=== PATIENT | male | born 1935 | race American Indian/Alaskan Native ===

== ENCOUNTER 2016-03-27 12:08 | Emergency (ER) | payer MEDICARE ==
[2016-03-27 13:50] LABS: Basophils % (Auto) 0.6 % (0.0-1.8); Eosinophils % (Auto) 2.3 % (0.0-4.3); Hematocrit 31.8 % (35.5-45.6); Mean Corpuscular HGB Conc 31 % (32-34); Mean Corpuscular Hemoglobin 28 pg (28-32); Mean Corpuscular Volume 88 fl (84-94); Platelet Count 225 K/mm3 (140-440); Red Cell Distribution Width 18.3 % (13.2-15.2); White Blood Count 5.7 K/mm3 (4.5-11.0)
[2016-03-27 14:01] LABS: INR 1.18 (0.87-1.13)
[2016-03-27 14:02] LABS: Partial Thromboplastin Time 37.7 Sec. (24.2-36.6)
[2016-03-27 14:05] LABS: Albumin 3.3 g/dL (3.9-5); BUN/Creatinine Ratio 3.54; Bilirubin,Total 0.4 mg/dL (0.1-1.2); Calcium 9.3 mg/dL (8.4-10.2); Chloride 94.5 mmol/L (98-107); Potassium 4.2 mmol/L (3.6-5.0); Total Protein 6.7 g/dL (6.3-8.2)
--- NOTE | 2016-03-27 17:07 | Emergency Department Report ---
ED GI Bleed HPI - General Chief complaint: GI Bleed Stated complaint: URINATION PAIN Time Seen by Provider: 03/27/16 16:33 Source: patient Mode of arrival: Ambulatory Limitations: No Limitations - History of Present Illness Initial comments: 80-year-old male the past with history end-stage kidney disease on dialysis, renal ca, CAD, hypertension, history of stomach ulcers status post surgical repair, left nephrectomy, and prostate cancer treated for prostate seeds and radiation presents to the hospital complaining of blood from penis and rectum intermittently for a couple of weeks. Patient has very little residual urine output and will go a day or 2 without urinating. Patient states Monday while in dialysis patient had the urge she urinated only gross blood came out. This has been occurring intermittently times several weeks. Patient also having intermittent bloody stools. He denies pain, nausea, vomiting, lightheadedness, or syncope. Patient is compliant with his Nexium. Patient states he had cystoscopy 2-3 years ago which was "okay". PMD: Peng reception interviewer: Dr. Lynch patient receives dialysis Monday, Monday, and Monday. - Related Data Home Medications Medication Instructions Recorded Confirmed Last Taken glipiZIDE [glipiZIDE XL] 2.5 mg PO DAILY 03/02/15 03/27/16 07/02/15 Ranitidine HCl [Acid Chemical Engineering Teacher] 150 mg PO BID 03/27/16 03/27/16 Unknown Sevelamer Carbonate [Renvela] 800 mg PO TIDWM 03/27/16 03/27/16 Unknown amLODIPine [Norvasc] 10 mg PO QDAY 03/27/16 03/27/16 Unknown Previous Rx's Medication Instructions Recorded Last Taken Type Carvedilol [Coreg] 6.25 mg PO BID #60 tablet 03/05/15 07/02/15 Rx Allergies Allergy/AdvReac Type Severity Reaction Status Date / Time No Known Allergies Allergy Verified 03/19/16 17:05 ED Review of Systems ROS: Stated complaint: URINATION PAIN Other details as noted in HPI Comment: All other systems reviewed and negative Other: Constitutional: No fevers chills Eyes: No eye pain visual changes ENT: No ear pain or throat pain Neck: Denies pain Respiratory: Denies cough wheezing shortness of breath Cardiovascular: Denies chest pain, palpitations, syncope GI: Denies abdominal pain, nausea, vomiting, diarrhea : Denies dysuria Musculoskeletal: Denies back pain Skin: Denies rash, lesions, erythema Neurologic: Denies headache, numbness, weakness Psychiatric: Denies suicidal ideation, hallucinations ED Past Medical Hx - Past Medical History Hx Hypertension: Yes Hx Heart Attack/AMI: No Hx Congestive Heart Failure: No Hx Diabetes: Yes Hx Deep Vein Thrombosis: No Hx Pulmonary Embolism: No Hx Liver Disease: No Hx Renal Disease: Yes Hx of Cancer: Yes (prostate tx with seeds and radiation) Hx Sickle Cell Disease: No Hx Kidney Stones: No Hx Asthma: No Hx COPD: No Hx Tuberculosis: No Hx HIV: No Additional medical history: Stomach Ulcers. HD with vascath right chest,new graph in right arm. Hx of renal carcinoma - Surgical History Hx Coronary Stent: No Hx Open Heart Surgery: No Hx Pacemaker: No Hx Internal Defibrillator: No Hx Cholecystectomy: No Hx Appendectomy: No Hx Breast Surgery: No Additional Surgical History: Left kidney removed. HD graft 04/2015. prostate surgery - Social History Smoking Status: Former Smoker Substance Use Type: None - Medications Home Medications: Home Medications Medication Instructions Recorded Confirmed Last Taken Type glipiZIDE [glipiZIDE XL] 2.5 mg PO DAILY 03/02/15 03/27/16 07/02/15 History Carvedilol [Coreg] 6.25 mg PO BID #60 tablet 03/05/15 03/27/16 07/02/15 Rx Ranitidine HCl [Acid Chemical Engineering Teacher] 150 mg PO BID 03/27/16 03/27/16 Unknown History Sevelamer Carbonate [Renvela] 800 mg PO TIDWM 03/27/16 03/27/16 Unknown History amLODIPine [Norvasc] 10 mg PO QDAY 03/27/16 03/27/16 Unknown History ED Physical Exam - General Limitations: No Limitations - Other Other exam information: General: No limitations, patient is alert in no acute distress Head exam: Atraumatic, normocephalic Eyes exam: Normal appearance, pupils equal reactive to light, extraocular movements intact ENT: Moist mucous membrane, normal oropharynx Neck exam: Normal inspection, full range of motion, no meningismus nontender Respiratory exam: Clear to auscultation bilateral, no wheezes, rales, crackles Cardiovascular: Normal rate and rhythm, normal heart sounds Abdomen: Soft, nondistended, upper abdomen vertical surgical scar left upper quadrant horizontal scar, nontender, with normal bowel sounds, no rebound, or guarding Rectal: No hemorrhoids. Guaiac positive brown bloody stool : Circumcised, no penile lesions, no penile discharge or blood at the meatus. No testicular or epididymal tenderness. No scrotal abnormality Extremity: Full range of motion normal inspection no deformity Back: Normal Inspection, full range of motion, no tenderness Neurologic: Alert, oriented x3, cranial nerves intact, no motor or sensory deficit Psychiatric: normal affect, normal mood Skin: Warm, dry, intact ED Course Vital Signs 03/27/16 13:13 Temperature 98.3 F Pulse Rate 78 Respiratory 18 Rate Blood Pressure 150/77 O2 Sat by Pulse 97 Oximetry - Consultations Consultation #1: 03/27/16 17:[address] william GI regional manager suggest outpatient follow-up and close monitoring of H&H by the dialysis center Consultation #2: 03/27/16 17:51 Case d/w Dr. Lynch who will continue to monitor as an outpatient. Informed Urology and GI f/u info will be provided ED Medical Decision Making - Lab Data Result diagrams: 03/27/16 13:30 03/27/16 13:30 Lab Results 03/27/16 03/27/16 03/27/16 Range/Units 13:30 13:30 13:30 WBC 5.7 (4.5-11.0) K/mm3 RBC 3.60 L (3.65-5.03) M/mm3 Hgb 10.0 L (11.8-15.2) gm/dl Hct 31.8 L (35.5-45.6) % MCV 88 (84-94) fl MCH 28 (28-32) pg MCHC 31 L (32-34) % RDW 18.3 H (13.2-15.2) % Plt Count 225 (140-440) K/mm3 Lymph % (Auto) 13.3 L (13.4-35.0) % [place] % (Auto) 8.8 H (0.0-7.3) % Eos % (Auto) 2.3 (0.0-4.3) % Baso % (Auto) 0.6 (0.0-1.8) % Lymph # 0.8 L (1.2-5.4) K/mm3 [place] # 0.5 (0.0-0.8) K/mm3 Eos # 0.1 (0.0-0.4) K/mm3 Baso # 0.0 (0.0-0.1) K/mm3 Seg Neutrophils % 75.0 H (40.0-70.0) % Seg Neutrophils # 4.3 (1.8-7.7) K/mm3 PT 14.9 (12.2-14.9) Sec. INR 1.18 H (0.87-1.13) APTT 37.7 H (24.2-36.6) Sec. Sodium 140 (137-145) mmol/L Potassium 4.2 (3.6-5.0) mmol/L Chloride 94.5 L (98-107) mmol/L Carbon Dioxide 30 (22-30) mmol/L Anion Gap 20 mmol/L BUN 33 H (9-20) mg/dL Creatinine 9.3 H (0.8-1.5) mg/dL Estimated GFR 7 ml/min BUN/Creatinine Ratio 3.54 % Glucose 133 H (75-100) mg/dL Calcium 9.3 (8.4-10.2) mg/dL Total Bilirubin 0.4 (0.1-1.2) mg/dL AST 13 (5-40) units/L ALT 8 (7-56) units/L Alkaline Phosphatase 41 (35-129) units/L Total Protein 6.7 (6.3-8.2) g/dL Albumin 3.3 L (3.9-5) g/dL Albumin/Globulin Ratio 1.0 % Lipase 107 H (13-60) units/L Blood Type Antibody Screen 03/27/16 Range/Units 13:30 WBC (4.5-11.0) K/mm3 RBC (3.65-5.03) M/mm3 Hgb (11.8-15.2) gm/dl Hct (35.5-45.6) % MCV (84-94) fl MCH (28-32) pg MCHC (32-34) % RDW (13.2-15.2) % Plt Count (140-440) K/mm3 Lymph % (Auto) (13.4-35.0) % [place] % (Auto) (0.0-7.3) % Eos % (Auto) (0.0-4.3) % Baso % (Auto) (0.0-1.8) % Lymph # (1.2-5.4) K/mm3 [place] # (0.0-0.8) K/mm3 Eos # (0.0-0.4) K/mm3 Baso # (0.0-0.1) K/mm3 Seg Neutrophils % (40.0-70.0) % Seg Neutrophils # (1.8-7.7) K/mm3 PT (12.2-14.9) Sec. INR (0.87-1.13) APTT (24.2-36.6) Sec. Sodium (137-145) mmol/L Potassium (3.6-5.0) mmol/L Chloride (98-107) mmol/L Carbon Dioxide (22-30) mmol/L Anion Gap mmol/L BUN (9-20) mg/dL Creatinine (0.8-1.5) mg/dL Estimated GFR ml/min BUN/Creatinine Ratio % Glucose (75-100) mg/dL Calcium (8.4-10.2) mg/dL Total Bilirubin (0.1-1.2) mg/dL AST (5-40) units/L ALT (7-56) units/L Alkaline Phosphatase (35-129) units/L Total Protein (6.3-8.2) g/dL Albumin (3.9-5) g/dL Albumin/Globulin Ratio % Lipase (13-60) units/L Blood Type B POSITIVE Antibody Screen Negative - Medical Decision Making Patient has signs of guaiac positive bloody brown stools in the ED however, stable H&H and relatively asymptomatic. Unable to collect urine given the patient's minimal urine output at this time. I discussed case with GI will agree patient is stable for outpatient follow-up. Dr. Lynch aware to continue to monitor H&H. Patient will need outpatient workup and evaluation given history of prostate cancer in his current symptoms. - Differential Diagnosis cystitis, cancer, AVM, hemorrhoids, diverticulosis Critical Care Time: No Critical care attestation.: If time is entered above; I have spent that time in minutes in the direct care of this critically ill patient, excluding procedure time. ED Disposition Clinical Impression: ESRD (end stage renal disease) on dialysis, Rectal bleeding, Hematuria Disposition: DISCHARGED TO HOME OR SELFCARE Is pt being admited?: No Does the pt Need Aspirin: No Condition: Stable Instructions: Chronic Kidney Disease (ED), Acute Hematuria (ED), Rectal Bleeding (ED) Additional Instructions: Continue to monitor urine output and stools for blood. Return if symptoms worsen. Your reception interviewer Dr. Lynch has been informed again status and will continue to follow your blood count as outpatient. It is important to follow- up with both the GI physician and the urologist for further workup and evaluation of your symptoms. Referrals: your, pmd [Other] - 3-5 Days HATTIE LYNCH MD [Staff Physician] - 3-5 Days (kidney doctor) ZAIRE ARELLANO MD [Staff Physician] - 2-3 Days (Urologist) JUAN RAMON WILLIAM MD [Staff Physician] - 2-3 Days (GI doctor) Forms: Accompanied Note Time of Disposition: 17:55
[2016-03-27 18:28] VITALS: BP 174/82
== END 2016-03-27 18:43 | disposition home or self-care (01) ==
LOC: ED 12:08
DX: I12.0 Hypertensive chronic kidney disease with stage 5 chronic kidney disease or end stage renal disease (principal); N18.6 End stage renal disease; K62.5 Hemorrhage of anus and rectum; R31.9 Hematuria, unspecified; Z99.2 Dependence on renal dialysis; E11.9 Type 2 diabetes mellitus without complications; Z85.46 Personal history of malignant neoplasm of prostate; Z87.891 Personal history of nicotine dependence
CPT/HCPCS: 36415; 80053; 82271; 83690; 85025; 85610; 85730; 86850; 86900; 86901; 99284

== ENCOUNTER 2016-05-03 06:00 | Inpatient (IN) | payer MEDICARE ==
--- NOTE | 2016-05-02 13:40 | Short Stay Summary ---
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 GUTIÉRREZ / CYSTO,BX UNDER ANESTHESIA - History Past Medical History: diabetes, ESRD (PROSTATE CANCER S/P SEEDS ), hypertension - Allergies and Medications Current Medications: Allergies No Known Allergies Allergy (Verified 03/19/16 17:05) Home Medications Medication Instructions Recorded Confirmed Last Taken Type glipiZIDE [glipiZIDE XL] 2.5 mg PO DAILY 03/02/15 04/21/16 07/02/15 History Carvedilol [Coreg] 6.25 mg PO BID #60 tablet 03/05/15 04/21/16 07/02/15 Rx Sevelamer Carbonate [Renvela] 800 mg PO TIDWM 03/27/16 04/21/16 Unknown History amLODIPine [Norvasc] 10 mg PO QDAY 03/27/16 04/21/16 Unknown History Active Medications Cefazolin Sodium (Ancef/Ns 1 Gm/50 Ml) 1 gm in 50 mls @ 100 mls/hr IV PREOP NR PRN Reason: Protocol - Physical exam General appearance: no acute distress, well-nourished Integumentary: no rash, no growths HEENT: Atraumatic, PERRLA, EOMI Lungs: Clear to auscultation, Normal air movement Heart: Regular rate, No murmurs Gastrointestinal: normal Male Genitourinary: normal Rectal Exam: deferred Extremities: no ischemia, No edema Neurological: Normal gait, Normal tone Short Stay Discharge Plan Follow up with: GUS SANCHEZ MD [Primary Care Provider] - 7 Days
[~2016-05-03 06:00] MED LIST: ANCEF/NS 1 GM/50 ML 1 GM/50 ML BAG IV NR
[2016-05-03] MEDS ORDERED: NACL BACTERIOSTATIC INFILTRATI ONE (06:24)
[2016-05-03 06:56] LABS: Hematocrit 37.9 % (35.5-45.6)
[2016-05-03] MEDS ORDERED: NACL 0.9% 1000 ML 1,000 ML IV SCH ×2 (07:00→11:00)
--- NOTE | 2016-05-03 07:02 | Anesthesia Day of Surgery ---
Anesthesia Day of Surgery - Day of Surgery Patient Examined: Yes Patient H&P Reviewed: Yes Patient is NPO: Yes Beta Blockers: Yes Cardiac Clearance: No Pulmonary Clearance: No
--- NOTE | 2016-05-03 07:03 | Anesthesia Consultation ---
Anesthesia Consult and Med Hx Date of service: 05/03/16 - Airway Anesthetic Teeth Evaluation: Good, Caps ROM Head & Neck: Adequate Mental/Hyoid Distance: Adequate Mallampati Class: Class II Intubation Access Assessment: Probably Good - Pulmonary Exam CTA: Yes (blbs clear) - Cardiac Exam Cardiac Exam: RRR - Pre-Operative Health Status ASA Pre-Surgery Classification: ASA4 Proposed Anesthetic Plan: General - Pulmonary Hx Smoking: Yes (STOPPED X 40 YRS- 1 1 1/2PPD X 20 YRS) Hx Asthma: No COPD: No (?) Hx Pneumonia: No Hx Sleep Apnea: No (NELIDA PRE SCREEN HIGH RISK) - Cardiovascular System Hx Hypertension: Yes (X 4 YRS) Hx Coronary Artery Disease: Yes - Central Nervous System Hx Psychiatric Problems: No - Gastrointestinal Hx Ulcer: Yes - Endocrine Hx Renal Disease: Yes (LEFT NEPHRECTOMY DUE TO CA/ESRD on HD MWF) Hx End Stage Renal Disease: Yes Hx Cirrhosis: No Hx Liver Disease: No Hx Insulin Dependent Diabetes: Yes Hx Hypothyroidism: No Hx Hyperthyroidism: No - Hematic Hx Anemia: No Hx Sickle Cell Disease: No - Other Systems Hx Cancer: Yes
[2016-05-03] MEDS ORDERED: DILAUDID ONE (07:04)
[2016-05-03] MEDS ORDERED: DIPRIVAN 10 MG/ML IV ONE (07:04)
[2016-05-03 07:05] LABS: BUN/Creatinine Ratio 4.58; Calcium 9.2 mg/dL (8.4-10.2); Potassium 4.4 mmol/L (3.6-5.0)
[2016-05-03] MEDS ORDERED: XYLOCAINE MPF 2% ONE (07:08)
[2016-05-03] MEDS ORDERED: ZOFRAN ONE (07:57)
[2016-05-03] MEDS ORDERED: WATER FOR IRRIG STERILE IR ONE (08:04)
--- NOTE | 2016-05-03 08:35 | Short Stay Summary ---
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 GUTIÉRREZ / CYSTO,BX UNDER ANESTHESIA - History Past Medical History: diabetes, ESRD (PROSTATE CANCER S/P SEEDS ), hypertension Past Surgical History: Other (prostate seeds) - Allergies and Medications Current Medications: Allergies No Known Allergies Allergy (Verified 03/19/16 17:05) Home Medications Medication Instructions Recorded Confirmed Last Taken Type glipiZIDE [glipiZIDE XL] 2.5 mg PO DAILY 03/02/15 05/03/16 05/02/16 History Carvedilol [Coreg] 6.25 mg PO BID #60 tablet 03/05/15 05/03/16 05/02/16 Rx Sevelamer Carbonate [Renvela] 800 mg PO TIDWM 03/27/16 05/03/16 05/02/16 History amLODIPine [Norvasc] 10 mg PO QDAY 03/27/16 05/03/16 05/02/16 History Active Medications Fentanyl (Sublimaze) 50 mcg IV Q5MIN PRN PRN Reason: Pain , Severe (7-10) Stop: 05/03/16 16:00 Cefazolin Sodium (Ancef/Ns 1 Gm/50 Ml) 1 gm in 50 mls @ 100 mls/hr IV PREOP NR PRN Reason: Protocol Stop: 05/03/16 23:59 Sodium Chloride (Nacl 0.9% 1000 Ml) 1,000 mls @ 100 mls/hr IV DIRECT JENNIFER Stop: 05/03/16 23:59 Last Admin: 05/03/16 06:40 Dose: 100 mls/hr - Physical exam General appearance: no acute distress, well-nourished Integumentary: no rash, no growths HEENT: Atraumatic, PERRLA Lungs: Clear to auscultation, Normal air movement Heart: Regular rate, No murmurs Male Genitourinary: normal Rectal Exam: normal rectal tone Extremities: no ischemia, No edema Neurological: Normal gait - Brief post op/procedure progress note Date of procedure: 05/03/16 Pre-op diagnosis: gross hematuria Post-op diagnosis: same Procedure: cysto, cystogram, bladder bx Anesthesia: GETA Surgeon: ZAIRE ARELLANO Estimated blood loss: minimal Pathology: list (bladder bx) Condition: stable - Hospital course Hospital course: norco & cipro on chart needs CTAP - Disposition Condition at discharge: Stable Disposition: DISCHARGED TO HOME OR SELFCARE Short Stay Discharge Plan Follow up with: GUS SANCHEZ MD [Primary Care Provider] - 7 Days
[2016-05-03] MEDS: SUBLIMAZE IV PRN ×4 (09:07→14:19)
[2016-05-03] MEDS ORDERED: APRESOLINE IV NR (09:25)
--- NOTE | 2016-05-03 09:26 | Post Anesthesia Evaluation ---
- Post Anesthesia Evaluation Patient Participated: Yes Airway Patent: Yes Stable Respiratory Function: Yes Nausea/Vomiting: No Temp > 96.8F: Yes Pain Manageable: Yes Adequeate Hydration: Yes Anesthesia Complications: No Block Receding Appropriately: Not Applicable
--- NOTE | 2016-05-03 09:56 | Fluoroscopy Report ---
CYSTOGRAM STATIC, ONE VIEW History: Hematuria, prostate cancer. Findings: Fluoroscopy was provided by radiology during cystogram by urology. 7 fluoroscopic images were captured. 70 cc of Omnipaque-300 was used. Operative notes mention the bladder was washed for cytology and bladder biopsy of a bladder mass. Please correlate with the procedural report.
--- NOTE | 2016-05-03 10:36 | Cat Scan Report ---
CT OF THE ABDOMEN AND PELVIS WITHOUT CONTRAST HISTORY: Gross hematuria. TECHNIQUE: Helical CT without contrast. Sagittal and coronal reformatted images. FINDINGS: Recent cystogram and bladder biopsy was performed. The bladder is collapsed and confirms a Gunter catheter. There is contrast agent outside of the bladder within the pelvis. A perforated bladder is suspected until proved otherwise. There is also moderate to large ascites throughout the abdomen. There is trace free air under the right hemidiaphragm which is probably related to recent cystogram. Left nephrectomy changes are suspected. There is severe hydronephrosis in the right renal collecting system. The right ureter is dilated down to the right UVJ and presumably occluded by blood or tumor. There is no obvious stone in this area. The liver, biliary system, pancreas, spleen and adrenal glands are unremarkable. The bowel loops are normal caliber and wall thickness given no oral contrast was administered. Normal appendix. Mild sigmoid diverticulosis is noted. No suspicious bony lesion or fracture. Moderate thoracolumbar spondylosis is noted. Heart size is normal. There is a suspicious spiculated mass in the medial right middle lobe measuring 2.4 x 1.6 cm. This is highly suspicious for a metastatic lesion. This lesion is not accessible for CT-guided biopsy due to its location close to the heart. Small bilateral pleural effusions are noted. IMPRESSION: Probable perforated bladder with contrast extravasation. There is also large ascites appears to be new since previous exams. This may represent urine. Severe right hydronephrosis. There is high-grade stenosis or occlusion near the right UVJ which may be secondary to tumor. No obstructing stone is seen. Right middle lobe mass concerning for metastasis. Small bilateral pleural effusions.
[2016-05-03] MEDS ORDERED: D50W (25GM) IV PRN (10:51)
[2016-05-03] MEDS ORDERED: ZOFRAN IV PRN ×2 (10:51)
[2016-05-03] MEDS ORDERED: MILK OF MAGNESIA PO PRN (10:51)
[2016-05-03] MEDS ORDERED: TYLENOL PO PRN (10:51)
[2016-05-03] MEDS ORDERED: NARCAN 0.4 MG/1 ML IV PRN (10:51)
[2016-05-03] MEDS: MORPHINE IV PRN ×2 (11:35→16:58)
[2016-05-03] MEDS ORDERED: DULCOLAX PR PRN (12:00)
--- NOTE | 2016-05-03 12:20 | Event Note ---
Date: 05/03/16 CTAP today bladder perforation, ?small, unable to localize prostate cancer with seeds & EBRT 14 yrs ago---[place] A/P bladder perforation - pt stable at this time NPO keep russo dialysis tomorrow in hospital conservative vs surgical intervention Dr. Syed Quinn
--- NOTE | 2016-05-03 12:44 | Operative Report ---
PREOPERATIVE DIAGNOSIS: Gross hematuria. POSTOPERATIVE DIAGNOSIS: Gross hematuria. SECONDARY DIAGNOSES: Chronic renal failure, on hemodialysis; prostate cancer, status post brachytherapy approximately 14 years ago in [place] and external beam radiation. PROCEDURE: Cystoscopy, cystogram, bladder biopsy. SURGEON: Bhavki Gupta MD ANESTHESIA: General. ESTIMATED BLOOD LOSS: Minimal. FLUIDS: Crystalloid. COMPLICATIONS: No complications. INDICATIONS: This patient is an 80-year-old gentleman, known to my service, was actually referred by Dr. Jamil Khoury last year for evaluation of hematuria. He underwent CT of abdomen and pelvis in June of last year, revealed chronic right hydronephrosis. He has had a left nephrectomy. Cystoscopy June of last year revealed some erythema of the bladder. The patient was due to follow up for reevaluation in 4 months, which he now showed for that appointment. He presents now due to recurrent bleeding. His web portal developer is Dr. Lynch. DESCRIPTION OF PROCEDURE: The patient was taken to the operative suite and placed in a supine position. After adequate general anesthesia, placed in a dorsal lithotomy position, prepped and draped in a sterile fashion. Pancystourethroscopy was performed with a 22-[place] Storz cystoscope. No urethral abnormalities. His prostate was minimally obstructing and had a high riding bladder neck. Bladder, there are a lot of edema, could not initially appear contracted. Cystogram appeared to be a dilated bladder with dilute contrast. Rectal exam was benign and was unsure of what was going on and therefore, a biopsy was taken of the erythematous area at the bladder neck. This area was fulgurated. Urine cytology was sent. Gunter catheter was then placed with the wire. The patient was extubated and taken to recovery room. We will get a CT scan for further evaluation. JOB# [id number] [facility]/STEFANY
[2016-05-03] MEDS: RENVELA PO SCH ×2 (14:04→16:57)
[2016-05-03] MEDS: NORCO 5/325 PO PRN ×2 (14:20→22:00)
--- NOTE | 2016-05-03 17:56 | Admit Criteria Form ---
Admission Criteria Documentation: UROLOGIC DISEASE [facility] Clinical Indications for Admission to Inpatient Care (Place ' X' for any and all applicable criteria): Hospital admission is needed for appropriate care of the patient because of ANY ONE of the following: [ ]I. New-onset Reduced urine output, or hydronephrosis remaining after emergency or observation level care indicated by ANY ONE the following (1)(2) [ ]a) Urine output less than 0.5 mL/kg/hour for 6 hours in adult [ ]b) Anuria (urine output less than 0.1 mL/kg/hour) for 4 hours in any age group [ ]c) Reduced output in child as indicated by ANY ONE of the following (3) [ ]i) Urine output less than 2 mL/kg/hour for 6 hours in younger than 2 [ ]ii) Urine output less than 1 mL/kg/hour for 6 hours in child younger than 12 years [ ]iii) Urine output less than 0.75 mL/kg/hour for 6 hours in adolescent younger than 18 years [ ]II. Acute urinary retention requiring inpatient management as indicated by ANY ONE of the following(1)(13): [ ]a) Hemodynamic instability remaining after emergency or observation level care (as appropriate) [ ]b) Retention cannot be alleviated via emergency or observation level care (eg, urinary catheter placement) [ ]c) Acute neurologic etiology (eg, cauda equina) [ ]d) Dehydration or other complications not manageable with emergency or observation level care [ ]e) Acute kidney injury (that does not qualify as Acute renal failure ) requiring inpatient care indicated by ALL of the following(5)(6)(7)(8) (9): [ ]i) Acute kidney injury indicated by ANY ONE of the following: [ ]1) 2-fold or more rise in serum creatinine from baseline [ ]2) Reduction of more than 50% in estimated glomerular filtration rate from baseline [ ]3) Urine output less than 0.5 mL/kg/hr for 12 hours despite adequate volume status [ ]ii) Worsening clinical status (eg, rising creatinine) despite outpatient and observation care treatment (eg, hydration) [ ]III. Gross hematuria requiring inpatient management as indicated by ANY ONE of the following(1)(2): [ ]a) Evidence of renal obstruction [ ]b) Reduced urine output (eg urine output <0.5mL/kg per hr over 6 hrs) [ ]c) Clot retention after urinary catheterization and irrigation [ ]d) Anemia [ ]e) Systemic cause needing inpatient treatment (eg, Goodpasture syndrome) [ ]IV. Urologic infection requiring inpatient care as indicated by ANY ONE of the following(10)(11)(12): [ ]a) Dehydration that is severe or persistent [ ]b) Hemodynamic instability [ ]c) Failure of, or inability to tolerate, outpatient treatment regimen [ ]d) Increased creatinine without known prior cause [ ]e) Known renal or urologic abnormalities (eg, indwelling catheter , structural abnormalities) [ ]f) Recent urologic manipulation [ ]g) Urinary obstruction [ ]h) Immunocompromised state [ ]V. Renal disease needing inpatient care (eg, nephritis, nephrosis) as indicated by ANY ONE of the following(2)(3)(4): [ ]a) Systemic cause (eg, Goodpasture syndrome) needing inpatient care (5) [ ]b) Rapidly progressive disease needing inpatient care (eg, plasmapheresis, immunosuppression)(6) [ ]c) Hemoptysis [ ]d) Hemolysis or thrombosis [ ]e) Anasarca needing inpatient care [ ]f) Hemolytic uremic syndrome(7)(8) [ ]g) Acute renal failure [ ]h) Significant uremic complications as indicated by ANY ONE of the following(1)(2)(3): [ ]i) Outpatient therapy is ineffective or not feasible for ANY ONE of the following: [ ]1) Severe heart failure [ ]2) Severe hypertension [ ]3) Pleural effusion [ ]4) Pericarditis or pericardial effusion [ ]ii) Cardiac arrhythmias of immediate concern [ ]iii) Recurrent seizures [ ]iv) Bleeding abnormalities (eg, platelet dysfunction) with active (eg, gastrointestinal) bleeding [ ]v) Dialysis indicated before long-term access or ambulatory arrangements can be made [ ]vi) Significant metabolic or electrolyte abnormalities (eg , severe acidosis or hyperkalemia) [ ]vii) Intractable nausea or vomiting [ ]viii) Encephalopathy [ ]. New-onset oliguria, anuria, or hydronephrosis not responsive to emergency and observation care treatment (as appropriate)(1) [ ]VII. Trauma to renal, genital, or urologic system requiring inpatient medical care(14)(15)(16)(17) [ ]VIII.Scrotal, testicular, or epididymal disorder requiring inpatient care indicated by ANY ONE of the following(1)(14)(15)(16): [ ]a) Scrotal edema or infection not manageable with emergency or observation level care [ ]b) Orchitis not manageable with emergency or observation level care [ ]c) Epididymitis not manageable with emergency or observation level of care [ ]d) Other scrotal, testicular, or epididymal disorder (eg, infection, inflammation) not manageable with emergency or observation level care [X ]IX. Urologic Disease and ALL of the following: [X ]a) Symptom or finding for which emergency and observation care have failed or are not considered appropriate (Use General Criteria: Observation Care as appropriate) [X ]b) Presence of ANY ONE of the following: [X ]i) A General Admission Criteria [ ]ii) A Pediatric General Admission Criteria The original [facility] content created by [facility] has been revised. The portions of the content which have been revised are identified through the use of italic text or in bold, and [facility] has neither reviewed nor approved the modified material. All other unmodified content is copyright [facility]. Please see references footnoted in the original [facility] edition 2016 Admission Criteria Met: Yes
--- NOTE | 2016-05-03 21:06 | Consultation ---
History of Present Illness - Reason for Consult Consult date: 05/03/16 end stage renal disease Requesting physician: ZAIRE ARELLANO - History of Present Illness 80-year-old male who is known to me followed by Dr. Lynch with end-stage renal disease on hemodialysis on a Monday, Monday and Monday schedule. Patient had his usual dialysis yesterday for 3-1/2 hours with no complications. Patient also has a history of left nephrectomy and chronic right hydronephrosis. He has a history of prostate cancer status post seed implants 14 years ago. Patient presented on account of gross hematuria and had cystogram and bladder biopsy. CT of the abdomen and pelvis is suggesting possible small perforation given contrast extravasation with large ascites. Patient is been admitted for further management. I'm consulted to assist in providing dialysis and managing his fluid and electrolyte abnormalities. Patient's only complaint is pain in lower abdomen and back and discomfort with the Russo catheter. 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 denies: prescription drug abuse, IV drug use Family history: CAD (brother of heart disease), cancer (mother had breast cancer), other (does not know the cause of of his father. Sister of complications of emphysema) Medications and Allergies Allergies Allergy/AdvReac Type Severity Reaction Status Date / Time No Known Allergies Allergy Verified 03/19/16 17:05 Home Medications Medication Instructions Recorded Confirmed Last Taken Type glipiZIDE [glipiZIDE XL] 2.5 mg PO DAILY 03/02/15 05/03/16 05/02/16 History Carvedilol [Coreg] 6.25 mg PO BID #60 tablet 03/05/15 05/03/16 05/02/16 Rx Sevelamer Carbonate [Renvela] 800 mg PO TIDWM 03/27/16 05/03/16 05/02/16 History amLODIPine [Norvasc] 10 mg PO QDAY 03/27/16 05/03/16 05/02/16 History Active Meds: Active Medications Acetaminophen (Tylenol) 650 mg PO Q4H PRN PRN Reason: Pain MILD(1-3)/Fever >100.5/GAITAN Acetaminophen/Hydrocodone Bitart ([place] 5/325) 2 each PO Q4H PRN PRN Reason: Pain, Moderate (4-6) Last Admin: 05/03/16 14:20 Dose: 2 each Amlodipine Besylate (Norvasc) 10 mg PO QDAY JENNIFER Bisacodyl (Dulcolax) 10 mg IA QDAY PRN PRN Reason: Constipation unrelieved by MOM Carvedilol (Coreg) 6.25 mg PO BID [facility] Dextrose (D50w (25gm)) 50 ml IV PRN PRN PRN Reason: Hypoglycemia Glipizide (Glucotrol Xl) 2.5 mg PO QDDIAB [facility] Cefazolin Sodium (Ancef/Ns 1 Gm/50 Ml) 1 gm in 50 mls @ 100 mls/hr IV PREOP NR PRN Reason: Protocol Stop: 05/03/16 23:59 Cefazolin Sodium (Ancef/Ns 1 Gm/50 Ml) 1 gm in 50 mls @ 100 mls/hr IV QDAY JENNIFER PRN Reason: Protocol Stop: 05/05/16 10:29 Sodium Chloride (Nacl 0.9% 1000 Ml) 1,000 mls @ 42 mls/hr IV DIRECT JENNIFER Magnesium Hydroxide (Milk Of Magnesia) 30 ml PO Q4H PRN PRN Reason: Constipation Morphine Sulfate (Morphine) 2 mg IV Q4H PRN PRN Reason: Pain, Moderate (4-6) Last Admin: 05/03/16 16:58 Dose: 2 mg Naloxone HCl (Narcan 0.4 Mg/1 Ml) 0.1 mg IV Q2MIN PRN PRN Reason: Res Rate </= 8 or 02 SAT < 92% Ondansetron HCl (Zofran) 4 mg IV Q8H PRN PRN Reason: N/V unrelieved by Reglan Sevelamer Carbonate (Renvela) 800 mg PO TIDWM [facility] Last Admin: 05/03/16 16:57 Dose: 800 mg Review of Systems All systems: negative (Constitutional: no fever or chills. No anorexia or weight loss. HEENT: No sore throat or sinus drainage no hearing or vision impairment . Cardiovascular: No chest pain, shortness of breath, palpitations, lower extremity swelling or dizziness. Respiratory: No cough, sputum, shortness of breath, hemoptysis or wheezing. Gastrointestinal: No nausea, vomiting, diarrhea, abdominal pain, hematemesis or melena. Genitourinary: Admits to occasional urge urinary incontinence . Admits to hematuria. No frequency urgency dysuria or hematuria. hematologic: No abnormal bleeding or bruising other than hematuria he may have had some rectal bleeding. Integumentary: Admits to pruritus but no rash. Neurological: Occasional slight headache. No focal weakness or numbness, no syncope or seizures. Musculoskeletal: No joint pains no stiffness. Psychiatry: no anxiety or depression) Exam - Vital Signs Vital signs: Vital Signs Temp Pulse Resp BP Pulse Ox 98.8 F 70 20 148/68 98 05/03/16 06:40 05/03/16 06:40 05/03/16 06:40 05/03/16 06:40 05/03/16 06:40 - Physical Exam Narrative exam: Elderly -[place]est[place] male lying in bed in no acute distress HEENT normocephalic atraumatic, pupils equal reactive to light, pink, clear oropharynx Neck supple, no thyromegaly no jugular venous distention CVS S1-S2 regular rate rhythm without murmur, rub or gallop Chest clear to auscultation Abdomen soft nondistended nontender no organomegaly no bruit bowel sounds present Extremities no edema no cyanosis or clubbing Genitourinary deferred russo catheter draining bloody urine Neuro awake, alert oriented x3 no gross deficit Results - Lab Results 05/03/16 06:30 05/03/16 06:30 Most recent lab results Calcium 9.2 mg/dL (8.4-10.2) 05/03/16 06:30 Assessment and Plan - Patient Problems (1) Hematuria, gross Current Visit: Yes Status: Acute Plan to address problem: Status post cystoscopy. 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 Evaluate the need for further dialysis treatments on a daily basis. (5) Anemia in chronic kidney disease (CKD) Current Visit: Yes Status: Acute Plan to address problem: Give erythropoietin on dialysis if hemoglobin decreases to less than 12 g/dL (6) History of prostate cancer Current Visit: Yes Status: Acute
[2016-05-03] MEDS ORDERED: NACL 0.9% 100 ML IV PRN (21:59)
[2016-05-03] MEDS: COREG PO SCH (23:15)
[2016-05-04] MEDS ORDERED: APRESOLINE IV PRN (03:23)
[2016-05-04 06:20] LABS: Basophils % (Auto) 0.4 % (0.0-1.8); Eosinophils % (Auto) 0.4 % (0.0-4.3); Hematocrit 38.6 % (35.5-45.6); Hemoglobin 12.3 gm/dl (11.8-15.2); Mean Corpuscular HGB Conc 32 % (32-34); Mean Corpuscular Hemoglobin 29 pg (28-32); Mean Corpuscular Volume 92 fl (84-94); Platelet Count 162 K/mm3 (140-440); White Blood Count 10.3 K/mm3 (4.5-11.0)
[2016-05-04 06:21] LABS: Red Cell Distribution Width 20.2 % (13.2-15.2)
[2016-05-04 06:33] LABS: Calcium 8.6 mg/dL (8.4-10.2); Chloride 93.1 mmol/L (98-107); Potassium 5.1 mmol/L (3.6-5.0)
--- NOTE | 2016-05-04 09:38 | Consultation ---
History of Present Illness - Reason for Consult Consult date: 05/04/16 Medical management Requesting physician: ZAIRE ARELLANO - History of Present Illness 80-year-old male followed by Dr. Lynch with end-stage renal disease on hemodialysis on a Monday, Monday and Monday schedule. Patient had his usual dialysis yesterday for 3-1/2 hours with no complications. Patient also has a history of left nephrectomy and chronic right hydronephrosis. He has a history of prostate cancer status post seed implants 14 years ago. Patient presented on account of gross hematuria and had cystogram and bladder biopsy. CT of the abdomen and pelvis is suggesting possible small perforation given contrast extravasation with large ascites. Patient is been admitted for further management. 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 denies: prescription drug abuse, IV drug use Family history: CAD (brother of heart disease), cancer (mother had breast cancer), other (does not know the cause of of his father. Sister of complications of emphysema) Medications and Allergies Allergies Allergy/AdvReac Type Severity Reaction Status Date / Time No Known Allergies Allergy Verified 03/19/16 17:05 Home Medications Medication Instructions Recorded Confirmed Last Taken Type glipiZIDE [glipiZIDE XL] 2.5 mg PO DAILY 03/02/15 05/03/16 05/02/16 History Carvedilol [Coreg] 6.25 mg PO BID #60 tablet 03/05/15 05/03/16 05/02/16 Rx Sevelamer Carbonate [Renvela] 800 mg PO TIDWM 03/27/16 05/03/16 05/02/16 History amLODIPine [Norvasc] 10 mg PO QDAY 03/27/16 05/03/16 05/02/16 History Active Meds: Active Medications Acetaminophen (Tylenol) 650 mg PO Q4H PRN PRN Reason: Pain MILD(1-3)/Fever >100.5/GAITAN Acetaminophen/Hydrocodone Bitart ([place] 5/325) 2 each PO Q4H PRN PRN Reason: Pain, Moderate (4-6) Last Admin: 05/03/16 22:00 Dose: 2 each Amlodipine Besylate (Norvasc) 10 mg PO QDAY [facility] Bisacodyl (Dulcolax) 10 mg MD QDAY PRN PRN Reason: Constipation unrelieved by MOM Carvedilol (Coreg) 6.25 mg PO BID [facility] Last Admin: 05/03/16 23:15 Dose: 6.25 mg Dextrose (D50w (25gm)) 50 ml IV PRN PRN PRN Reason: Hypoglycemia Glipizide (Glucotrol Xl) 2.5 mg PO QDDIAB [facility] Hydralazine HCl (Apresoline) 5 mg IV Q6H PRN PRN Reason: Hypertension Last Admin: 05/04/16 04:15 Dose: 5 mg Cefazolin Sodium (Ancef/Ns 1 Gm/50 Ml) 1 gm in 50 mls @ 100 mls/hr IV QDAY JENNIFER PRN Reason: Protocol Stop: 05/05/16 10:29 Sodium Chloride (Nacl 0.9% 1000 Ml) 1,000 mls @ 42 mls/hr IV DIRECT JENNIFER Sodium Chloride (Nacl 0.9%) 100 mls @ 999 mls/hr IV RAEANN PRN PRN Reason: Hypotension Magnesium Hydroxide (Milk Of Magnesia) 30 ml PO Q4H PRN PRN Reason: Constipation Morphine Sulfate (Morphine) 2 mg IV Q4H PRN PRN Reason: Pain, Moderate (4-6) Last Admin: 05/03/16 16:58 Dose: 2 mg Naloxone HCl (Narcan 0.4 Mg/1 Ml) 0.1 mg IV Q2MIN PRN PRN Reason: Res Rate </= 8 or 02 SAT < 92% Ondansetron HCl (Zofran) 4 mg IV Q8H PRN PRN Reason: N/V unrelieved by Reglan Sevelamer Carbonate (Renvela) 800 mg PO TIDWM [facility] Last Admin: 05/03/16 16:57 Dose: 800 mg Review of Systems All systems: negative Constitutional: no weight loss, no weight gain Ears, nose, mouth and throat: no hoarseness, no sore throat Integumentary: no rash, no pruritis, no redness Neurological: no seizures, no syncope Psychiatric: anxiety, depression Endocrine: no cold intolerance, no heat intolerance, no polyphagia, no excessive thirst, no polydipsia, no polyuria Hematologic/Lymphatic: no easy bruising, no easy bleeding Allergic/Immunologic: no urticaria, no allergic rhinitis, no wheezing Exam - Constitutional Vitals: Temp Pulse Resp BP Pulse Ox 97.5 F L 91 H 18 182/75 96 05/04/16 08:00 05/04/16 08:00 05/04/16 08:00 05/04/16 08:00 05/04/16 08:00 General appearance: Present: no acute distress, well-nourished - EENT Eyes: Present: PERRL ENT: hearing intact, clear oral mucosa - Neck Neck: Present: supple, normal ROM - Respiratory Respiratory effort: normal Respiratory: bilateral: CTA - Cardiovascular Rhythm: regular Heart Sounds: Present: S1 & S2. Absent: rub, click - Extremities Extremities: pulses symmetrical, No edema Peripheral Pulses: within normal limits - Abdominal General gastrointestinal: Present: soft, distended (Ascites), normal bowel sounds Male genitourinary: Present: normal - Rectal Rectal Exam: deferred - Integumentary Integumentary: Present: clear, warm, dry - Musculoskeletal Musculoskeletal: gait normal, strength equal bilaterally - Psychiatric Psychiatric: appropriate mood/affect, intact judgment & insight - Neurologic Neurologic: CNII-XII intact, moves all extremities - Allied Health Allied health notes reviewed: nursing Results - Labs CBC & Chem 7: 05/04/16 05:40 05/04/16 05:40 Labs: Abnormal lab results 05/04/16 05/04/16 Range/Units 05:40 05:40 RDW 20.2 H (13.2-15.2) % Lymph % (Auto) 6.1 L (13.4-35.0) % Lymph # 0.6 L (1.2-5.4) K/mm3 Seg Neutrophils % 86.6 H (40.0-70.0) % Seg Neutrophils # 8.9 H (1.8-7.7) K/mm3 Sodium 135 L D (137-145) mmol/L Potassium 5.1 H (3.6-5.0) mmol/L Chloride 93.1 L (98-107) mmol/L BUN 45 H (9-20) mg/dL Creatinine 9.0 H (0.8-1.5) mg/dL Glucose 112 H (75-100) mg/dL Short CBC 05/04/16 Range/Units 05:40 WBC 10.3 (4.5-11.0) K/mm3 Hgb 12.3 (11.8-15.2) gm/dl Hct 38.6 (35.5-45.6) % Plt Count 162 (140-440) K/mm3 BMP 05/04/16 05:40 Sodium 135 L D Potassium 5.1 H Chloride 93.1 L Carbon Dioxide 24 BUN 45 H Creatinine 9.0 H Glucose 112 H Calcium 8.6 Assessment and Plan - Patient Problems (1) T2DM (type 2 diabetes mellitus) Current Visit: Yes Status: Acute Qualifiers: Diabetes mellitus complication status: with kidney complications Diabetes mellitus complication detail: D Diabetic retinopathy severity: D Proliferative retinopathy type: P Diabetes mellitus macular edema: D 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
[2016-05-04] MEDS ORDERED: NORMODYNE IV PRN (10:00)
[2016-05-04] MEDS: GLUCOTROL XL PO SCH (10:14)
[2016-05-04] MEDS: RENVELA PO SCH ×3 (10:15→17:34)
[2016-05-04] MEDS: COREG PO SCH ×2 (10:16→21:45)
[2016-05-04] MEDS: NORVASC PO SCH (10:17)
[2016-05-04] MEDS: APRESOLINE IV PRN ×2 (12:38→21:47)
--- NOTE | 2016-05-04 13:19 | Nuclear Medicine Report ---
BONE SCAN: History: Prostate cancer, back pain. Comparison: Noncontrast CT abdomen and pelvis performed 05/03/16. The the CT images demonstrate mild lumbar spondylosis which is most pronounced at L1-2. No blastic bony lesions are detected. After injection of isotope, gamma camera imaging of the bony system was done. There is a normal uptake of isotope throughout the bony structures without areas of pathologic uptake. There is moderate uptake in the right knee consistent with osteoarthritis. No abnormal uptake in the spine is demonstrated. Normal uptake in the urinary system is seen. IMPRESSION: Negative bone scan. Osteoarthritic uptake in the right knee.
[2016-05-04] MEDS: MORPHINE IV PRN ×2 (13:40→18:14)
--- NOTE | 2016-05-04 15:15 | Progress Note ---
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 Alex - low grade bladder tumor A/P Gross Hematura (pt non compliant) bladder cancer prostate cancer - s/p radiation 14 yrs ago needs pulmonary consult - Dr. Solis appreciate nephrology input static cystogram tomorrow back pain with hydronephrosis - consult IR for possible nephrostomy Objective - Constitutional Vitals: Vital Signs - 12hr 05/04/16 05/04/16 05/04/16 04:15 04:25 08:00 Temperature 98.4 F 97.5 F L Pulse Rate 96 H Pulse Rate [ 92 H 91 H Left] Respiratory 20 18 Rate Blood Pressure 190/92 Blood Pressure 176/70 182/75 [Left Arm] O2 Sat by Pulse 98 96 Oximetry 05/04/16 05/04/16 05/04/16 10:16 11:30 11:42 Temperature 98.1 F Pulse Rate 91 H 98 H 98 H Pulse Rate [ Left] Respiratory 18 Rate Blood Pressure 182/75 186/100 198/98 Blood Pressure [Left Arm] O2 Sat by Pulse Oximetry 05/04/16 05/04/16 05/04/16 11:45 12:00 12:15 Temperature Pulse Rate 100 H 96 H 102 H Pulse Rate [ Left] Respiratory Rate Blood Pressure 202/104 184/100 162/82 Blood Pressure [Left Arm] O2 Sat by Pulse Oximetry 05/04/16 05/04/16 05/04/16 12:30 12:38 12:45 Temperature Pulse Rate 102 H 102 H 102 H Pulse Rate [ Left] Respiratory Rate Blood Pressure 208/100 208/100 162/82 Blood Pressure [Left Arm] O2 Sat by Pulse Oximetry 05/04/16 05/04/16 05/04/16 13:00 13:15 13:30 Temperature Pulse Rate 104 H 102 H 102 H Pulse Rate [ Left] Respiratory Rate Blood Pressure 156/76 150/76 142/74 Blood Pressure [Left Arm] O2 Sat by Pulse Oximetry 05/04/16 05/04/16 05/04/16 13:45 14:00 14:15 Temperature Pulse Rate 100 H 100 H 100 H Pulse Rate [ Left] Respiratory Rate Blood Pressure 140/72 130/70 138/68 Blood Pressure [Left Arm] O2 Sat by Pulse Oximetry 05/04/16 14:28 Temperature Pulse Rate 100 H Pulse Rate [ Left] Respiratory Rate Blood Pressure 138/68 Blood Pressure [Left Arm] O2 Sat by Pulse Oximetry - Labs CBC & Chem 7: 05/04/16 05:40 05/04/16 05:40 Labs: Abnormal lab results 05/04/16 05/04/16 Range/Units 05:40 05:40 RDW 20.2 H (13.2-15.2) % Lymph % (Auto) 6.1 L (13.4-35.0) % Lymph # 0.6 L (1.2-5.4) K/mm3 Seg Neutrophils % 86.6 H (40.0-70.0) % Seg Neutrophils # 8.9 H (1.8-7.7) K/mm3 Sodium 135 L D (137-145) mmol/L Potassium 5.1 H (3.6-5.0) mmol/L Chloride 93.1 L (98-107) mmol/L BUN 45 H (9-20) mg/dL Creatinine 9.0 H (0.8-1.5) mg/dL Glucose 112 H (75-100) mg/dL
[2016-05-04] MEDS: ANCEF/NS 1 GM/50 ML 1 GM/50 ML BAG IV SCH ×2 (17:35→18:14)
--- NOTE | 2016-05-04 18:21 | Progress Note ---
Assessment and Plan - Patient Problems (1) Hematuria, gross Current Visit: Yes Status: Acute Plan to address problem: Status post cystoscopy. Being managed by urologist (2) Hypertensive chronic kidney disease with stage 5 chronic kidney disease or end stage renal disease Current Visit: Yes Status: Acute Plan to address problem: Started on labetalol and hydralazine IV when necessary. Follow-up blood pressure (3) Type 2 diabetes mellitus with diabetic chronic kidney disease Current Visit: Yes Status: Acute Qualifiers: Diabetes mellitus jail insulin use: D Chronic kidney disease stage: C Plan to address problem: Blood sugar management by primary attending (4) End stage renal disease Current Visit: No Status: Chronic Plan to address problem: Hemodialysis in the morning. Evaluate the need for further dialysis treatments on a daily basis. (5) Anemia in chronic kidney disease (CKD) Current Visit: Yes Status: Acute Plan to address problem: Give erythropoietin on dialysis if hemoglobin decreases to less than 12 g/dL (6) History of prostate cancer Current Visit: Yes Status: Acute Subjective Date of service: 05/04/16 Principal diagnosis: stage renal disease Interval history: Patient seen lying in bed this morning. Complaining of mild abdominal pain which is controlled with medications. No nausea or vomiting Objective - Exam Narrative Exam: Elderly -Honduran male lying in bed in no acute distress CVS S1-S2 regular rate rhythm without murmur, rub or gallop Chest clear to auscultation Abdomen soft nondistended, mild suprapubic tenderness, no organomegaly no bruit bowel sounds present Extremities no edema no cyanosis or clubbing Genitourinary deferred russo catheter draining bloody urine Neuro awake, alert oriented x3 no gross deficit - Vital Signs Vital signs: Vital Signs - 12hr 05/04/16 05/04/16 05/04/16 08:00 10:16 11:30 Temperature 97.5 F L Pulse Rate 91 H 98 H Pulse Rate [ 91 H Left] Respiratory 18 Rate Blood Pressure 182/75 186/100 Blood Pressure 182/75 [Left Arm] O2 Sat by Pulse 96 Oximetry 05/04/16 05/04/16 05/04/16 11:42 11:45 12:00 Temperature 98.1 F Pulse Rate 98 H 100 H 96 H Pulse Rate [ Left] Respiratory 18 Rate Blood Pressure 198/98 202/104 184/100 Blood Pressure [Left Arm] O2 Sat by Pulse Oximetry 05/04/16 05/04/16 05/04/16 12:15 12:30 12:38 Temperature Pulse Rate 102 H 102 H 102 H Pulse Rate [ Left] Respiratory Rate Blood Pressure 162/82 208/100 208/100 Blood Pressure [Left Arm] O2 Sat by Pulse Oximetry 05/04/16 05/04/16 05/04/16 12:45 13:00 13:15 Temperature Pulse Rate 102 H 104 H 102 H Pulse Rate [ Left] Respiratory Rate Blood Pressure 162/82 156/76 150/76 Blood Pressure [Left Arm] O2 Sat by Pulse Oximetry 05/04/16 05/04/16 05/04/16 13:30 13:45 14:00 Temperature Pulse Rate 102 H 100 H 100 H Pulse Rate [ Left] Respiratory Rate Blood Pressure 142/74 140/72 130/70 Blood Pressure [Left Arm] O2 Sat by Pulse Oximetry 05/04/16 05/04/16 05/04/16 14:15 14:28 16:00 Temperature 99.1 F Pulse Rate 100 H 100 H Pulse Rate [ 107 H Left] Respiratory Rate Blood Pressure 138/68 138/68 Blood Pressure 181/78 [Left Arm] O2 Sat by Pulse 20 L Oximetry - Lab 05/04/16 05:40 05/04/16 05:40 Most recent lab results Calcium 8.6 mg/dL (8.4-10.2) 05/04/16 05:40
--- NOTE | 2016-05-04 18:38 | Cat Scan Report ---
FINAL REPORT EXAM: CT CHEST WO CON HISTORY: lung lesion TECHNIQUE: Standard unenhanced CT of the chest at 2.5 mm axial increments. Coronal and sagittal reconstruction was also obtained. PRIORS: None. FINDINGS: In the medial aspect of the right middle lobe, there is a 1.5 x 2.1 x 2.0 cm stellate mass suspicious for neoplasm. No additional nodules are present bilaterally There is a small low-density free-flowing right pleural effusion noted. Adjacent minimal compressive atelectasis is seen in the right lower lobe. There is no evidence for parenchymal infiltrates, vascular congestion, left pleural effusion, or pneumothorax. There is no evidence for mediastinal, hilar, or axillary adenopathy. The esophagus is collapsed. The trachea is midline. Cardiovascular structures are within normal limits. Cardiac size and aorta are normal. Images through the lung bases include upper abdomen which demonstrates small bubbles of free air along the anterior margin of the liver and beneath the anterior abdominal wall. There is marked hydronephrosis of the right kidney. The left kidney is not visualized/imaged. Numerous surgical clips along the gastroesophageal junction are seen. Bony structures show no focal abnormalities. No evidence for bony fracture is seen. Degenerative disc changes throughout the thoracic spine are present. IMPRESSION: 1. Stellate mass in the medial aspect of the right middle lobe. Findings are suspicious for neoplasm. Biopsy versus PET scan should be considered. 2. Small right pleural effusion with adjacent minimal compressive atelectasis. 3. Small bubbles of free air identified in the abdomen 4. Severe hydronephrosis of the right kidney. Left kidney is not visualized/imaged.
[2016-05-04] MEDS: NORCO 5/325 PO PRN (21:51)
[2016-05-05] MEDS ORDERED: NACL 0.9% 1000 ML 1,000 ML ONE (07:30)
[2016-05-05] MEDS ORDERED: NACL 0.9% 500 ML 500 ML ONE (07:31)
[2016-05-05] MEDS ORDERED: NACL 0.9% 500 ML 500 ML IV ONE (07:55)
[2016-05-05] MEDS ORDERED: APRESOLINE IV PRN (08:39)
--- NOTE | 2016-05-05 08:40 | Progress Note ---
Assessment and Plan - Patient Problems (1) Hematuria, gross Current Visit: Yes Status: Acute Plan to address problem: Status post cystoscopy. Being managed by urologist (2) Hypertensive chronic kidney disease with stage 5 chronic kidney disease or end stage renal disease Current Visit: Yes Status: Acute Plan to address problem: Increased hypotensive medications. 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 Chronic kidney disease stage: C Plan to address problem: Blood sugar management by primary attending (4) End stage renal disease Current Visit: No Status: Chronic Plan to address problem: Hemodialysis on Monday, Wednesdays and Fridays (5) Anemia in chronic kidney disease (CKD) Current Visit: Yes Status: Acute Plan to address problem: Give erythropoietin on dialysis if hemoglobin decreases to less than 12 g/dL (6) History of prostate cancer Current Visit: Yes Status: Acute Subjective Date of service: 05/05/16 Principal diagnosis: stage renal disease Interval history: Patient seen lying in bed this morning. Was confused last night. Nurses state that he was wondering from room to room. Patient states he had abdominal pain and needed pain medication. No nausea or vomiting Objective - Exam Narrative Exam: Elderly -Sudanese male lying in bed in no acute distress CVS S1-S2 regular rate rhythm without murmur, rub or gallop Chest clear to auscultation Abdomen soft nondistended, mild suprapubic tenderness, no organomegaly no bruit bowel sounds present Extremities no edema no cyanosis or clubbing Genitourinary deferred russo catheter draining bloody urine Neuro awake, alert oriented x3 no gross deficit - Vital Signs Vital signs: Vital Signs - 12hr 05/04/16 05/04/16 05/04/16 21:36 21:43 21:45 Temperature 99.5 F Pulse Rate 119 H Pulse Rate [ 112 H 190 H Left] Respiratory 22 Rate Blood Pressure 162/82 Blood Pressure 196/100 162/82 [Left Arm] O2 Sat by Pulse 99 Oximetry 05/04/16 05/04/16 21:47 22:00 Temperature Pulse Rate 119 H Pulse Rate [ Left] Respiratory Rate Blood Pressure 162/82 Blood Pressure [Left Arm] O2 Sat by Pulse 97 Oximetry - Lab 05/04/16 05:40 05/04/16 05:40 Most recent lab results Calcium 8.6 mg/dL (8.4-10.2) 05/04/16 05:40
--- NOTE | 2016-05-05 08:59 | Cat Scan Report ---
CT PELVIS WITHOUT CONTRAST HISTORY: Bladder perforation. TECHNIQUE: Helical CT following IV contrast infusion into the bladder via a Gunter catheter. Sagittal and coronal reformatted images. FINDINGS: Compared to 05/03/16. A Gunter catheter is in place. There is a small amount of contrast agent to remaining within the bladder and a large amount of contrast agent throughout the pelvis. There is a focal perforation in the posterior dome of the bladder measuring 8-9 mm in diameter. This is best demonstrated on image 24, series 4. Right lateral bladder wall thickening consistent with tumor is again noted. The right UVJ appears to be occluded. This is presumably secondary to tumor invasion. There is moderate dilatation of the distal right ureter. The distal left ureter is normal. The visualized bowel loops in the pelvis are within normal limits. The bony pelvis is intact. IMPRESSION: Perforated bladder as described above. Probable occlusion of the right UVJ from tumor invasion.
[2016-05-05] MEDS: GLUCOTROL XL PO SCH (09:00)
[2016-05-05] MEDS: RENVELA PO SCH ×3 (09:11→16:40)
[2016-05-05] MEDS: COREG PO SCH ×2 (09:11→22:36)
[2016-05-05] MEDS: ANCEF/NS 1 GM/50 ML 1 GM/50 ML BAG IV SCH (09:12)
[2016-05-05] MEDS: NORVASC PO SCH (09:12)
[2016-05-05] MEDS ORDERED: LEVAQUIN 500MG/100ML 500 MG/100 ML BAG IV ONE (10:30)
[2016-05-05] MEDS: XYLOCAINE 1%/ EPI 1:100,000 INFILTRATI ONE ×2 (10:46→10:50)
[2016-05-05] MEDS: VERSED ONE ×2 (10:46→10:50)
[2016-05-05] MEDS: SUBLIMAZE ONE ×2 (10:47→10:50)
[2016-05-05] MEDS: NACL 0.9% 500 ML 500 ML ONE ×2 (10:47→10:50)
--- NOTE | 2016-05-05 12:32 | Operative Report ---
Operative Report Operative Report: Procedure: Right nephrostomy tube placement History/Indication: This is an 80-year-old male with a bladder injury status post biopsy. He was found to have contrast leakage from the bladder on a subsequent CT cystogram. Impression: 1. Marked right hydronephrosis. 2. Right hydroureter, with obstruction at the ureterovesical junction. 3. No contrast extravasation from the upper genitourinary tract. 4. Successful placement of an 8 Marshallese nephrostomy catheter in the right kidney. 4. No drainable peritoneal fluid seen on sonography. Physician: Asael Tavera MD Technique/Procedural Details: Relevant history and imaging were reviewed. Informed consent was signed after a detailed discussion of the risks and benefits of the procedure. The patient was placed in the supine position, and sonography of the abdomen was performed to evaluate for the presence and amount of peritoneal fluid. Permanent images were acquired. The patient was then placed in the prone position on the procedure table. The patient was prepped and draped in the usual sterile fashion. After administration of local anesthetic, a 21-gauge echo tip needle was advanced under ultrasound guidance into an inferior/posterior right renal calyx. Urine was aspirated, and a small amount of contrast was injected to confirm placement. The needle was exchanged over a Letts wire for an Accustick system. Through the Accustick system, an 035 Glidewire was advanced into the distal ureter. Through a 4 Marshallese vertebral catheter, the Glidewire was exchanged for an Amplatz wire. After serial tissue dilation, an 8 Marshallese nephrostomy catheter was advanced into the right renal pelvis. The locking loop was formed. Contrast was injected and aspirated, and permanent images were acquired. The nephrostomy catheter was secured to the skin with 2-0 Ethilon suture and a stat lock. The catheter was connected to a drainage bag, and sterile dressings were placed. The patient was transferred off the table in stable condition. Discussion: As seen on recent CT, there is marked right hydronephrosis and hydroureter. There is no evidence of obstruction at the uteropelvic junction, but there is no passage of contrast past the ureterovesical junction. There is no evidence of contrast extravasation from the upper urinary tract. Via a posterior/inferior right renal calyx, an 8 Marshallese nephrostomy tube was successfully placed. The newly placed nephrostomy tube fills and decompresses upper collecting system completely. Sonography of the abdomen demonstrates trace fluid surrounding several bowel loops, but no large, drainable pockets of fluid. Allowing for differences in modality, this represents a significant decrease in the amount of fluid in comparison to a CT of the abdomen dated 05/03/2016. Specimen: None. EBL: Neglibile.
--- NOTE | 2016-05-05 13:56 | Consultation ---
History of Present Illness Consult date: 05/05/16 Requesting physician: ZAIRE ARELLANO Reason for consult: lung mass, abnormal CXR/CT History of present illness: 80 y/o male with prior history of several malignancies who was admitted for bladder perf. On CT abd/pelvis a right middle lobe lesion was found. Pulmonary consulted for this. Asked primary to obtain dedicated CT which I reviewed today. RML lesion seen, small cavitation to it with some spiculations. Patient has endorsed some weight loss as well. Granddaughters are at bedside. 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 denies: prescription drug abuse, IV drug use Family history: CAD (brother of heart disease), cancer (mother had breast cancer), other (does not know the cause of of his father. Sister of complications of emphysema) Medications and Allergies Allergies Allergy/AdvReac Type Severity Reaction Status Date / Time No Known Allergies Allergy Verified 03/19/16 17:05 Home Medications Medication Instructions Recorded Confirmed Last Taken Type glipiZIDE [glipiZIDE XL] 2.5 mg PO DAILY 03/02/15 05/03/16 05/02/16 History Carvedilol [Coreg] 6.25 mg PO BID #60 tablet 03/05/15 05/03/16 05/02/16 Rx Sevelamer Carbonate [Renvela] 800 mg PO TIDWM 03/27/16 05/03/16 05/02/16 History amLODIPine [Norvasc] 10 mg PO QDAY 03/27/16 05/03/16 05/02/16 History Active Meds: Active Medications Acetaminophen (Tylenol) 650 mg PO Q4H PRN PRN Reason: Pain MILD(1-3)/Fever >100.5/[place] Acetaminophen/Hydrocodone Bitart ([place] 5/325) 2 each PO Q4H PRN PRN Reason: Pain, Moderate (4-6) Last Admin: 05/04/16 21:51 Dose: 2 each Amlodipine Besylate (Norvasc) 10 mg PO QDAY [facility] Last Admin: 05/05/16 09:12 Dose: 10 mg Bisacodyl (Dulcolax) 10 mg [place] QDAY PRN PRN Reason: Constipation unrelieved by MOM Carvedilol (Coreg) 6.25 mg PO BID [facility] Last Admin: 05/05/16 09:11 Dose: 6.25 mg Dextrose (D50w (25gm)) 50 ml IV PRN PRN PRN Reason: Hypoglycemia Glipizide (Glucotrol Xl) 2.5 mg PO QDDIAB [facility] Last Admin: 05/05/16 09:00 Dose: Not Given Hydralazine HCl (Apresoline) 20 mg IV Q6H PRN PRN Reason: Hypertension Sodium Chloride (Nacl 0.9% 1000 Ml) 1,000 mls @ 42 mls/hr IV DIRECT JENNIFER Sodium Chloride (Nacl 0.9%) 100 mls @ 999 mls/hr IV RAEANN PRN PRN Reason: Hypotension Labetalol HCl (Normodyne) 20 mg IV Q4HR PRN PRN Reason: Hypertension Last Admin: 05/05/16 08:58 Dose: 20 mg Magnesium Hydroxide (Milk Of Magnesia) 30 ml PO Q4H PRN PRN Reason: Constipation Morphine Sulfate (Morphine) 2 mg IV Q4H PRN PRN Reason: Pain, Moderate (4-6) Last Admin: 05/04/16 18:14 Dose: 2 mg Naloxone HCl (Narcan 0.4 Mg/1 Ml) 0.1 mg IV Q2MIN PRN PRN Reason: Res Rate </= 8 or 02 SAT < 92% Ondansetron HCl (Zofran) 4 mg IV Q8H PRN PRN Reason: N/V unrelieved by Reglan Sevelamer Carbonate (Renvela) 800 mg PO TIDWM [facility] Last Admin: 05/05/16 13:10 Dose: 800 mg Physical Examination Vital signs: Vital Signs Temp Pulse Resp BP Pulse Ox 98.8 F 70 20 148/68 98 05/03/16 06:40 05/03/16 06:40 05/03/16 06:40 05/03/16 06:40 05/03/16 06:40 General appearance: no acute distress, alert, other (angry about the way he has been treated) Eyes: non-icteric ENT: oropharynx moist Neck: supple, no lymphadenopathy Effort: normal Ascultation: Bilateral: clear Percussion: Bilateral: not dull Tactile fremitus: Bilateral: normal Cardiovascular: regular rate and rhythm Gastrointestinal: normoactive bowel sounds Extremities: no edema Results - Laboratory Findings CBC and BMP: 05/04/16 05:40 05/04/16 05:40 Abnormal lab findings: Abnormal Labs 05/03/16 05/04/16 05/04/16 06:30 05:40 05:40 RDW 20.2 H Lymph % (Auto) 6.1 L Lymph # 0.6 L Seg Neutrophils % 86.6 H Seg Neutrophils # 8.9 H Sodium 135 L D Potassium 5.1 H Chloride 93.1 L BUN 33 H 45 H Creatinine 7.2 H 9.0 H Glucose 112 H POC Glucose 05/04/16 05/04/16 05/05/16 16:32 22:15 08:41 RDW Lymph % (Auto) Lymph # Seg Neutrophils % Seg Neutrophils # Sodium Potassium Chloride BUN Creatinine Glucose POC Glucose 123 H 113 H 106 H - Diagnostic Findings CT scan - chest: image reviewed (as stated in HPI) Assessment and Plan 80 y/o male with right middle lobe lung lesion. 1. Not amenable to bronchoscopy 2. Ordered CT guided biopsy.
--- NOTE | 2016-05-05 15:54 | Progress Note ---
Subjective Date of service: 05/05/16 Principal diagnosis: stage renal disease Interval history: MARIELY CHAMPION MD / Aleksandr Lynch MD / DISCHARGE FROM [facility] - [facility]AT[facility] - CTAP (06-14-15)-CHRONIC RT HYDRO - PT ON DIALYSIS / S/P LT NEPHRECTOMY & EBRT & SEEDS FROM [facility] 14 YRS AGO - [facility] / [facility] (06-18-15) ERYTHERMA ON FLOOR OF BLADDER - CYTOLOGY - FISH- negative daughter at bedside hx of kidney cancer hx of bladder cancer (superficial??) hx of throat cancer CTAP small bladder perferation rt lung lesion path - Dr. Alex - low grade bladder tumor A/P Gross Hematura (pt non compliant) bladder cancer prostate cancer - s/p radiation 14 yrs ago pulmonary consult - Dr. Solis - appreciated appreciate nephrology input CT cystogram (05-05-16)--still with leak - continue russo back pain with hydronephrosis - consult IR for possible nephrostomy -suc-cessful placement of an 8 Azeri nephrostomy catheter in the right kidney. -No drainable peritoneal fluid seen on sonography. Objective - Constitutional Vitals: Vital Signs - 12hr 05/05/16 05/05/16 05/05/16 08:45 08:58 09:11 Temperature 99.1 F Pulse Rate 108 H 108 H Pulse Rate [ 108 H Left] Respiratory 18 Rate Blood Pressure 182/97 182/97 Blood Pressure 182/97 [Left Arm] O2 Sat by Pulse 98 Oximetry 05/05/16 05/05/16 09:12 13:00 Temperature 98.4 F Pulse Rate 108 H Pulse Rate [ 100 H Left] Respiratory 20 Rate Blood Pressure 182/97 Blood Pressure 174/96 [Left Arm] O2 Sat by Pulse 98 Oximetry - Labs CBC & Chem 7: 05/04/16 05:40 05/04/16 05:40 Labs: Abnormal lab results 05/04/16 05/04/16 05/05/16 Range/Units 16:32 22:15 08:41 POC Glucose 123 H 113 H 106 H (70-105)
--- NOTE | 2016-05-05 18:50 | Progress Note ---
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: D Laterality: L Chronic kidney disease stage: C Plan to address problem: Cont oral hypoglycemics and Coverage (2) End stage renal disease Current Visit: No Status: Chronic Plan to address problem: Cont HD (3) Hypertension Current Visit: No Status: Chronic Qualifiers: Hypertension type: essential hypertension Qualified Code(s): I10 - Essential (primary) hypertension Plan to address problem: Cont Anti Hypertensives (4) Bladder tumor Current Visit: Yes Status: Acute Plan to address problem: Low grade tumor Hematuria sec to bladder tumor Subjective Date of service: 05/05/16 Principal diagnosis: stage renal disease Objective - Constitutional Vitals: Vital Signs - 12hr 05/05/16 05/05/16 05/05/16 08:45 08:58 09:11 Temperature 99.1 F Pulse Rate 108 H 108 H Pulse Rate [ 108 H Left] Respiratory 18 Rate Blood Pressure 182/97 182/97 Blood Pressure 182/97 [Left Arm] O2 Sat by Pulse 98 Oximetry 05/05/16 05/05/16 09:12 13:00 Temperature 98.4 F Pulse Rate 108 H Pulse Rate [ 100 H Left] Respiratory 20 Rate Blood Pressure 182/97 Blood Pressure 174/96 [Left Arm] O2 Sat by Pulse 98 Oximetry General appearance: Present: no acute distress, well-nourished - EENT Eyes: PERRL, EOM intact ENT: hearing intact, clear oral mucosa Ears: bilateral: normal - Neck Neck: supple, normal ROM - Respiratory Respiratory effort: normal Respiratory: bilateral: CTA - Breasts Breasts: normal - Cardiovascular Rhythm: regular Heart Sounds: Present: S1 & S2. Absent: gallop, rub Extremities: pulses intact, No edema, normal color, Full ROM - Gastrointestinal General gastrointestinal: Present: soft, non-tender, non-distended, normal bowel sounds - Genitourinary Male genitourinary: normal - Integumentary Integumentary: clear, warm, dry - Musculoskeletal Musculoskeletal: 1, strength equal bilaterally - Neurologic Neurologic: moves all extremities - Psychiatric Psychiatric: memory intact, appropriate mood/affect, intact judgment & insight - Labs CBC & Chem 7: 05/04/16 05:40 05/04/16 05:40 Labs: Abnormal lab results 05/04/16 05/05/16 05/05/16 Range/Units 22:15 08:41 12:36 POC Glucose 113 H 106 H 112 H (70-105)
[2016-05-06] MEDS: NORCO 5/325 PO PRN ×3 (00:33→16:51)
[2016-05-06] MEDS: GLUCOTROL XL PO SCH (08:00)
--- NOTE | 2016-05-06 08:29 | Progress Note ---
Assessment and Plan - Patient Problems (1) Hematuria, gross Current Visit: Yes Status: Acute Plan to address problem: Status post cystoscopy and now right percutaneous nephrostomy. Being managed by urologist (2) Hypertensive chronic kidney disease with stage 5 chronic kidney disease or end stage renal disease Current Visit: Yes Status: Acute Plan to address problem: Blood pressure is better. 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 Dialysis today (5) Anemia in chronic kidney disease (CKD) Current Visit: Yes Status: Acute Plan to address problem: Give erythropoietin on dialysis if hemoglobin decreases to less than 12 g/dL (6) History of prostate cancer Current Visit: Yes Status: Acute Subjective Date of service: 05/06/16 Principal diagnosis: stage renal disease Interval history: Patient seen lying in bed this morning. Slept better last night. Pain is improved. No nausea or vomiting. Events noted. Has right percutaneous nephrostomy tube Objective - Exam Narrative Exam: Elderly -Trinidadian male lying in bed in no acute distress CVS S1-S2 regular rate rhythm without murmur, rub or gallop Chest clear to auscultation Abdomen soft nondistended, mild suprapubic tenderness, no organomegaly no bruit bowel sounds present Extremities no edema no cyanosis or clubbing Genitourinary deferred russo catheter draining bloody urine Neuro awake, alert oriented x3 no gross deficit - Vital Signs Vital signs: Vital Signs - 12hr 05/05/16 05/05/16 05/05/16 22:00 22:36 22:44 Temperature 98.6 F Pulse Rate 95 H Respiratory 90 H Rate Respiratory 20 Rate [ Generalized] Blood Pressure 154/70 Blood Pressure 164/85 [Left Arm] O2 Sat by Pulse 97 97 Oximetry 05/06/16 00:33 Temperature Pulse Rate Respiratory 20 Rate Respiratory Rate [ Generalized] Blood Pressure Blood Pressure [Left Arm] O2 Sat by Pulse Oximetry - Lab 05/04/16 05:40 05/04/16 05:40 Most recent lab results Calcium 8.6 mg/dL (8.4-10.2) 05/04/16 05:40
[2016-05-06] MEDS: RENVELA PO SCH ×3 (08:52→16:51)
--- NOTE | 2016-05-06 09:15 | Discharge Summary ---
Providers - Providers Date of Admission: 05/03/16 10:51 Date of discharge: 05/06/16 Attending physician: ZAIRE ARELLANO 05/03/16 10:51 Consult to Physician [CONS] Routine Consulting Provider: HATTIE LYNCH Reason For Exam: chronic renal failure on dialysis Place consult to:: Dr. Maria Luz Lynch Notified:: yes Phone number called:: [phone] Was contact made?: Yes If yes, spoke with:: Time called:: 19:11 05/03/16 11:40 Consult to Physician [CONS] Routine Consulting Provider: TOBIAS PERKINS Reason For Exam: diabetes Place consult to:: dr. perkins Notified:: YES Phone number called:: [phone] Was contact made?: Yes If yes, spoke with:: Time called:: 16:10 05/04/16 15:54 Consult to Physician [CONS] Routine Consulting Provider: JAKOB SOLIS Reason For Exam: lung lesion Place consult to:: Dr. Solis Notified:: ANSWERING SERVICE Phone number called:: [phone] Was contact made?: Yes Time called:: 08:16 Comment:: CONSULT COMPLETED -RAMSEY 05/04/16 15:59 Consult to Physician [CONS] Routine Consulting Provider: ANEL DHILLON Reason For Exam: hydronephrosis Place consult to:: Dr. Alegria Notified:: DR. DHILLON If yes, spoke with:: Y Comment:: COMPLETED - DORENE 05/05/16 13:48 psychiatry consult [Consult to Mental Health] [CONS] Stat Reason For Exam: Patient having bizarre behaviors in home Place consult to:: Crisis Notified:: Vinod Was contact made?: No Time called:: 13:48 05/05/16 14:02 Physical Therapy Evaluation and Treat [CONS] Stat Comment: Reason For Exam: General Weakness Rehab Placement Primary care physician: GUS SANCHEZ Hospitalization Procedures: cysto baldder bx - low grade TCC hx of kidney cancer hx of bladder cancer (superficial??) hx of throat cancer hx of prostate cancer s/p radiation Disposition: DISCHARGED TO HOME OR SELFCARE Core Measure Documentation - Palliative Care Palliative Care/ Comfort Measures: Not Applicable - Core Measures Any of the following diagnoses?: none - VTE Discharge Requirements Has pt received <5 days of overlap therapy or INR<2.0: No Anticoagulant overlap therapy prescribed at discharge: No Contraindication No Overlap Therapy order at DC: Medical Contraindication - Acute NH Discharge Requirements Aspirin at discharge: No Reason for no aspirin on DC: Surgical contraindication LANDON/ARB for LVSD if EF <40%: Not Applicable Reason for no LANDON/ARB: Medical contraindication Beta rome at discharge: No Reason for no beta rome on DC: Medical contraindication Statin for LDL = or >100 mg/dl on DC: Not Applicable Reason for no statin on DC: Surgical contraindication - Heart Failure Discharge Requirements LANDON/ARB for LVSD if EF <40%: Not Applicable Reason for no LANDON/ARB: Medical contraindication Beta rome at discharge: No Reason for no beta rome on DC: Medical contraindication - Stroke Discharge Requirements Statin for LDL = or >70 mg/dl on DC: Not Applicable Reason for no statin on DC: Medical Contraindication Anticoag for atrial fib/atrial flutter: Not Applicable Reason for no anticoag for AF/F on DC: Medical Contraindication Antithrombotic for ischemic stroke: No Reason for no antithrombotic on DC: Medical Contraindication Exam - Constitutional Vitals: Temp Pulse Resp BP Pulse Ox 98.4 F 89 18 153/73 91 05/06/16 08:00 05/06/16 08:00 05/06/16 08:00 05/06/16 08:00 05/06/16 08:00 General appearance: Present: no acute distress, well-nourished - EENT Eyes: Present: PERRL ENT: hearing intact, clear oral mucosa - Neck Neck: Present: supple, normal ROM - Respiratory Respiratory effort: normal Respiratory: bilateral: CTA - Cardiovascular Heart Sounds: Present: S1 & S2. Absent: rub, click - Extremities Extremities: pulses symmetrical, No edema Peripheral Pulses: within normal limits - Abdominal General gastrointestinal: Present: soft, non-tender, non-distended, normal bowel sounds Male genitourinary: Present: normal - Integumentary Integumentary: Present: clear, warm, dry - Musculoskeletal Musculoskeletal: gait normal, strength equal bilaterally - Psychiatric Psychiatric: appropriate mood/affect, intact judgment & insight - Neurologic Neurologic: CNII-XII intact, moves all extremities Plan Activity: no restrictions Diet: diabetic Wound: open to air Special Instructions: restrict fluid intake to Follow up with: GUS SANCHEZ MD [Primary Care Provider] - 7 Days
[2016-05-06] MEDS: COREG PO SCH (10:00)
--- NOTE | 2016-05-06 14:26 | Progress Note ---
Assessment and Plan 80 y/o male with right middle lobe lung lesion. 1. Given high risk location of procedure, 2 radiologist have both stated that this is too dangerous to attempt biopsy. Several options could happen: a. Could send to [facility] for evaluation and see what they think b. Obtain PET CT if it lights up, could do Radiation to that area Unfortunately, we are not able to help with a tissue diagnosis give location. Will sign off for now, call if questions or concerns. Subjective Date of service: 05/06/16 Principal diagnosis: stage renal disease Interval history: Discussed case with IR who agree with Rads in regards to biopsy. Objective Vital Signs - 12hr 05/06/16 05/06/16 05/06/16 08:00 10:17 10:26 Temperature 98.4 F 98.2 F Pulse Rate 84 88 Pulse Rate [ 89 Left] Respiratory 18 18 Rate Blood Pressure 148/76 136/72 Blood Pressure 153/73 [Left Arm] O2 Sat by Pulse 91 Oximetry 05/06/16 05/06/16 05/06/16 10:45 11:00 11:15 Temperature Pulse Rate 80 76 82 Pulse Rate [ Left] Respiratory Rate Blood Pressure 146/76 138/82 160/78 Blood Pressure [Left Arm] O2 Sat by Pulse Oximetry 05/06/16 05/06/16 05/06/16 11:38 11:45 12:00 Temperature Pulse Rate 88 90 90 Pulse Rate [ Left] Respiratory Rate Blood Pressure 154/66 162/84 174/84 Blood Pressure [Left Arm] O2 Sat by Pulse Oximetry 05/06/16 05/06/16 05/06/16 12:15 12:30 12:45 Temperature Pulse Rate 92 H 80 80 Pulse Rate [ Left] Respiratory Rate Blood Pressure 160/82 144/86 146/82 Blood Pressure [Left Arm] O2 Sat by Pulse Oximetry 05/06/16 05/06/16 05/06/16 13:00 13:25 13:28 Temperature 98.2 F Pulse Rate 82 82 80 Pulse Rate [ Left] Respiratory 22 Rate Blood Pressure 168/94 168/94 160/92 Blood Pressure [Left Arm] O2 Sat by Pulse Oximetry Constitutional: no acute distress, alert, other (angry about the way he has been treated) Eyes: non-icteric ENT: oropharynx moist Neck: supple, no lymphadenopathy Effort: normal Ascultation: Bilateral: clear Percussion: Bilateral: not dull Tactile fremitus: Bilateral: normal Cardiovascular: regular rate and rhythm Gastrointestinal: normoactive bowel sounds Extremities: no edema CBC and BMP: 05/04/16 05:40 05/04/16 05:40 Abnormal lab findings: Abnormal Labs 05/03/16 05/04/16 05/04/16 06:30 05:40 05:40 RDW 20.2 H Lymph % (Auto) 6.1 L Lymph # 0.6 L Seg Neutrophils % 86.6 H Seg Neutrophils # 8.9 H Sodium 135 L D Potassium 5.1 H Chloride 93.1 L BUN 33 H 45 H Creatinine 7.2 H 9.0 H Glucose 112 H POC Glucose 05/04/16 05/04/16 05/05/16 16:32 22:15 08:41 RDW Lymph % (Auto) Lymph # Seg Neutrophils % Seg Neutrophils # Sodium Potassium Chloride BUN Creatinine Glucose POC Glucose 123 H 113 H 106 H 05/05/16 12:36 RDW Lymph % (Auto) Lymph # Seg Neutrophils % Seg Neutrophils # Sodium Potassium Chloride BUN Creatinine Glucose POC Glucose 112 H
[2016-05-06] MEDS: NORVASC PO SCH (16:51)
[2016-05-06 17:14] VITALS: BP 112/73
== END 2016-05-06 20:10 | disposition home or self-care (01) | DRG 668 ==
LOC: OR 06:00 → 3A 10:51 → 2B-SURG 16:06
PROVIDERS: ADMIT Urology; ATTEND Urology
PROC: BT101ZZ Fluoroscopy of Bladder using Low Osmolar Contrast (ICD-10-PCS; principal; 2016-05-03)
PROC: 0TBB3ZX Excision of Bladder, Percutaneous Approach, Diagnostic (ICD-10-PCS; 2016-05-03)
PROC: 5A1D60Z (ICD-10-PCS; 2016-05-04)
PROC: 0T9330Z Drainage of Right Kidney Pelvis with Drainage Device, Percutaneous Approach (ICD-10-PCS; 2016-05-05)
DX: C67.9 Malignant neoplasm of bladder, unspecified (principal); N18.6 End stage renal disease; I12.0 Hypertensive chronic kidney disease with stage 5 chronic kidney disease or end stage renal disease; N13.1 Hydronephrosis with ureteral stricture, not elsewhere classified; E78.5 Hyperlipidemia, unspecified; D63.1 Anemia in chronic kidney disease; E11.22 Type 2 diabetes mellitus with diabetic chronic kidney disease; Z85.46 Personal history of malignant neoplasm of prostate; Z90.5 Acquired absence of kidney; Z87.891 Personal history of nicotine dependence; Z99.2 Dependence on renal dialysis; Z85.51 Personal history of malignant neoplasm of bladder; Z85.89 Personal history of malignant neoplasm of other organs and systems; Z85.528 Personal history of other malignant neoplasm of kidney; R91.1 Solitary pulmonary nodule
CPT/HCPCS: 36415; 50432; 71250; 72192; 74176; 74430; 78306; 80048; 82962; 85014; 85018; 85025; 88112; 88305; A4217; A9503; C1729; C1751; C1758; C1769; J0360; J0690; J1170; J1956; J2250; J2270; J2405; J2704; J3010; J7030; J7040; Q9958; Q9967

== ENCOUNTER 2016-05-26 09:53 | Outpatient (CLI) | payer MEDICARE ==
--- NOTE | 2016-05-26 14:55 | Fluoroscopy Report ---
CYSTOGRAM STATIC HISTORY: Malignant neoplasm of prostate and anterior wall of bladder. Evaluate for bladder leak. FINDINGS: Dishwasher Busser film of the abdomen demonstrates radiotherapy beads in the prostate bed and a Gunter catheter in the bladder. Multiple fluoroscopic images were obtained during and after infusion of contrast agent into the bladder. The bladder is very low volume excepting only approximately 50 cc of contrast agent. There is no evidence for extravasation or reflux into the distal ureters. Mild bladder wall trabeculation is suspected. IMPRESSION: No evidence for extravasation of contrast from the bladder.
--- NOTE | 2016-05-30 10:05 | PET Report ---
PET/CT:05/26/16 09:53:00 CLINICAL: Prostate cancer staging. RADIOPHARMACEUTICAL: 11.66mCi F18-FDG. COMPARISON: Recent CT but no previous PET/CT TECHNIQUE- Following intravenous injection of F-18 FDG and an approximately 60 minute uptake period, CT and PET images from the mid skull to the upper thighs were acquired with the patient in the fasted state. No contrast was administered. The CT protocol used for this PET CT study is designed for attenuation correction and anatomic localization of PET abnormalities. This grave cleaner CT is not desired to produce and cannot replace, bpsdi-[id number]-art diagnostic CT scans with specific imaging protocols for different body parts and indications. Plasma glucose at the time of this test: 121g/dl. The standardized uptake values (SUV) are normalized to patient body weight and indicate the highest activity concentration (SUV max) in a given disease site. FINDINGS: Brain--Physiologic FDG uptake in the visualized regions of the brain. Neck--Physiologic FDG uptake . Chest--Physiologic FDG uptake in mediastinal blood pool and myocardium. Lungs--An irregular spiculated right middle lobe FDG avid mass measures 2.0 x 1.6 cm with SUV 3.0. The mass is adjacent to the right ventricle and a spicule extends to the diaphragm. No other lung nodule or mass. Pleura/pericardium--No abnormal uptake. Small bilateral pleural effusions. Thoracic nodes--No abnormal uptake. Hepatobiliary--No abnormal uptake. Liver background SUV mean, as a reference for comparing FDG studies, is 2.8 . No liver mass. Spleen--No abnormal uptake. Pancreas--No abnormal uptake. Adrenal Glands--No abnormal uptake. Kidneys/Ureters/Bladder--No abnormal uptake. Status post left nephrectomy. A nephrostomy tube in the right kidney with a minimally dilated right renal collecting system. Abdominopelvic Nodes--No abnormal uptake. Bowel/Peritoneum/Mesentery--No abnormal uptake. Sigmoid diverticulosis but no diverticulitis. No ascites. Pelvic organs--No abnormal uptake. A midline pelvic fluid collection is located posterior to the urinary bladder and measures 4.3 x 4.0 x 5.5 cm. Brachytherapy seeds in the prostate. Bones/Soft Tissues--No abnormal uptake. No suspicious bone lesions. IMPRESSION- 1. 2.0 cm right middle lobe FDG avid lung mass is suspicious for a second primary tumor (bronchogenic carcinoma). It is less likely a metastasis since there is no evidence of additional metastatic disease.2. A 5.5 cm pelvic fluid collection is probably residual walled off ascites. 3. Status post left nephrectomy. 4. Sigmoid diverticulosis but no diverticulitis. 5. Status post prostate brachytherapy.
== END 2016-05-26 09:54 | disposition home or self-care (01) ==
LOC: FLUORO 09:53
PROVIDERS: ATTEND Urology
DX: C67.3 Malignant neoplasm of anterior wall of bladder (principal); D41.4 Neoplasm of uncertain behavior of bladder; C61 Malignant neoplasm of prostate; Z79.899 Other long term (current) drug therapy
CPT/HCPCS: 51600; 74430; 78815; 82962; A9552; Q9958

== ENCOUNTER 2016-06-20 09:45 | Day surgery (SDC) | payer MEDICARE, OTHER ==
[2016-06-20] MEDS ORDERED: SUBLIMAZE IV ONE (10:01)
[2016-06-20] MEDS ORDERED: VERSED IV NR (10:01)
[2016-06-20 10:13] LABS: BUN/Creatinine Ratio 5.68; Calcium 9.6 mg/dL (8.4-10.2); Chloride 92.5 mmol/L (98-107); INR 1.3 (0.87-1.13)
[2016-06-20 10:18] LABS: Hematocrit 28.4 % (35.5-45.6); Hemoglobin 8.8 gm/dl (11.8-15.2); Red Blood Count 3.48 M/mm3 (3.65-5.03); White Blood Count 15.6 K/mm3 (4.5-11.0)
[2016-06-20 10:19] LABS: Mean Corpuscular HGB Conc 31 % (32-34); Mean Corpuscular Hemoglobin 25 pg (28-32); Mean Corpuscular Volume 82 fl (84-94); Platelet Count 287 K/mm3 (140-440); Red Cell Distribution Width 21.9 % (13.2-15.2)
[2016-06-20 10:36] LABS: Potassium 5.7 mmol/L (3.6-5.0)
[2016-06-20 11:07] LABS: Basophils % (Manual) 0 % (0.0-1.8); Blastocytes % (Manual) 0 %
[2016-06-20 11:08] LABS: Anisocytosis 1+; Hypochromasia 1+
[2016-06-20 11:09] LABS: Diff Status Complete; Elliptocytes Rare; Platelet Estimate Cons; Poikilocytosis Few; Target Cells Rare
--- NOTE | 2016-06-20 13:56 | XRay Report ---
Single score History: Evaluate right PTX. Findings: Normal cardiomediastinal silhouette. Trachea is midline. No consolidation, pneumothorax or pleural effusions. Suspicion of faint interstitial infiltrates right lower lobe. Impression: Suspicion of faint interstitial infiltrates right lower lobe.
--- NOTE | 2016-06-20 14:31 | Operative Report ---
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 He was found to have a lung nodule of indeterminate etiology in the right lung. A biopsy was requested. Impression: Unsuccessful biopsy of a right lung/mediastinal nodule Physician: Asael Tavera MD Technique/Procedural Details: Informed consent was obtained. Prior imaging was reviewed. The patient was placed in the supine position on the CT table. Preliminary CT imaging was performed after a grid was placed. A site was marked, and the patient was prepped and draped in the usual sterile fashion. A timeout was performed. Local anesthetic was administered. Under sequential CT guidance, an 18-gauge, 10 cm trocar needle was advanced to the periphery of a lung/mediastinal right- sided nodule. After additional imaging, the decision was made to withdraw all needles. A sterile dressing was placed, and the patient was transported back to the recovery area in stable condition. Discussion: Imaging demonstrates an approximately 1.5 cm right middle lobe/mediastinal nodule somewhat adherent to the pericardium. While a suitable location at the periphery of the nodule was reached with the 18-gauge trocar needle, biopsy could not be performed due to an iatrogenic pneumothorax. The procedure was aborted, and the patient was taken back to the recovery area for chest x-ray. At no point was the patient experiencing chest pain or shortness of breath. He maintained normal oxygen saturation and heart rate during the entire procedure and had no complaints. The patient will be maintained on high flow oxygen in the recovery area. If 2 consecutive chest x-rays are stable, the patient will be discharged home. Specimen: None EBL: <5 cc
[2016-06-20 14:38] VITALS: BP 144/62
--- NOTE | 2016-06-20 14:46 | XRay Report ---
The single view chest: Findings: Normal cardiomediastinal silhouette. Trachea is midline. There is right apical pneumothorax noted. Measures 2.09 cm in thickness. Suspicion of any infiltrates right lower lobe. Normal CP angles. Impression: Right apical pneumothorax.
== END 2016-06-20 16:00 | disposition other institution (70) ==
LOC: OPU 09:45
PROVIDERS: ATTEND Radiology Diagnostic Radiology
DX: R91.1 Solitary pulmonary nodule (principal); J93.83 Other pneumothorax; Z85.21 Personal history of malignant neoplasm of larynx; Z85.51 Personal history of malignant neoplasm of bladder
CPT/HCPCS: 32405; 36415; 71010; 77012; 80048; 85007; 85025; 85610; J2250; J3010

== ENCOUNTER 2016-07-08 10:19 | Inpatient (IN) | payer MEDICARE, OTHER ==
[2016-07-08] MEDS ORDERED: SODIUM CHLORIDE FLUSH SYRINGE 10 ML IV SCH (12:00)
--- NOTE | 2016-07-08 12:42 | XRay Report ---
ABDOMEN RADIOGRAPHS INDICATION: Hydronephrosis, right nephrostomy tube. COMPARISON: None similar. FINDINGS: Patient referred for a nephrostogram. Support Representative radiograph demonstrates a right nephrostomy tube. Multiple surgical clips about the GE junction and some in the left hemiabdomen also seen. Few bony degenerative changes. Nonobstructive bowel gas pattern. Clear visualized lung bases. Nephrostogram however unsuccessful as the nephrostomy tube noted retracted/pulled out with multiple sideholes outside the skin and injected contrast noted preferentially leaking back out through it. Patient referred to interventional radiology for nephrostomy tube repositioning/replacement. CONCLUSION: Findings, as above. I phoned the above results to Dr. Gupta, 11:10 PM, 07/08/2016. Thank you for the opportunity to participate in this patient's care.
[2016-07-08 12:43] LABS: Basophils % (Auto) 1.2 % (0.0-1.8); Eosinophils % (Auto) 2.9 % (0.0-4.3); Hematocrit 27.2 % (35.5-45.6); Hemoglobin 8.2 gm/dl (11.8-15.2); Mean Corpuscular HGB Conc 30 % (32-34); Mean Corpuscular Volume 81 fl (84-94); Platelet Count 457 K/mm3 (140-440); Red Blood Count 3.37 M/mm3 (3.65-5.03); White Blood Count 7.5 K/mm3 (4.5-11.0)
[2016-07-08 12:45] LABS: Mean Corpuscular Hemoglobin 24 pg (28-32); Red Cell Distribution Width 23.7 % (13.2-15.2)
[2016-07-08 12:46] LABS: Partial Thromboplastin Time 35.3 Sec. (24.2-36.6)
[2016-07-08 13:05] LABS: BUN/Creatinine Ratio 4.35; Calcium 9.1 mg/dL (8.4-10.2); Potassium 4.8 mmol/L (3.6-5.0)
[2016-07-08 13:38] LABS: INR 1.19 (0.87-1.13)
[2016-07-08] MEDS ORDERED: NACL 0.9% 500 ML IR ONE (14:04)
[2016-07-08] MEDS ORDERED: LEVAQUIN 500MG/100ML 500 MG/100 ML BAG IV ONE (14:05)
[2016-07-08] MEDS ORDERED: NACL 0.9% 500 ML 500 ML ONE (14:05)
[2016-07-08] MEDS: XYLOCAINE 1%/ EPI 1:100,000 INFILTRATI ONE ×2 (14:24→14:32)
[2016-07-08] MEDS: VERSED ONE ×4 (14:24→15:15)
[2016-07-08] MEDS: SUBLIMAZE ONE ×4 (14:24→15:15)
[2016-07-08] MEDS ORDERED: ZOFRAN IV PRN (15:34)
[2016-07-08] MEDS ORDERED: DULCOLAX PR PRN (15:34)
[2016-07-08] MEDS ORDERED: MILK OF MAGNESIA PO PRN (15:34)
[2016-07-08] MEDS ORDERED: DILAUDID IV PRN (15:34)
[2016-07-08] MEDS ORDERED: TYLENOL PO PRN (15:34)
[2016-07-08] MEDS ORDERED: AMBIEN PO PRN (15:34)
[2016-07-08] MEDS ORDERED: PERCOCET 5/325 PO PRN (15:34)
--- NOTE | 2016-07-08 15:34 | Event Note ---
Date: 07/08/16 See H/p in reports Perinephric Abscess ESRd on Hd HTN
--- NOTE | 2016-07-08 15:36 | Short Stay Summary ---
Short Stay Documentation Date of service: 07/08/16 Narrative H&P: 80-year-old male with end-stage renal disease and right sided nephrostomy tube for hydronephrosis with accidental dislodgment of the nephrostomy tube one week ago who presents with 1 week of right-sided pain. Diagnostic radiology had patient set up for nephrostogram, but the nephrostomy tube was completely external to the patient's skin. - History Principal diagnosis: hydronephrosis Past Medical History: dialysis, ESRD, other (hydronephrosis) Past Surgical History: Other (permcath and hydronephrosis) Social history: other (lives in nursing facility) - Allergies and Medications Current Medications: Allergies No Known Allergies Allergy (Verified 03/19/16 17:05) Home Medications Medication Instructions Recorded Confirmed Last Taken Type Carvedilol [Coreg] 6.25 mg PO BID #60 tablet 03/05/15 07/08/16 07/07/16 Rx 6.25mg Sevelamer Carbonate [Renvela] 800 mg PO TIDWM 03/27/16 07/08/16 07/07/16 History 800mg amLODIPine [Norvasc] 10 mg PO QDAY 03/27/16 07/08/16 07/07/16 History 10mg Ranitidine HCl [Zantac 150 MG TAB] 150 mg PO DAILY 06/20/16 07/08/16 07/07/16 History 150mg Active Medications Piperacillin Sod/Tazobactam Sod (Zosyn/Ns 4.5gm/100ml) 4.5 gm in 100 mls @ 200 mls/hr IV ONCE ONE PRN Reason: Protocol Stop: 07/08/16 16:44 Sodium Chloride (Sodium Chloride Flush Syringe 10 Ml) 10 ml IV PRN JENNIFER - Physical exam General appearance: no acute distress Lungs: Normal air movement Gastrointestinal: costovertebral (right costovertebral tenderness) Neurological: Other (alert and oriented 3) - Brief post op/procedure progress note Date of procedure: 07/08/16 Pre-op diagnosis: right-sided hydronephrosis Post-op diagnosis: other (right-sided pyonephrosis) Procedure: Right-sided percutaneous nephrostomy Anesthesia: local (w/ conscious sedation) Surgeon: ANEL HAYDEN Estimated blood loss: minimal Specimen disposition: to lab (pus) Condition: stable - Hospital course Hospital course: 80-year-old male set up for nephrostomy tube for displaced catheter. 40 mL of purulent material removed from the kidney. Due to patient's multiple comorbidities, patient requires hospitalization for pyonephrosis. Urinalysis and urine culture sent. - Disposition Condition at discharge: Stable - Discharge Diagnoses (1) Acute pyonephrosis Status: Acute Short Stay Discharge Plan Follow up with: MARIELY CHAMPION MD [Primary Care Provider] - 7 Days
[2016-07-08] MEDS ORDERED: NORVASC PO SCH (16:00)
[2016-07-08] MEDS: PEPCID IV SCH ×2 (16:00→23:37)
[2016-07-08] MEDS ORDERED: COREG PO SCH (16:00)
[2016-07-08] MEDS: NORVASC PO SCH (16:00)
--- NOTE | 2016-07-08 16:06 | Operative Report ---
Operative Report Operative Report: EXAM: 1. Right sided percutaneous nephrostomy tube placement 2. Right sided nephrostogram and antegrade ureterogram DATE: 07/08/16 POKE IN: ANEL HAYDEN MD INDICATION: Right-sided hydronephrosis in a patient with end-stage renal disease with 1 week of dislodgment of the nephrostomy tube which is external to the patient. MEDICATIONS: Please see nursing report for full details. DEVICES: 8 Grenadian nephrostomy tube CONTRAST: Please see woven label designer for full details. PROCEDURE: The risks, benefits, and alternatives were discussed with the patient; informed consent was obtained. The patient was prepped and draped in a sterile fashion in the prone position. The right flank was evaluated with ultrasound. Under direct ultrasound guidance, the right lower pole posterior calyx of the collecting system was punctured with a 21-gauge echo tipped needle. Pus was aspirated. Contrast was injected documenting the collecting system. Wire was passed under direct fluoroscopic guidance into the central portion of the collecting system and into the ureter. Needle was exchanged for a 6 Grenadian transitional dilator Accustick system. After the dilator was advanced over the wire, the wire, inner metal cannula and inner dilator were removed. Contrast was injected confirming position within the collecting system. 4 Fr catheter and 0.035 inch Amplatz wire was advanced through the transitional dilator. Transitional dilator was exchanged for an 8 Grenadian dilator. 8 Grenadian nephrostomy tube was then advanced over the wire. Wire was removed. The nephrostomy tube was positioned in the renal pelvis and the cope loop was successfully deployed. 40 mL of purulent material was aspirated from the collecting system. The nephrostomy tube was secured with 2 x 2-0 Ethilon. StatLock device was used to secure the nephrostomy tube. Nephrostomy tube was attached to a 3-way stopcock to bag drainage. Patient tolerated the procedure well and was transferred out of the angiography suite in stable condition. FINDINGS: 1. Under direct ultrasound guidance, the collecting system was punctured with a 21-gauge echo tipped needle. Some of the images were stored and sent to PACS. 2. Under direct ultrasound guidance, a posterior lower pole calyx was punctured with a 21-gauge needle. 3. Nephrostograms and antegrade ureterogram of the right collecting system demonstrates sluggish flow through the right collecting system compatible with pyelonephrosis. 4. Successful nephrostomy tube placement in the right collecting system through a lower pole posterior calyx. 5. 40 mL of purulent material was aspirated from the collecting system. IMPRESSION: Nephrostograms and antegrade ureterogram of the right collecting system demonstrates right-sided moderate pyonephrosis. 40 mL of purulent material was aspirated. Successful nephrostomy tube placement in the right collecting system through a lower pole posterior calyx.
[2016-07-08] MEDS ORDERED: ZOSYN/NS 4.5GM/100ML 4.5 GM/100 ML VIAL IV ONE (16:15)
[2016-07-08 16:17] LABS: Bilirubin,Urine NEG (Negative); Blood,Urine SM (Negative); Ketones,Urine NEG (Negative); Leukocyte Esterase,Urine MOD (Negative); Nitrite,Urine NEG (Negative); Urobilinogen,Urine < 2.0 mg/dL (<2.0)
[2016-07-08 16:19] LABS: WBC,Urine > 182.0 /HPF (0.0-6.0)
[2016-07-08 16:20] LABS: RBC,Urine > 182.0 /HPF (0.0-6.0)
[2016-07-08] MEDS: RENVELA PO SCH (17:20)
[2016-07-08] MEDS ORDERED: NACL 0.9% 100 ML IV PRN (17:47)
[2016-07-08] MEDS: ZOSYN/NS 2.25 GM/50ML 2.25 GM/50 ML BAG IV SCH (23:37)
[2016-07-08] MEDS: COREG PO SCH (23:38)
--- NOTE | 2016-07-09 03:05 | Admit Criteria Form ---
Admission Criteria Documentation: PYELONEPHRITIS, ACUTE Clinical Indications for Admission to Inpatient Care (Place 'X' for any and all applicable criteria): Admission is indicated for ANY ONE of the following 1,2,3,4,5 [ ]I. Outpatient treatment has failed or is not feasible (eg, multidrug- resistant organism).5 [ ]II. beyond 24 weeks' gestation6 [ ]III. Hemodynamic instability [ ]IV. Immunocompromised state (eg, AIDS, diabetes, sickle cell disease) [ ]V. Known renal or urologic abnormalities (eg, indwelling catheter, structural abnormalities, renal calculi, urinary stent, previous urologic surgery) [X ]. Condition that requires drainage procedure, including ANY ONE of the following: [ ]a) Urinary obstruction [ ]b) Pyelitis [ X]c) Pyonephrosis [ ]d) Renal or perinephric abscess [ ]e) Emphysematous pyelonephritis 7 [ ]VII. Inpatient admission required rather than observation care (Also use Pyelonephritis, Acute: Observation Care Criteria as appropriate) because of ANY ONE of the following: [ ]a) High fever or infection requiring inpatient admission as indicated by ANY ONE of [id number] [ ]A. Documented bacteremia [ ]B. Temp>104.9 [id number] (oral) [ ]C. Temp>103.10F (oral) or <96.80F (rectal) that does not respond to all emergency treatment [ ]b) Acute renal failure [ ]c) Other significant finding or clinical condition judged not to be within the scope of observation care [ ]d) IV fluid to replace significant ongoing (eg, for over 24hrs) losses (> 3 L/m2 per day) [ ]e) Other condition,treatment or monitoring requiring inpatient admission The original [email or web address] content created by [employer] has been revised. The portions of the content which have been revised are identified through the use of italic text or in bold, and [email or web address] has neither reviewed nor approved the modified material. All other unmodified content is copyright [employer]. Please see references footnoted in the original [email or web address] edition 2016 Admission Criteria Met: Yes
[2016-07-09 05:52] LABS: Basophils % (Auto) 1.8 % (0.0-1.8); Eosinophils % (Auto) 3.4 % (0.0-4.3); Hematocrit 25.8 % (35.5-45.6); Hemoglobin 7.8 gm/dl (11.8-15.2); Mean Corpuscular HGB Conc 30 % (32-34); Mean Corpuscular Volume 82 fl (84-94); Platelet Count 448 K/mm3 (140-440); Red Blood Count 3.16 M/mm3 (3.65-5.03)
[2016-07-09 05:57] LABS: Albumin 2.1 g/dL (3.9-5); Albumin/Globulin Ratio 0.5 %; BUN/Creatinine Ratio 4.54; Bilirubin,Total 0.3 mg/dL (0.1-1.2); Calcium 8.6 mg/dL (8.4-10.2); Chloride 96.9 mmol/L (98-107); Potassium 4.5 mmol/L (3.6-5.0)
[2016-07-09 05:58] LABS: Mean Corpuscular Hemoglobin 25 pg (28-32); Red Cell Distribution Width 23.3 % (13.2-15.2)
--- NOTE | 2016-07-09 07:11 | History and Physical Report ---
CHIEF COMPLAINT: Pus on the right nephrostomy tube incision region. HISTORY OF PRESENT ILLNESS: This is an 80-year-old with end-stage renal disease and right-sided nephrostomy tube for hydronephrosis presented with right-sided pain. Diagnostic radiology was scheduled for nephrostogram. Once the nephrostomy tube was ____. The right-sided percutaneous nephrostomy was being placed when 40 mL of a purulent material was removed from the kidney. The patient is being hospitalized because of possible perinephric abscess also for antibiotic coverage. The patient has right flank pain. Otherwise, no symptoms. No fever. PAST MEDICAL HISTORY: Significant for end-stage renal disease, hypertension, and gastroesophageal reflux disease. PAST SURGICAL HISTORY: Nephrostomy tube on the right side. FAMILY HISTORY: Significant for hypertension. CURRENT MEDICATIONS: Amlodipine 10 mg p.o. daily, Coreg 6.25 mg b.i.d., ranitidine 150 mg p.o. daily, and Renvela 800 mg p.o. t.i.d. REVIEW OF SYSTEMS: Significant for right flank pain and low grade fever. Otherwise, review of systems is essentially negative. A 14-point review of systems was done. PHYSICAL EXAMINATION: GENERAL: An elderly male, cooperative during examination. VITAL SIGNS: Temperature is 97.8, pulse is 82, respirations 20, and blood pressure is 143/78. HEENT: Unremarkable. Pupils are equal and reactive. NECK: Supple, no lymphadenopathy, no thyromegaly. LUNGS: Clear to auscultation and percussion. Good air entry. CARDIOVASCULAR: S1, S2 heard. No gallop, no murmur, no rub. Apical impulse in left fifth intercostal space in midclavicular line. ABDOMEN: Tenderness present in the right flank region. Right nephrostomy tube in place. Bowel sounds are normal. CENTRAL NERVOUS SYSTEM: Alert and oriented x4, nonfocal exam. EXTREMITIES: Good pedal pulses. No pedal edema. SKIN: Normal. LABORATORY DATA: White count is 7500, H and H is 8.2 and 27.2, platelet count is 4,57,000. Sodium is 142, potassium is 4.8, chloride is 99, bicarbonate is 31, BUN and creatinine is 34 and 7.8, glucose 89, and calcium is 9.1. Urine WBC is more than 182. Abdominal x-ray showed multiple surgery bruise above the GE junction. Nephrostogram was successful as the nephrostomy tube was outside and just below the skin. The injected contrast was leaking back fluid. While the placement of nephrostomy tube, 40 mL of pus came out. ASSESSMENT AND PLAN: 1. Perinephric abscess. The patient started on broad-spectrum antibiotics. The patient was started on IV Zosyn 2.25 ____ to cover gram-positive and gram-negative organisms on antibiotics. Pus was sent for culture. Pending cultures we will continue Zosyn. 2. End-stage renal disease, needing dialysis. Dr. Lynch is the safety and security officer who was consulted. Hydronephrosis with perinephric abscess is Dr. Gupta and ____ consulted. 3. Hypertension. Continue amlodipine and Coreg. 4. Deep venous thrombosis prophylaxis, heparin 5000 q.12h. JOB# [id number] ROSE/STEFANY
[2016-07-09] MEDS: ZOSYN/NS 2.25 GM/50ML 2.25 GM/50 ML BAG IV SCH ×2 (08:16→16:04)
[2016-07-09] MEDS: RENVELA PO SCH ×3 (08:18→17:26)
--- NOTE | 2016-07-09 09:01 | Consultation ---
History of Present Illness - Reason for Consult Consult date: 07/09/16 end stage renal disease Requesting physician: TOBIAS PERKINS - History of Present Illness 80yo AAM with h/o end-stage renal disease on hemodialysis on a MWF schedule, prostate cancer status post seed implants 14 years ago, left nephrectomy and chronic right hydronephrosis, who was initially seen by IR after accidental dislodgment of the nephrostomy tube one week ago, now presenting with 1 week of right-sided pain. During nephrostomy placement pt was found to have right-sided moderate pyonephrosis and about 40 mL of purulent material was aspirated. pt is admitted for further IV ABX treatment. Renal consult is requested for management of ESRD/HD. Pt seen and examined at bedside, denies acute fever, chills, nausea, vomiting, dizziness, chest pain, SOB, [place], abdominal pain, dysuria. 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 denies: prescription drug abuse, IV drug use Family history: CAD (brother of heart disease), cancer (mother had breast cancer), other (does not know the cause of of his father. Sister of complications of emphysema) Medications and Allergies Allergies Allergy/AdvReac Type Severity Reaction Status Date / Time No Known Allergies Allergy Verified 03/19/16 17:05 Home Medications Medication Instructions Recorded Confirmed Last Taken Type Carvedilol [Coreg] 6.25 mg PO BID #60 tablet 03/05/15 07/08/16 07/07/16 Rx 6.25mg Sevelamer Carbonate [Renvela] 800 mg PO TIDWM 03/27/16 07/08/16 07/07/16 History 800mg amLODIPine [Norvasc] 10 mg PO QDAY 03/27/16 07/08/16 07/07/16 History 10mg Ranitidine HCl [Zantac 150 MG TAB] 150 mg PO DAILY 06/20/16 07/08/16 07/07/16 History 150mg Active Meds: Active Medications Acetaminophen (Tylenol) 650 mg PO Q4H PRN PRN Reason: Pain MILD(1-3)/Fever >100.5/GAITAN Amlodipine Besylate (Norvasc) 10 mg PO QDAY [facility] Last Admin: 07/08/16 16:00 Dose: Not Given Bisacodyl (Dulcolax) 10 mg RI QDAY PRN PRN Reason: Constipation unrelieved by MOM Carvedilol (Coreg) 6.25 mg PO BID [facility] Last Admin: 07/08/16 23:38 Dose: 6.25 mg Famotidine (Pepcid) 10 mg IV BID [facility] Last Admin: 07/08/16 23:37 Dose: 10 mg Hydromorphone HCl (Dilaudid) 1 mg IV Q3H PRN PRN Reason: Pain , Severe (7-10) Piperacillin Sod/Tazobactam Sod (Zosyn/Ns 2.25 Gm/50ml) 2.25 gm in 50 mls @ 100 mls/hr IV Q8H JENNIFER PRN Reason: Protocol Last Admin: 07/08/16 23:37 Dose: 100 mls/hr Sodium Chloride (Nacl 0.9%) 100 mls @ 999 mls/hr IV RAEANN PRN PRN Reason: Hypotension Magnesium Hydroxide (Milk Of Magnesia) 30 ml PO Q4H PRN PRN Reason: Constipation Ondansetron HCl (Zofran) 4 mg IV Q8H PRN PRN Reason: N/V unrelieved by Reglan Oxycodone/Acetaminophen (Percocet 5/325) 1 tab PO Q6H PRN PRN Reason: Pain, Moderate (4-6) Sevelamer Carbonate (Renvela) 800 mg PO TIDWM [facility] Last Admin: 07/08/16 17:20 Dose: Not Given Sodium Chloride (Sodium Chloride Flush Syringe 10 Ml) 10 ml IV PRN [facility] Zolpidem Tartrate (Ambien) 5 mg PO QHS PRN PRN Reason: Insomnia Review of Systems All systems: negative Genitourinary Male: flank pain Exam - Vital Signs Vital signs: Vital Signs Temp Pulse Resp BP Pulse Ox 98 F 81 18 159/78 93 07/08/16 12:09 07/08/16 12:09 07/08/16 12:09 07/08/16 12:09 07/08/16 12:09 - General Appearance General appearance: well-developed, well-nourished, appears stated age EENT: ATNC, PERRL, mucous membranes moist Neck: Present: neck supple Respiratory: Clear to Ascultation Heart: regular, S1S2 Gastrointestinal: Present: normal, normoactive bowel sounds Integumentary: no rash, other (no edema ) Neurologic: no focal deficit, alert and oriented x3, strength 5/5, CN 3-12 intact Psychiatric: mood/affect appropriate, cooperative Results - Lab Results 07/09/16 05:11 07/09/16 05:11 Most recent lab results Calcium 8.6 mg/dL (8.4-10.2) 07/09/16 05:11 Laboratory Tests 07/08/16 07/08/16 07/08/16 12:31 12:31 15:00 PT 15.0 H INR 1.19 H APTT 35.3 POC Glucose Calcium 9.1 Total Bilirubin AST ALT Alkaline Phosphatase Total Protein Albumin Albumin/Globulin Ratio Urine Color Blue Urine Turbidity Turbid Urine pH 7.0 Ur Specific [place] 1.021 Urine Protein 100 mg/dl Urine Glucose (UA) Neg Urine Ketones Neg Urine Blood Sm Urine Nitrite Neg Urine Bilirubin Neg Urine Urobilinogen < 2.0 Ur Leukocyte Esterase Mod Urine WBC (Auto) > 182.0 H Urine RBC (Auto) > 182.0 07/08/16 07/09/16 07/09/16 15:57 05:11 08:19 PT INR APTT POC Glucose 112 H 88 Calcium 8.6 Total Bilirubin 0.30 AST 10 ALT 6 L Alkaline Phosphatase 56 Total Protein 6.0 L Albumin 2.1 L Albumin/Globulin Ratio 0.5 Urine Color Urine Turbidity Urine pH Ur Specific [place] Urine Protein Urine Glucose (UA) Urine Ketones Urine Blood Urine Nitrite Urine Bilirubin Urine Urobilinogen Ur Leukocyte Esterase Urine WBC (Auto) Urine RBC (Auto) Assessment and Plan - Patient Problems (1) Acute pyonephrosis Current Visit: Yes Status: Acute Plan to address problem: s/p drainage of purulent material, cont ABXs, zosyn dosed for ESRD (2) ESRD (end stage renal disease) Current Visit: No Status: Acute Plan to address problem: will arrange HD today, since pt missed HD on Mon due to nephrostomy tube placement. Transition to MWF schedule thereafter (3) Hypertensive chronic kidney disease with stage 5 chronic kidney disease or end stage renal disease Current Visit: No Status: Acute Plan to address problem: will monitor BP on current meds. 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
--- NOTE | 2016-07-09 09:04 | Progress Note ---
Assessment and Plan Assessment and plan: 80M w pmh of R sided hydronephrosis, ESRD, pw 1 week of dislodgment of nephrostomy tube, sp replacement of nephrostomy tube and drainage of perinephric abscess 1. Perinephric Abscess/UTI sp drainage, fup surgical cxs, continue abx 2. Hydronephrosis sp replacement of nephrostomy tube 3. ESRD HD per nephrology 4. HTN cw meds dvt ppx- heparin sq Dispo: back to [facility] when improved History Interval history: No fevers no chills, feels well. Hospitalist Physical - Physical exam Narrative exam: General: Patient appears well in no distress HEENT: MMM, EOMI cardiac: S1-S2 heard lungs: clear to auscultation, abdomen: soft, nontender, nondistended bowel sounds positive Right nephrostomy tube extremities: no edema clubbing or cyanosis Skin: no rash or lesion Neuro: no focal deficit Psych: appropriate behavior and mood, cognition intact - Constitutional Vitals: Temp Pulse Resp BP Pulse Ox 98.5 F 81 18 156/72 100 07/09/16 07:25 07/09/16 07:25 07/09/16 07:25 07/09/16 07:25 07/09/16 04:00 General appearance: Present: no acute distress Results - Labs CBC & Chem 7: 07/09/16 05:11 07/09/16 05:11 Labs: Laboratory Last Values WBC 7.0 K/mm3 (4.5-11.0) 07/09/16 05:11 RBC 3.16 M/mm3 (3.65-5.03) L 07/09/16 05:11 Hgb 7.8 gm/dl (11.8-15.2) L 07/09/16 05:11 Hct 25.8 % (35.5-45.6) L 07/09/16 05:11 MCV 82 fl (84-94) L 07/09/16 05:11 MCH 25 pg (28-32) L 07/09/16 05:11 MCHC 30 % (32-34) L 07/09/16 05:11 RDW 23.3 % (13.2-15.2) H 07/09/16 05:11 Plt Count 448 K/mm3 (140-440) H 07/09/16 05:11 Lymph % (Auto) 10.5 % (13.4-35.0) L 07/09/16 05:11 [place] % (Auto) 10.3 % (0.0-7.3) H 07/09/16 05:11 Eos % (Auto) 3.4 % (0.0-4.3) 07/09/16 05:11 Baso % (Auto) 1.8 % (0.0-1.8) 07/09/16 05:11 Lymph # 0.7 K/mm3 (1.2-5.4) L 07/09/16 05:11 [place] # 0.7 K/mm3 (0.0-0.8) 07/09/16 05:11 Eos # 0.2 K/mm3 (0.0-0.4) 07/09/16 05:11 Baso # 0.1 K/mm3 (0.0-0.1) 07/09/16 05:11 Seg Neutrophils % 74.0 % (40.0-70.0) H 07/09/16 05:11 Seg Neutrophils # 5.2 K/mm3 (1.8-7.7) 07/09/16 05:11 PT 15.0 Sec. (12.2-14.9) H 07/08/16 12:31 INR 1.19 (0.87-1.13) H 07/08/16 12:31 APTT 35.3 Sec. (24.2-36.6) 07/08/16 12:31 Sodium 139 mmol/L (137-145) 07/09/16 05:11 Potassium 4.5 mmol/L (3.6-5.0) 07/09/16 05:11 Chloride 96.9 mmol/L (98-107) L 07/09/16 05:11 Carbon Dioxide 26 mmol/L (22-30) 07/09/16 05:11 Anion Gap 21 mmol/L 07/09/16 05:11 BUN 40 mg/dL (9-20) H 07/09/16 05:11 Creatinine 8.8 mg/dL (0.8-1.5) H 07/09/16 05:11 Estimated GFR 7 ml/min 07/09/16 05:11 BUN/Creatinine Ratio 4.54 % 07/09/16 05:11 Glucose 80 mg/dL (75-100) 07/09/16 05:11 POC Glucose 88 (70-105) 07/09/16 08:19 Calcium 8.6 mg/dL (8.4-10.2) 07/09/16 05:11 Total Bilirubin 0.30 mg/dL (0.1-1.2) 07/09/16 05:11 AST 10 units/L (5-40) 07/09/16 05:11 ALT 6 units/L (7-56) L 07/09/16 05:11 Alkaline Phosphatase 56 units/L (35-129) 07/09/16 05:11 Total Protein 6.0 g/dL (6.3-8.2) L 07/09/16 05:11 Albumin 2.1 g/dL (3.9-5) L 07/09/16 05:11 Albumin/Globulin Ratio 0.5 % 07/09/16 05:11 Urine Color Blue (Yellow) 07/08/16 15:00 Urine Turbidity Turbid (Clear) 07/08/16 15:00 Urine pH 7.0 (5.0-7.0) 07/08/16 15:00 Ur Specific [place] 1.021 (1.003-1.030) 07/08/16 15:00 Urine Protein 100 mg/dl mg/dL (Negative) 07/08/16 15:00 Urine Glucose (UA) Neg mg/dL (Negative) 07/08/16 15:00 Urine Ketones Neg mg/dL (Negative) 07/08/16 15:00 Urine Blood Sm (Negative) 07/08/16 15:00 Urine Nitrite Neg (Negative) 07/08/16 15:00 Urine Bilirubin Neg (Negative) 07/08/16 15:00 Urine Urobilinogen < 2.0 mg/dL (<2.0) 07/08/16 15:00 Ur Leukocyte Esterase Mod (Negative) 07/08/16 15:00 Urine WBC (Auto) > 182.0 /HPF (0.0-6.0) H 07/08/16 15:00 Urine RBC (Auto) > 182.0 /HPF (0.0-6.0) 07/08/16 15:00
[2016-07-09] MEDS ORDERED: NON-FORMULARY (Ranitidine Hcl [Zantac 150 Mg Tab] 150 MG) PO SCH (10:00)
[2016-07-09] MEDS ORDERED: NACL 0.9 (PRIMING MACHINE ONLY DIALYSIS) MC ONE (13:26)
[2016-07-09] MEDS: NORVASC PO SCH (16:03)
[2016-07-09] MEDS: COREG PO SCH (22:00)
[2016-07-09] MEDS: PEPCID IV SCH (22:00)
[2016-07-10] MEDS: ZOSYN/NS 2.25 GM/50ML 2.25 GM/50 ML BAG IV SCH ×3 (01:00→16:14)
--- NOTE | 2016-07-10 01:07 | Consultation ---
History of Present Illness - Reason for Consult Consult date: 07/09/16 - History of Present Illness 80-year-old with a history of prostate cancer treated with brachytherapy and XRT, history of left nephrectomy, throat cancer, end-stage renal disease on dialysis. Recently nephrostomy tube , taken out and new placement by Dr. Martinez. Purulent fluid. Patient admitted due to concern of infected hydronephrosis risk of worsening. Admitted for IV antibiotics. Patient currently with no significant right flank pain. The main diagnosis infected hydronephrosis moderately severe with no significant pain Patient denies any chest pain shortness of breath. No nausea vomiting diarrhea constipation. No fevers chills. 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 denies: prescription drug abuse, IV drug use Family history: CAD (brother of heart disease), cancer (mother had breast cancer), other (does not know the cause of of his father. Sister of complications of emphysema) Medications and Allergies Allergies Allergy/AdvReac Type Severity Reaction Status Date / Time No Known Allergies Allergy Verified 03/19/16 17:05 Home Medications Medication Instructions Recorded Confirmed Last Taken Type Carvedilol [Coreg] 6.25 mg PO BID #60 tablet 03/05/15 07/08/16 07/07/16 Rx 6.25mg Sevelamer Carbonate [Renvela] 800 mg PO TIDWM 03/27/16 07/08/16 07/07/16 History 800mg amLODIPine [Norvasc] 10 mg PO QDAY 03/27/16 07/08/16 07/07/16 History 10mg Ranitidine HCl [Zantac 150 MG TAB] 150 mg PO DAILY 06/20/16 07/08/16 07/07/16 History 150mg Active Meds: Active Medications Acetaminophen (Tylenol) 650 mg PO Q4H PRN PRN Reason: Pain MILD(1-3)/Fever >100.5/GAITAN Amlodipine Besylate (Norvasc) 10 mg PO QDAY [facility] Last Admin: 07/09/16 16:03 Dose: 10 mg Bisacodyl (Dulcolax) 10 mg HI QDAY PRN PRN Reason: Constipation unrelieved by MOM Carvedilol (Coreg) 6.25 mg PO BID [facility] Last Admin: 07/08/16 23:38 Dose: 6.25 mg Epoetin Luis A (Epogen) 20,000 unit IV RAEANN [facility] Stop: 07/13/16 10:01 Last Admin: 07/09/16 14:15 Dose: 20,000 unit Famotidine (Pepcid) 10 mg IV BID [facility] Last Admin: 07/08/16 23:37 Dose: 10 mg Hydromorphone HCl (Dilaudid) 1 mg IV Q3H PRN PRN Reason: Pain , Severe (7-10) Piperacillin Sod/Tazobactam Sod (Zosyn/Ns 2.25 Gm/50ml) 2.25 gm in 50 mls @ 100 mls/hr IV Q8H JENNIFER PRN Reason: Protocol Last Admin: 07/09/16 16:04 Dose: 100 mls/hr Sodium Chloride (Nacl 0.9%) 100 mls @ 999 mls/hr IV RAEANN PRN PRN Reason: Hypotension Magnesium Hydroxide (Milk Of Magnesia) 30 ml PO Q4H PRN PRN Reason: Constipation Ondansetron HCl (Zofran) 4 mg IV Q8H PRN PRN Reason: N/V unrelieved by Reglan Oxycodone/Acetaminophen (Percocet 5/325) 1 tab PO Q6H PRN PRN Reason: Pain, Moderate (4-6) Sevelamer Carbonate (Renvela) 800 mg PO TIDWM [facility] Last Admin: 07/09/16 17:26 Dose: 800 mg Sodium Chloride (Sodium Chloride Flush Syringe 10 Ml) 10 ml IV PRN [facility] Zolpidem Tartrate (Ambien) 5 mg PO QHS PRN PRN Reason: Insomnia Review of Systems All systems: negative (Previous blank pain resolved) Exam - Constitutional Vitals: Temp Pulse Resp BP Pulse Ox 98.4 F 76 18 150/66 100 07/09/16 15:10 07/09/16 15:10 07/09/16 15:10 07/09/16 15:10 07/09/16 04:00 General appearance: Present: no acute distress, other (thin) - EENT ENT: hearing intact, clear oral mucosa - Neck Neck: Present: supple - Respiratory Respiratory effort: normal - Extremities Extremities: no ischemia, No edema - Abdominal General gastrointestinal: Present: soft, non-tender, non-distended, other (Kaycee tinged nephrostomy cube draining flank with no signs of cellulitis) Male genitourinary: Present: normal - Rectal Rectal Exam: deferred - Psychiatric Psychiatric: appropriate mood/affect, intact judgment & insight, memory intact Results - Labs CBC & Chem 7: 07/09/16 05:11 07/09/16 05:11 Labs: Abnormal lab results 07/09/16 07/09/16 07/09/16 Range/Units 05:11 05:11 16:32 RBC 3.16 L (3.65-5.03) M/mm3 Hgb 7.8 L (11.8-15.2) gm/dl Hct 25.8 L (35.5-45.6) % MCV 82 L (84-94) fl MCH 25 L (28-32) pg MCHC 30 L (32-34) % RDW 23.3 H (13.2-15.2) % Plt Count 448 H (140-440) K/mm3 Lymph % (Auto) 10.5 L (13.4-35.0) % [place] % (Auto) 10.3 H (0.0-7.3) % Lymph # 0.7 L (1.2-5.4) K/mm3 Seg Neutrophils % 74.0 H (40.0-70.0) % Chloride 96.9 L (98-107) mmol/L BUN 40 H (9-20) mg/dL Creatinine 8.8 H (0.8-1.5) mg/dL POC Glucose 106 H (70-105) ALT 6 L (7-56) units/L Total Protein 6.0 L (6.3-8.2) g/dL Albumin 2.1 L (3.9-5) g/dL Assessment and Plan PROSTATE CANCER -H/O BRACHY H/O LEFT NEPHRECTOMY / CANCER BLADDER CA ESRD RIGHT PYONEPHROSIS - s/p nephrostomy removal / placement - IV Abx - due for Intravesicle bladder chemo, May have to postpone - Discussed plan with patient
[2016-07-10] MEDS: PEPCID IV SCH ×3 (04:35→23:04)
[2016-07-10] MEDS: RENVELA PO SCH ×3 (07:51→16:16)
--- NOTE | 2016-07-10 08:47 | Progress Note ---
Assessment and Plan Assessment and plan: 80M w pmh of R sided hydronephrosis, ESRD, pw 1 week of dislodgment of nephrostomy tube, sp replacement of nephrostomy tube and drainage of perinephric abscess 1. Perinephric Abscess/UTI (DOES NOT MEET SEPSIS CRITERIA) sp drainage, fup surgical cxs: prelim reviewed- diptheroids, continue abx add vancomycin 2. Hydronephrosis sp replacement of nephrostomy tube 3. ESRD HD per nephrology 4. HTN cw meds dvt ppx- heparin sq Dispo: back to [facility] when improved History Interval history: No fevers no chills, feels well. Hospitalist Physical - Physical exam Narrative exam: General: Patient appears well in no distress HEENT: MMM, EOMI cardiac: S1-S2 heard lungs: clear to auscultation, abdomen: soft, nontender, nondistended bowel sounds positive Right nephrostomy tube extremities: no edema clubbing or cyanosis Skin: no rash or lesion Neuro: no focal deficit Psych: appropriate behavior and mood, cognition intact - Constitutional Vitals: Temp Pulse Resp BP Pulse Ox 97.1 F L 76 18 141/63 97 07/10/16 07:00 07/10/16 07:00 07/10/16 07:00 07/10/16 07:00 07/10/16 07:00 General appearance: Present: no acute distress Results - Labs CBC & Chem 7: 07/09/16 05:11 07/09/16 05:11 Labs: Laboratory Last Values WBC 7.0 K/mm3 (4.5-11.0) 07/09/16 05:11 RBC 3.16 M/mm3 (3.65-5.03) L 07/09/16 05:11 Hgb 7.8 gm/dl (11.8-15.2) L 07/09/16 05:11 Hct 25.8 % (35.5-45.6) L 07/09/16 05:11 MCV 82 fl (84-94) L 07/09/16 05:11 MCH 25 pg (28-32) L 07/09/16 05:11 MCHC 30 % (32-34) L 07/09/16 05:11 RDW 23.3 % (13.2-15.2) H 07/09/16 05:11 Plt Count 448 K/mm3 (140-440) H 07/09/16 05:11 Lymph % (Auto) 10.5 % (13.4-35.0) L 07/09/16 05:11 [place] % (Auto) 10.3 % (0.0-7.3) H 07/09/16 05:11 Eos % (Auto) 3.4 % (0.0-4.3) 07/09/16 05:11 Baso % (Auto) 1.8 % (0.0-1.8) 07/09/16 05:11 Lymph # 0.7 K/mm3 (1.2-5.4) L 07/09/16 05:11 [place] # 0.7 K/mm3 (0.0-0.8) 07/09/16 05:11 Eos # 0.2 K/mm3 (0.0-0.4) 07/09/16 05:11 Baso # 0.1 K/mm3 (0.0-0.1) 07/09/16 05:11 Seg Neutrophils % 74.0 % (40.0-70.0) H 07/09/16 05:11 Seg Neutrophils # 5.2 K/mm3 (1.8-7.7) 07/09/16 05:11 PT 15.0 Sec. (12.2-14.9) H 07/08/16 12:31 INR 1.19 (0.87-1.13) H 07/08/16 12:31 APTT 35.3 Sec. (24.2-36.6) 07/08/16 12:31 Sodium 139 mmol/L (137-145) 07/09/16 05:11 Potassium 4.5 mmol/L (3.6-5.0) 07/09/16 05:11 Chloride 96.9 mmol/L (98-107) L 07/09/16 05:11 Carbon Dioxide 26 mmol/L (22-30) 07/09/16 05:11 Anion Gap 21 mmol/L 07/09/16 05:11 BUN 40 mg/dL (9-20) H 07/09/16 05:11 Creatinine 8.8 mg/dL (0.8-1.5) H 07/09/16 05:11 Estimated GFR 7 ml/min 07/09/16 05:11 BUN/Creatinine Ratio 4.54 % 07/09/16 05:11 Glucose 80 mg/dL (75-100) 07/09/16 05:11 POC Glucose 106 (70-105) H 07/09/16 16:32 Calcium 8.6 mg/dL (8.4-10.2) 07/09/16 05:11 Total Bilirubin 0.30 mg/dL (0.1-1.2) 07/09/16 05:11 AST 10 units/L (5-40) 07/09/16 05:11 ALT 6 units/L (7-56) L 07/09/16 05:11 Alkaline Phosphatase 56 units/L (35-129) 07/09/16 05:11 Total Protein 6.0 g/dL (6.3-8.2) L 07/09/16 05:11 Albumin 2.1 g/dL (3.9-5) L 07/09/16 05:11 Albumin/Globulin Ratio 0.5 % 07/09/16 05:11 Urine Color Blue (Yellow) 07/08/16 15:00 Urine Turbidity Turbid (Clear) 07/08/16 15:00 Urine pH 7.0 (5.0-7.0) 07/08/16 15:00 Ur Specific [place] 1.021 (1.003-1.030) 07/08/16 15:00 Urine Protein 100 mg/dl mg/dL (Negative) 07/08/16 15:00 Urine Glucose (UA) Neg mg/dL (Negative) 07/08/16 15:00 Urine Ketones Neg mg/dL (Negative) 07/08/16 15:00 Urine Blood Sm (Negative) 07/08/16 15:00 Urine Nitrite Neg (Negative) 07/08/16 15:00 Urine Bilirubin Neg (Negative) 07/08/16 15:00 Urine Urobilinogen < 2.0 mg/dL (<2.0) 07/08/16 15:00 Ur Leukocyte Esterase Mod (Negative) 07/08/16 15:00 Urine WBC (Auto) > 182.0 /HPF (0.0-6.0) H 07/08/16 15:00 Urine RBC (Auto) > 182.0 /HPF (0.0-6.0) 07/08/16 15:00
[2016-07-10] MEDS: COREG PO SCH ×2 (09:39→23:05)
--- NOTE | 2016-07-10 09:39 | Progress Note ---
Assessment and Plan - Patient Problems (1) Acute pyonephrosis Current Visit: Yes Status: Acute Plan to address problem: s/p drainage of purulent material, awaiting culture results. cont ABXs, zosyn dosed for ESRD (2) ESRD (end stage renal disease) Current Visit: No Status: Acute Plan to address problem: cont HD on MWF schedule (3) Hypertensive chronic kidney disease with stage 5 chronic kidney disease or end stage renal disease Current Visit: No Status: Acute Plan to address problem: will monitor BP on current meds. (4) Type 2 diabetes mellitus with diabetic chronic kidney disease Current Visit: No Status: Acute Qualifiers: Diabetes mellitus alf insulin use: D Chronic kidney disease stage: C Plan to address problem: glucose control as per primary attending (5) Anemia in chronic illness Current Visit: Yes Status: Acute Plan to address problem: cont EPO [id number] with HD Subjective Date of service: 07/10/16 Principal diagnosis: hydronephrosis Interval history: pt awake, alert, in NAD, denies fever, chills, n/v/d, abdominal pain Objective - Vital Signs Vital signs: Vital Signs - 12hr 07/09/16 07/10/16 22:00 07:00 Temperature 98.8 F 97.1 F L Pulse Rate [ 85 76 Left Radial] Respiratory 18 18 Rate Respiratory 18 Rate [ Generalized] Blood Pressure 135/59 141/63 [Left Arm] O2 Sat by Pulse 97 Oximetry - General Appearance General appearance: well-developed, well-nourished, appears stated age EENT: ATNC, PERRL, mucous membranes moist Neck: no JVD Respiratory: Present: Clear to Ascultation Cardiology: regular, S1S2 Gastrointestinal: normal, other (Rt nephrostomy tube in place site, c/d/i) Integumentary: no rash, other (no edema ) Neurologic: no focal deficit, alert and oriented x3, strength 5/5, CN 3-12 intact Psychiatric: mood/affect appropriate, cooperative - Lab 07/09/16 05:11 07/09/16 05:11 Most recent lab results Calcium 8.6 mg/dL (8.4-10.2) 07/09/16 05:11
[2016-07-10] MEDS: NORVASC PO SCH (09:41)
[2016-07-10] MEDS ORDERED: VANCOMYCIN PHARMACY TO DOSE IV SCH (15:00)
[2016-07-10] MEDS ORDERED: VANCOMYCIN/NS 1 GM/250 ML 1 GM/250 ML BAG IV ONE (15:30)
--- NOTE | 2016-07-10 17:00 | Progress Note ---
Assessment and Plan PROSTATE CANCER -H/O BRACHY H/O LEFT NEPHRECTOMY / CANCER BLADDER CA ESRD RIGHT PYONEPHROSIS - s/p nephrostomy removal / placement - IV Abx - due for Intravesicle bladder chemo, May have to postpone - Discussed plan with patient 07/10/16 - cont IVAbx - cx pend - afebrile / wbc nl Subjective Date of service: 07/10/16 Principal diagnosis: hydronephrosis Interval history: Patient resting Objective - Constitutional Vitals: Vital Signs - 12hr 07/10/16 07/10/16 07/10/16 07:00 09:39 09:41 Temperature 97.1 F L Pulse Rate [ 76 Left Radial] Respiratory 18 Rate Blood Pressure 141/63 141/63 Blood Pressure 141/63 [Left Arm] O2 Sat by Pulse 97 Oximetry 07/10/16 16:15 Temperature 98.9 F Pulse Rate [ 85 Left Radial] Respiratory 20 Rate Blood Pressure Blood Pressure 144/66 [Left Arm] O2 Sat by Pulse Oximetry General appearance: Present: no acute distress - Labs CBC & Chem 7: 07/09/16 05:11 07/09/16 05:11
[2016-07-11] MEDS: ZOSYN/NS 2.25 GM/50ML 2.25 GM/50 ML BAG IV SCH (04:00)
[2016-07-11 04:55] LABS: Basophils % (Auto) 2.2 % (0.0-1.8); Eosinophils % (Auto) 6.1 % (0.0-4.3); Hematocrit 25.6 % (35.5-45.6); Hemoglobin 7.8 gm/dl (11.8-15.2); Mean Corpuscular HGB Conc 30 % (32-34); Mean Corpuscular Volume 81 fl (84-94); Platelet Count 390 K/mm3 (140-440); Red Blood Count 3.15 M/mm3 (3.65-5.03); White Blood Count 6.4 K/mm3 (4.5-11.0)
[2016-07-11 05:02] LABS: BUN/Creatinine Ratio 3.89; Calcium 8.6 mg/dL (8.4-10.2); Chloride 99.8 mmol/L (98-107)
[2016-07-11 05:03] LABS: Mean Corpuscular Hemoglobin 25 pg (28-32); Red Cell Distribution Width 23.9 % (13.2-15.2)
--- NOTE | 2016-07-11 11:03 | Progress Note ---
Subjective Date of service: 07/11/16 Principal diagnosis: hydronephrosis Interval history: PROSTATE CANCER -H/O BRACHY H/O LEFT NEPHRECTOMY / CANCER BLADDER CA ESRD RIGHT PYONEPHROSIS - s/p nephrostomy removal / placement - IV Abx - due for invesical chemo 07/10/16 - cont IVAbx - cx pend - afebrile / wbc nl PT CAN GO HOME FROM [facility]ANDPOINT RESUME DIET -needs OUTPT placement of stent via nephrostomy (right) when stable Objective - Constitutional Vitals: Vital Signs - 12hr 07/10/16 07/11/16 07/11/16 23:05 00:52 07:00 Temperature 97.4 F L 98.1 F Pulse Rate 84 Pulse Rate [ 81 Left From Monitor] Pulse Rate [ 69 Left Radial] Respiratory 20 18 Rate Blood Pressure 149/66 Blood Pressure 140/61 153/68 [Left Arm] O2 Sat by Pulse 100 98 Oximetry - Labs CBC & Chem 7: 07/11/16 03:35 07/11/16 03:35 Labs: Abnormal lab results 07/11/16 07/11/16 Range/Units 03:35 03:35 RBC 3.15 L (3.65-5.03) M/mm3 Hgb 7.8 L (11.8-15.2) gm/dl Hct 25.6 L (35.5-45.6) % MCV 81 L (84-94) fl MCH 25 L (28-32) pg MCHC 30 L (32-34) % RDW 23.9 H (13.2-15.2) % [place] % (Auto) 12.3 H (0.0-7.3) % Eos % (Auto) 6.1 H (0.0-4.3) % Baso % (Auto) 2.2 H (0.0-1.8) % Lymph # 1.1 L (1.2-5.4) K/mm3 BUN 30 H (9-20) mg/dL Creatinine 7.7 H (0.8-1.5) mg/dL
[2016-07-11] MEDS: RENVELA PO SCH (11:41)
[2016-07-11] MEDS: COREG PO SCH (11:41)
[2016-07-11] MEDS: NORVASC PO SCH (11:42)
--- NOTE | 2016-07-11 13:26 | Discharge Summary ---
Providers - Providers Date of Admission: 07/08/16 15:34 Attending physician: JOSEPH BALL MD 07/08/16 15:43 Consult to Physician [CONS] Routine Consulting Provider: ZULLY JADE Reason For Exam: ESRD Place consult to:: DR. JADE Notified:: ANSWERING SERVICE Phone number called:: [phone] Was contact made?: Yes Time called:: 17:41 Comment:: CONSULT COMPLETED BY LINDSAY 07/08/16 15:45 Consult to Physician [CONS] Routine Consulting Provider: JD MCINTOSH Reason For Exam: perinephric abscess Place consult to:: DR. MCINTOSH Notified:: ANSWERING SERVICE Phone number called:: [phone] Was contact made?: Yes Time called:: 17:48 Comment:: CONSULLT COMPLETED BY LINDSAY 07/08/16 15:48 Consult to Physician [CONS] Routine Consulting Provider: BRODIE GIBSON Reason For Exam: Perinephric abscess Place consult to:: DR. GIBSON Notified:: ANSWERING MACHINE Phone number called:: [phone] Was contact made?: Yes Time called:: 17:56 Comment:: LEFT MESSAGE/CONSULT COMPLETED - LINDSAY 07/11/16 13:16 Consult to Physician [CONS] Routine Consulting Provider: LINCOLN SIMON Reason For Exam: Right kidney abscess Primary care physician: MARIELY CHAMPION Hospitalization Condition: Stable Hospital course: 80M w pmh of R sided hydronephrosis, ESRD, pw 1 week of dislodgment of nephrostomy tube he pw with Right flank pain Diagnosis 1. Perinephric Abscess/UTI (DOES NOT MEET SEPSIS CRITERIA) He received IV abx and surgical drainage, and nephrostomy tube was replaced, fup surgical cxs: prelim reviewed- diptheroids, continue abx he was sent on empiric oral abx for completion of rx 2. Hydronephrosis sp replacement of nephrostomy tube 3. ESRD HD per nephrology 4. HTN cw meds dvt ppx- heparin sq Dispo: back to [facility] when improved Disposition: DC/TX-06 HOME UNDER [facility] Time spent for discharge: 35 minutes Core Measure Documentation - Palliative Care Palliative Care/ Comfort Measures: Not Applicable - Core Measures Any of the following diagnoses?: none Exam - Physical Exam Narrative exam: General: Patient appears well in no distress HEENT: MMM, EOMI cardiac: S1-S2 heard lungs: clear to auscultation, abdomen: soft, nontender, nondistended bowel sounds positive Right nephrostomy tube extremities: no edema clubbing or cyanosis Skin: no rash or lesion Neuro: no focal deficit Psych: appropriate behavior and mood, cognition intact - Constitutional Vitals: Temp Pulse Resp BP Pulse Ox 98.1 F 69 18 153/68 98 07/11/16 07:00 07/11/16 07:00 07/11/16 07:00 07/11/16 07:00 07/11/16 07:00 Plan Follow up with: MARIELY CHAMPION MD [Primary Care Provider] - 7 Days ZAIRE ARELLANO MD [Staff Physician] - 7 Days Prescriptions: Amoxicillin/K Clav Tab [Augmentin 500 MG TAB] 1 each PO Q24H #21 tablet Levofloxacin [Levaquin TAB] 500 mg PO Q48H #11 tablet
[2016-07-11] MEDS ORDERED: VANCOMYCIN/NS 1 GM/250 ML 1 GM/250 ML BAG IV ONE (16:00)
[2016-07-11] MEDS ORDERED: NACL 0.9 (PRIMING MACHINE ONLY DIALYSIS) MC ONE (16:16)
[2016-07-11 19:35] VITALS: BP 166/81
--- NOTE | 2016-07-11 20:31 | Progress Note ---
Assessment and Plan (1) Acute pyonephrosis Current Visit: Yes Status: Acute Plan to address problem: s/p drainage of purulent material, awaiting culture results. Cont ABXs (2) ESRD (end stage renal disease) Current Visit: No Status: Acute Plan to address problem: HD today (3) Hypertensive chronic kidney disease with stage 5 chronic kidney disease or end stage renal disease Current Visit: No Status: Acute Plan to address problem: Stable. will monitor BP on current meds. 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 Feels better. No fever. No SOB/CP Objective - Exam Narrative Exam: General appearance: well-developed, well-nourished, appears stated age EENT: ATNC, PERRL, mucous membranes moist Neck: no JVD, normal ROM Respiratory: Present: Clear to Ascultation Cardiology: regular, S1S2 Gastrointestinal: normal, other (Rt nephrostomy tube in place with pinkish urine ) Integumentary: no rash, other (no edema ) Neurologic: no focal deficit, alert and oriented x3, strength 5/5, CN 3-12 intact Psychiatric: mood/affect appropriate, cooperative - Vital Signs Vital signs: Vital Signs - 12hr 07/11/16 07/11/16 07/11/16 14:40 15:00 15:15 Temperature 97.8 F Pulse Rate 54 L 57 L 70 Pulse Rate [ Left Radial] Respiratory 18 Rate Blood Pressure 150/62 151/65 168/74 Blood Pressure [Left Arm] 07/11/16 07/11/16 07/11/16 15:30 15:45 16:00 Temperature Pulse Rate 67 62 66 Pulse Rate [ Left Radial] Respiratory Rate Blood Pressure 153/74 147/64 144/74 Blood Pressure [Left Arm] 07/11/16 07/11/16 07/11/16 16:15 16:30 16:45 Temperature Pulse Rate 72 66 68 Pulse Rate [ Left Radial] Respiratory Rate Blood Pressure 163/71 137/58 130/60 Blood Pressure [Left Arm] 07/11/16 07/11/16 07/11/16 17:00 17:15 17:30 Temperature Pulse Rate 69 70 67 Pulse Rate [ Left Radial] Respiratory Rate Blood Pressure 157/77 167/73 149/73 Blood Pressure [Left Arm] 07/11/16 07/11/16 07/11/16 17:45 18:00 18:10 Temperature Pulse Rate 78 82 80 Pulse Rate [ Left Radial] Respiratory Rate Blood Pressure 157/67 163/80 167/70 Blood Pressure [Left Arm] 07/11/16 07/11/16 18:30 19:20 Temperature 97.9 F 98 F Pulse Rate 75 Pulse Rate [ 85 Left Radial] Respiratory 18 18 Rate Blood Pressure 166/81 Blood Pressure 143/72 [Left Arm] - Lab 07/11/16 03:35 07/11/16 03:35 Most recent lab results Calcium 8.6 mg/dL (8.4-10.2) 07/11/16 03:35
== END 2016-07-11 20:30 | disposition home health service (06) | DRG 698 ==
LOC: FLUORO 10:19 → OPU 10:19 → 3A 15:34 → 2B-SURG 16:28
PROVIDERS: ADMIT Internal Medicine; ATTEND Internal Medicine
PROC: 0T9B30Z Drainage of Bladder with Drainage Device, Percutaneous Approach (ICD-10-PCS; principal; 2016-07-08)
PROC: BT111ZZ Fluoroscopy of Right Kidney using Low Osmolar Contrast (ICD-10-PCS; 2016-07-08)
PROC: 5A1D60Z (ICD-10-PCS; 2016-07-09)
DX: T83.89XA Other specified complication of genitourinary prosthetic devices, implants and grafts, initial encounter (principal); N15.1 Renal and perinephric abscess; N18.6 End stage renal disease; I12.0 Hypertensive chronic kidney disease with stage 5 chronic kidney disease or end stage renal disease; N13.6 Pyonephrosis; C67.9 Malignant neoplasm of bladder, unspecified; D63.8 Anemia in other chronic diseases classified elsewhere; Z87.891 Personal history of nicotine dependence; Z82.49 Family history of ischemic heart disease and other diseases of the circulatory system; Z80.3 Family history of malignant neoplasm of breast; Z80.9 Family history of malignant neoplasm, unspecified
CPT/HCPCS: 36415; 50432; 74000; 80048; 80053; 81001; 82962; 85025; 85610; 85730; 87086; C1729; C1751; C1769; J0885; J1956; J2250; J2543; J3010; J3370; J7030; J7040; Q9967

== ENCOUNTER 2016-09-08 16:24 | Inpatient (IN) | payer MEDICARE ==
[2016-09-08 17:16] LABS: Basophils % (Auto) 0.4 % (0.0-1.8); Eosinophils % (Auto) 3.6 % (0.0-4.3); Hematocrit 35.7 % (35.5-45.6); Hemoglobin 11.1 gm/dl (11.8-15.2); Mean Corpuscular HGB Conc 31 % (32-34); Mean Corpuscular Hemoglobin 27 pg (28-32); Mean Corpuscular Volume 87 fl (84-94); Red Blood Count 4.13 M/mm3 (3.65-5.03); White Blood Count 3.7 K/mm3 (4.5-11.0)
[2016-09-08 17:17] LABS: Red Cell Distribution Width 20.8 % (13.2-15.2)
[2016-09-08 17:31] LABS: Albumin 2.9 g/dL (3.9-5); Albumin/Globulin Ratio 0.7 %; BUN/Creatinine Ratio 4.1; Bilirubin,Total 0.4 mg/dL (0.1-1.2); Calcium 8.9 mg/dL (8.4-10.2); Chloride 96.2 mmol/L (98-107); Potassium 4.3 mmol/L (3.6-5.0); Total Protein 7.3 g/dL (6.3-8.2)
[2016-09-08 17:45] LABS: Platelet Count 83 K/mm3 (140-440)
[2016-09-08 17:46] LABS: INR 1.04 (0.87-1.13)
[2016-09-08 17:47] LABS: Partial Thromboplastin Time 33.1 Sec. (24.2-36.6)
[2016-09-08 21:12] LABS: Bilirubin,Urine NEG (Negative); Blood,Urine SM (Negative); Ketones,Urine TR mg/dL (Negative); Leukocyte Esterase,Urine LG (Negative); Mucus,Urine 3+ /HPF; Nitrite,Urine NEG (Negative); Urobilinogen,Urine < 2.0 mg/dL (<2.0)
[2016-09-08 21:13] LABS: WBC,Urine > 182.0 /HPF (0.0-6.0)
[2016-09-08] MEDS ORDERED: XYLOCAINE 1% MPF 5 mL INFILTRATI ONE (21:28)
[2016-09-08] MEDS ORDERED: ROCEPHIN/NS 2 GM/100 ML 2 GM/100 ML BAG IV ONE (21:40)
--- NOTE | 2016-09-08 22:42 | Emergency Department Report ---
HPI - General Chief Complaint: Urogenital-Male Time Seen by Provider: 09/08/16 21:26 - HPI HPI: Patient came to the ED with blood in Gunter, also drainage appearing to be purulent and nephrostomy tube. Patient complained of chills at home, but no fever. Patient complained of severe bilateral flank pain, and pain at the Gunter site. Patient has been taking prescribed pain medicine at home with minimal relief. Patient has a history of prostate cancer, renal cancer among other medical issues. ED Past Medical Hx - Past Medical History Previous Medical History?: Yes Hx Hypertension: Yes (X 4 YRS) Hx Diabetes: Yes Hx GERD: Yes Hx Renal Disease: Yes (LEFT NEPHRECTOMY DUE TO CA/ESRD on HD MWF) Hx Arthritis: Yes Hx COPD: (PT UNSURE) Hx Tuberculosis: No (HX POSITIVE SKIN TEST, NEG CXR) Hx HIV: No Additional medical history: Stomach Ulcers. HD with vascath right chest,new graph in right arm. Hx of renal carcinoma - Surgical History Past Surgical History?: Yes Additional Surgical History: Left kidney removed. HD graft 04/2015. prostate surgery - Family History Family history: hypertension - Social History Smoking Status: Former Smoker Substance Use Type: None - Medications Home Medications: Home Medications Medication Instructions Recorded Confirmed Last Taken Type Carvedilol [Coreg] 6.25 mg PO BID #60 tablet 03/05/15 09/08/16 07/07/16 Rx 6.25mg Sevelamer Carbonate [Renvela] 800 mg PO TIDWM 03/27/16 09/08/16 07/07/16 History 800mg Ranitidine HCl [Zantac 150 MG TAB] 150 mg PO DAILY 06/20/16 09/08/16 07/07/16 History 150mg Megestrol [Megace] 20 mg PO TID 09/08/16 09/08/16 Unknown History NIFEdipine XL [Procardia Xl] 60 mg PO QDAY 09/08/16 09/08/16 Unknown History ED Review of Systems ROS: Stated complaint: BLOOD IN CATHETER Other details as noted in HPI Comment: All other systems reviewed and negative Cardiovascular: chest pain Genitourinary: urgency, hematuria Physical Exam - Physical Exam Vital Signs: Vital Signs 09/08/16 09/08/16 09/08/16 16:34 19:20 19:31 Temperature 98.1 F Pulse Rate 86 58 L 56 L Respiratory 16 19 19 Rate Blood Pressure 184/80 173/66 Blood Pressure [Left] O2 Sat by Pulse 100 99 100 Oximetry 09/08/16 09/08/16 09/08/16 19:38 19:39 19:41 Temperature 97.7 F Pulse Rate 83 63 Respiratory 17 17 15 Rate Blood Pressure 173/66 Blood Pressure 185/86 [Left] O2 Sat by Pulse 99 100 Oximetry 09/08/16 09/08/16 09/08/16 19:51 20:00 20:11 Temperature Pulse Rate 57 L 56 L 56 L Respiratory 19 18 17 Rate Blood Pressure 173/66 178/71 178/71 Blood Pressure [Left] O2 Sat by Pulse 99 100 99 Oximetry 09/08/16 09/08/16 20:21 20:31 Temperature Pulse Rate 61 77 Respiratory 14 15 Rate Blood Pressure 160/63 199/74 Blood Pressure [Left] O2 Sat by Pulse 99 99 Oximetry Physical Exam: Gen. alert and oriented 3 in no distress Head atraumatic normocephalic Eyes PERR LA EOMI Chest regular rate and rhythm normal S1-S2 lungs clear bilaterally Abdomen soft nondistended Back no point tenderness paravertebral tenderness Neuro no focal deficit. Psych normal mood. Right nephrostomy tube with purulent drainage. ED Course Vital Signs 09/08/16 09/08/16 09/08/16 16:34 19:20 19:31 Temperature 98.1 F Pulse Rate 86 58 L 56 L Respiratory 16 19 19 Rate Blood Pressure 184/80 173/66 Blood Pressure [Left] O2 Sat by Pulse 100 99 100 Oximetry 09/08/16 09/08/16 09/08/16 19:38 19:39 19:41 Temperature 97.7 F Pulse Rate 83 63 Respiratory 17 17 15 Rate Blood Pressure 173/66 Blood Pressure 185/86 [Left] O2 Sat by Pulse 99 100 Oximetry 09/08/16 09/08/16 09/08/16 19:51 20:00 20:11 Temperature Pulse Rate 57 L 56 L 56 L Respiratory 19 18 17 Rate Blood Pressure 173/66 178/71 178/71 Blood Pressure [Left] O2 Sat by Pulse 99 100 99 Oximetry 09/08/16 09/08/16 20:21 20:31 Temperature Pulse Rate 61 77 Respiratory 14 15 Rate Blood Pressure 160/63 199/74 Blood Pressure [Left] O2 Sat by Pulse 99 99 Oximetry ED Medical Decision Making - Lab Data Result diagrams: 09/08/16 17:01 09/08/16 17:01 Critical care attestation.: If time is entered above; I have spent that time in minutes in the direct care of this critically ill patient, excluding procedure time. ED Disposition Clinical Impression: Pyelonephritis, acute Disposition: DC-09 OP ADMIT IP TO THIS HOSP Is pt being admited?: Yes Does the pt Need Aspirin: No Condition: Stable Referrals: PRIMARY CARE, [Primary Care Provider] - 3-5 Days
--- NOTE | 2016-09-08 23:00 | History and Physical Report ---
History of Present Illness Date of examination: 09/08/16 History of present illness: 80-year-old man with a history of hypertension, diabetes, end-stage renal disease on dialysis, throat cancer, prostate cancer, renal cancer comes emergency room with complaints of hematuria. He stated he had his Gunter came out and this was replaced on Monday. A day after insertion of Gunter, he noticed that he has been having persistent hematuria. His nephrostomy tube with purulent material, complaining of flank pain Review of systems Constitutional: no fever, + chills, no weight loss Ears, eyes, nose, mouth and throat: no nasal congestion, no nasal discharge, no sinus pressure, no vision change, no red eye. Neck: No neck pain or rigidity. Cardiovascular: chest pain, no orthopnea, no palpitations, no leg swelling Respiratory: No shortness of breath, no cough, no congestion, no wheezing Gastrointestinal: abdominal pain, hematochezia, no nausea, no vomiting Genitourinary : no dysuria, frequency , no hematuria Musculoskeletal: no joint swelling or muscle ache Integumentary: no rash, no pruritis Neurological: no parathesias, no focal weakness Endocrine: no cold or heat intolerance, no polyuria or polydipsia Hematologic/Lymphatic: no easy bruising, no easy bleeding, no gland swelling Allergic/Immunologic: no urticaria, no angioedema. PAST MEDICAL HISTORY:hypertension, diabetes, end-stage renal disease on dialysis , throat cancer, prostate cancer, renal cancer PAST SURGICAL HISTORY: Left nephrectomy, prostatectomy FAMILY HISTORY: Diabetes SOCIAL HISTORY: Quit smoking years ago, no alcohol, no drugs Medications and Allergies Allergies Allergy/AdvReac Type Severity Reaction Status Date / Time No Known Allergies Allergy Verified 03/19/16 17:05 Home Medications Medication Instructions Recorded Confirmed Last Taken Type Carvedilol [Coreg] 6.25 mg PO BID #60 tablet 03/05/15 09/08/16 07/07/16 Rx 6.25mg Sevelamer Carbonate [Renvela] 800 mg PO TIDWM 03/27/16 09/08/16 07/07/16 History 800mg Ranitidine HCl [Zantac 150 MG TAB] 150 mg PO DAILY 06/20/16 09/08/16 07/07/16 History 150mg Megestrol [Megace] 20 mg PO TID 09/08/16 09/08/16 Unknown History NIFEdipine XL [Procardia Xl] 60 mg PO QDAY 09/08/16 09/08/16 Unknown History Exam - Physical Exam Narrative exam: Gen. appearance: Patient lying in bed, no apparent distress HEENT: Normocephalic, atraumatic, pupils equally round and reactive to light, extraocular movement intact, and no sclericterus,. No JVD or thyromegaly or nodule,neck supple, no carotid bruit ,mucous membranes moist, no exudate or erythema Heart: S1, S2, regular rate and rhythm Lungs: Clear to auscultation bilaterally, breathing comfortable Abdomen: Positive bowel sounds, nontender, nondistended, no organomegaly Extremity: Right nephrostomy tube, No edema, cyanosis, clubbing Skin: No rash, nodules, warm, dry Neuro: Oriented 3, cranial nerves II-12 intact, speech is fluent, motor and sensory intact - Constitutional Vitals: Temp Pulse Resp BP Pulse Ox 97.7 F 77 15 199/74 99 09/08/16 19:38 09/08/16 20:31 09/08/16 20:31 09/08/16 20:31 09/08/16 20:31 Results - Labs CBC & Chem 7: 09/09/16 03:39 09/09/16 03:39 Labs: Abnormal lab results 09/08/16 09/08/16 09/08/16 Range/Units 17:01 17:01 20:49 WBC 3.7 L (4.5-11.0) K/mm3 Hgb 11.1 L (11.8-15.2) gm/dl MCH 27 L (28-32) pg MCHC 31 L (32-34) % RDW 20.8 H (13.2-15.2) % Plt Count 83 L (140-440) K/mm3 [place] % (Auto) 7.9 H (0.0-7.3) % Lymph # 0.7 L (1.2-5.4) K/mm3 Chloride 96.2 L (98-107) mmol/L BUN 30 H (9-20) mg/dL Creatinine 7.3 H (0.8-1.5) mg/dL Glucose 159 H (75-100) mg/dL ALT 5 L (7-56) units/L Albumin 2.9 L (3.9-5) g/dL Urine WBC (Auto) > 182.0 H (0.0-6.0) /HPF Assessment and Plan Assessment Hematuria Pyelonephritis Hypertension Diabetes End-stage renal disease on dialysis History of prostate, renal and Throat cancer Plan Start IV Rocephin, consult urology, renal Check fingersticks initiate insulin sliding scale Continue appropriate outpatient medications Start DVT prophylaxis with SCD
[2016-09-08] MEDS: ROCEPHIN IV ONE ×2 (23:31→23:33)
[2016-09-08] MEDS ORDERED: MORPHINE IV PRN (23:45)
[2016-09-08] MEDS ORDERED: ZOFRAN IV PRN (23:45)
[2016-09-08] MEDS ORDERED: TYLENOL PO PRN (23:45)
[2016-09-09 01:10] LABS: Hematocrit 33.8 % (35.5-45.6); Hemoglobin 10.3 gm/dl (11.8-15.2)
[2016-09-09 04:16] LABS: Basophils % (Auto) 0.7 % (0.0-1.8); Eosinophils % (Auto) 7.4 % (0.0-4.3); Hematocrit 34.5 % (35.5-45.6); Hemoglobin 10.7 gm/dl (11.8-15.2); Mean Corpuscular HGB Conc 31 % (32-34); Mean Corpuscular Hemoglobin 27 pg (28-32); Mean Corpuscular Volume 86 fl (84-94); White Blood Count 3.3 K/mm3 (4.5-11.0)
[2016-09-09 04:18] LABS: Platelet Count 73 K/mm3 (140-440); Red Cell Distribution Width 20.5 % (13.2-15.2)
[2016-09-09] MEDS ORDERED: D50W (25GM) IV PRN (04:18)
[2016-09-09 04:35] LABS: BUN/Creatinine Ratio 4.3; Calcium 8.6 mg/dL (8.4-10.2); Chloride 98.9 mmol/L (98-107); Potassium 4.2 mmol/L (3.6-5.0)
[2016-09-09] MEDS: NOVOLOG SUB-Q SCH ×4 (08:08→22:12)
[2016-09-09] MEDS: APRESOLINE IV PRN (08:24)
--- NOTE | 2016-09-09 09:32 | Admit Criteria Form ---
Admission Criteria Documentation: PYELONEPHRITIS, ACUTE Clinical Indications for Admission to Inpatient Care (Place 'X' for any and all applicable criteria): Admission is indicated for ANY ONE of the following 1,2,3,4,5 [ ]I. Outpatient treatment has failed or is not feasible (eg, multidrug- resistant organism).5 [ ]II. beyond 24 weeks' gestation6 [ ]III. Hemodynamic instability [X ]IV. Immunocompromised state (eg, AIDS, diabetes, sickle cell disease) [ ]V. Known renal or urologic abnormalities (eg, indwelling catheter, structural abnormalities, renal calculi, urinary stent, previous urologic surgery) [ ]. Condition that requires drainage procedure, including ANY ONE of the following: [ ]a) Urinary obstruction [ ]b) Pyelitis [ ]c) Pyonephrosis [ ]d) Renal or perinephric abscess [ ]e) Emphysematous pyelonephritis 7 [ X]VII. Inpatient admission required rather than observation care (Also use Pyelonephritis, Acute: Observation Care Criteria as appropriate) because of ANY ONE of the following: [ ]a) High fever or infection requiring inpatient admission as indicated by ANY ONE of [id number] [ ]A. Documented bacteremia [ ]B. Temp>104.9 [id number] (oral) [ ]C. Temp>103.10F (oral) or <96.80F (rectal) that does not respond to all emergency treatment [ ]b) Acute renal failure [ ]c) Other significant finding or clinical condition judged not to be within the scope of observation care [ ]d) IV fluid to replace significant ongoing (eg, for over 24hrs) losses (> 3 L/m2 per day) [ X]e) Other condition,treatment or monitoring requiring inpatient admission The original [facility] [facility] content created by [employer] has been revised. The portions of the content which have been revised are identified through the use of italic text or in bold, and [facility] has neither reviewed nor approved the modified material. All other unmodified content is copyright [employer] [facility]. Please see references footnoted in the original [employer] [facility] edition 2016 Admission Criteria Met: Yes
[2016-09-09] MEDS ORDERED: NACL 0.9% 100 ML IV PRN (10:00)
--- NOTE | 2016-09-09 12:15 | Progress Note ---
Assessment and Plan Assessment and plan: Patient 80-year-old man with a history of hypertension, type 2 diabetes mellitus , end-stage renal disease on hemodialysis and throat/bladder/prostate cancer with a nephrostomy tube under the care Dr. Gupta, urologist who presented with persistent hematuria/pus in the nephrostomy tube with flank pains. Urinalysis was reflective of urinary tract infection with pyuria. I spoke with Urology, Dr. Gupta who reiterated strongly that he spoke with ED physician last night and that patient needs to be seen by interventional radiologist not him to exchange nephrostomy tube/place stent. Patient has missed appointments with Dr. Martinez/Sparkle in the past per Dr. Gupta. -Sepsis, poa as evident by wbc 3.3, rr 21 with uti: treat with ABX -UTI with obstruction and hematuria due to prostate cancer most likely, nephrostomy tube present: Consulted and discussed with potential radiologist Dr. Martinez who has also been contacted by Dr. Gupta -End Stage renal disease: Consult nephrology, on hemodialysis -Prostate cancer and other cancers which I do not know the Stage they Are: Continue to Follow [facility] -DVT prophylaxis: SCDs only due to bloody discharge in the nephrostomy tube Full code, patient doesn't want to discuss hospice Disposition: Continue inpatient care, await interventional radiologist assessment History Interval history: Patient seen and examined. Follow up on current diagnosis/abdominal pain. Overnight uneventful. No cp, sob, n/v or severe headaches. Imaging, old records , testing, labs, nursing notes reviewed. Hospitalist Physical - Physical exam Narrative exam: GEN: Thin and frail BMI 19.8 NAD, AWAKE, ALERT, ORIENTATED x 3 HEENT: NCAT, PERRL, EOMI, OP CLEAR NECK: SUPPLE, NO THYROMEGALY, NO JVD, NO LAD CVS: RRR, NORMAL S1S2 LUNGS/CHEST: CTA B, NORMAL CHEST EXPANSION B, GOOD AIR ENTRY B ABD: SOFT, nondistended suprapubic tenderness GBS, NO REBOUND OR GUARDING, left posterior to risk grossly bloody EXT/SKIN: NO SIGNIFICANT EDEMA OR RASH MSK: FROM X 4 EXTREMITIES NEURO: CN 2-12 GROSSLY INTACT, NO FOCAL DEFICITS PSY: CALM - Constitutional Vitals: Temp Pulse Resp BP Pulse Ox 97.8 F 71 18 211/89 95 09/09/16 08:03 09/09/16 08:24 09/09/16 08:03 09/09/16 08:24 09/09/16 09:00 Results - Labs CBC & Chem 7: 09/09/16 03:39 09/09/16 03:39 Labs: Laboratory Last Values WBC 3.3 K/mm3 (4.5-11.0) L 09/09/16 03:39 RBC 4.00 M/mm3 (3.65-5.03) 09/09/16 03:39 Hgb 10.7 gm/dl (11.8-15.2) L 09/09/16 03:39 Hct 34.5 % (35.5-45.6) L 09/09/16 03:39 MCV 86 fl (84-94) 09/09/16 03:39 MCH 27 pg (28-32) L 09/09/16 03:39 MCHC 31 % (32-34) L 09/09/16 03:39 RDW 20.5 % (13.2-15.2) H 09/09/16 03:39 Plt Count 73 K/mm3 (140-440) L 09/09/16 03:39 Lymph % (Auto) 22.9 % (13.4-35.0) 09/09/16 03:39 [place] % (Auto) 14.0 % (0.0-7.3) H 09/09/16 03:39 Eos % (Auto) 7.4 % (0.0-4.3) H 09/09/16 03:39 Baso % (Auto) 0.7 % (0.0-1.8) 09/09/16 03:39 Lymph # 0.8 K/mm3 (1.2-5.4) L 09/09/16 03:39 [place] # 0.5 K/mm3 (0.0-0.8) 09/09/16 03:39 Eos # 0.2 K/mm3 (0.0-0.4) 09/09/16 03:39 Baso # 0.0 K/mm3 (0.0-0.1) 09/09/16 03:39 Seg Neutrophils % 55.0 % (40.0-70.0) 09/09/16 03:39 Seg Neutrophils # 1.8 K/mm3 (1.8-7.7) 09/09/16 03:39 PT 14.1 Sec. (12.2-14.9) 09/08/16 17:06 INR 1.04 (0.87-1.13) 09/08/16 17:06 APTT 33.1 Sec. (24.2-36.6) 09/08/16 17:06 Sodium 144 mmol/L (137-145) 09/09/16 03:39 Potassium 4.2 mmol/L (3.6-5.0) 09/09/16 03:39 Chloride 98.9 mmol/L (98-107) 09/09/16 03:39 Carbon Dioxide 30 mmol/L (22-30) 09/09/16 03:39 Anion Gap 19 mmol/L 09/09/16 03:39 BUN 34 mg/dL (9-20) H 09/09/16 03:39 Creatinine 7.9 mg/dL (0.8-1.5) H 09/09/16 03:39 Estimated GFR 8 ml/min 09/09/16 03:39 BUN/Creatinine Ratio 4.30 % 09/09/16 03:39 Glucose 113 mg/dL (75-100) H 09/09/16 03:39 POC Glucose 82 (70-105) 09/09/16 08:05 Calcium 8.6 mg/dL (8.4-10.2) 09/09/16 03:39 Total Bilirubin 0.40 mg/dL (0.1-1.2) 09/08/16 17:01 AST 12 units/L (5-40) 09/08/16 17:01 ALT 5 units/L (7-56) L 09/08/16 17:01 Alkaline Phosphatase 41 units/L (35-129) 09/08/16 17:01 Total Protein 7.3 g/dL (6.3-8.2) 09/08/16 17:01 Albumin 2.9 g/dL (3.9-5) L 09/08/16 17:01 Albumin/Globulin Ratio 0.7 % 09/08/16 17:01 Lipase 46 units/L (13-60) 09/08/16 17:01 Urine Color Yellow (Yellow) 09/08/16 20:49 Urine Turbidity Turbid (Clear) 09/08/16 20:49 Urine pH 7.0 (5.0-7.0) 09/08/16 20:49 Ur Specific [place] 1.018 (1.003-1.030) 09/08/16 20:49 Urine Protein 100 mg/dl mg/dL (Negative) 09/08/16 20:49 Urine Glucose (UA) Neg mg/dL (Negative) 09/08/16 20:49 Urine Ketones Tr mg/dL (Negative) 09/08/16 20:49 Urine Blood Sm (Negative) 09/08/16 20:49 Urine Nitrite Neg (Negative) 09/08/16 20:49 Urine Bilirubin Neg (Negative) 09/08/16 20:49 Urine Urobilinogen < 2.0 mg/dL (<2.0) 09/08/16 20:49 Ur Leukocyte Esterase Lg (Negative) 09/08/16 20:49 Urine WBC (Auto) > 182.0 /HPF (0.0-6.0) H 09/08/16 20:49 Urine RBC (Auto) 13.0 /HPF (0.0-6.0) 09/08/16 20:49 Urine Mucus 3+ /HPF 09/08/16 20:49 Blood Type B POSITIVE 09/08/16 17:13 Antibody Screen TNR 09/08/16 17:13 JILLIAN Antibody Screen Negative 09/08/16 17:13
[2016-09-09] MEDS ORDERED: NACL 0.9 (PRIMING MACHINE ONLY DIALYSIS) MC ONE (12:40)
--- NOTE | 2016-09-09 13:22 | Consultation ---
History of Present Illness - Reason for Consult Consult date: 09/09/16 Right nephrostomy tube Requesting physician: SANCHEZ SHELTON - History of Present Illness 80-year-old man with a history of hypertension, diabetes, end-stage renal disease on dialysis, throat cancer, prostate cancer, renal cancer comes emergency room with complaints of hematuria. The patient reports that for the last 2 weeks he has had purulent drainage from his right nephrostomy. [facility] was not contacted. He was last able to empty the bag on Monday. The patient also reports that he had a Russo insertion approximately 2 weeks ago , and has been having persistent hematuria since then. I discussed the case with Dr. Gupta. Past History Past Medical History: cancer, dialysis, GERD, other (hydronephrosis) Past Surgical History: Other (right PCN, dialysis access, russo placements) Social history: no significant social history Family history: no significant family history Medications and Allergies Allergies Allergy/AdvReac Type Severity Reaction Status Date / Time No Known Allergies Allergy Verified 03/19/16 17:05 Home Medications Medication Instructions Recorded Confirmed Last Taken Type Carvedilol [Coreg] 6.25 mg PO BID #60 tablet 03/05/15 09/08/16 07/07/16 Rx 6.25mg Sevelamer Carbonate [Renvela] 800 mg PO TIDWM 03/27/16 09/08/16 07/07/16 History 800mg Ranitidine HCl [Zantac 150 MG TAB] 150 mg PO DAILY 06/20/16 09/08/16 07/07/16 History 150mg Megestrol [Megace] 20 mg PO TID 09/08/16 09/08/16 Unknown History NIFEdipine XL [Procardia Xl] 60 mg PO QDAY 09/08/16 09/08/16 Unknown History Active Meds: Active Medications Acetaminophen (Tylenol) 650 mg PO Q4H PRN PRN Reason: Pain MILD(1-3)/Fever >100.5/GAITAN Dextrose (D50w (25gm)) 50 ml IV PRN PRN PRN Reason: Hypoglycemia Hydralazine HCl (Apresoline) 10 mg IV Q4H PRN PRN Reason: Blood Pressure Last Admin: 09/09/16 08:24 Dose: 10 mg Ceftriaxone Sodium (Rocephin/Ns 1 Gm/50 Ml) 1 gm in 50 mls @ 100 mls/hr IV Q24H JENNIFER PRN Reason: Protocol Sodium Chloride (Nacl 0.9%) 100 mls @ 999 mls/hr IV RAEANN PRN PRN Reason: Hypotension Insulin Aspart (Novolog) 0 units SUB-Q ACHS JENNIFER PRN Reason: Protocol Last Admin: 09/09/16 08:08 Dose: Not Given Morphine Sulfate (Morphine) 2 mg IV Q4H PRN PRN Reason: Pain, Moderate (4-6) Ondansetron HCl (Zofran) 4 mg IV Q8H PRN PRN Reason: N/V unrelieved by Reglan Review of Systems All systems: negative (see HPI) Exam - Constitutional Vitals: Temp Pulse Resp BP Pulse Ox 98.5 F 72 18 152/75 95 09/09/16 10:47 09/09/16 13:00 09/09/16 10:47 09/09/16 13:00 09/09/16 09:00 General appearance: Present: mild distress (suprapubic discomfort and penis discomfort) - EENT Eyes: Present: EOM intact ENT: hearing intact - Respiratory Respiratory effort: normal - Extremities Extremities: normal temperature, normal color - Abdominal General gastrointestinal: Present: other (minimal right CVT ; suprapubic pain) - Psychiatric Psychiatric: appropriate mood/affect, cooperative Results - Labs CBC & Chem 7: 09/09/16 03:39 09/09/16 03:39 Labs: Abnormal lab results 09/09/16 09/09/16 09/09/16 Range/Units 00:36 03:39 03:39 WBC 3.3 L (4.5-11.0) K/mm3 Hgb 10.3 L 10.7 L (11.8-15.2) gm/dl Hct 33.8 L 34.5 L (35.5-45.6) % MCH 27 L (28-32) pg MCHC 31 L (32-34) % RDW 20.5 H (13.2-15.2) % Plt Count 73 L (140-440) K/mm3 [place] % (Auto) 14.0 H (0.0-7.3) % Eos % (Auto) 7.4 H (0.0-4.3) % Lymph # 0.8 L (1.2-5.4) K/mm3 BUN 34 H (9-20) mg/dL Creatinine 7.9 H (0.8-1.5) mg/dL Glucose 113 H (75-100) mg/dL Assessment and Plan 80-year-old male with end-stage renal disease, right-sided hydronephrosis, bladder cancer, who has had multiple dislodged nephrostomy tubes. He had a nephrostomy tube placed 2 months ago. 2 weeks ago, it started producing purulent drainage. He did not contact [facility]. The patient had a Russo placement 2 weeks ago and has had persistent hematuria since then. I discussed the case with Dr. Gupta who is aware of the hematuria, and attempted to schedule the patient for cystoscopy, but the patient declined at that time. Dr. Gupta wishes for us to internalize the nephrostomy tube, which will intend to a soon as it is possible, but this will need to be held until hematuria and pyonephrosis subsides. Unfortunately, the patient has right-sided pyronephrosis with a right-sided nephrostomy tube. He required nephrostomy tube exchange, or possible placement if the tube is completely dislodged. 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
[2016-09-09] MEDS ORDERED: NACL 0.9% 500 ML IR ONE (14:55)
[2016-09-09] MEDS ORDERED: ANCEF/STERILE WATER 2 GM/20 ML 2 GM/20 ML SYRINGE IV ONE (14:55)
[2016-09-09] MEDS ORDERED: SUBLIMAZE ONE (14:55)
[2016-09-09] MEDS ORDERED: VERSED ONE (14:55)
[2016-09-09] MEDS: XYLOCAINE 1%/ EPI 1:100,000 INFILTRATI ONE ×2 (15:07→15:10)
--- NOTE | 2016-09-09 15:24 | Operative Report ---
Operative Report Operative Report: EXAM: FLUOROSCOPIC GUIDED NEXT TUBE EVALUATION AND EXCHANGE CLINICAL INDICATION: PATIENT WITH PYELONEPHRITIS AND INDWELLING NEPHROSTOMY TUBE WITH MALPOSITIONING DATE: PROCEDURE: Following an explanation of the risks, benefits and alternatives; written informed consent was obtained. The patient was brought the angiographic suite and placed in prone position on the examination table. Initial fluoroscopic evaluation of the patient's right back demonstrated an indwelling nephrostomy tube. Contrast was gently injected through the indwelling nephrostomy tube and demonstrated retraction of the tube within a inferior calyx. No hydronephrosis is identified. The patient's back and indwelling nephrostomy tube or prepped and draped in usual sterile fashion. 1% lidocaine was used for anesthesia at the catheter exit site. Under fluoroscopic guidance, a 0.035 guidewire was advanced through the indwelling nephrostomy tube and positioned within the renal pelvis. The indwelling nephrostomy tube was removed intact. A new 8 [place]yan[place] nephrostomy tube was then advanced over the guidewire and position with the pigtail within the renal pelvis. The guidewire and trocar were removed and the pigtail performed. Contrast was injected to document appropriate positioning. Fluid was aspirated from the kidney and did not appear to be infectious in nature however, it was sent for laboratory analysis. The catheter was securely fastened to the skin surface using 2-0 Ethilon suture and a stay fixed device. A sterile dressing was then placed. The catheter was then placed to dependent drainage. The patient tolerated the procedure well. There were no immediate post procedure complication. Conscious sedation was performed under the guidance of radiologic nursing. Continuous cardiopulmonary monitoring was utilized. IMPRESSION: 1) Fluoroscopic guided it evaluation of nephrostomy tube demonstrating retraction of the nephrostomy tube to and inferior calyx. No hydronephrosis is identified. 2) Fluorascopic guided exchange of nephrostomy tube with placement of an 8 [place] nephrostomy tube with the pigtail placed within the renal pelvis. 3) Fluid was aspirated from the renal pelvis and sent for laboratory analysis.
--- NOTE | 2016-09-09 15:59 | Consultation ---
History of Present Illness - Reason for Consult Consult date: 09/09/16 end stage renal disease Requesting physician: ZEESHAN LINTON - History of Present Illness This is a 80yo AAM with h/o end-stage renal disease on hemodialysis on a MWF schedule, prostate cancer status post seed implants 14 years ago, left nephrectomy and chronic right hydronephrosis, with h/o multiple nephrostomy exchanges in the past, now presents to [facility] with complaints of hematuria. As per patient his Russo came out and this was replaced on Monday and the day after insertion of Russo, he noticed that he has been having persistent hematuria. patient also noticed purulent/bloody material in the nephrostomy bag and complains of flank pain. pt is admitted for further evaluation and possible nephrostomy exchage by IR. Renal consult is requested for management of ESRD/HD. Pt seen and examined at bedside, denies acute fever, chills, nausea, vomiting, dizziness, chest pain, SOB, [place]. Past History Past Medical History: cancer, dialysis, GERD, other (hydronephrosis) Past Surgical History: Other (right PCN, dialysis access, ursso placements) Social history: no significant social history Family history: no significant family history Medications and Allergies Allergies Allergy/AdvReac Type Severity Reaction Status Date / Time No Known Allergies Allergy Verified 03/19/16 17:05 Home Medications Medication Instructions Recorded Confirmed Last Taken Type Carvedilol [Coreg] 6.25 mg PO BID #60 tablet 03/05/15 09/08/16 07/07/16 Rx 6.25mg Sevelamer Carbonate [Renvela] 800 mg PO TIDWM 03/27/16 09/08/16 07/07/16 History 800mg Ranitidine HCl [Zantac 150 MG TAB] 150 mg PO DAILY 06/20/16 09/08/16 07/07/16 History 150mg Megestrol [Megace] 20 mg PO TID 09/08/16 09/08/16 Unknown History NIFEdipine XL [Procardia Xl] 60 mg PO QDAY 09/08/16 09/08/16 Unknown History Active Meds: Active Medications Acetaminophen (Tylenol) 650 mg PO Q4H PRN PRN Reason: Pain MILD(1-3)/Fever >100.5/GAITAN Dextrose (D50w (25gm)) 50 ml IV PRN PRN PRN Reason: Hypoglycemia Hydralazine HCl (Apresoline) 10 mg IV Q4H PRN PRN Reason: Blood Pressure Last Admin: 09/09/16 08:24 Dose: 10 mg Ceftriaxone Sodium (Rocephin/Ns 1 Gm/50 Ml) 1 gm in 50 mls @ 100 mls/hr IV Q24H JENNIFER PRN Reason: Protocol Sodium Chloride (Nacl 0.9%) 100 mls @ 999 mls/hr IV RAEANN PRN PRN Reason: Hypotension Insulin Aspart (Novolog) 0 units SUB-Q ACHS JENNIFER PRN Reason: Protocol Last Admin: 09/09/16 15:27 Dose: Not Given Morphine Sulfate (Morphine) 2 mg IV Q4H PRN PRN Reason: Pain, Moderate (4-6) Ondansetron HCl (Zofran) 4 mg IV Q8H PRN PRN Reason: N/V unrelieved by Reglan Review of Systems Constitutional: weakness, poor appetite Genitourinary Male: dysuria, hematuria Exam - Vital Signs Vital signs: Vital Signs Temp Pulse Resp BP Pulse Ox 98.1 F 86 16 184/80 100 09/08/16 16:34 09/08/16 16:34 09/08/16 16:34 09/08/16 16:34 09/08/16 16:34 - General Appearance General appearance: appears stated age, fatigue, frail EENT: ATNC, PERRL, mucous membranes moist, other (bitemporal wasting ) Neck: Present: neck supple Respiratory: Clear to Ascultation Heart: regular, S1S2 Gastrointestinal: Present: normoactive bowel sounds, other (Rt nephrostomy tube with bloody/purulent drainage ) Integumentary: no rash, other (no edema ) Neurologic: no focal deficit, alert and oriented x3, strength 5/5, CN 3-12 intact Psychiatric: mood/affect appropriate, cooperative Results - Lab Results 09/09/16 03:39 09/09/16 03:39 Most recent lab results Calcium 8.6 mg/dL (8.4-10.2) 09/09/16 03:39 Laboratory Tests 09/08/16 09/08/16 09/09/16 17:01 20:49 03:39 POC Glucose Calcium 8.9 8.6 Total Bilirubin 0.40 AST 12 ALT 5 L Alkaline Phosphatase 41 Total Protein 7.3 Albumin 2.9 L Albumin/Globulin Ratio 0.7 Lipase 46 Urine Color Yellow Urine Turbidity Turbid Urine pH 7.0 Ur Specific [place] 1.018 Urine Protein 100 mg/dl Urine Glucose (UA) Neg Urine Ketones Tr Urine Blood Sm Urine Nitrite Neg Urine Bilirubin Neg Urine Urobilinogen < 2.0 Ur Leukocyte Esterase Lg Urine WBC (Auto) > 182.0 H Urine RBC (Auto) 13.0 Urine Mucus 3+ 09/09/16 08:05 POC Glucose 82 Calcium Total Bilirubin AST ALT Alkaline Phosphatase Total Protein Albumin Albumin/Globulin Ratio Lipase Urine Color Urine Turbidity Urine pH Ur Specific [place] Urine Protein Urine Glucose (UA) Urine Ketones Urine Blood Urine Nitrite Urine Bilirubin Urine Urobilinogen Ur Leukocyte Esterase Urine WBC (Auto) Urine RBC (Auto) Urine Mucus Assessment and Plan - Patient Problems (1) Pyelonephritis, acute Current Visit: Yes Status: Acute Plan to address problem: for nephrstomy exchange today by IR, cont ABXs w/ ceftriaxone. no dose adjustment needed for HD (2) ESRD (end stage renal disease) Current Visit: No Status: Acute Plan to address problem: arranged HD for today, cont HD on MWF schedule (3) Hematuria Current Visit: No Status: Acute Qualifiers: Hematuria type: H Glomerular morphologic changes: G Plan to address problem: gross hematuria; Dr. Gupta attempted to schedule the patient for cystoscopy, but patient declined in the past. F/u recommendations (4) Type 2 diabetes mellitus with diabetic chronic kidney disease Current Visit: No Status: Acute Qualifiers: Diabetes mellitus correction insulin use: D Chronic kidney disease stage: C Plan to address problem: glucose control as per primary attending (5) Hypertension Current Visit: No Status: Chronic Qualifiers: Hypertension type: essential hypertension Qualified Code(s): I10 - Essential (primary) hypertension Plan to address problem: monitor BP on current meds (6) Anemia in chronic kidney disease (CKD) Current Visit: No Status: Acute Qualifiers: Chronic kidney disease stage: C Plan to address problem: Hb >10 no EPO needed for now (7) History of prostate cancer Current Visit: No Status: Acute
--- NOTE | 2016-09-09 17:47 | Consultation ---
History of Present Illness - Reason for Consult Consult date: 09/09/16 - History of Present Illness 80-year-old man with a history of hypertension, diabetes, end-stage renal disease on dialysis, throat cancer, prostate cancer, renal cancer comes emergency room with complaints of hematuria. He stated he had his Russo came out and this was replaced on Monday. A day after insertion of Russo, he noticed that he has been having persistent hematuria. His nephrostomy tube with purulent material, complaining of flank pain Review of systems nephrostomy change by Dr. 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 GUTIÉRREZ 05-03-16 - [facility] BLADDER BX - LOW GRADE TCC (PT HAD BLADDER CA YRS AGO) - COPIED FOR PT A/P HEMATURIA WITH RECENT INTRAVESCIAL CHEMO KEEP SCHEDULE [facility] IN 2 WEEKS PATIENT QUESTIONS ANSWERED Past History Past Medical History: cancer, dialysis, GERD, other (hydronephrosis) Past Surgical History: Other (right PCN, dialysis access, russo placements) Social history: no significant social history Family history: no significant family history Medications and Allergies Allergies Allergy/AdvReac Type Severity Reaction Status Date / Time No Known Allergies Allergy Verified 03/19/16 17:05 Home Medications Medication Instructions Recorded Confirmed Last Taken Type Carvedilol [Coreg] 6.25 mg PO BID #60 tablet 03/05/15 09/08/16 07/07/16 Rx 6.25mg Sevelamer Carbonate [Renvela] 800 mg PO TIDWM 03/27/16 09/08/16 07/07/16 History 800mg Ranitidine HCl [Zantac 150 MG TAB] 150 mg PO DAILY 06/20/16 09/08/1617 History 150mg Megestrol [Megace] 20 mg PO TID 09/08/16 09/08/16 Unknown History NIFEdipine XL [Procardia Xl] 60 mg PO QDAY 09/08/16 09/08/16 Unknown History Active Meds: Active Medications Acetaminophen (Tylenol) 650 mg PO Q4H PRN PRN Reason: Pain MILD(1-3)/Fever >100.5/GAITAN Dextrose (D50w (25gm)) 50 ml IV PRN PRN PRN Reason: Hypoglycemia Hydralazine HCl (Apresoline) 10 mg IV Q4H PRN PRN Reason: Blood Pressure Last Admin: 09/09/16 08:24 Dose: 10 mg Ceftriaxone Sodium (Rocephin/Ns 1 Gm/50 Ml) 1 gm in 50 mls @ 100 mls/hr IV Q24H JENNIFER PRN Reason: Protocol Sodium Chloride (Nacl 0.9%) 100 mls @ 999 mls/hr IV RAEANN PRN PRN Reason: Hypotension Insulin Aspart (Novolog) 0 units SUB-Q ACHS JENNIFER PRN Reason: Protocol Last Admin: 09/09/16 16:49 Dose: 6 units Morphine Sulfate (Morphine) 2 mg IV Q4H PRN PRN Reason: Pain, Moderate (4-6) Ondansetron HCl (Zofran) 4 mg IV Q8H PRN PRN Reason: N/V unrelieved by Reglan Exam - Constitutional Vitals: Temp Pulse Resp BP Pulse Ox 98.0 F 76 16 130/56 98 09/09/16 16:50 09/09/16 16:50 09/09/16 16:50 09/09/16 16:50 09/09/16 10:00 Results - Labs CBC & Chem 7: 09/09/16 03:39 09/09/16 03:39 Labs: Abnormal lab results 09/09/16 09/09/16 09/09/16 Range/Units 00:36 03:39 03:39 WBC 3.3 L (4.5-11.0) K/mm3 Hgb 10.3 L 10.7 L (11.8-15.2) gm/dl Hct 33.8 L 34.5 L (35.5-45.6) % MCH 27 L (28-32) pg MCHC 31 L (32-34) % RDW 20.5 H (13.2-15.2) % Plt Count 73 L (140-440) K/mm3 [place] % (Auto) 14.0 H (0.0-7.3) % Eos % (Auto) 7.4 H (0.0-4.3) % Lymph # 0.8 L (1.2-5.4) K/mm3 BUN 34 H (9-20) mg/dL Creatinine 7.9 H (0.8-1.5) mg/dL Glucose 113 H (75-100) mg/dL POC Glucose (70-105) 09/09/16 Range/Units 16:37 WBC (4.5-11.0) K/mm3 Hgb (11.8-15.2) gm/dl Hct (35.5-45.6) % MCH (28-32) pg MCHC (32-34) % RDW (13.2-15.2) % Plt Count (140-440) K/mm3 [place] % (Auto) (0.0-7.3) % Eos % (Auto) (0.0-4.3) % Lymph # (1.2-5.4) K/mm3 BUN (9-20) mg/dL Creatinine (0.8-1.5) mg/dL Glucose (75-100) mg/dL POC Glucose 254 H (70-105)
[2016-09-09] MEDS: ROCEPHIN/NS 1 GM/50 ML 1 GM/50 ML BAG IV SCH (22:27)
[2016-09-10] MEDS: NOVOLOG SUB-Q SCH ×4 (08:30→21:23)
--- NOTE | 2016-09-10 10:26 | Progress Note ---
Assessment and Plan - Patient Problems (1) ESRD (end stage renal disease) Current Visit: No Status: Acute Plan to address problem: Hemodialysis on a Monday, Monday and Monday schedule (2) Hematuria, gross Current Visit: No Status: Acute Plan to address problem: Improved. being managed by urologist (3) Anemia in chronic kidney disease (CKD) Current Visit: No Status: Acute Qualifiers: Chronic kidney disease stage: C Plan to address problem: Follow-up hemoglobin. Continue erythropoietin (4) History of prostate cancer Current Visit: No Status: Acute Plan to address problem: Follow-up with urologist (5) Hypertensive chronic kidney disease with stage 5 chronic kidney disease or end stage renal disease Current Visit: No Status: Acute Plan to address problem: Follow-up blood pressure (6) Type 2 diabetes mellitus with diabetic chronic kidney disease Current Visit: No Status: Acute Qualifiers: Diabetes mellitus fci insulin use: D Chronic kidney disease stage: C Plan to address problem: Blood sugar management by primary attending Subjective Date of service: 09/10/16 Principal diagnosis: end-stage renal disease Interval history: Patient seen lying in bed this morning. He has no complaints. He slept well overnight. Denies pain, shortness of breath, nausea or vomiting. Objective - Exam Narrative Exam: [Elderly -[place] Islander male lying in bed] in no acute distress HEENT [normocephalic atraumatic, pupils equal reactive to light, pink, clear oropharynx] Neck [supple, no thyromegaly no jugular venous distention] CVS [S1-S2 regular rate rhythm without murmur, rub or gallop] Chest [clear to auscultation] Abdomen [soft nondistended nontender no organomegaly no bruit bowel sounds present, right percutaneous nephrostomy tube intact with small amount of bloody fluid drained] Extremities [no edema no cyanosis or clubbing] Neuro [awake, alert oriented x3 no gross deficit] - Vital Signs Vital signs: Vital Signs - 12hr 09/10/16 09/10/16 09/10/16 07:15 08:00 09:13 Temperature 98.2 F Pulse Rate 62 Pulse Rate [ 62 Apical] Respiratory 20 Rate Blood Pressure 171/74 O2 Sat by Pulse 96 99 Oximetry - Lab 09/09/16 03:39 09/09/16 03:39 Most recent lab results Calcium 8.6 mg/dL (8.4-10.2) 09/09/16 03:39
--- NOTE | 2016-09-10 11:10 | Progress Note ---
Assessment and Plan Assessment and plan: Patient 80-year-old man with a history of hypertension, type 2 diabetes mellitus , end-stage renal disease on hemodialysis and throat/bladder/prostate cancer with a nephrostomy tube under the care Dr. Gupta, urologist who presented with persistent hematuria/pus in the nephrostomy tube with flank pains. Urinalysis was reflective of urinary tract infection with pyuria. I spoke with Urology, Dr. Gupta who reiterated strongly that he spoke with ED physician last night and that patient needs to be seen by interventional radiologist not him to exchange nephrostomy tube/place stent. Patient has missed appointments with Dr. Martinez/Sparkle in the past per Dr. Gupta. -Sepsis, poa as evident by wbc 3.3, rr 21 with uti: treat with ABX, cultures can be followed up by Dr. Gupta or Dr. Villagran -UTI with obstruction and hematuria due to prostate cancer most likely, nephrostomy tube present: Consulted and discussed with potential radiologist Dr. Martinez who has also been contacted by Dr. Gupta -End Stage renal disease: Consult nephrology, on hemodialysis -Prostate cancer and other cancers which I do not know the Stage they Are: Continue to Follow [facility] -DVT prophylaxis: SCDs only due to bloody discharge in the nephrostomy tube Full code, patient doesn't want to discuss hospice Disposition: Continue inpatient care, await interventional radiologist assessment 09/09/16: per Urology, Dr. Gupta: "80-year-old man with a history of hypertension, diabetes, end-stage renal disease on dialysis, throat cancer, prostate cancer, renal cancer comes emergency room with complaints of hematuria. He stated he had his Gunter came out and this was replaced on Monday. A day after insertion of Gunter, he noticed that he has been having persistent hematuria. His nephrostomy tube with purulent material, complaining of flank pain Review of systems nephrostomy change by Dr. 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 GUTIÉRREZ 05-03-16 - [facility] BLADDER BX - LOW GRADE TCC (PT HAD BLADDER CA YRS AGO) - COPIED FOR PT A/P HEMATURIA WITH RECENT INTRAVESCIAL CHEMO KEEP SCHEDULE CYSTO IN 2 WEEKS PATIENT QUESTIONS ANSWERED" he is [id number] medication per Interventional Radiologist, Dr. Villagran, "EXAM: FLUOROSCOPIC GUIDED NEXT TUBE EVALUATION AND EXCHANGE CLINICAL INDICATION: PATIENT WITH PYELONEPHRITIS AND INDWELLING NEPHROSTOMY TUBE WITH MALPOSITIONING DATE: PROCEDURE: Following an explanation of the risks, benefits and alternatives; written informed consent was obtained. The patient was brought the angiographic suite and placed in prone position on the examination table. Initial fluoroscopic evaluation of the patient's right back demonstrated an indwelling nephrostomy tube. Contrast was gently injected through the indwelling nephrostomy tube and demonstrated retraction of the tube within a inferior calyx. No hydronephrosis is identified. The patient's back and indwelling nephrostomy tube or prepped and draped in usual sterile fashion. 1% lidocaine was used for anesthesia at the catheter exit site. Under fluoroscopic guidance, a 0.035 guidewire was advanced through the indwelling nephrostomy tube and positioned within the renal pelvis. The indwelling nephrostomy tube was removed intact. A new 8 Citizen [place] nephrostomy tube was then advanced over the guidewire and position with the pigtail within the renal pelvis. The guidewire and trocar were removed and the pigtail performed. Contrast was injected to document appropriate positioning. Fluid was aspirated from the kidney and did not appear to be infectious in nature however, it was sent for laboratory analysis. The catheter was securely fastened to the skin surface using 2-0 Ethilon suture and a stay fixed device. A sterile dressing was then placed. The catheter was then placed to dependent drainage. The patient tolerated the procedure well. There were no immediate post procedure complication. Conscious sedation was performed under the guidance of radiologic nursing. Continuous cardiopulmonary monitoring was utilized. IMPRESSION: 1) Fluoroscopic guided it evaluation of nephrostomy tube demonstrating retraction of the nephrostomy tube to and inferior calyx. No hydronephrosis is identified. 2) Fluorascopic guided exchange of nephrostomy tube with placement of an 8 Citizen [place] nephrostomy tube with the pigtail placed within the renal pelvis. 3) Fluid was aspirated from the renal pelvis and sent for laboratory analysis." 09/10/16: Patient is still NPO, ?procedure today will investigate. Hopefully home soon History Interval history: Patient seen and examined. Follow up on current diagnosis/abdominal pains which are gone. Overnight uneventful. No cp, sob, n/v or severe headaches. Imaging, old records, testing, labs, nursing notes reviewed. Hospitalist Physical - Physical exam Narrative exam: GEN: Thin and frail BMI 19.8 NAD, AWAKE, ALERT, ORIENTATED x 3 HEENT: NCAT, PERRL, EOMI, OP CLEAR NECK: SUPPLE, NO THYROMEGALY, NO JVD, NO LAD CVS: RRR, NORMAL S1S2 LUNGS/CHEST: CTA B, NORMAL CHEST EXPANSION B, GOOD AIR ENTRY B ABD: SOFT, nondistended suprapubic tenderness GBS, NO REBOUND OR GUARDING, left posterior to risk grossly bloody EXT/SKIN: NO SIGNIFICANT EDEMA OR RASH MSK: FROM X 4 EXTREMITIES NEURO: CN 2-12 GROSSLY INTACT, NO FOCAL DEFICITS PSY: CALM - Constitutional Vitals: Temp Pulse Resp BP Pulse Ox 98.2 F 62 20 171/74 99 09/10/16 09:13 09/10/16 09:13 09/10/16 09:13 09/10/16 09:13 09/10/16 08:00 General appearance: Absent: mild distress Results - Labs CBC & Chem 7: 09/09/16 03:39 09/09/16 03:39 Labs: Laboratory Last Values WBC 3.3 K/mm3 (4.5-11.0) L 09/09/16 03:39 RBC 4.00 M/mm3 (3.65-5.03) 09/09/16 03:39 Hgb 10.7 gm/dl (11.8-15.2) L 09/09/16 03:39 Hct 34.5 % (35.5-45.6) L 09/09/16 03:39 MCV 86 fl (84-94) 09/09/16 03:39 MCH 27 pg (28-32) L 09/09/16 03:39 MCHC 31 % (32-34) L 09/09/16 03:39 RDW 20.5 % (13.2-15.2) H 09/09/16 03:39 Plt Count 73 K/mm3 (140-440) L 09/09/16 03:39 Lymph % (Auto) 22.9 % (13.4-35.0) 09/09/16 03:39 [place] % (Auto) 14.0 % (0.0-7.3) H 09/09/16 03:39 Eos % (Auto) 7.4 % (0.0-4.3) H 09/09/16 03:39 Baso % (Auto) 0.7 % (0.0-1.8) 09/09/16 03:39 Lymph # 0.8 K/mm3 (1.2-5.4) L 09/09/16 03:39 [place] # 0.5 K/mm3 (0.0-0.8) 09/09/16 03:39 Eos # 0.2 K/mm3 (0.0-0.4) 09/09/16 03:39 Baso # 0.0 K/mm3 (0.0-0.1) 09/09/16 03:39 Seg Neutrophils % 55.0 % (40.0-70.0) 09/09/16 03:39 Seg Neutrophils # 1.8 K/mm3 (1.8-7.7) 09/09/16 03:39 PT 14.1 Sec. (12.2-14.9) 09/08/16 17:06 INR 1.04 (0.87-1.13) 09/08/16 17:06 APTT 33.1 Sec. (24.2-36.6) 09/08/16 17:06 Sodium 144 mmol/L (137-145) 09/09/16 03:39 Potassium 4.2 mmol/L (3.6-5.0) 09/09/16 03:39 Chloride 98.9 mmol/L (98-107) 09/09/16 03:39 Carbon Dioxide 30 mmol/L (22-30) 09/09/16 03:39 Anion Gap 19 mmol/L 09/09/16 03:39 BUN 34 mg/dL (9-20) H 09/09/16 03:39 Creatinine 7.9 mg/dL (0.8-1.5) H 09/09/16 03:39 Estimated GFR 8 ml/min 09/09/16 03:39 BUN/Creatinine Ratio 4.30 % 09/09/16 03:39 Glucose 113 mg/dL (75-100) H 09/09/16 03:39 POC Glucose 85 (70-105) 09/10/16 07:22 Calcium 8.6 mg/dL (8.4-10.2) 09/09/16 03:39 Total Bilirubin 0.40 mg/dL (0.1-1.2) 09/08/16 17:01 AST 12 units/L (5-40) 09/08/16 17:01 ALT 5 units/L (7-56) L 09/08/16 17:01 Alkaline Phosphatase 41 units/L (35-129) 09/08/16 17:01 Total Protein 7.3 g/dL (6.3-8.2) 09/08/16 17:01 Albumin 2.9 g/dL (3.9-5) L 09/08/16 17:01 Albumin/Globulin Ratio 0.7 % 09/08/16 17:01 Lipase 46 units/L (13-60) 09/08/16 17:01 Urine Color Yellow (Yellow) 09/08/16 20:49 Urine Turbidity Turbid (Clear) 09/08/16 20:49 Urine pH 7.0 (5.0-7.0) 09/08/16 20:49 Ur Specific [place] 1.018 (1.003-1.030) 09/08/16 20:49 Urine Protein 100 mg/dl mg/dL (Negative) 09/08/16 20:49 Urine Glucose (UA) Neg mg/dL (Negative) 09/08/16 20:49 Urine Ketones Tr mg/dL (Negative) 09/08/16 20:49 Urine Blood Sm (Negative) 09/08/16 20:49 Urine Nitrite Neg (Negative) 09/08/16 20:49 Urine Bilirubin Neg (Negative) 09/08/16 20:49 Urine Urobilinogen < 2.0 mg/dL (<2.0) 09/08/16 20:49 Ur Leukocyte Esterase Lg (Negative) 09/08/16 20:49 Urine WBC (Auto) > 182.0 /HPF (0.0-6.0) H 09/08/16 20:49 Urine RBC (Auto) 13.0 /HPF (0.0-6.0) 09/08/16 20:49 Urine Mucus 3+ /HPF 09/08/16 20:49 Blood Type B POSITIVE 09/08/16 17:13 Antibody Screen TNR 09/08/16 17:13 JILLIAN Antibody Screen Negative 09/08/16 17:13
[2016-09-10 11:19] LABS: Hematocrit 34.2 % (35.5-45.6); Hemoglobin 10.7 gm/dl (11.8-15.2); Mean Corpuscular HGB Conc 31 % (32-34); Mean Corpuscular Hemoglobin 27 pg (28-32); Mean Corpuscular Volume 88 fl (84-94); White Blood Count 2.9 K/mm3 (4.5-11.0)
[2016-09-10 11:24] LABS: Platelet Count 68 K/mm3 (140-440); Red Cell Distribution Width 20.6 % (13.2-15.2)
[2016-09-10 11:33] LABS: BUN/Creatinine Ratio 3.28; Calcium 8.4 mg/dL (8.4-10.2); Chloride 99.4 mmol/L (98-107); Potassium 4.2 mmol/L (3.6-5.0)
[2016-09-10] MEDS: APRESOLINE IV PRN (21:25)
[2016-09-10] MEDS: ROCEPHIN/NS 1 GM/50 ML 1 GM/50 ML BAG IV SCH (21:34)
[2016-09-11 04:49] LABS: Basophils % (Auto) 1.2 % (0.0-1.8); Eosinophils % (Auto) 9.4 % (0.0-4.3); Hematocrit 36.7 % (35.5-45.6); Hemoglobin 11.3 gm/dl (11.8-15.2); Mean Corpuscular HGB Conc 31 % (32-34); Mean Corpuscular Hemoglobin 27 pg (28-32); Mean Corpuscular Volume 87 fl (84-94); Platelet Count 74 K/mm3 (140-440); Red Blood Count 4.23 M/mm3 (3.65-5.03); Red Cell Distribution Width 20.6 % (13.2-15.2)
[2016-09-11] MEDS: APRESOLINE IV PRN (05:40)
[2016-09-11] MEDS: NOVOLOG SUB-Q SCH ×2 (07:44→11:43)
[2016-09-11 09:24] VITALS: BP 139/62
--- NOTE | 2016-09-11 09:38 | Discharge Summary ---
Providers - Providers Date of Admission: 09/08/16 23:00 Date of discharge: 09/11/16 Attending physician: SANCHEZ SHELTON 09/08/16 23:45 Consult to Physician [CONS] Routine Consulting Provider: ALEKSANDR LYNCH Reason For Exam: hd Place consult to:: Dr. Lynch Notified:: Nephrology Phone number called:: [phone] Was contact made?: Yes If yes, spoke with:: Sukhdeep Time called:: 08:40 09/08/16 23:48 Consult to Physician [CONS] Urgent Consulting Provider: ZAIRE GUPTA Reason For Exam: hematuria Place consult to:: Dr. Gupta Notified:: already notified Phone number called:: [phone] Was contact made?: Yes If yes, spoke with:: Dr. Gupta 09/09/16 12:35 Consult to Physician [CONS] Routine Consulting Provider: ANEL HAYDEN Reason For Exam: nephrostomy tube, urinary obstruction/prostate ca Place consult to:: Juan CLAIRE Notified:: Dr. Hayden Phone number called:: unknown Was contact made?: Yes If yes, spoke with:: Dr. Hayden Time called:: 13:00 Comment:: Nephrostomy tube was replaced Primary care physician: OIL HEAT TECHNICIAN Hospitalization Condition: Stable Hospital course: Patient 80-year-old man with a history of hypertension, type 2 diabetes mellitus , end-stage renal disease on hemodialysis and throat/bladder/prostate cancer with a nephrostomy tube under the care Dr. Gupta, urologist who presented with persistent hematuria/pus in the nephrostomy tube with flank pains. Urinalysis was reflective of urinary tract infection with pyuria. I spoke with Urology, Dr. Gupta who reiterated strongly that he spoke with ED physician last night and that patient needs to be seen by interventional radiologist not him to exchange nephrostomy tube/place stent. Patient has missed appointments with Dr. Hayden/Sparkel in the past per Dr. Gupta. -Sepsis, poa as evident by wbc 3.3, rr 21 with uti: treat with ABX, cultures can be followed up by Dr. Gupta or Dr. Villagran -UTI with obstruction and hematuria due to prostate cancer most likely, nephrostomy tube present: Consulted and discussed with potential radiologist Dr. Hayden who has also been contacted by Dr. Gupta -End Stage renal disease: Consult nephrology, on hemodialysis -Prostate cancer and other cancers which I do not know the Stage they Are: Continue to Follow [facility] -DVT prophylaxis: SCDs only due to bloody discharge in the nephrostomy tube -Suspected Acute hypoxic respiratory failure, poa: weaned off O2 Full code, patient doesn't want to discuss hospice Disposition: Continue inpatient care, await interventional radiologist assessment 09/09/16: per Urology, Dr. Gupta: "80-year-old man with a history of hypertension, diabetes, end-stage renal disease on dialysis, throat cancer, prostate cancer, renal cancer comes emergency room with complaints of hematuria. He stated he had his Gunter came out and this was replaced on Monday. A day after insertion of Gutner, he noticed that he has been having persistent hematuria. His nephrostomy tube with purulent material, complaining of flank pain Review of systems nephrostomy change by Dr. 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 GUTIÉRREZ 05-03-16 - [facility] BLADDER BX - LOW GRADE TCC (PT HAD BLADDER CA YRS AGO) - COPIED FOR PT A/P HEMATURIA WITH RECENT INTRAVESCIAL CHEMO KEEP SCHEDULE CYSTO IN 2 WEEKS PATIENT QUESTIONS ANSWERED" he is [id number] medication 09/09/16 per Interventional Radiologist, Dr. Villagran, "EXAM: FLUOROSCOPIC GUIDED NEXT TUBE EVALUATION AND EXCHANGE CLINICAL INDICATION: PATIENT WITH PYELONEPHRITIS AND INDWELLING NEPHROSTOMY TUBE WITH MALPOSITIONING DATE: PROCEDURE: Following an explanation of the risks, benefits and alternatives; written informed consent was obtained. The patient was brought the angiographic suite and placed in prone position on the examination table. Initial fluoroscopic evaluation of the patient's right back demonstrated an indwelling nephrostomy tube. Contrast was gently injected through the indwelling nephrostomy tube and demonstrated retraction of the tube within a inferior calyx. No hydronephrosis is identified. The patient's back and indwelling nephrostomy tube or prepped and draped in usual sterile fashion. 1% lidocaine was used for anesthesia at the catheter exit site. Under fluoroscopic guidance, a 0.035 guidewire was advanced through the indwelling nephrostomy tube and positioned within the renal pelvis. The indwelling nephrostomy tube was removed intact. A new 8 [place] nephrostomy tube was then advanced over the guidewire and position with the pigtail within the renal pelvis. The guidewire and trocar were removed and the pigtail performed. Contrast was injected to document appropriate positioning. Fluid was aspirated from the kidney and did not appear to be infectious in nature however, it was sent for laboratory analysis. The catheter was securely fastened to the skin surface using 2-0 Ethilon suture and a stay fixed device. A sterile dressing was then placed. The catheter was then placed to dependent drainage. The patient tolerated the procedure well. There were no immediate post procedure complication. Conscious sedation was performed under the guidance of radiologic nursing. Continuous cardiopulmonary monitoring was utilized. IMPRESSION: 1) Fluoroscopic guided it evaluation of nephrostomy tube demonstrating retraction of the nephrostomy tube to and inferior calyx. No hydronephrosis is identified. 2) Fluorascopic guided exchange of nephrostomy tube with placement of an 8 [place] nephrostomy tube with the pigtail placed within the renal pelvis. 3) Fluid was aspirated from the renal pelvis and sent for laboratory analysis." 09/10/16: Patient is still NPO, ?procedure today will investigate. Hopefully home soon 09/11/16: Stable, no more procedures, stent to be done later per Dr. Villagran, Kidney fluid culture pending upon discharge, to follow up with Dr. Gupta and Dr. Villagran. Disposition: TO HOME OR SELFCARE Time spent for discharge: 36 minutes Core Measure Documentation - Palliative Care Palliative Care/ Comfort Measures: Not Applicable - Core Measures Any of the following diagnoses?: none - VTE Discharge Requirements Deep Vein Thrombosis/Pulmonary Embolism Present on Admission: No Has pt received <5 days of overlap therapy or INR<2.0: No Anticoagulant overlap therapy prescribed at discharge: No Contraindication No Overlap Therapy order at DC: Not Indicated Exam - Physical Exam Narrative exam: GEN: Thin and frail BMI 19.8 NAD, AWAKE, ALERT, ORIENTATED x 3 HEENT: NCAT, PERRL, EOMI, OP CLEAR NECK: SUPPLE, NO THYROMEGALY, NO JVD, NO LAD CVS: RRR, NORMAL S1S2 LUNGS/CHEST: CTA B, NORMAL CHEST EXPANSION B, GOOD AIR ENTRY B ABD: SOFT, nondistended suprapubic tenderness GBS, NO REBOUND OR GUARDING, left posterior to risk grossly bloody EXT/SKIN: NO SIGNIFICANT EDEMA OR RASH MSK: FROM X 4 EXTREMITIES NEURO: CN 2-12 GROSSLY INTACT, NO FOCAL DEFICITS PSY: CALM - Constitutional Vitals: Temp Pulse Resp BP Pulse Ox 98.9 F 78 20 139/62 100 09/11/16 09:23 09/11/16 09:23 09/11/16 09:23 09/11/16 09:23 09/10/16 21:34 Plan Activity: other (no strenous activities until cleared by pcp) Diet: low salt, diabetic Special Instructions: record blood sugar diary Follow up with: PRIMARY CARE, [Primary Care Provider] - 3-5 Days
== END 2016-09-11 13:05 | disposition home or self-care (01) | DRG 871 ==
LOC: ED 16:24 → CC2 23:00
PROVIDERS: ADMIT Internal Medicine; ATTEND Internal Medicine
PROC: 5A1D60Z (ICD-10-PCS; 2016-09-08)
PROC: 0T25X0Z Change Drainage Device in Kidney, External Approach (ICD-10-PCS; principal; 2016-09-09)
DX: A41.9 Sepsis, unspecified organism (principal); N18.6 End stage renal disease; J96.01 Acute respiratory failure with hypoxia; N10 Acute pyelonephritis; I12.0 Hypertensive chronic kidney disease with stage 5 chronic kidney disease or end stage renal disease; N39.0 Urinary tract infection, site not specified; T83.89XA Other specified complication of genitourinary prosthetic devices, implants and grafts, initial encounter; K21.9 Gastro-esophageal reflux disease without esophagitis; M19.90 Unspecified osteoarthritis, unspecified site; D63.1 Anemia in chronic kidney disease; E11.22 Type 2 diabetes mellitus with diabetic chronic kidney disease; Z90.5 Acquired absence of kidney; Z83.3 Family history of diabetes mellitus; Z87.891 Personal history of nicotine dependence; Z85.46 Personal history of malignant neoplasm of prostate; Z85.53 Personal history of malignant neoplasm of renal pelvis; Z85.89 Personal history of malignant neoplasm of other organs and systems; Z99.2 Dependence on renal dialysis
CPT/HCPCS: 36415; 50435; 80048; 80053; 81001; 82962; 83690; 85014; 85018; 85025; 85027; 85610; 85730; 86850; 86900; 86901; 87040; 87076; 87116; 87186; 96365; C1729; C1751; C1769; J0360; J0690; J0696; J1815; J2250; J3010; J7030; Q9967

== ENCOUNTER 2016-09-14 17:43 | Emergency (ER) | payer MEDICARE ==
[2016-09-14 19:59] LABS: Basophils % (Auto) 1.2 % (0.0-1.8); Eosinophils % (Auto) 2.5 % (0.0-4.3); Hematocrit 32.4 % (35.5-45.6); Mean Corpuscular HGB Conc 31 % (32-34); Mean Corpuscular Hemoglobin 27 pg (28-32); Mean Corpuscular Volume 88 fl (84-94); Platelet Count 151 K/mm3 (140-440); White Blood Count 6.5 K/mm3 (4.5-11.0)
[2016-09-14 20:01] LABS: Red Cell Distribution Width 21.2 % (13.2-15.2)
[2016-09-14 20:14] LABS: BUN/Creatinine Ratio 3.5; Calcium 8.9 mg/dL (8.4-10.2); Chloride 94.9 mmol/L (98-107); Potassium 4.4 mmol/L (3.6-5.0)
[2016-09-14 20:45] VITALS: BP 145/53
--- NOTE | 2016-09-14 21:40 | Emergency Department Report ---
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 Patient is recently admitted here 82 until 09/11/2016 for sepsis and UTI. Patient presented at that time with persistent hematuria possible nephrostomy tube and flank pain. Patient states that he also has a Gunter catheter has been placed which she states needed to be placed by the urologist due to scar tissue causing obstruction. Patient completed his dialysis today and noticed that his Gunter bag was leaking. He states that the hematuria is old and persistent. Patient denies pain or fever. - Related Data Home Medications Medication Instructions Recorded Confirmed Last Taken Sevelamer Carbonate [Renvela] 800 mg PO TIDWM 03/27/16 09/08/16 07/07/16 800mg Ranitidine HCl [Zantac 150 MG TAB] 150 mg PO DAILY 06/20/16 09/08/16 07/07/16 150mg Megestrol [Megace] 20 mg PO TID 09/08/16 09/08/16 Unknown NIFEdipine XL [Procardia Xl] 60 mg PO QDAY 09/08/16 09/08/16 Unknown Previous Rx's Medication Instructions Recorded Last Taken Type Carvedilol [Coreg] 6.25 mg PO BID #60 tablet 03/05/15 07/07/16 Rx 6.25mg Acetaminophen [Acetaminophen TAB] 325 mg PO Q4H PRN #30 tablet 09/11/16 Unknown Rx Allergies Allergy/AdvReac Type Severity Reaction Status Date / Time No Known Allergies Allergy Verified 03/19/16 17:05 ED Review of Systems ROS: Stated complaint: CATH LEAK Other details as noted in HPI Comment: All other systems reviewed and negative Other: Constitutional: No fevers chills Eyes: No eye pain visual changes ENT: No ear pain or throat pain Neck: Denies pain Respiratory: Denies cough wheezing shortness of breath Cardiovascular: Denies chest pain, palpitations, syncope GI: Denies abdominal pain, nausea, vomiting, diarrhea : As per HPI Musculoskeletal: Denies back pain, joint swelling Skin: Denies rash, lesions, erythema Neurologic: Denies headache, numbness, weakness Psychiatric: Denies suicidal ideation, hallucinations ED Past Medical Hx - Past Medical History Previous Medical History?: Yes Hx Hypertension: Yes (X 4 YRS) Hx Diabetes: Yes Hx GERD: Yes Hx Renal Disease: Yes (LEFT NEPHRECTOMY DUE TO CA/ESRD on HD MWF) Hx of Cancer: Yes (bladder, 20yrs ago.) Hx Arthritis: Yes Hx COPD: (PT UNSURE) Hx Tuberculosis: No (HX POSITIVE SKIN TEST, NEG CXR) Hx HIV: No Additional medical history: Stomach Ulcers. HD with vascath right chest,new graph in right arm. Hx of renal carcinoma - Surgical History Past Surgical History?: Yes Additional Surgical History: Left kidney removed. HD graft 04/2015. prostate surgery - Social History Smoking Status: Former Smoker Substance Use Type: None - Medications Home Medications: Home Medications Medication Instructions Recorded Confirmed Last Taken Type Carvedilol [Coreg] 6.25 mg PO BID #60 tablet 03/05/15 09/08/16 07/07/16 Rx 6.25mg Sevelamer Carbonate [Renvela] 800 mg PO TIDWM 03/27/16 09/08/16 07/07/16 History 800mg Ranitidine HCl [Zantac 150 MG TAB] 150 mg PO DAILY 06/20/16 09/08/16 07/07/16 History 150mg Megestrol [Megace] 20 mg PO TID 09/08/16 09/08/16 Unknown History NIFEdipine XL [Procardia Xl] 60 mg PO QDAY 09/08/16 09/08/16 Unknown History Acetaminophen [Acetaminophen TAB] 325 mg PO Q4H PRN #30 tablet 09/11/16 Unknown Rx ED Physical Exam - General Limitations: No Limitations - Other Other exam information: General: No limitations, patient is alert in no acute distress Head exam: Atraumatic, normocephalic Eyes exam: Normal appearance, pupils equal reactive to light, extraocular movements intact ENT: Moist mucous membrane, normal oropharynx Neck exam: Normal inspection, full range of motion, no meningismus nontender Respiratory exam: Clear to auscultation bilateral, no wheezes, rales, crackles Cardiovascular: Normal rate and rhythm, normal heart sounds Abdomen: Soft, nondistended, and nontender, with normal bowel sounds, no rebound, or guarding. Right nephrostomy tube noted. : Circumcised, Gunter catheter with bloody drainage was leaking from the bag Extremity: Full range of motion normal inspection no deformity Back: Normal Inspection, full range of motion, no tenderness Neurologic: Alert, oriented x3, cranial nerves intact, no motor or sensory deficit Psychiatric: normal affect, normal mood Skin: Warm, dry, intact ED Course Vital Signs 09/14/16 09/14/16 18:42 20:44 Temperature 98.8 F Pulse Rate 95 H 73 Respiratory 20 18 Rate Blood Pressure 126/57 Blood Pressure 145/53 [Left] O2 Sat by Pulse 100 96 Oximetry - Reevaluation(s) Reevaluation #1: 09/14/16 21:40 Gunter bag was changed in the ED ED Medical Decision Making - Lab Data Result diagrams: 09/14/16 19:44 09/14/16 19:44 Lab Results 09/14/16 09/14/16 Range/Units 19:44 19:44 WBC 6.5 (4.5-11.0) K/mm3 RBC 3.70 (3.65-5.03) M/mm3 Hgb 10.0 L (11.8-15.2) gm/dl Hct 32.4 L (35.5-45.6) % MCV 88 (84-94) fl MCH 27 L (28-32) pg MCHC 31 L (32-34) % RDW 21.2 H (13.2-15.2) % Plt Count 151 (140-440) K/mm3 Lymph % (Auto) 9.6 L (13.4-35.0) % [place] % (Auto) 7.2 (0.0-7.3) % Eos % (Auto) 2.5 (0.0-4.3) % Baso % (Auto) 1.2 (0.0-1.8) % Lymph # 0.6 L (1.2-5.4) K/mm3 [place] # 0.5 (0.0-0.8) K/mm3 Eos # 0.2 (0.0-0.4) K/mm3 Baso # 0.1 (0.0-0.1) K/mm3 Seg Neutrophils % 79.5 H (40.0-70.0) % Seg Neutrophils # 5.1 (1.8-7.7) K/mm3 Sodium 141 (137-145) mmol/L Potassium 4.4 (3.6-5.0) mmol/L Chloride 94.9 L (98-107) mmol/L Carbon Dioxide 34 H D (22-30) mmol/L Anion Gap 17 mmol/L BUN 20 (9-20) mg/dL Creatinine 5.7 H (0.8-1.5) mg/dL Estimated GFR 12 ml/min BUN/Creatinine Ratio 3.50 % Glucose 187 H (75-100) mg/dL Calcium 8.9 (8.4-10.2) mg/dL - Medical Decision Making Patient's hemoglobin is stable he does not require blood transfusion at this time. Gunter catheter bag with change. Patient will be discharged home to follow-up - Differential Diagnosis Gunter bag dysfunction, hematuria, anemia Critical Care Time: No Critical care attestation.: If time is entered above; I have spent that time in minutes in the direct care of this critically ill patient, excluding procedure time. ED Disposition Clinical Impression: Gunter catheter problem, Hematuria, End stage renal disease on dialysis, Anemia in chronic kidney disease (CKD), T2DM (type 2 diabetes mellitus), History of prostate cancer Disposition: DC-01 TO HOME OR SELFCARE Is pt being admited?: No Does the pt Need Aspirin: No Condition: Stable Instructions: Gunter Catheter Placement and Care (ED), Acute Hematuria (ED) Additional Instructions: Follow up with your urologist and the other physicians as scheduled. Return if symptoms worsen. Referrals: ZAIRE ARELLANO MD [Staff Physician] - 3-5 Days Time of Disposition: 21:43
== END 2016-09-14 22:04 | disposition home or self-care (01) ==
LOC: ED 17:43
DX: T83.018A Breakdown (mechanical) of other urinary catheter, initial encounter (principal); E11.22 Type 2 diabetes mellitus with diabetic chronic kidney disease; I12.0 Hypertensive chronic kidney disease with stage 5 chronic kidney disease or end stage renal disease; N18.6 End stage renal disease; Z99.2 Dependence on renal dialysis; D64.9 Anemia, unspecified; K21.9 Gastro-esophageal reflux disease without esophagitis; C61 Malignant neoplasm of prostate
CPT/HCPCS: 36415; 80048; 85025; 99283

== ENCOUNTER 2016-09-29 12:15 | Day surgery (SDC) | payer MEDICARE ==
[~2016-09-29 12:15] MED LIST changes: -ANCEF/NS 1 GM/50 ML 1 GM/50 ML BAG IV NR; +FLAGYL 500 MG/100 ML 500 MG/100 ML BAG IV SCH
[2016-09-29] MEDS ORDERED: ZOFRAN IV PRN (14:39)
[2016-09-29] MEDS ORDERED: DILAUDID IV PRN (14:39)
--- NOTE | 2016-09-29 14:40 | Anesthesia Day of Surgery ---
Anesthesia Day of Surgery - Day of Surgery Patient Examined: Yes Patient H&P Reviewed: Yes Patient is NPO: Yes
--- NOTE | 2016-09-29 14:42 | Anesthesia Consultation ---
Anesthesia Consult and Med Hx Date of service: 09/29/16 - Airway Anesthetic Teeth Evaluation: Good ROM Head & Neck: Adequate Mental/Hyoid Distance: Adequate Mallampati Class: Class II Intubation Access Assessment: Probably Good - Pulmonary Exam CTA: Yes - Cardiac Exam Cardiac Exam: RRR - Pre-Operative Health Status ASA Pre-Surgery Classification: ASA3 Proposed Anesthetic Plan: General - Pulmonary Hx Smoking: Yes (STOPPED X 40 YRS- 1 1/2 PPD X 20 YRS) COPD: (PT UNSURE) Hx Sleep Apnea: No (NELIDA PRE SCREEN HIGH RISK) - Cardiovascular System Hx Hypertension: Yes (X 4 YRS) Hx Coronary Artery Disease: Yes - Gastrointestinal Hx Gastroesophageal Reflux Disease: Yes - Endocrine Hx Renal Disease: Yes (LEFT NEPHRECTOMY DUE TO CA/ESRD on HD MWF) Hx End Stage Renal Disease: Yes Hx Non-Insulin Dependent Diabetes: Yes - Hematic Hx Anemia: Yes - Other Systems Hx Alcohol Use: Yes (HX ALCOHOL ABUSE- STOPPED X 40 YRS) Hx Cancer: Yes (h/o bladder, prostate CA)
[2016-09-29] MEDS ORDERED: LACTATED RINGERS 1,000 ML IV SCH (15:00)
[2016-09-29 15:27] LABS: Hematocrit 32.7 % (35.5-45.6); Hemoglobin 10.6 gm/dl (11.8-15.2)
[2016-09-29 15:35] LABS: BUN/Creatinine Ratio 3.17; Calcium 8.9 mg/dL (8.4-10.2); Chloride 97.5 mmol/L (98-107)
[2016-09-29 15:49] LABS: Potassium 6.3 mmol/L (3.6-5.0)
--- NOTE | 2016-09-29 15:54 | XRay Report ---
Chest 2 views. 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 Findings: The heart and pulmonary vessels are normal. The lungs are clear. There is no pleural fluid. Surgical clips are noted at the esophagogastric junction. Impression: Chest within normal limits for age.
[2016-09-29] MEDS ORDERED: NACL 0.9% 1000 ML 1,000 ML IV SCH (16:00)
[2016-09-29] MEDS ORDERED: SUBLIMAZE ONE (17:21)
[2016-09-29] MEDS ORDERED: DIPRIVAN 10 MG/ML IV ONE (17:21)
[2016-09-29] MEDS ORDERED: XYLOCAINE MPF 2% ONE (17:24)
[2016-09-29] MEDS ORDERED: ZOFRAN ONE (17:39)
[2016-09-29] MEDS ORDERED: ROBINUL ONE (17:39)
--- NOTE | 2016-09-29 18:02 | Short Stay Summary ---
Short Stay Documentation Date of service: 09/29/16 - History H&P: obtained from office - Allergies and Medications Current Medications: Allergies No Known Allergies Allergy (Verified 03/19/16 17:05) Home Medications Medication Instructions Recorded Confirmed Last Taken Type Carvedilol [Coreg] 6.25 mg PO BID #60 tablet 03/05/15 09/29/16 09/28/16 17:00 Rx Sevelamer Carbonate [Renvela] 800 mg PO TIDWM 03/27/16 09/29/16 09/28/16 17:00 History Ranitidine HCl [Zantac 150 MG TAB] 150 mg PO DAILY 06/20/16 09/29/16 09/28/16 16 :00 History Megestrol [Megace] 20 mg PO TID 09/08/16 09/29/16 09/28/16 16:00 History NIFEdipine XL [Procardia Xl] 60 mg PO QDAY 09/08/16 09/29/16 09/28/16 17:00 History Active Medications Hydromorphone HCl (Dilaudid) 0.25 mg IV Q10MIN PRN PRN Reason: Pain, Moderate (4-6) Stop: 09/29/16 23:59 Metronidazole (Flagyl 500 Mg/100 Ml) 500 mg in 100 mls @ 100 mls/hr IV PREOP JENNIFER Stop: 09/29/16 23:59 Sodium Chloride (Nacl 0.9% 1000 Ml) 1,000 mls @ 42 mls/hr IV DIRECT JENNIFER Last Admin: 09/29/16 15:47 Dose: 42 mls/hr - Brief post op/procedure progress note Date of procedure: 09/29/16 Pre-op diagnosis: nicolettedder ca Post-op diagnosis: same Procedure: cysto, alec bx, cystogram Anesthesia: GETA Surgeon: ZAIRE ARELLANO Pathology: list - Hospital course Hospital course: anaro & naye on chart - Disposition Condition at discharge: Stable Disposition: DC-01 TO HOME OR SELFCARE Short Stay Discharge Plan Follow up with: MARIELY CHAMPION MD [Primary Care Provider] - 7 Days
--- NOTE | 2016-09-29 18:06 | Post Anesthesia Evaluation ---
- Post Anesthesia Evaluation Patient Participated: Yes Airway Patent: Yes Stable Respiratory Function: Yes Nausea/Vomiting: No Temp > 96.8F: Yes Pain Manageable: Yes Adequeate Hydration: Yes Anesthesia Complications: No Block Receding Appropriately: Not Applicable Patient on Ventilator: No
[2016-09-29] MEDS ORDERED: NORMODYNE IV PRN (18:25)
[2016-09-29 20:11] VITALS: BP 178/80
--- NOTE | 2016-09-29 21:59 | Operative Report ---
PREOPERATIVE DIAGNOSIS: History of bladder cancer, status post intravesical chemotherapy. POSTOPERATIVE DIAGNOSIS: History of bladder cancer, status post intravesical chemotherapy. SECONDARY DIAGNOSES: Renal failure, on dialysis, left nephrectomy, prostate cancer status post external beam radiation and seeds. PROCEDURE: Cystoscopy cystogram, random bladder biopsies. SURGEON: Bhavik Gupta MD ANESTHESIA: General. ANESTHESIOLOGIST: Grant Traore MD ESTIMATED BLOOD LOSS: Minimal. FLUIDS: Crystalloid. COMPLICATIONS: No complications. 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 He underwent general gemcitabine once a week for 6 weeks and presents now for reevaluation. He also has a right nephrostomy tube that was replaced. Interventional radiology will attempt to place an indwelling stent. He does make some urine. DESCRIPTION OF PROCEDURE: The patient was taken to the operative suite, placed in a supine position. After adequate general anesthesia, placed in a dorsal lithotomy position, prepped and draped in a sterile fashion. Pancystourethroscopy was performed with 22 Bruneian Storz cystoscope. No urethral abnormalities. Prostate was minimally obstructing his bladder, had some chronic pseudomembranous tissue and a posterior diverticulum, could not see the ureteral orifices due to the pseudomembranous tissue. Biopsy of the posterior aspect of the bladder was performed and was fulgurated, sent for routine pathologic evaluation. Cystogram was performed. He has small capacity bladder, could not really visualize the cystogram diverticulum. A 16-Bruneian bois forte tip catheter was placed with the wire. The patient tolerated the procedure well. Rectal exam was benign. He was extubated and taken to recovery room. JOB# [id number] [facility]
--- NOTE | 2016-10-01 10:25 | Fluoroscopy Report ---
FLUOROSCOPY CYSTOGRAM STATIC, ONE VIEW History: Bladder cancer. Findings: Fluoroscopy was provided by radiology. 7 fluoroscopic images were captured. Compliance Quality Performance Analyst film of the abdomen demonstrates multiple radiotherapy beads in the prostate bed and a Gunter catheter in place. Subsequent images demonstrate injection of contrast into the bladder which is very small in size with irregular borders. Please correlate with the procedural report by Dr. Gupta. Impression: Abnormal bladder.
== END 2016-09-29 20:00 | disposition home or self-care (01) ==
LOC: OR 12:15
PROVIDERS: ATTEND Urology
DX: N30.00 Acute cystitis without hematuria (principal); N40.0 Benign prostatic hyperplasia without lower urinary tract symptoms; E11.22 Type 2 diabetes mellitus with diabetic chronic kidney disease; I12.0 Hypertensive chronic kidney disease with stage 5 chronic kidney disease or end stage renal disease; N18.6 End stage renal disease; I25.10 Atherosclerotic heart disease of native coronary artery without angina pectoris; K21.9 Gastro-esophageal reflux disease without esophagitis; D64.9 Anemia, unspecified; F10.21 Alcohol dependence, in remission; Z99.2 Dependence on renal dialysis; Z90.5 Acquired absence of kidney; Z79.899 Other long term (current) drug therapy; Z85.46 Personal history of malignant neoplasm of prostate; Z85.51 Personal history of malignant neoplasm of bladder; Z85.528 Personal history of other malignant neoplasm of kidney; Z85.89 Personal history of malignant neoplasm of other organs and systems; Z87.891 Personal history of nicotine dependence
CPT/HCPCS: 36415; 51600; 52204; 71020; 74430; 80048; 82962; 84132; 85014; 85018; 88112; 88305; C1758; J2405; J2704; J3010; J7030; Q9967; J7120

== ENCOUNTER 2016-10-11 08:32 | Day surgery (SDC) | payer MEDICARE ==
[~2016-10-11 08:32] MED LIST changes: +ANCEF/STERILE WATER 2 GM/20 ML 2 GM/20 ML SYRINGE IV NR; -FLAGYL 500 MG/100 ML 500 MG/100 ML BAG IV SCH; +NACL 0.9% 1000 ML 1,000 ML IV SCH
[2016-10-11] MEDS ORDERED: NACL 0.9% 500 ML 500 ML IV SCH (09:00)
[2016-10-11 09:36] LABS: BUN/Creatinine Ratio 3.9; Chloride 96.6 mmol/L (98-107); Potassium 4.6 mmol/L (3.6-5.0)
[2016-10-11 09:38] LABS: Basophils % (Auto) 1.8 % (0.0-1.8); Eosinophils % (Auto) 5.3 % (0.0-4.3); Hematocrit 33.6 % (35.5-45.6); Hemoglobin 10.3 gm/dl (11.8-15.2); Mean Corpuscular HGB Conc 31 % (32-34); Mean Corpuscular Hemoglobin 28 pg (28-32); Mean Corpuscular Volume 90 fl (84-94); Platelet Count 166 K/mm3 (140-440); Red Blood Count 3.74 M/mm3 (3.65-5.03)
[2016-10-11 09:40] LABS: Red Cell Distribution Width 22.4 % (13.2-15.2)
[2016-10-11] MEDS ORDERED: XYLOCAINE 2% INFILTRATI ONE (12:07)
[2016-10-11] MEDS ORDERED: VERSED ONE (12:07)
[2016-10-11] MEDS ORDERED: SUBLIMAZE ONE (12:07)
[2016-10-11] MEDS ORDERED: NACL 0.9% 500 ML IR ONE (12:07)
[2016-10-11] MEDS ORDERED: LEVAQUIN 500MG/100ML 500 MG/100 ML BAG IV ONE (12:07)
[2016-10-11] MEDS ORDERED: COREG PO SCH (14:32)
[2016-10-11] MEDS ORDERED: PROCARDIA XL PO SCH (15:00)
[2016-10-11 16:08] VITALS: BP 192/80
--- NOTE | 2016-10-11 16:41 | Operative Report ---
Operative Report Operative Report: Procedure: 1. Right antegrade nephrostogram. 2. Conversion of an indwelling right-sided nephrostomy catheter to an internal double-J stent. Date of Procedure: 10/11/2016 History/Indication: 81-year-old male with prostate and renal cell carcinoma. He has a complicated urologic history. Most recently, he had a right-sided nephrostomy catheter placed and internalization has been requested. Physician: Asael Tavera MD Technique/Procedural Details: The patient was placed in the prone position and prepped and draped in the usual sterile fashion. A timeout was performed. Local anesthetic was administered. The sutures and indwelling catheter were cut. Contrast was injected for the purposes of an antegrade nephrostogram. Over a Lay wire, the indwelling catheter was removed. A 4 Jamaican vertebral catheter and a 7 Jamaican 23 cm vascular sheath were placed into the mid ureter. There was difficulty crossing a region of severe stricturing in the mid ureter. A Glidewire was initially utilized. Ultimately an 018 GT Glidewire was used to successfully cross the stenosis and access the urinary bladder. An 018 Trailblazer was advanced over the GT Glidewire into the bladder. The GT Glidewire was removed, and a V18 wire was advanced into the bladder. The 018 catheter was removed, and balloon ureteroplasty was performed. Over the V18 wire, the balloon was exchanged for an 035 Amery Blazer catheter. Through the 035 Amery Blazer, a stiff Amplatz wire was advanced into the urinary bladder. A 23 cm double-J ureteral stent was advanced, and the distal loop was formed in the bladder. The vascular sheath and Amplatz wire were withdrawn into the right renal pelvis. However, the proximal aspect of the ureteral stent was positioned too distally within the ureter. A 7Fr Ensnare device was used to capture the proximal end of the stent and position it more proximally in the proximal ureter/renal pelvis. Final images were acquired, and sterile dressings were placed at the old catheter exit site. The patient tolerated the procedure well and was transported to the holding area in good condition. Discussion: Again seen is alternating stenosis and dilatation of the right ureter. In particular, there is a severely stenotic region in the mid ureter which gives rise to a very tortuous segment. This made it extremely difficult to pass wires or catheter distally into the bladder. Balloon ureteroplasty was performed to facilitate this. Ultimately, there is successful internalization of a ureteral stent. The proximal aspect of the stent was positioned slightly distal to the renal pelvis. However this was discussed with the referring urologist, along with review of images, and it was deemed to be a satisfactory result overall. Specimen: None EBL: <5 cc
== END 2016-10-11 16:49 | disposition home or self-care (01) ==
LOC: CATHLABREC 08:32
PROVIDERS: ATTEND Radiology Diagnostic Radiology
DX: Z46.82 Encounter for fitting and adjustment of non-vascular catheter (principal); N13.5 Crossing vessel and stricture of ureter without hydronephrosis; E11.22 Type 2 diabetes mellitus with diabetic chronic kidney disease; N18.6 End stage renal disease; I12.0 Hypertensive chronic kidney disease with stage 5 chronic kidney disease or end stage renal disease; Z99.2 Dependence on renal dialysis; Z85.46 Personal history of malignant neoplasm of prostate; Z85.528 Personal history of other malignant neoplasm of kidney; Z85.51 Personal history of malignant neoplasm of bladder; Z85.89 Personal history of malignant neoplasm of other organs and systems; Z79.899 Other long term (current) drug therapy
CPT/HCPCS: 36415; 50389; 50693; 50706; 80048; 85025; C1725; C1751; C1769; C1773; C1894; J1956; J2250; J3010; Q9967

== ENCOUNTER 2016-12-30 11:27 | Inpatient (IN) | payer MEDICARE ==
[2016-12-30 12:20] LABS: Hematocrit 31.8 % (35.5-45.6); Hemoglobin 10.2 gm/dl (11.8-15.2); Mean Corpuscular HGB Conc 32 % (32-34); Mean Corpuscular Hemoglobin 27 pg (28-32); Mean Corpuscular Volume 85 fl (84-94); Platelet Count 313 K/mm3 (140-440); Red Blood Count 3.77 M/mm3 (3.65-5.03); White Blood Count 8.7 K/mm3 (4.5-11.0)
[2016-12-30 12:36] LABS: Calcium 8.3 mg/dL (8.4-10.2); Chloride 90.8 mmol/L (98-107); Potassium 5.3 mmol/L (3.6-5.0)
[2016-12-30 12:38] LABS: Red Cell Distribution Width 20.1 % (13.2-15.2)
[2016-12-30 13:19] LABS: Anisocytosis 1+; Basophils % (Manual) 0 % (0.0-1.8); Blastocytes % (Manual) 0 %; Eosinophils % (Manual) 0 % (0.0-4.3)
[2016-12-30 13:20] LABS: Diff Status Complete; Elliptocytes Few; Microcytosis Few; Ovalocytes Few; Platelet Clumps Few; Platelet Estimate Consistent w Auto; Poikilocytosis Few; Tear Drop Cells Few
--- NOTE | 2016-12-30 17:02 | Emergency Department Report ---
HPI - General Chief Complaint: Weakness Time Seen by Provider: 12/30/16 16:53 - HPI HPI: Room 3 The patient is an 81-year-old male presenting with a chief complaint of abdominal pain. The patient states for the past 4-5 days he's had lower abdominal pain that has been constant and sharp in nature. The patient states because of the pain he has not gone to dialysis. Patient states she's had nausea and vomiting for the past 4 days. Family is uncertain if he's had a subjective fever at home. The patient gives his pain score of 5-6/10 Location: Abdomen Duration: 4-5 days Quality: Sharp Severity: 5-6/10 Modifying factors: [see above] Context: [see above] Mode of transportation: [not driving] ED Past Medical Hx - Past Medical History Hx Hypertension: Yes Hx Renal Disease: Yes (HD MWF) Hx Arthritis: Yes Hx COPD: (PT UNSURE) Additional medical history: Stomach Ulcers - Surgical History Additional Surgical History: Left kidney removed,. prostate surgery, fistula to rt upper arm - Family History Family history: no significant - Social History Smoking Status: Former Smoker (none x 40 years) Substance Use Type: None - Medications Home Medications: Home Medications Medication Instructions Recorded Confirmed Last Taken Type Megestrol [Megace] 20 mg PO TID 09/08/16 11/29/16 10/10/16 History Amlodipine Besylate 10 mg PO QDAY 11/29/16 11/29/16 Unknown History Vit B Complx C/Folic Acid/Zinc 1 tab PO QDAY 11/29/16 11/29/16 Unknown History [Dialyvite 800-Zinc 50 mg Tab] ED Review of Systems ROS: Stated complaint: NEEDS DIALYSIS Other details as noted in HPI Constitutional: fever (subjective?) ENT: other (rhinorrhea) Endocrine: unexplained weight loss Gastrointestinal: abdominal pain, nausea, vomiting Physical Exam - Physical Exam Vital Signs: Vital Signs 12/30/16 12/30/16 11:40 16:45 Temperature 98.4 F 98.3 F Pulse Rate 97 H 99 H Respiratory 16 20 Rate Blood Pressure 180/91 Blood Pressure 190/89 [Left] O2 Sat by Pulse 98 100 Oximetry Physical Exam: GENERAL: The patient is well-developed well-nourished male lying on stretcher not appearing to be in acute distress. [] HEENT: Normocephalic. Atraumatic. Extraocular motions are intact. Patient has moist mucous membranes. NECK: Supple. Trachea midline CHEST/LUNGS: Clear to auscultation. There is no respiratory distress noted. HEART/CARDIOVASCULAR: Regular. There is no tachycardia. There is no gallop rub or murmur. ABDOMEN: Abdomen is soft, with tenderness to palpation in the suprapubic and left lower quadrant. Patient has normal bowel sounds. There is no abdominal distention. SKIN: There is no rash. There is no edema. There is no diaphoresis. NEURO: The patient is awake, alert, and oriented. The patient is cooperative. The patient has normal speech MUSCULOSKELETAL: There is no evidence of acute injury. ED Course Vital Signs 12/30/16 12/30/16 11:40 16:45 Temperature 98.4 F 98.3 F Pulse Rate 97 H 99 H Respiratory 16 20 Rate Blood Pressure 180/91 Blood Pressure 190/89 [Left] O2 Sat by Pulse 98 100 Oximetry - Consultations Consultation #1: 12/30/16 20:26 Nephrology paged 12/30/16 21:[address] Madden. Will arrange for dialysis tomorrow Consultation #2: 12/30/16 20:26 Surgery paged 12/30/16 20:[address] Amador. Recommends placing an NG tube with low wall intermittent suction ED Medical Decision Making - Lab Data Result diagrams: 12/30/16 12:01 12/30/16 12:01 Laboratory Tests 12/30/16 12/30/16 12/30/16 12:01 12:01 17:16 WBC 8.7 RBC 3.77 Hgb 10.2 L Hct 31.8 L MCV 85 MCH 27 L MCHC 32 RDW 20.1 H Plt Count 313 Add Manual Diff Complete Total Counted 100 Seg Neutrophils % Cork Tile Floor Layer Seg Neuts % (Manual) 94.0 H Band Neutrophils % 0 Lymphocytes % (Manual) 2.0 L Reactive Lymphs % (Man) 0 Monocytes % (Manual) 4.0 Eosinophils % (Manual) 0 Basophils % (Manual) 0 Metamyelocytes % 0 Myelocytes % 0 Promyelocytes % 0 Blast Cells % 0 Nucleated RBC % Not Reportable Seg Neutrophils # Man 8.2 H Band Neutrophils # 0.0 Lymphocytes # (Manual) 0.2 L Abs React Lymphs (Man) 0.0 Monocytes # (Manual) 0.3 Eosinophils # (Manual) 0.0 Basophils # (Manual) 0.0 Metamyelocytes # 0.0 Myelocytes # 0.0 Promyelocytes # 0.0 Blast Cells # 0.0 WBC Morphology Not Reportable Hypersegmented Neuts Not Reportable Hyposegmented Neuts Not Reportable Hypogranular Neuts Not Reportable Smudge Cells Not Reportable Toxic Granulation Not Reportable Toxic Vacuolation Not Reportable Dohle Bodies Not Reportable Pelger-Huet Anomaly Not Reportable Nazario Rods Not Reportable Platelet Estimate Consistent w auto Clumped Platelets Few Plt Clumps, EDTA Not Reportable Large Platelets Not Reportable Giant Platelets Not Reportable Platelet Satelliting Not Reportable Plt Morphology Comment Not Reportable RBC Morphology Not Reportable Dimorphic RBCs Not Reportable Polychromasia Not Reportable Hypochromasia Not Reportable Poikilocytosis Few Anisocytosis 1+ Microcytosis Few Macrocytosis Not Reportable Spherocytes Not Reportable Pappenheimer Bodies Not Reportable Sickle Cells Not Reportable Target Cells Not Reportable Tear Drop Cells Few Ovalocytes Few Helmet Cells Not Reportable Johnson-Truxton Bodies Not Reportable Sanderson Rings Not Reportable [place] Cells Not Reportable Bite Cells Not Reportable Crenated Cell Not Reportable Elliptocytes Few Acanthocytes (Spur) Not Reportable Rouleaux Not Reportable Hemoglobin C Crystals Not Reportable Schistocytes Not Reportable Malaria parasites Not Reportable Mannie Bodies Not Reportable Hem Pathologist Commnt No Sodium 139 Potassium 5.3 H Chloride 90.8 L Carbon Dioxide 24 Anion Gap 30 BUN 94 H Creatinine 13.0 H Estimated GFR 4 BUN/Creatinine Ratio 7 Glucose 109 H Calcium 8.3 L Total Creatine Kinase 152 - EKG Data -: EKG Interpreted by Mo EKG shows normal: sinus rhythm Rate: normal - EKG Data When compared to previous EKG there are: previous EKG unavailable - Radiology Data Radiology results: report reviewed (CT abdomen and pelvis), image reviewed (CT abdomen and pelvis) FINAL REPORT PROCEDURE: CT ABDOMEN PELVIS WO CON TECHNIQUE: Computerized axial tomography of the abdomen and pelvis was performed without intravenous contrast. This study is performed without intravascular contrast material and its sensitivity for abdominal and pelvic pathology, including neoplasms, inflammation, abscess, free fluid, thrombosis, arterial dissection and infarction, is reduced compared with a contrast enhanced study. HISTORY: lower abdominal pain COMPARISON: No prior studies are available for comparison. FINDINGS: Mild rounded alveolar opacity is seen in the right middle lobe medially. This could be rounded atelectasis or pneumonia. Mildly prominent fat pad is seen adjacent to this area. Small pericardial effusion is seen. Heart appears normal in size. Mild hypoventilatory changes are seen in the dependent portions of the lungs. Spleen and liver appear normal. Postoperative changes are seen in the region of the GE junction. Gallbladder and pancreas display no abnormalities. There is absence of the left kidney and left adrenal gland is not definitely identified. There is suggestion of cyst or nodule in the right adrenal gland measuring 1.8 cm. This is low in density and may be and adenoma. MRI may be useful in further evaluation, if not performed previously. There is a ureteral stent in the right upper ureter. There is air in the right collecting system. Distal aspect of the ureteral stent is coiled in an abnormal appearing structure in the pelvis. A Gunter catheter is seen this area and this may be a bladder mass or invasive prostate mass in the bladder. There appear to be radiation implant seeds in the region of the prostate gland but a discrete prostate gland is not identified. Colonic diverticula are seen without evidence of diverticulitis. There is moderate right-sided constipation. There is small bowel dilation into the region of the deep pelvis. Small bowel is likely obstructed by the mass in the bladder region. This mass may extend into the peritoneum superior to bladder, causing the small-bowel obstruction. Small bowel is dilated to 2.5 cm in diameter. Possible normal appendix is seen but this may just be a nondilated loop of bowel this to to the obstruction. There is mild diffuse anasarca. Moderate arthritic changes are seen in the left hip with more mild arthritic changes in the right hip. Likely erosive endplate changes are seen at L4-5 and L1-2. No lumbar compression fracture is seen. IMPRESSION: There is a mass in the region of the urinary bladder. This may be an invasive prostate cancer or primary bladder malignancy. The mass appears to extend superior to the bladder, where it causes small-bowel obstruction. Small bowel is dilated at 2.5 cm in diameter proximal to this area and is decompressed in the distal small bowel. Moderate right-sided constipation is seen. Right ureteral stent has its proximal aspect in the upper ureter. It may benefit from being repositioned into the right renal pelvis. Mild rounded alveolar opacity in the right middle lobe the lungs may be rounded atelectasis or rounded pneumonia. Right adrenal nodule or cyst is probably benign. Confirmation with MRI is recommended. Transcribed By: WW Dictated By: BASILIO ALLEN JR, MD Electronically Authenticated By: BASILIO ALLEN JR, MD Signed Date/Time: 12/30/161609 DD/ 09 TD/TT: 12/30/161609 - Differential Diagnosis diverticulitis, cystitis, hyperkalemia Critical care attestation.: If time is entered above; I have spent that time in minutes in the direct care of this critically ill patient, excluding procedure time. ED Disposition Clinical Impression: ESRD (end stage renal disease), Hyperkalemia, Acute abdominal pain, Pelvic mass , Small bowel obstruction Disposition: OP ADMIT IP TO THIS HOSP Is pt being admited?: Yes Does the pt Need Aspirin: No Condition: Fair Referrals: PRIMARY CARE, [Primary Care Provider] - 3-5 Days Time of Disposition: 21:15 (hospitalist paged)
[2016-12-30] MEDS ORDERED: ZOFRAN IV ONE (17:07)
[2016-12-30] MEDS ORDERED: MORPHINE IV ONE (17:07)
[2016-12-30] MEDS ORDERED: D50W (25GM) Syringe IV ONE (20:10)
--- NOTE | 2016-12-30 20:13 | Cat Scan Report ---
FINAL REPORT PROCEDURE: CT ABDOMEN PELVIS WO CON TECHNIQUE: Computerized axial tomography of the abdomen and pelvis was performed without intravenous contrast. This study is performed without intravascular contrast material and its sensitivity for abdominal and pelvic pathology, including neoplasms, inflammation, abscess, free fluid, thrombosis, arterial dissection and infarction, is reduced compared with a contrast enhanced study. HISTORY: lower abdominal pain COMPARISON: No prior studies are available for comparison. FINDINGS: Mild rounded alveolar opacity is seen in the right middle lobe medially. This could be rounded atelectasis or pneumonia. Mildly prominent fat pad is seen adjacent to this area. Small pericardial effusion is seen. Heart appears normal in size. Mild hypoventilatory changes are seen in the dependent portions of the lungs. Spleen and liver appear normal. Postoperative changes are seen in the region of the GE junction. Gallbladder and pancreas display no abnormalities. There is absence of the left kidney and left adrenal gland is not definitely identified. There is suggestion of cyst or nodule in the right adrenal gland measuring 1.8 cm. This is low in density and may be and adenoma. MRI may be useful in further evaluation, if not performed previously. There is a ureteral stent in the right upper ureter. There is air in the right collecting system. Distal aspect of the ureteral stent is coiled in an abnormal appearing structure in the pelvis. A Gunter catheter is seen this area and this may be a bladder mass or invasive prostate mass in the bladder. There appear to be radiation implant seeds in the region of the prostate gland but a discrete prostate gland is not identified. Colonic diverticula are seen without evidence of diverticulitis. There is moderate right-sided constipation. There is small bowel dilation into the region of the deep pelvis. Small bowel is likely obstructed by the mass in the bladder region. This mass may extend into the peritoneum superior to bladder, causing the small-bowel obstruction. Small bowel is dilated to 2.5 cm in diameter. Possible normal appendix is seen but this may just be a nondilated loop of bowel this to to the obstruction. There is mild diffuse anasarca. Moderate arthritic changes are seen in the left hip with more mild arthritic changes in the right hip. Likely erosive endplate changes are seen at L4-5 and L1-2. No lumbar compression fracture is seen. IMPRESSION: There is a mass in the region of the urinary bladder. This may be an invasive prostate cancer or primary bladder malignancy. The mass appears to extend superior to the bladder, where it causes small-bowel obstruction. Small bowel is dilated at 2.5 cm in diameter proximal to this area and is decompressed in the distal small bowel. Moderate right-sided constipation is seen. Right ureteral stent has its proximal aspect in the upper ureter. It may benefit from being repositioned into the right renal pelvis. Mild rounded alveolar opacity in the right middle lobe the lungs may be rounded atelectasis or rounded pneumonia. Right adrenal nodule or cyst is probably benign. Confirmation with MRI is recommended.
[2016-12-30] MEDS ORDERED: D50W (25GM) Vial IV ONE (21:00)
[2016-12-30] MEDS ORDERED: LIDOCAINE VISCOUS 2% ONE (21:58)
[2016-12-30] MEDS ORDERED: ZOFRAN IV PRN (22:01)
[2016-12-30] MEDS ORDERED: TYLENOL PO PRN (22:01)
[2016-12-30] MEDS ORDERED: CALCIUM CHLORIDE 1,000 MG in NACL 0.9% 100 ML IV ONE (22:03)
[2016-12-30] MEDS ORDERED: D50W (25GM) Vial IV PRN (22:03)
[2016-12-30] MEDS ORDERED: SODIUM BICARBONATE IV ONE ×3 (22:03→22:40)
--- NOTE | 2016-12-30 22:05 | History and Physical Report ---
History of Present Illness Date of examination: 12/30/16 History of present illness: 81-year-old man with history of hypertension, end-stage renal disease on dialysis, diabetes, history of prostate and throat cancer, hyperlipidemia comes to the emergency room because he developed abdominal pain yesterday, located in his mid abdomen which she describes as sharp, intermittent in nature, unable to feel lung cancer, intensity 7/10, no radiation, cannot identify exacerbating or relieving factors. Admits to multiple episodes of nausea and vomiting yesterday. His last dialysis was on Monday Review Of Systems: Constitutional: no weight loss Ears, eyes, nose, mouth and throat: no nasal congestion, no nasal discharge, no sinus pressure, blurry vision, diplopia Neck: No neck pain or rigidity. Cardiovascular:no chest pain, orthopnea, palpitations Respiratory: No shortness of breath, cough Gastrointestinal: no hematochezia Genitourinary : no dysuria, frequency , hematuria Musculoskeletal: no muscle ache Integumentary: no rash, no pruritis Neurological: no parathesias, focal weakness Endocrine: no cold or heat intolerance, no polyuria or polydipsia Hematologic/Lymphatic: no easy bruising, no easy bleeding, no gland swelling Allergic/Immunologic: no urticaria, no angioedema. PAST MEDICAL HISTORY: hypertension, end-stage renal disease on dialysis, diabetes, history of prostate and throat cancer, hyperlipidemia PAST SURGICAL HISTORY: Prostatectomy, left nephrectomy FAMILY HISTORY: hypertension SOCIAL HISTORY: Denies alcohol or drug, tobacco Medications and Allergies Allergies Allergy/AdvReac Type Severity Reaction Status Date / Time No Known Allergies Allergy Verified 11/28/16 18:30 Home Medications Medication Instructions Recorded Confirmed Last Taken Type Megestrol [Megace] 20 mg PO TID 09/08/16 12/31/16 10/10/16 History Amlodipine Besylate 10 mg PO QDAY 11/29/16 12/31/16 Unknown History Vit B Complx C/Folic Acid/Zinc 1 tab PO QDAY 11/29/16 12/31/16 Unknown History [Dialyvite 800-Zinc 50 mg Tab] Levofloxacin [Levaquin TAB] 500 mg PO QDAY 5 Days tablet 01/06/17 Unknown Rx Ondansetron [Zofran TAB] 4 mg PO Q8HR PRN #30 tablet 01/06/17 Unknown Rx oxyCODONE /ACETAMINOPHEN [Percocet 1 tab PO Q6HR PRN #14 tablet 01/06/17 Unknown Rx 5/325] Active Meds: Active Medications Acetaminophen (Tylenol) 650 mg PO Q4H PRN PRN Reason: Pain MILD(1-3)/Fever >100.5/[place] Calcium Chloride 1,000 mg/ (Sodium Chloride) 110 mls @ 660 mls/hr IV ONCE ONE Stop: 12/30/16 22:12 Morphine Sulfate (Morphine) 1 mg IV Q4H PRN PRN Reason: Pain, Moderate (4-6) Ondansetron HCl (Zofran) 4 mg IV Q4H PRN PRN Reason: N/V unrelieved by Reglan Sodium Bicarbonate (Sodium Bicarbonate) 50 meq IV ONCE ONE Stop: 12/30/16 22:04 Exam - Physical Exam Narrative exam: Gen. appearance: Patient lying in bed in no acute distress HEENT: Normocephalic/atraumatic, pupils equal round reactive to light, extra alkaline movement intact, no scleral icterus, no JVD or thyromegaly or nodule, neck is supple, mucous membrane moist, no erythema or exudate Heart: S1-S2, regular rate and rhythm Lungs: Clear to auscultation bilateral breathing comfortable Abdomen: decrease bowel sounds, tender in mid abdomen, nondistended, no organomegaly Extremities: No edema, cyanosis, clubbing Neuro:: Oriented 3 , cranial nerves II-12 intact, speech, motor intact Skin: No rash, nodules, warm dry - Constitutional Vitals: Temp Pulse Resp BP Pulse Ox 98.3 F 99 H 20 190/89 100 12/30/16 16:45 12/30/16 16:45 12/30/16 16:45 12/30/16 16:45 12/30/16 16:45 Results - Labs CBC & Chem 7: 01/06/17 15:52 01/06/17 04:24 Labs: Abnormal lab results 12/30/16 12/30/16 Range/Units 12:01 12:01 Hgb 10.2 L (11.8-15.2) gm/dl Hct 31.8 L (35.5-45.6) % MCH 27 L (28-32) pg RDW 20.1 H (13.2-15.2) % Seg Neuts % (Manual) 94.0 H (40.0-70.0) % Lymphocytes % (Manual) 2.0 L (13.4-35.0) % Seg Neutrophils # Man 8.2 H (1.8-7.7) K/mm3 Lymphocytes # (Manual) 0.2 L (1.2-5.4) K/mm3 Potassium 5.3 H (3.6-5.0) mmol/L Chloride 90.8 L (98-107) mmol/L BUN 94 H (9-20) mg/dL Creatinine 13.0 H (0.8-1.5) mg/dL Glucose 109 H (75-100) mg/dL Calcium 8.3 L (8.4-10.2) mg/dL Assessment and Plan Assessment Small bowel obstruction End-stage renal disease needing dialysis Hypertension Diabetes History of prostate, renal and Throat cancer Plan Place on bowel rest, NG tube to suction, no IV fluids secondary to missed hemodialysis Check fingersticks initiate insulin sliding scale Continue appropriate outpatient medications Start DVT prophylaxis with SCD
[2016-12-31 06:12] LABS: Basophils % (Auto) 0.3 % (0.0-1.8); Eosinophils % (Auto) 0.1 % (0.0-4.3); Hematocrit 35.2 % (35.5-45.6); Hemoglobin 11.1 gm/dl (11.8-15.2); Mean Corpuscular HGB Conc 32 % (32-34); Mean Corpuscular Hemoglobin 28 pg (28-32); Mean Corpuscular Volume 88 fl (84-94); Platelet Count 241 K/mm3 (140-440); Red Blood Count 4.02 M/mm3 (3.65-5.03)
[2016-12-31 06:23] LABS: Red Cell Distribution Width 20.5 % (13.2-15.2)
[2016-12-31 06:30] LABS: Calcium 8.7 mg/dL (8.4-10.2); Chloride 95.6 mmol/L (98-107); Potassium 5.5 mmol/L (3.6-5.0)
[2016-12-31 09:22] LABS: Mucus,Urine 3+ /HPF
[2016-12-31 09:24] LABS: RBC,Urine > 182.0 /HPF (0.0-6.0)
[2016-12-31 09:25] LABS: WBC,Urine > 182.0 /HPF (0.0-6.0)
[2016-12-31 09:27] LABS: Bilirubin,Urine NEG (Negative); Blood,Urine MOD (Negative); Ketones,Urine NEG (Negative); Leukocyte Esterase,Urine SM (Negative); Nitrite,Urine POS (Negative); Urobilinogen,Urine < 2.0 mg/dL (<2.0)
--- NOTE | 2016-12-31 11:01 | Progress Note ---
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 Gupta/Sparkle who presented with abdominal pains. CT abd/pelvis without contrast read as mass in the region of the urinary bladder, this maybe an invasive prostate cancer or primary bladder malignancy, mass apppears to extend superior to the bladder, where is causes small bowel obstruction. Small bowel is dilated at 2.5 cm in diameter proximal to this area and decompressed any distal small bowel , moderate right-sided constipation is seen, right ureteral stent has a proximal aspect in the upper ureter, it may benefit from being repositioned into the right renal pelvis, mild rounded alveolar opacity in the right middle lobe of the lungs may be rounded atelectasis or rounded pneumonia, right adrenal nodule or cyst is probably benign, confirmation with MRI is recommended. -Small bowel obstruction: Keep nothing by mouth, await surgical evaluation -End-stage renal disease: Await nephrology evaluation -Hyperkalemia, mild: Treat with Hemodialysis -Anemia of chronic disease: Repeat CBC in a.m. -Prostate cancer: continuing to follow with urology -Abnormal UA in an oliguric/HD patient, not good sample History Interval history: Patient was seen and examined. Follow-up on current diagnosis. Overnight uneventful. Patient denies any chest pain, shortness breath, or severe headaches. Imaging, nursing note, chart, labs and old chart reviewed. Discussed with patient.Patient was seen and examined. Still with abdominal pain , patient has NG tube to LIS Hospitalist Physical - Physical exam Narrative exam: GEN: Thin frail, debilitated, NAD, AWAKE, ALERT, ORIENTATED 3 HEENT: NCAT, EOMI, PERRL, OP Clear NECK: supple, no thyromegaly, no JVD CVS/HEART: Regular tachycardia, NORMAL S1S2, NO JVD, pulses present bilaterally CHEST/LUNGS: CTA B, Symmetrical chest expansion, good air entry bilaterally GI/Abdomen: soft, diffuse tenderness, good bowel sounds, no guarding or rebound /Bladder: no suprapubic tenderness, no CVA or paraspinal tenderness EXT/Skin: no c/c/e, no obvious rash MSK: FROM x 4 Neuro: CN 2-12 grossly intact, no new focal deficits Psych: calm - Constitutional Vitals: Temp Pulse Resp BP Pulse Ox 98.1 F 103 H 18 194/83 94 12/31/16 07:43 12/31/16 07:43 12/31/16 07:43 12/31/16 07:43 12/31/16 07:43 Results - Labs CBC & Chem 7: 12/31/16 06:01 12/31/16 06:01 Labs: Laboratory Last Values WBC 9.0 K/mm3 (4.5-11.0) 12/31/16 06:01 RBC 4.02 M/mm3 (3.65-5.03) 12/31/16 06:01 Hgb 11.1 gm/dl (11.8-15.2) L 12/31/16 06:01 Hct 35.2 % (35.5-45.6) L 12/31/16 06:01 MCV 88 fl (84-94) 12/31/16 06:01 MCH 28 pg (28-32) 12/31/16 06:01 MCHC 32 % (32-34) 12/31/16 06:01 RDW 20.5 % (13.2-15.2) H 12/31/16 06:01 Plt Count 241 K/mm3 (140-440) 12/31/16 06:01 Lymph % (Auto) 5.8 % (13.4-35.0) L 12/31/16 06:01 [place] % (Auto) 8.6 % (0.0-7.3) H 12/31/16 06:01 Eos % (Auto) 0.1 % (0.0-4.3) 12/31/16 06:01 Baso % (Auto) 0.3 % (0.0-1.8) 12/31/16 06:01 Lymph # 0.5 K/mm3 (1.2-5.4) L 12/31/16 06:01 [place] # 0.8 K/mm3 (0.0-0.8) 12/31/16 06:01 Eos # 0.0 K/mm3 (0.0-0.4) 12/31/16 06:01 Baso # 0.0 K/mm3 (0.0-0.1) 12/31/16 06:01 Add Manual Diff Complete 12/30/16 12:01 Total Counted 100 12/30/16 12:01 Seg Neutrophils % 85.2 % (40.0-70.0) H 12/31/16 06:01 Seg Neuts % (Manual) 94.0 % (40.0-70.0) H 12/30/16 12:01 Band Neutrophils % 0 % 12/30/16 12:01 Lymphocytes % (Manual) 2.0 % (13.4-35.0) L 12/30/16 12:01 Reactive Lymphs % (Man) 0 % 12/30/16 12:01 Monocytes % (Manual) 4.0 % (0.0-7.3) 12/30/16 12:01 Eosinophils % (Manual) 0 % (0.0-4.3) 12/30/16 12:01 Basophils % (Manual) 0 % (0.0-1.8) 12/30/16 12:01 Metamyelocytes % 0 % 12/30/16 12:01 Myelocytes % 0 % 12/30/16 12:01 Promyelocytes % 0 % 12/30/16 12:01 Blast Cells % 0 % 12/30/16 12:01 Nucleated RBC % Not Reportable 12/30/16 12:01 Seg Neutrophils # 7.7 K/mm3 (1.8-7.7) 12/31/16 06:01 Seg Neutrophils # Man 8.2 K/mm3 (1.8-7.7) H 12/30/16 12:01 Band Neutrophils # 0.0 K/mm3 12/30/16 12:01 Lymphocytes # (Manual) 0.2 K/mm3 (1.2-5.4) L 12/30/16 12:01 Abs React Lymphs (Man) 0.0 K/mm3 12/30/16 12:01 Monocytes # (Manual) 0.3 K/mm3 (0.0-0.8) 12/30/16 12:01 Eosinophils # (Manual) 0.0 K/mm3 (0.0-0.4) 12/30/16 12:01 Basophils # (Manual) 0.0 K/mm3 (0.0-0.1) 12/30/16 12:01 Metamyelocytes # 0.0 K/mm3 12/30/16 12:01 Myelocytes # 0.0 K/mm3 12/30/16 12:01 Promyelocytes # 0.0 K/mm3 12/30/16 12:01 Blast Cells # 0.0 K/mm3 12/30/16 12:01 WBC Morphology Not Reportable 12/30/16 12:01 Hypersegmented Neuts Not Reportable 12/30/16 12:01 Hyposegmented Neuts Not Reportable 12/30/16 12:01 Hypogranular Neuts Not Reportable 12/30/16 12:01 Smudge Cells Not Reportable 12/30/16 12:01 Toxic Granulation Not Reportable 12/30/16 12:01 Toxic Vacuolation Not Reportable 12/30/16 12:01 Dohle Bodies Not Reportable 12/30/16 12:01 Pelger-Huet Anomaly Not Reportable 12/30/16 12:01 Anzario Rods Not Reportable 12/30/16 12:01 Platelet Estimate Consistent w auto 12/30/16 12:01 Clumped Platelets Few 12/30/16 12:01 Plt Clumps, EDTA Not Reportable 12/30/16 12:01 Large Platelets Not Reportable 12/30/16 12:01 Giant Platelets Not Reportable 12/30/16 12:01 Platelet Satelliting Not Reportable 12/30/16 12:01 Plt Morphology Comment Not Reportable 12/30/16 12:01 RBC Morphology Not Reportable 12/30/16 12:01 Dimorphic RBCs Not Reportable 12/30/16 12:01 Polychromasia Not Reportable 12/30/16 12:01 Hypochromasia Not Reportable 12/30/16 12:01 Poikilocytosis Few 12/30/16 12:01 Anisocytosis 1+ 12/30/16 12:01 Microcytosis Few 12/30/16 12:01 Macrocytosis Not Reportable 12/30/16 12:01 Spherocytes Not Reportable 12/30/16 12:01 Pappenheimer Bodies Not Reportable 12/30/16 12:01 Sickle Cells Not Reportable 12/30/16 12:01 Target Cells Not Reportable 12/30/16 12:01 Tear Drop Cells Few 12/30/16 12:01 Ovalocytes Few 12/30/16 12:01 Helmet Cells Not Reportable 12/30/16 12:01 [place] Bodies Not Reportable 12/30/16 12:01 [place] Rings Not Reportable 12/30/16 12:01 Fang Cells Not Reportable 12/30/16 12:01 Bite Cells Not Reportable 12/30/16 12:01 Crenated Cell Not Reportable 12/30/16 12:01 Elliptocytes Few 12/30/16 12:01 Acanthocytes (Spur) Not Reportable 12/30/16 12:01 Rouleaux Not Reportable 12/30/16 12:01 Hemoglobin C Crystals Not Reportable 12/30/16 12:01 Schistocytes Not Reportable 12/30/16 12:01 Malaria parasites Not Reportable 12/30/16 12:01 Mannie Bodies Not Reportable 12/30/16 12:01 Hem Pathologist Commnt No 12/30/16 12:01 Sodium 143 mmol/L (137-145) 12/31/16 06:01 Potassium 5.5 mmol/L (3.6-5.0) H 12/31/16 06:01 Chloride 95.6 mmol/L (98-107) L 12/31/16 06:01 Carbon Dioxide 23 mmol/L (22-30) 12/31/16 06:01 Anion Gap 30 mmol/L 12/31/16 06:01 BUN 98 mg/dL (9-20) H 12/31/16 06:01 Creatinine 14.1 mg/dL (0.8-1.5) H 12/31/16 06:01 Estimated GFR 4 ml/min 12/31/16 06:01 BUN/Creatinine Ratio 7 % 12/31/16 06:01 Glucose 115 mg/dL (75-100) H 12/31/16 06:01 POC Glucose 100 (70-105) 12/30/16 22:47 Calcium 8.7 mg/dL (8.4-10.2) 12/31/16 06:01 Total Creatine Kinase 152 units/L (55-170) 12/30/16 17:16 Urine Color Red (Yellow) 12/31/16 08:30 Urine Turbidity Clear (Clear) 12/31/16 08:30 Urine pH 8.0 (5.0-7.0) H 12/31/16 08:30 Ur Specific [place] 1.023 (1.003-1.030) 12/31/16 08:30 Urine Protein 100 mg/dl mg/dL (Negative) 12/31/16 08:30 Urine Glucose (UA) Neg mg/dL (Negative) 12/31/16 08:30 Urine Ketones Neg mg/dL (Negative) 12/31/16 08:30 Urine Blood Mod (Negative) 12/31/16 08:30 Urine Nitrite Pos (Negative) 12/31/16 08:30 Ur Reducing Substances Not Reportable 12/31/16 08:30 Urine Bilirubin Neg (Negative) 12/31/16 08:30 Urine Ictotest Not Reportable 12/31/16 08:30 Urine Urobilinogen < 2.0 mg/dL (<2.0) 12/31/16 08:30 Ur Leukocyte Esterase Sm (Negative) 12/31/16 08:30 Urine WBC (Auto) > 182.0 /HPF (0.0-6.0) H 12/31/16 08:30 Urine RBC (Auto) > 182.0 /HPF (0.0-6.0) 12/31/16 08:30 Urine WBC Clumps 3+ /HPF 12/31/16 08:30 Urine Mucus 3+ /HPF 12/31/16 08:30
--- NOTE | 2016-12-31 12:17 | Progress Note ---
Assessment and Plan Full consult dictated not a good historian. hx below from chart. no family available at this time History of Present Illness Date of examination: 12/30/16 History of present illness: 81-year-old man with history of hypertension, end-stage renal disease on dialysis, diabetes, history of prostate and throat cancer, hyperlipidemia comes to the emergency room because he developed abdominal pain yesterday, located in his mid abdomen which she describes as sharp, intermittent in nature, unable to feel lung cancer, intensity /10, no radiation, cannot identify exacerbating or relieving factors. Admits to multiple episodes of nausea and vomiting yesterday. His last dialysis was on Monday Review Of Systems: Constitutional: no weight loss Ears, eyes, nose, mouth and throat: no nasal congestion, no nasal discharge, no sinus pressure, blurry vision, diplopia Neck: No neck pain or rigidity. Cardiovascular:no chest pain, orthopnea, palpitations Respiratory: No shortness of breath, cough Gastrointestinal: no hematochezia Genitourinary : no dysuria, frequency , hematuria Musculoskeletal: no muscle ache Integumentary: no rash, no pruritis Neurological: no parathesias, focal weakness Endocrine: no cold or heat intolerance, no polyuria or polydipsia Hematologic/Lymphatic: no easy bruising, no easy bleeding, no gland swelling Allergic/Immunologic: no urticaria, no angioedema. PAST MEDICAL HISTORY: hypertension, end-stage renal disease on dialysis, diabetes, history of prostate and throat cancer, hyperlipidemia PAST SURGICAL HISTORY: Prostatectomy, left nephrectomy FAMILY HISTORY: hypertension SOCIAL HISTORY: Denies alcohol or drug, tobacco Pt states "feeling O.K." 81 y/o male with hx of prostate CA/ Bladder CA? mass noted extending from urinary bladder that appears to be partially obstructing distal small bowel. Abd firm but not distended. non tender imp/recommendations: stage IV CA along with a multitude of med problems reviewed CT with radiologist rec repeat CT with PO & IV contrast to better delineate area in question. keep npo ng suction will order repeat CT Selected Entries 12/31/16 07:43 Temperature 98.1 F Pulse Rate 103 H Respiratory 18 Rate Blood Pressure 194/83 Laboratory Tests 12/31/16 12/31/16 06:01 06:01 WBC 9.0 Hgb 11.1 L Hct 35.2 L Plt Count 241 Sodium 143 Potassium 5.5 H Chloride 95.6 L Carbon Dioxide 23 Anion Gap 30 BUN 98 H Creatinine 14.1 H Glucose 115 H Objective Vital Signs - 12hr 12/31/16 12/31/16 12/31/16 00:20 04:40 07:43 Temperature 98.1 F 97.4 F L 98.1 F Pulse Rate 84 96 H 103 H Respiratory 18 18 18 Rate Blood Pressure 169/76 194/88 194/83 O2 Sat by Pulse 100 98 94 Oximetry 12/31/16 12:11 Temperature Pulse Rate Respiratory Rate Blood Pressure O2 Sat by Pulse 94 Oximetry - Labs 12/31/16 06:01 12/31/16 06:01 Diabetes panel 12/30/16 12/31/16 Range/Units 12:01 06:01 Sodium 139 143 (137-145) mmol/L Potassium 5.3 H 5.5 H (3.6-5.0) mmol/L Chloride 90.8 L 95.6 L (98-107) mmol/L Carbon Dioxide 24 23 (22-30) mmol/L BUN 94 H 98 H (9-20) mg/dL Creatinine 13.0 H 14.1 H (0.8-1.5) mg/dL Glucose 109 H 115 H (75-100) mg/dL Calcium 8.3 L 8.7 (8.4-10.2) mg/dL Calcium panel 12/30/16 12/31/16 Range/Units 12:01 06:01 Calcium 8.3 L 8.7 (8.4-10.2) mg/dL Pituitary panel 12/30/16 12/31/16 Range/Units 12:01 06:01 Sodium 139 143 (137-145) mmol/L Potassium 5.3 H 5.5 H (3.6-5.0) mmol/L Chloride 90.8 L 95.6 L (98-107) mmol/L Carbon Dioxide 24 23 (22-30) mmol/L BUN 94 H 98 H (9-20) mg/dL Creatinine 13.0 H 14.1 H (0.8-1.5) mg/dL Glucose 109 H 115 H (75-100) mg/dL Calcium 8.3 L 8.7 (8.4-10.2) mg/dL Adrenal panel 12/30/16 12/31/16 Range/Units 12:01 06:01 Sodium 139 143 (137-145) mmol/L Potassium 5.3 H 5.5 H (3.6-5.0) mmol/L Chloride 90.8 L 95.6 L (98-107) mmol/L Carbon Dioxide 24 23 (22-30) mmol/L BUN 94 H 98 H (9-20) mg/dL Creatinine 13.0 H 14.1 H (0.8-1.5) mg/dL Glucose 109 H 115 H (75-100) mg/dL Calcium 8.3 L 8.7 (8.4-10.2) mg/dL
[2016-12-31] MEDS ORDERED: NACL 0.9% 100 ML IV PRN (12:32)
--- NOTE | 2016-12-31 12:50 | Consultation ---
History of Present Illness - Reason for Consult Consult date: 12/31/16 end stage renal disease, hyperkalemia Requesting physician: JEFFREY PAREDES - History of Present Illness 81-year-old man with history of hypertension, end-stage renal disease on dialysis, diabetes, history of prostate and throat cancer, prostate cancer status post seed implants 14 years ago, left nephrectomy and chronic right hydronephrosis, with h/o multiple nephrostomy exchanges in the past and s/p ureteral stent placements, presents to emergency room with complaints of abdominal pain mostly located around mid abdomen, described as sharp, intermittent in nature, intensity 7/10, no radiation, cannot identify exacerbating or relieving factors. Pt also had multiple episodes of nausea and vomiting. CT A/P showed mass extending superior to the bladder causing SBP. missed his HD on Mon. last HD was Monday. Renal consult is requested for management of ESRD/HD. Past History Past Medical History: anemia, cancer, dialysis, renal failure Past Surgical History: Other (right PCN, ureteral stents, dialysis access, russo placements) Social history: no significant social history Family history: no significant family history Medications and Allergies Allergies Allergy/AdvReac Type Severity Reaction Status Date / Time No Known Allergies Allergy Verified 11/28/16 18:30 Home Medications Medication Instructions Recorded Confirmed Last Taken Type Megestrol [Megace] 20 mg PO TID 09/08/16 11/29/16 10/10/16 History Amlodipine Besylate 10 mg PO QDAY 11/29/16 11/29/16 Unknown History Vit B Complx C/Folic Acid/Zinc 1 tab PO QDAY 11/29/16 11/29/16 Unknown History [Dialyvite 800-Zinc 50 mg Tab] Active Meds: Active Medications Acetaminophen (Tylenol) 650 mg PO Q4H PRN PRN Reason: Pain MILD(1-3)/Fever >100.5/GAITAN Dextrose (D50w (25gm) Vial) 25 gm IV PRN PRN PRN Reason: Hypoglycemia Last Admin: 12/31/16 02:38 Dose: 25 gm Heparin Sodium (Porcine) (Heparin) 5,000 unit SUB-Q Q12HR JENNIFER Sodium Chloride (Nacl 0.9%) 100 mls @ 999 mls/hr IV RAEANN PRN PRN Reason: Hypotension Morphine Sulfate (Morphine) 1 mg IV Q4H PRN PRN Reason: Pain, Moderate (4-6) Ondansetron HCl (Zofran) 4 mg IV Q4H PRN PRN Reason: N/V unrelieved by Reglan Review of Systems All systems: negative Constitutional: fatigue, weakness, poor appetite Gastrointestinal: abdominal pain, nausea, vomiting Exam - Vital Signs Vital signs: Vital Signs Temp Pulse Resp BP Pulse Ox 98.4 F 97 H 16 180/91 98 12/30/16 11:40 12/30/16 11:40 12/30/16 11:40 12/30/16 11:40 12/30/16 11:40 - General Appearance General appearance: cachectic, chronically ill, frail EENT: ATNC, PERRL, mucous membranes moist Neck: Present: neck supple Respiratory: Clear to Ascultation Heart: regular, S1S2 Gastrointestinal: Present: normoactive bowel sounds, distended, masses Integumentary: no rash, other (no edema ) Neurologic: no focal deficit, alert and oriented x3, strength 5/5, CN 3-12 intact Psychiatric: mood/affect appropriate, cooperative Results - Lab Results 12/31/16 06:01 12/31/16 06:01 Most recent lab results Calcium 8.7 mg/dL (8.4-10.2) 12/31/16 06:01 Laboratory Tests 12/31/16 12/31/16 06:01 08:30 Calcium 8.7 Urine Color Red Urine Turbidity Clear Urine pH 8.0 H Ur Specific [place] 1.023 Urine Protein 100 mg/dl Urine Glucose (UA) Neg Urine Ketones Neg Urine Blood Mod Urine Nitrite Pos Ur Reducing Substances Not Reportable Urine Bilirubin Neg Urine Ictotest Not Reportable Urine Urobilinogen < 2.0 Ur Leukocyte Esterase Sm Urine WBC (Auto) > 182.0 H Urine RBC (Auto) > 182.0 Urine WBC Clumps 3+ Urine Mucus 3+ Assessment and Plan - Patient Problems (1) ESRD (end stage renal disease) Current Visit: Yes Status: Acute Plan to address problem: will arrange HD today after CT A/P with IV contrast, using 2 K bath. target UF 2 -3L as tolerated (2) Hyperkalemia Current Visit: Yes Status: Acute Plan to address problem: HD today, cont 2g K renal diet (3) Pelvic mass Current Visit: Yes Status: Acute Plan to address problem: follow surgery recommendations (4) Small bowel obstruction Current Visit: Yes Status: Acute Plan to address problem: follow surgery recommendations (5) Anemia in chronic illness Current Visit: No Status: Acute Plan to address problem: Hb >11, no need for EPO (6) Bladder tumor Current Visit: No Status: Acute Plan to address problem: recommend consult
[2016-12-31] MEDS ORDERED: NACL ONE (14:27)
--- NOTE | 2016-12-31 15:47 | Cat Scan Report ---
FINAL REPORT PROCEDURE: CT ABDOMEN PELVIS W CON TECHNIQUE: Computerized axial tomography of the abdomen and pelvis was performed after the IV injection of iodinated nonionic contrast. HISTORY: Lower abdomen pain, bladder mass COMPARISON: CT exam from the previous day FINDINGS: Probable left lower lobe pneumonia is seen, new since prior study. Persistent mild rounded alveolar density in the right middle lobe may be atelectasis or rounded pneumonia. The liver and spleen display no abnormalities. There is prominence of the common bile duct and intrahepatic ducts. Likely mild dilation is seen of the pancreatic duct. No cause for obstruction is identified. No pancreatic mass is seen. Findings may be within normal limits for patient's age. 1.8 cm right adrenal nodule enhances to 59 Hounsfield units and measures 27 Hounsfield units on delayed imaging. Metastatic disease is not excluded. Left adrenal gland and left kidney are not identified. There is a heterogeneously enhancing mass in the right kidney. It measures 1.6 x 1.8 cm. This could be renal cell carcinoma or possibly transitional cell carcinoma. A 2nd mass is seen superiorly in the right kidney measuring 1.1 x 0.9 cm. 5 millimeter exophytic isodense area is seen in the mid right kidney laterally which could be lobulation or a 3rd small mass. Right ureteral stent and air in the right renal collecting system are similar in appearance to prior study. Distal end of this tip is within an abnormal appearing structure that is likely the urinary bladder. Diffuse irregular wall thickening and mass is identified. The mass arises from the roof of the bladder and measures approximately 5.2 x 5.1 cm in greatest axial dimensions. It extends approximately 2.6 cm in craniocaudad dimension. Findings may be from primary bladder malignancy or invasive prostate cancer. Persistent partial obstruction of small bowel is seen adjacent to the mass. Small bowel is dilated to 3.1 cm in diameter just proximal to the mass, with a fecal sign. Moderate right-sided constipation is present, also. GI contrast does not pass into the region of obstruction at the time of imaging. Followup x-rays in a few hours time may be useful to assess for passage of contrast into the colon. There are few soft tissue nodular density seen in the midline of the pelvis. These are worrisome for peritoneal metastases. There concern that the bladder mass may adhere or invade the musculature in the right side of the pelvis anteriorly and laterally. Moderate arthritic changes are seen in the spine and hips. IMPRESSION: Abnormal appearing bladder is seen with diffuse wall thickening. There is a mass that arises from the roof of the bladder and extends superiorly. The mass causes likely partial small bowel obstruction. The bladder mass may invade or adhere to the anterior and right lateral pelvic wall musculature. There are likely a few other small peritoneal metastases in the pelvis. There are 2 or 3 suspicious masses in the right kidney that may represent primary renal malignancy or metastatic transitional cell or bladder malignancy. Probable new left lower lobe pneumonia is seen. Continued CT or x-ray followup is recommended to assure resolution.
[2017-01-01 06:02] LABS: Calcium 8.8 mg/dL (8.4-10.2); Chloride 93.2 mmol/L (98-107)
[2017-01-01 06:14] LABS: Potassium 4.2 mmol/L (3.6-5.0)
[2017-01-01 08:04] LABS: Hematocrit 30.2 % (35.5-45.6); Hemoglobin 9.6 gm/dl (11.8-15.2); Mean Corpuscular HGB Conc 32 % (32-34); Mean Corpuscular Hemoglobin 27 pg (28-32); Mean Corpuscular Volume 85 fl (84-94); Platelet Count 199 K/mm3 (140-440); Red Blood Count 3.56 M/mm3 (3.65-5.03); White Blood Count 7.2 K/mm3 (4.5-11.0)
[2017-01-01 08:05] LABS: Red Cell Distribution Width 20.3 % (13.2-15.2)
--- NOTE | 2017-01-01 08:25 | Progress Note ---
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 Gupta/Sparkle who presented with abdominal pains. CT abd/pelvis without contrast read as mass in the region of the urinary bladder, this maybe an invasive prostate cancer or primary bladder malignancy, mass apppears to extend superior to the bladder, where is causes small bowel obstruction. Small bowel is dilated at 2.5 cm in diameter proximal to this area and decompressed any distal small bowel , moderate right-sided constipation is seen, right ureteral stent has a proximal aspect in the upper ureter, it may benefit from being repositioned into the right renal pelvis, mild rounded alveolar opacity in the right middle lobe of the lungs may be rounded atelectasis or rounded pneumonia, right adrenal nodule or cyst is probably benign, confirmation with MRI is recommended. -Small bowel obstruction: Keep nothing by mouth, await surgical evaluation -End-stage renal disease: Await nephrology evaluation -Hyperkalemia, mild: Treat with Hemodialysis -Anemia of chronic disease: Repeat CBC in a.m. -Prostate cancer: continuing to follow with urology -Abnormal UA in an oliguric/HD patient, not good sample History Interval history: Patient was seen and examined. Follow-up on current diagnosis. Overnight uneventful. Patient denies any chest pain, shortness breath, or severe headaches. Imaging, nursing note, chart, labs and old chart reviewed. Discussed with patient.Patient was seen and examined. Still with abdominal pain , patient has NG tube to [facility] Hospitalist Physical - Physical exam Narrative exam: GEN: Thin frail, debilitated, NAD, AWAKE, ALERT, ORIENTATED 3 HEENT: NCAT, EOMI, PERRL, OP Clear NECK: supple, no thyromegaly, no JVD CVS/HEART: Regular tachycardia, NORMAL S1S2, NO JVD, pulses present bilaterally CHEST/LUNGS: CTA B, Symmetrical chest expansion, good air entry bilaterally GI/Abdomen: soft, diffuse tenderness, good bowel sounds, no guarding or rebound /Bladder: no suprapubic tenderness, no CVA or paraspinal tenderness EXT/Skin: no c/c/e, no obvious rash MSK: FROM x 4 Neuro: CN 2-12 grossly intact, no new focal deficits Psych: calm - Constitutional Vitals: Temp Pulse Resp BP Pulse Ox 99.4 F 99 H 20 187/88 99 01/01/17 08:10 01/01/17 08:10 01/01/17 08:10 01/01/17 08:10 01/01/17 08:10 Results - Labs CBC & Chem 7: 01/01/17 07:44 01/01/17 Unknown Labs: Laboratory Last Values WBC 7.2 K/mm3 (4.5-11.0) 01/01/17 07:44 RBC 3.56 M/mm3 (3.65-5.03) L 01/01/17 07:44 Hgb 9.6 gm/dl (11.8-15.2) L 01/01/17 07:44 Hct 30.2 % (35.5-45.6) L 01/01/17 07:44 MCV 85 fl (84-94) 01/01/17 07:44 MCH 27 pg (28-32) L 01/01/17 07:44 MCHC 32 % (32-34) 01/01/17 07:44 RDW 20.3 % (13.2-15.2) H 01/01/17 07:44 Plt Count 199 K/mm3 (140-440) 01/01/17 07:44 Lymph % (Auto) 5.8 % (13.4-35.0) L 12/31/16 06:01 [place] % (Auto) 8.6 % (0.0-7.3) H 12/31/16 06:01 Eos % (Auto) 0.1 % (0.0-4.3) 12/31/16 06:01 Baso % (Auto) 0.3 % (0.0-1.8) 12/31/16 06:01 Lymph # 0.5 K/mm3 (1.2-5.4) L 12/31/16 06:01 [place] # 0.8 K/mm3 (0.0-0.8) 12/31/16 06:01 Eos # 0.0 K/mm3 (0.0-0.4) 12/31/16 06:01 Baso # 0.0 K/mm3 (0.0-0.1) 12/31/16 06:01 Add Manual Diff Complete 12/30/16 12:01 Total Counted 100 12/30/16 12:01 Seg Neutrophils % 85.2 % (40.0-70.0) H 12/31/16 06:01 Seg Neuts % (Manual) 94.0 % (40.0-70.0) H 12/30/16 12:01 Band Neutrophils % 0 % 12/30/16 12:01 Lymphocytes % (Manual) 2.0 % (13.4-35.0) L 12/30/16 12:01 Reactive Lymphs % (Man) 0 % 12/30/16 12:01 Monocytes % (Manual) 4.0 % (0.0-7.3) 12/30/16 12:01 Eosinophils % (Manual) 0 % (0.0-4.3) 12/30/16 12:01 Basophils % (Manual) 0 % (0.0-1.8) 12/30/16 12:01 Metamyelocytes % 0 % 12/30/16 12:01 Myelocytes % 0 % 12/30/16 12:01 Promyelocytes % 0 % 12/30/16 12:01 Blast Cells % 0 % 12/30/16 12:01 Nucleated RBC % Not Reportable 12/30/16 12:01 Seg Neutrophils # 7.7 K/mm3 (1.8-7.7) 12/31/16 06:01 Seg Neutrophils # Man 8.2 K/mm3 (1.8-7.7) H 12/30/16 12:01 Band Neutrophils # 0.0 K/mm3 12/30/16 12:01 Lymphocytes # (Manual) 0.2 K/mm3 (1.2-5.4) L 12/30/16 12:01 Abs React Lymphs (Man) 0.0 K/mm3 12/30/16 12:01 Monocytes # (Manual) 0.3 K/mm3 (0.0-0.8) 12/30/16 12:01 Eosinophils # (Manual) 0.0 K/mm3 (0.0-0.4) 12/30/16 12:01 Basophils # (Manual) 0.0 K/mm3 (0.0-0.1) 12/30/16 12:01 Metamyelocytes # 0.0 K/mm3 12/30/16 12:01 Myelocytes # 0.0 K/mm3 12/30/16 12:01 Promyelocytes # 0.0 K/mm3 12/30/16 12:01 Blast Cells # 0.0 K/mm3 12/30/16 12:01 WBC Morphology Not Reportable 12/30/16 12:01 Hypersegmented Neuts Not Reportable 12/30/16 12:01 Hyposegmented Neuts Not Reportable 12/30/16 12:01 Hypogranular Neuts Not Reportable 12/30/16 12:01 Smudge Cells Not Reportable 12/30/16 12:01 Toxic Granulation Not Reportable 12/30/16 12:01 Toxic Vacuolation Not Reportable 12/30/16 12:01 Dohle Bodies Not Reportable 12/30/16 12:01 Pelger-Huet Anomaly Not Reportable 12/30/16 12:01 Nazario Rods Not Reportable 12/30/16 12:01 Platelet Estimate Consistent w auto 12/30/16 12:01 Clumped Platelets Few 12/30/16 12:01 Plt Clumps, EDTA Not Reportable 12/30/16 12:01 Large Platelets Not Reportable 12/30/16 12:01 Giant Platelets Not Reportable 12/30/16 12:01 Platelet Satelliting Not Reportable 12/30/16 12:01 Plt Morphology Comment Not Reportable 12/30/16 12:01 RBC Morphology Not Reportable 12/30/16 12:01 Dimorphic RBCs Not Reportable 12/30/16 12:01 Polychromasia Not Reportable 12/30/16 12:01 Hypochromasia Not Reportable 12/30/16 12:01 Poikilocytosis Few 12/30/16 12:01 Anisocytosis 1+ 12/30/16 12:01 Microcytosis Few 12/30/16 12:01 Macrocytosis Not Reportable 12/30/16 12:01 Spherocytes Not Reportable 12/30/16 12:01 Pappenheimer Bodies Not Reportable 12/30/16 12:01 Sickle Cells Not Reportable 12/30/16 12:01 Target Cells Not Reportable 12/30/16 12:01 Tear Drop Cells Few 12/30/16 12:01 Ovalocytes Few 12/30/16 12:01 Helmet Cells Not Reportable 12/30/16 12:01 [place] Bodies Not Reportable 12/30/16 12:01 [place] Rings Not Reportable 12/30/16 12:01 Fang Cells Not Reportable 12/30/16 12:01 Bite Cells Not Reportable 12/30/16 12:01 Crenated Cell Not Reportable 12/30/16 12:01 Elliptocytes Few 12/30/16 12:01 Acanthocytes (Spur) Not Reportable 12/30/16 12:01 Rouleaux Not Reportable 12/30/16 12:01 Hemoglobin C Crystals Not Reportable 12/30/16 12:01 Schistocytes Not Reportable 12/30/16 12:01 Malaria parasites Not Reportable 12/30/16 12:01 Mannie Bodies Not Reportable 12/30/16 12:01 Hem Pathologist Commnt No 12/30/16 12:01 Sodium 133 mmol/L (137-145) L D 01/01/17 Unknown Potassium 4.2 mmol/L (3.6-5.0) D 01/01/17 Unknown Chloride 93.2 mmol/L (98-107) L 01/01/17 Unknown Carbon Dioxide 26 mmol/L (22-30) 01/01/17 Unknown Anion Gap 18 mmol/L 01/01/17 Unknown BUN 27 mg/dL (9-20) H 01/01/17 Unknown Creatinine 3.8 mg/dL (0.8-1.5) H D 01/01/17 Unknown Estimated GFR 19 ml/min 01/01/17 Unknown BUN/Creatinine Ratio 7 % 01/01/17 Unknown Glucose 101 mg/dL (75-100) H 01/01/17 Unknown POC Glucose 126 (70-105) H 12/31/16 20:15 Calcium 8.8 mg/dL (8.4-10.2) 01/01/17 Unknown Total Creatine Kinase 152 units/L (55-170) 12/30/16 17:16 Urine Color Red (Yellow) 12/31/16 08:30 Urine Turbidity Clear (Clear) 12/31/16 08:30 Urine pH 8.0 (5.0-7.0) H 12/31/16 08:30 Ur Specific [place] 1.023 (1.003-1.030) 12/31/16 08:30 Urine Protein 100 mg/dl mg/dL (Negative) 12/31/16 08:30 Urine Glucose (UA) Neg mg/dL (Negative) 12/31/16 08:30 Urine Ketones Neg mg/dL (Negative) 12/31/16 08:30 Urine Blood Mod (Negative) 12/31/16 08:30 Urine Nitrite Pos (Negative) 12/31/16 08:30 Ur Reducing Substances Not Reportable 12/31/16 08:30 Urine Bilirubin Neg (Negative) 12/31/16 08:30 Urine Ictotest Not Reportable 12/31/16 08:30 Urine Urobilinogen < 2.0 mg/dL (<2.0) 12/31/16 08:30 Ur Leukocyte Esterase Sm (Negative) 12/31/16 08:30 Urine WBC (Auto) > 182.0 /HPF (0.0-6.0) H 12/31/16 08:30 Urine RBC (Auto) > 182.0 /HPF (0.0-6.0) 12/31/16 08:30 Urine WBC Clumps 3+ /HPF 12/31/16 08:30 Urine Mucus 3+ /HPF 12/31/16 08:30
--- NOTE | 2017-01-01 10:14 | Progress Note ---
Assessment and Plan - Patient Problems (1) ESRD (end stage renal disease) Current Visit: Yes Status: Acute Plan to address problem: cont HD on MWF schedule (2) Hyperkalemia Current Visit: Yes Status: Acute Plan to address problem: cont 2g K renal diet (3) Pelvic mass Current Visit: Yes Status: Acute Plan to address problem: follow surgery recommendations (4) Small bowel obstruction Current Visit: Yes Status: Acute Plan to address problem: follow surgery recommendations (5) Anemia in chronic illness Current Visit: No Status: Acute Plan to address problem: will hold off on EPO given metastatic cancer (6) Bladder tumor Current Visit: No Status: Acute Plan to address problem: recommend consult Subjective Date of service: 01/01/17 Principal diagnosis: ESRD Interval history: Pt awake, alert, in NAD Objective - Vital Signs Vital signs: Vital Signs - 12hr 01/01/17 01/01/17 04:54 08:10 Temperature 97.6 F 99.4 F Pulse Rate 99 H Respiratory 20 20 Rate Blood Pressure 154/86 187/88 O2 Sat by Pulse 99 Oximetry - General Appearance General appearance: well-developed, appears stated age, cachectic, frail EENT: ATNC, PERRL, mucous membranes moist Neck: no JVD Respiratory: Present: Clear to Ascultation Cardiology: regular, S1S2 Gastrointestinal: normoactive bowel sounds Integumentary: no rash, other (no edema ) Neurologic: no focal deficit, alert and oriented x3, strength 5/5, CN 3-12 intact Psychiatric: mood/affect appropriate, cooperative - Lab 01/01/17 07:44 01/01/17 Unknown Most recent lab results Calcium 8.8 mg/dL (8.4-10.2) 01/01/17 Unknown
[2017-01-01] MEDS: HEPARIN SUB-Q SCH (22:47)
[2017-01-02 06:17] LABS: Hematocrit 32.7 % (35.5-45.6); Hemoglobin 10.6 gm/dl (11.8-15.2); Mean Corpuscular HGB Conc 33 % (32-34); Mean Corpuscular Hemoglobin 28 pg (28-32); Mean Corpuscular Volume 86 fl (84-94); Platelet Count 223 K/mm3 (140-440); Red Blood Count 3.82 M/mm3 (3.65-5.03); Red Cell Distribution Width 20.1 % (13.2-15.2); White Blood Count 10.6 K/mm3 (4.5-11.0)
[2017-01-02 06:28] LABS: Calcium 8.6 mg/dL (8.4-10.2); Chloride 93.4 mmol/L (98-107); Potassium 5.8 mmol/L (3.6-5.0)
--- NOTE | 2017-01-02 08:13 | Consultation ---
REASON FOR CONSULTATION: Rule out small-bowel obstruction secondary to possible prostate/bladder malignancy. HISTORY OF PRESENT ILLNESS: The patient is an 81-year-old gentleman, not a good historian and no family is present at this time. History obtained is from the chart. The patient is an 81-year-old gentleman with a history of hypertension; end-stage renal disease, on dialysis; diabetes; and history of prostate cancer, who presented to the Emergency Room with recent onset of nausea, vomiting. A CT scan of the abdomen was performed which describes a probable prostate/urinary bladder tumor that is extending into the distal small bowel and causing some extrinsic obstruction. For all other history, please review chart. PHYSICAL EXAMINATION: GENERAL: At this time, reveals the patient to be awake and cooperative, although again somewhat of a poor historian. VITAL SIGNS: Stable including a temperature of 98, blood pressure high at 194/83, pulse of 96, respirations of 18. ABDOMEN: Examination of the abdomen reveals a midline scar and a left lateral scar. The abdomen itself is somewhat firm, but not distended or tender. Bowel sounds are hypoactive, but present. LABORATORY DATA: Lab work at present includes a CBC which shows a white count of 9, H and H is 11 and 35.2. Platelet count is 241. Electrolytes show sodium 143, potassium 5.5, chloride is 95, BUN is 98, and creatinine 14.1 consistent with the patient's end-stage renal disease. Glucose is 115. A CT scan of the abdomen was performed have reviewed with Dr. Stuart. It is not completely clear if there is indeed a primary bladder mass or prostate tumor and it is also questionable whether this is the cause of obstruction. Dr. Stuart recommends a repeat CT with p.o. and IV contrast to better delineate this area. Since, the patient already has end-stage renal disease, on dialysis our further should not affect the renal status as it is already completely compromised. We will go ahead and order a repeat CT with p.o. and IV contrast to look at this area. Recommend also to keep the patient n.p.o. on NG suction, IV fluid hydration. We will follow closely with you. Thank you very much for consultation. JOB# [id number] FP/NTS
[2017-01-02] MEDS: HEPARIN SUB-Q SCH (09:05)
[2017-01-02] MEDS: NORMODYNE IV PRN ×2 (09:17→14:20)
--- NOTE | 2017-01-02 09:44 | Progress Note ---
Assessment and Plan Pt status quo. "hungry" Abd soft, non tender CT with contrast shows constrast going thru to colon. fair amount of stool and gas noted in colon. Tumor appears to be surrounding the distal small bowel and causing some proximal mild distention.. imp: partial sbo secondary to stage IV bladder ca causing extinsic compression? not a surgical candidate discuss with family attempt to clamp ng and see if pt tolerates f/u abd series in am Selected Entries 01/02/17 01/02/17 07:23 09:19 Temperature 98.9 F Pulse Rate 101 H Respiratory 18 Rate Blood Pressure 203/99 [Left] Laboratory Tests 01/02/17 01/02/17 05:27 05:27 WBC 10.6 Hgb 10.6 L Hct 32.7 L Sodium 145 D Potassium 5.8 H D Chloride 93.4 L Carbon Dioxide 26 BUN 66 H Creatinine 10.5 H D Objective Vital Signs - 12hr 01/01/17 01/02/17 01/02/17 22:00 05:00 07:23 Temperature 97.6 F 98.9 F Pulse Rate 105 H 107 H Respiratory 18 18 Rate Blood Pressure 203/98 209/92 Blood Pressure [Left] O2 Sat by Pulse 98 97 98 Oximetry 01/02/17 01/02/17 09:17 09:19 Temperature Pulse Rate 101 H 101 H Respiratory Rate Blood Pressure 203/99 Blood Pressure 203/99 [Left] O2 Sat by Pulse Oximetry - Labs 01/02/17 05:27 01/02/17 05:27 Diabetes panel 01/02/17 Range/Units 05:27 Sodium 145 D (137-145) mmol/L Potassium 5.8 H D (3.6-5.0) mmol/L Chloride 93.4 L (98-107) mmol/L Carbon Dioxide 26 (22-30) mmol/L BUN 66 H (9-20) mg/dL Creatinine 10.5 H D (0.8-1.5) mg/dL Glucose 89 (75-100) mg/dL Calcium 8.6 (8.4-10.2) mg/dL Calcium panel 01/02/17 Range/Units 05:27 Calcium 8.6 (8.4-10.2) mg/dL Pituitary panel 01/02/17 Range/Units 05:27 Sodium 145 D (137-145) mmol/L Potassium 5.8 H D (3.6-5.0) mmol/L Chloride 93.4 L (98-107) mmol/L Carbon Dioxide 26 (22-30) mmol/L BUN 66 H (9-20) mg/dL Creatinine 10.5 H D (0.8-1.5) mg/dL Glucose 89 (75-100) mg/dL Calcium 8.6 (8.4-10.2) mg/dL Adrenal panel 01/02/17 Range/Units 05:27 Sodium 145 D (137-145) mmol/L Potassium 5.8 H D (3.6-5.0) mmol/L Chloride 93.4 L (98-107) mmol/L Carbon Dioxide 26 (22-30) mmol/L BUN 66 H (9-20) mg/dL Creatinine 10.5 H D (0.8-1.5) mg/dL Glucose 89 (75-100) mg/dL Calcium 8.6 (8.4-10.2) mg/dL
--- NOTE | 2017-01-02 12:05 | Progress Note ---
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 Gupta/Sparkle who presented with abdominal pains. CT abd/pelvis without contrast read as mass in the region of the urinary bladder, this maybe an invasive prostate cancer or primary bladder malignancy, mass apppears to extend superior to the bladder, where is causes small bowel obstruction. Small bowel is dilated at 2.5 cm in diameter proximal to this area and decompressed any distal small bowel , moderate right-sided constipation is seen, right ureteral stent has a proximal aspect in the upper ureter, it may benefit from being repositioned into the right renal pelvis, mild rounded alveolar opacity in the right middle lobe of the lungs may be rounded atelectasis or rounded pneumonia, right adrenal nodule or cyst is probably benign, confirmation with MRI is recommended. -Small bowel obstruction: Keep nothing by mouth, surgical evaluation==>not surgical candidate -End-stage renal disease: nephrology following -Hyperkalemia, mild: Treat with Hemodialysis -Anemia of chronic disease: Repeat CBC in a.m. -Prostate cancer: continuing to follow with urology -Abnormal UA in an oliguric/HD patient, not good sample -Accelerated hypertension: labetalol iv prn -new issue [place] stool: get FOBT and stop dvt prophylaxis full code, pt declined hospice at this time. History Interval history: Patient was seen and examined. Follow-up on current diagnosis. Overnight uneventful. Patient denies any chest pain, shortness breath, or severe headaches. Imaging, nursing note, chart, labs and old chart reviewed. Discussed with patient.Patient was seen and examined. Still with abdominal pain , patient has NG tube to [facility] Hospitalist Physical - Physical exam Narrative exam: GEN: Thin frail, debilitated, NAD, AWAKE, ALERT, ORIENTATED 3 HEENT: NCAT, EOMI, PERRL, OP Clear NECK: supple, no thyromegaly, no JVD CVS/HEART: Regular tachycardia, NORMAL S1S2, NO JVD, pulses present bilaterally CHEST/LUNGS: CTA B, Symmetrical chest expansion, good air entry bilaterally GI/Abdomen: soft, diffuse tenderness, good bowel sounds, no guarding or rebound /Bladder: no suprapubic tenderness, no CVA or paraspinal tenderness EXT/Skin: no c/c/e, no obvious rash MSK: FROM x 4 Neuro: CN 2-12 grossly intact, no new focal deficits Psych: calm - Constitutional Vitals: Temp Pulse Resp BP Pulse Ox 98.9 F 96 H 18 188/95 98 01/02/17 07:23 01/02/17 10:50 01/02/17 07:23 01/02/17 10:50 01/02/17 07:23 Results - Labs CBC & Chem 7: 01/02/17 05:27 01/02/17 05:27 Labs: Laboratory Last Values WBC 10.6 K/mm3 (4.5-11.0) 01/02/17 05:27 RBC 3.82 M/mm3 (3.65-5.03) 01/02/17 05:27 Hgb 10.6 gm/dl (11.8-15.2) L 01/02/17 05:27 Hct 32.7 % (35.5-45.6) L 01/02/17 05:27 MCV 86 fl (84-94) 01/02/17 05:27 MCH 28 pg (28-32) 01/02/17 05:27 MCHC 33 % (32-34) 01/02/17 05:27 RDW 20.1 % (13.2-15.2) H 01/02/17 05:27 Plt Count 223 K/mm3 (140-440) 01/02/17 05:27 Lymph % (Auto) 5.8 % (13.4-35.0) L 12/31/16 06:01 [place] % (Auto) 8.6 % (0.0-7.3) H 12/31/16 06:01 Eos % (Auto) 0.1 % (0.0-4.3) 12/31/16 06:01 Baso % (Auto) 0.3 % (0.0-1.8) 12/31/16 06:01 Lymph # 0.5 K/mm3 (1.2-5.4) L 12/31/16 06:01 [place] # 0.8 K/mm3 (0.0-0.8) 12/31/16 06:01 Eos # 0.0 K/mm3 (0.0-0.4) 12/31/16 06:01 Baso # 0.0 K/mm3 (0.0-0.1) 12/31/16 06:01 Add Manual Diff Complete 12/30/16 12:01 Total Counted 100 12/30/16 12:01 Seg Neutrophils % 85.2 % (40.0-70.0) H 12/31/16 06:01 Seg Neuts % (Manual) 94.0 % (40.0-70.0) H 12/30/16 12:01 Band Neutrophils % 0 % 12/30/16 12:01 Lymphocytes % (Manual) 2.0 % (13.4-35.0) L 12/30/16 12:01 Reactive Lymphs % (Man) 0 % 12/30/16 12:01 Monocytes % (Manual) 4.0 % (0.0-7.3) 12/30/16 12:01 Eosinophils % (Manual) 0 % (0.0-4.3) 12/30/16 12:01 Basophils % (Manual) 0 % (0.0-1.8) 12/30/16 12:01 Metamyelocytes % 0 % 12/30/16 12:01 Myelocytes % 0 % 12/30/16 12:01 Promyelocytes % 0 % 12/30/16 12:01 Blast Cells % 0 % 12/30/16 12:01 Nucleated RBC % Not Reportable 12/30/16 12:01 Seg Neutrophils # 7.7 K/mm3 (1.8-7.7) 12/31/16 06:01 Seg Neutrophils # Man 8.2 K/mm3 (1.8-7.7) H 12/30/16 12:01 Band Neutrophils # 0.0 K/mm3 12/30/16 12:01 Lymphocytes # (Manual) 0.2 K/mm3 (1.2-5.4) L 12/30/16 12:01 Abs React Lymphs (Man) 0.0 K/mm3 12/30/16 12:01 Monocytes # (Manual) 0.3 K/mm3 (0.0-0.8) 12/30/16 12:01 Eosinophils # (Manual) 0.0 K/mm3 (0.0-0.4) 12/30/16 12:01 Basophils # (Manual) 0.0 K/mm3 (0.0-0.1) 12/30/16 12:01 Metamyelocytes # 0.0 K/mm3 12/30/16 12:01 Myelocytes # 0.0 K/mm3 12/30/16 12:01 Promyelocytes # 0.0 K/mm3 12/30/16 12:01 Blast Cells # 0.0 K/mm3 12/30/16 12:01 WBC Morphology Not Reportable 12/30/16 12:01 Hypersegmented Neuts Not Reportable 12/30/16 12:01 Hyposegmented Neuts Not Reportable 12/30/16 12:01 Hypogranular Neuts Not Reportable 12/30/16 12:01 Smudge Cells Not Reportable 12/30/16 12:01 Toxic Granulation Not Reportable 12/30/16 12:01 Toxic Vacuolation Not Reportable 12/30/16 12:01 Dohle Bodies Not Reportable 12/30/16 12:01 Pelger-Huet Anomaly Not Reportable 12/30/16 12:01 Nazario Rods Not Reportable 12/30/16 12:01 Platelet Estimate Consistent w auto 12/30/16 12:01 Clumped Platelets Few 12/30/16 12:01 Plt Clumps, EDTA Not Reportable 12/30/16 12:01 Large Platelets Not Reportable 12/30/16 12:01 Giant Platelets Not Reportable 12/30/16 12:01 Platelet Satelliting Not Reportable 12/30/16 12:01 Plt Morphology Comment Not Reportable 12/30/16 12:01 RBC Morphology Not Reportable 12/30/16 12:01 Dimorphic RBCs Not Reportable 12/30/16 12:01 Polychromasia Not Reportable 12/30/16 12:01 Hypochromasia Not Reportable 12/30/16 12:01 Poikilocytosis Few 12/30/16 12:01 Anisocytosis 1+ 12/30/16 12:01 Microcytosis Few 12/30/16 12:01 Macrocytosis Not Reportable 12/30/16 12:01 Spherocytes Not Reportable 12/30/16 12:01 Pappenheimer Bodies Not Reportable 12/30/16 12:01 Sickle Cells Not Reportable 12/30/16 12:01 Target Cells Not Reportable 12/30/16 12:01 Tear Drop Cells Few 12/30/16 12:01 Ovalocytes Few 12/30/16 12:01 Helmet Cells Not Reportable 12/30/16 12:01 [place] Bodies Not Reportable 12/30/16 12:01 [place] Rings Not Reportable 12/30/16 12:01 Fang Cells Not Reportable 12/30/16 12:01 Bite Cells Not Reportable 12/30/16 12:01 Crenated Cell Not Reportable 12/30/16 12:01 Elliptocytes Few 12/30/16 12:01 Acanthocytes (Spur) Not Reportable 12/30/16 12:01 Rouleaux Not Reportable 12/30/16 12:01 Hemoglobin C Crystals Not Reportable 12/30/16 12:01 Schistocytes Not Reportable 12/30/16 12:01 Malaria parasites Not Reportable 12/30/16 12:01 Mannie Bodies Not Reportable 12/30/16 12:01 Hem Pathologist Commnt No 12/30/16 12:01 Sodium 145 mmol/L (137-145) D 01/02/17 05:27 Potassium 5.8 mmol/L (3.6-5.0) H D 01/02/17 05:27 Chloride 93.4 mmol/L (98-107) L 01/02/17 05:27 Carbon Dioxide 26 mmol/L (22-30) 01/02/17 05:27 Anion Gap 31 mmol/L 01/02/17 05:27 BUN 66 mg/dL (9-20) H 01/02/17 05:27 Creatinine 10.5 mg/dL (0.8-1.5) H D 01/02/17 05:27 Estimated GFR 6 ml/min 01/02/17 05:27 BUN/Creatinine Ratio 6 % 01/02/17 05:27 Glucose 89 mg/dL (75-100) 01/02/17 05:27 POC Glucose 107 (70-105) H 01/02/17 11: Calcium 8.6 mg/dL (8.4-10.2) 01/02/17 05:27 Total Creatine Kinase 152 units/L (55-170) 12/30/16 17:16 Urine Color Red (Yellow) 12/31/16 08:30 Urine Turbidity Clear (Clear) 12/31/16 08:30 Urine pH 8.0 (5.0-7.0) H 12/31/16 08:30 Ur Specific [place] 1.023 (1.003-1.030) 12/31/16 08:30 Urine Protein 100 mg/dl mg/dL (Negative) 12/31/16 08:30 Urine Glucose (UA) Neg mg/dL (Negative) 12/31/16 08:30 Urine Ketones Neg mg/dL (Negative) 12/31/16 08:30 Urine Blood Mod (Negative) 12/31/16 08:30 Urine Nitrite Pos (Negative) 12/31/16 08:30 Ur Reducing Substances Not Reportable 12/31/16 08:30 Urine Bilirubin Neg (Negative) 12/31/16 08:30 Urine Ictotest Not Reportable 12/31/16 08:30 Urine Urobilinogen < 2.0 mg/dL (<2.0) 12/31/16 08:30 Ur Leukocyte Esterase Sm (Negative) 12/31/16 08:30 Urine WBC (Auto) > 182.0 /HPF (0.0-6.0) H 12/31/16 08:30 Urine RBC (Auto) > 182.0 /HPF (0.0-6.0) 12/31/16 08:30 Urine WBC Clumps 3+ /HPF 12/31/16 08:30 Urine Mucus 3+ /HPF 12/31/16 08:30
--- NOTE | 2017-01-02 13:34 | Progress Note ---
Assessment and Plan - Patient Problems (1) ESRD (end stage renal disease) Current Visit: Yes Status: Acute Plan to address problem: cont HD on MWF schedule (2) Hyperkalemia Current Visit: Yes Status: Acute Plan to address problem: cont 2g K renal diet, HD today with 2K bath (3) Pelvic mass Current Visit: Yes Status: Acute Plan to address problem: extensive bladder mass noted, recommend evaluation (4) Small bowel obstruction Current Visit: Yes Status: Acute Plan to address problem: follow surgery recommendations (5) Anemia in chronic illness Current Visit: No Status: Acute Plan to address problem: will hold off on EPO given metastatic cancer (6) Bladder tumor Current Visit: No Status: Acute Plan to address problem: recommend consult Subjective Date of service: 01/02/17 Principal diagnosis: ESRD Interval history: Pt awake, alert, in NAD Objective - Vital Signs Vital signs: Vital Signs - 12hr 01/02/17 01/02/17 01/02/17 05:00 07:23 09:17 Temperature 97.6 F 98.9 F Pulse Rate 105 H 107 H 101 H Pulse Rate [ Left Radial] Respiratory 18 18 Rate Blood Pressure 203/98 209/92 203/99 Blood Pressure [Left] O2 Sat by Pulse 97 98 Oximetry 01/02/17 01/02/17 01/02/17 09:19 09:27 10:09 Temperature Pulse Rate 101 H 91 H Pulse Rate [ 101 H Left Radial] Respiratory Rate Blood Pressure Blood Pressure 203/99 197/95 [Left] O2 Sat by Pulse Oximetry 01/02/17 10:50 Temperature Pulse Rate 96 H Pulse Rate [ Left Radial] Respiratory Rate Blood Pressure Blood Pressure 188/95 [Left] O2 Sat by Pulse Oximetry - General Appearance General appearance: cachectic, chronically ill, frail EENT: ATNC, PERRL, mucous membranes moist Neck: no JVD Respiratory: Present: Clear to Ascultation Cardiology: regular, S1S2 Gastrointestinal: normoactive bowel sounds Integumentary: no rash, other (no edema ) Neurologic: no focal deficit, alert and oriented x3, strength 5/5, CN 3-12 intact Psychiatric: mood/affect appropriate, cooperative - Lab 01/02/17 05:27 01/02/17 05:27 Most recent lab results Calcium 8.6 mg/dL (8.4-10.2) 01/02/17 05:27
[2017-01-02] MEDS ORDERED: NACL 0.9 (PRIMING MACHINE ONLY DIALYSIS) MC ONE (22:23)
[2017-01-03 05:00] LABS: Hematocrit 33.3 % (35.5-45.6); Hemoglobin 10.6 gm/dl (11.8-15.2); Mean Corpuscular HGB Conc 32 % (32-34); Mean Corpuscular Hemoglobin 27 pg (28-32); Mean Corpuscular Volume 85 fl (84-94); Platelet Count 234 K/mm3 (140-440); Red Blood Count 3.94 M/mm3 (3.65-5.03); Red Cell Distribution Width 19.6 % (13.2-15.2); White Blood Count 11.6 K/mm3 (4.5-11.0)
[2017-01-03 05:06] LABS: Calcium 8.8 mg/dL (8.4-10.2); Chloride 89.1 mmol/L (98-107); Potassium 4.8 mmol/L (3.6-5.0)
[2017-01-03] MEDS: NORMODYNE IV PRN (06:49)
[2017-01-03] MEDS ORDERED: CATAPRES-TTS PATCH TD SCH (10:00)
--- NOTE | 2017-01-03 10:26 | Progress Note ---
Assessment and Plan - Patient Problems (1) ESRD (end stage renal disease) Current Visit: Yes Status: Acute Plan to address problem: cont HD on MWF schedule (2) Hyperkalemia Current Visit: Yes Status: Acute Plan to address problem: cont 2g K renal diet (3) Pelvic mass Current Visit: Yes Status: Acute Plan to address problem: extensive bladder mass noted, recommend evaluation (4) Small bowel obstruction Current Visit: Yes Status: Acute Plan to address problem: follow surgery recommendations (5) Anemia in chronic illness Current Visit: No Status: Acute Plan to address problem: will hold off on EPO given metastatic cancer (6) Bladder tumor Current Visit: No Status: Acute Plan to address problem: recommend consult Subjective Date of service: 01/03/17 Principal diagnosis: ESRD Interval history: Pt awake, alert, in NAD Objective - Vital Signs Vital signs: Vital Signs - 12hr 01/02/17 01/02/17 01/02/17 22:30 22:45 23:00 Temperature Pulse Rate 102 H 100 H 96 H Respiratory Rate Blood Pressure 198/96 194/94 188/90 O2 Sat by Pulse Oximetry 01/02/17 01/02/17 01/03/17 23:15 23:30 00:40 Temperature 98.4 F 98.9 F Pulse Rate 94 H 100 H 107 H Respiratory 18 106 H Rate Blood Pressure 184/92 180/90 178/87 O2 Sat by Pulse 96 Oximetry 01/03/17 01/03/17 01/03/17 06:02 06:03 06:49 Temperature 98.5 F 98.5 F Pulse Rate 109 H 112 H 109 H Respiratory 20 18 Rate Blood Pressure 191/85 191/85 O2 Sat by Pulse 98 98 Oximetry 01/03/17 07:35 Temperature 98.8 F Pulse Rate 99 H Respiratory 18 Rate Blood Pressure 187/82 O2 Sat by Pulse 95 Oximetry - General Appearance General appearance: appears stated age, cachectic, chronically ill, frail EENT: ATNC, PERRL, mucous membranes moist Neck: no JVD Respiratory: Present: Clear to Ascultation Cardiology: regular, S1S2 Gastrointestinal: normoactive bowel sounds Integumentary: no rash, other (no edema ) Neurologic: no focal deficit, alert and oriented x3, strength 5/5, CN 3-12 intact Psychiatric: mood/affect appropriate, cooperative - Lab 01/03/17 04:31 01/03/17 04:31 Most recent lab results Calcium 8.8 mg/dL (8.4-10.2) 01/03/17 04:31
--- NOTE | 2017-01-03 10:33 | XRay Report ---
ABDOMINAL SERIES WITH CXR THREE VIEWS: 01/03/17 CLINICAL: Followup small bowel obstruction. FINDINGS: Supine upright views demonstrate residual CT bowel contrast that is predominantly in mildly dilated ascending and transverse colon. There is some residual CT contrast in a few nondilated small bowel loops. No dilated small bowel. Gas in the rectum. No pneumoperitoneum. Surgical clips in the left upper quadrant and mid upper abdomen. Brachytherapy seeds in the prostate. A Gunter catheter is in place. Right ureteral stent. IMPRESSION: No small or large bowel obstruction and no evidence of perforation.
--- NOTE | 2017-01-03 12:46 | Progress Note ---
Assessment and Plan large pelvic mass solitary RK anuric d/c russo no urine Subjective Date of service: 01/03/17 Principal diagnosis: ESRD Objective - Constitutional Vitals: Vital Signs - 12hr 01/03/17 01/03/17 01/03/17 06:02 06:03 06:49 Temperature 98.5 F 98.5 F Pulse Rate 109 H 112 H 109 H Respiratory 20 18 Rate Blood Pressure 191/85 191/85 O2 Sat by Pulse 98 98 Oximetry 01/03/17 01/03/17 07:35 10:38 Temperature 98.8 F Pulse Rate 99 H 99 H Respiratory 18 Rate Blood Pressure 187/82 187/82 O2 Sat by Pulse 95 Oximetry General appearance: Present: no acute distress - Neck Neck: supple - Respiratory Respiratory effort: normal - Gastrointestinal General gastrointestinal: Present: soft, non-tender Rectal Exam: nodular, other (irreg mass ) - Genitourinary Male genitourinary: asymmetrical (severe atrophy ) - Labs CBC & Chem 7: 01/03/17 04:31 01/03/17 04:31 Labs: Abnormal lab results 01/03/17 01/03/17 01/03/17 Range/Units 00:36 04:31 04:31 WBC 11.6 H (4.5-11.0) K/mm3 Hgb 10.6 L (11.8-15.2) gm/dl Hct 33.3 L (35.5-45.6) % MCH 27 L (28-32) pg RDW 19.6 H (13.2-15.2) % Chloride 89.1 L (98-107) mmol/L BUN 41 H (9-20) mg/dL Creatinine 7.6 H (0.8-1.5) mg/dL Glucose 101 H (75-100) mg/dL POC Glucose 131 H (70-105) 01/03/17 Range/Units 05:38 WBC (4.5-11.0) K/mm3 Hgb (11.8-15.2) gm/dl Hct (35.5-45.6) % MCH (28-32) pg RDW (13.2-15.2) % Chloride (98-107) mmol/L BUN (9-20) mg/dL Creatinine (0.8-1.5) mg/dL Glucose (75-100) mg/dL POC Glucose 110 H (70-105)
--- NOTE | 2017-01-03 13:56 | Progress Note ---
Assessment and Plan Pt feeling well. leidy clamping of ng withouth incident. Abd soft, non tender Abd series - wnl stable attempt low fat cl liq diet Selected Entries 01/03/17 13:45 Temperature 97.7 F Pulse Rate 106 H Respiratory 18 Rate Blood Pressure 189/101 [Left] Laboratory Tests 01/03/17 01/03/17 04:31 04:31 WBC 11.6 H Hgb 10.6 L Hct 33.3 L Sodium 138 Potassium 4.8 Chloride 89.1 L Carbon Dioxide 28 Anion Gap 26 BUN 41 H Creatinine 7.6 H Objective Vital Signs - 12hr 01/03/17 01/03/17 01/03/17 06:02 06:03 06:49 Temperature 98.5 F 98.5 F Pulse Rate 109 H 112 H 109 H Respiratory 20 18 Rate Blood Pressure 191/85 191/85 Blood Pressure [Left] O2 Sat by Pulse 98 98 Oximetry 01/03/17 01/03/17 01/03/17 07:35 10:38 13:45 Temperature 98.8 F 97.7 F Pulse Rate 99 H 99 H 106 H Respiratory 18 18 Rate Blood Pressure 187/82 187/82 Blood Pressure 189/101 [Left] O2 Sat by Pulse 95 100 Oximetry - Labs 01/03/17 04:31 01/03/17 04:31 Diabetes panel 01/03/17 Range/Units 04:31 Sodium 138 (137-145) mmol/L Potassium 4.8 (3.6-5.0) mmol/L Chloride 89.1 L (98-107) mmol/L Carbon Dioxide 28 (22-30) mmol/L BUN 41 H (9-20) mg/dL Creatinine 7.6 H (0.8-1.5) mg/dL Glucose 101 H (75-100) mg/dL Calcium 8.8 (8.4-10.2) mg/dL Calcium panel 01/03/17 Range/Units 04:31 Calcium 8.8 (8.4-10.2) mg/dL Pituitary panel 01/03/17 Range/Units 04:31 Sodium 138 (137-145) mmol/L Potassium 4.8 (3.6-5.0) mmol/L Chloride 89.1 L (98-107) mmol/L Carbon Dioxide 28 (22-30) mmol/L BUN 41 H (9-20) mg/dL Creatinine 7.6 H (0.8-1.5) mg/dL Glucose 101 H (75-100) mg/dL Calcium 8.8 (8.4-10.2) mg/dL Adrenal panel 01/03/17 Range/Units 04:31 Sodium 138 (137-145) mmol/L Potassium 4.8 (3.6-5.0) mmol/L Chloride 89.1 L (98-107) mmol/L Carbon Dioxide 28 (22-30) mmol/L BUN 41 H (9-20) mg/dL Creatinine 7.6 H (0.8-1.5) mg/dL Glucose 101 H (75-100) mg/dL Calcium 8.8 (8.4-10.2) mg/dL
--- NOTE | 2017-01-03 15:04 | Progress Note ---
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 Gupta/Sparkle who presented with abdominal pains. CT abd/pelvis without contrast read as mass in the region of the urinary bladder, this maybe an invasive prostate cancer or primary bladder malignancy, mass apppears to extend superior to the bladder, where is causes small bowel obstruction. Small bowel is dilated at 2.5 cm in diameter proximal to this area and decompressed any distal small bowel , moderate right-sided constipation is seen, right ureteral stent has a proximal aspect in the upper ureter, it may benefit from being repositioned into the right renal pelvis, mild rounded alveolar opacity in the right middle lobe of the lungs may be rounded atelectasis or rounded pneumonia, right adrenal nodule or cyst is probably benign, confirmation with MRI is recommended. -Small bowel obstruction: trial of CLEAR LIQUID surgical evaluation==>not surgical candidate -End-stage renal disease: nephrology following -Solitary right kidney: Nephrology following on HD patient is anuric, Gunter discontinued -Hyperkalemia, mild: Treat with Hemodialysis -Anemia of chronic disease: Stable Repeat CBC in a.m. -Prostate cancer with large obstructive pelvic mass: Consult urology -Abnormal UA in an oliguric/HD patient, not good sample -Hypertensive urgency: labetalol iv prn, will add clonidine patch and wants nothing by mouth has been lifted restart home medications. -new issue Melena stool: Awaiting FOBT and stop dvt prophylaxis full code, pt declined hospice at this time. DVT/GI prophy- encouraged ambulation, Dispo: possible discharge in am if no further intervention and tolerating diet Patient seen with Nursing staff. Plan of care discussed in detail with patient and he verbalized understanding. History Interval history: Patient seen and examined today, reports some improvement with abdominal pain, reports cough, Non productive, started after placement of NGT. Nursing staff concerned about possible occult blood. Hospitalist Physical - Physical exam Narrative exam: VITAL SIGNS: Reviewed. GENERAL: The patient appeared markedly cachectic chronically ill appearing. Vital signs as documented. HEAD: No signs of head trauma. Marked temporal wasting EYES: Pupils are equal. Extraocular motions intact. EARS: Hearing grossly intact. MOUTH: Oropharynx is normal. NG tube in place NECK: No adenopathy, no JVD. CHEST: Chest with clear breath sounds bilaterally. No wheezes, rales, or rhonchi. CARDIAC: Regular rate and rhythm. S1 and S2, without murmurs, gallops, or rubs. VASCULAR: No Edema. Peripheral pulses normal and equal in all extremities. ABDOMEN: Soft, without detectable tenderness. No sign of distention. No rebound or guarding, and no masses palpated. Bowel Sounds normal. MUSCULOSKELETAL: Good range of motion of all major joints. Extremities without clubbing, cyanosis or edema. NEUROLOGIC EXAM: Alert and oriented x 3. No focal sensory or strength deficits. Speech normal. Follows commands. PSYCHIATRIC: Mood normal. SKIN: Age-appropriate wrinkles some blemishes gu-deferred - Constitutional Vitals: Temp Pulse Resp BP Pulse Ox 97.7 F 106 H 18 189/101 100 01/03/17 13:45 01/03/17 13:45 01/03/17 13:45 01/03/17 13:45 01/03/17 13:45 General appearance: Present: no acute distress Results - Labs CBC & Chem 7: 01/03/17 04:31 01/03/17 04:31 Labs: Laboratory Last Values WBC 11.6 K/mm3 (4.5-11.0) H 01/03/17 04:31 RBC 3.94 M/mm3 (3.65-5.03) 01/03/17 04:31 Hgb 10.6 gm/dl (11.8-15.2) L 01/03/17 04:31 Hct 33.3 % (35.5-45.6) L 01/03/17 04:31 MCV 85 fl (84-94) 01/03/17 04:31 MCH 27 pg (28-32) L 01/03/17 04:31 MCHC 32 % (32-34) 01/03/17 04:31 RDW 19.6 % (13.2-15.2) H 01/03/17 04:31 Plt Count 234 K/mm3 (140-440) 01/03/17 04:31 Lymph % (Auto) 5.8 % (13.4-35.0) L 12/31/16 06:01 [facility] % (Auto) 8.6 % (0.0-7.3) H 12/31/16 06:01 Eos % (Auto) 0.1 % (0.0-4.3) 12/31/16 06:01 Baso % (Auto) 0.3 % (0.0-1.8) 12/31/16 06:01 Lymph # 0.5 K/mm3 (1.2-5.4) L 12/31/16 06:01 [facility] # 0.8 K/mm3 (0.0-0.8) 12/31/16 06:01 Eos # 0.0 K/mm3 (0.0-0.4) 12/31/16 06:01 Baso # 0.0 K/mm3 (0.0-0.1) 12/31/16 06:01 Add Manual Diff Complete 12/30/16 12:01 Total Counted 100 12/30/16 12:01 Seg Neutrophils % 85.2 % (40.0-70.0) H 12/31/16 06:01 Seg Neuts % (Manual) 94.0 % (40.0-70.0) H 12/30/16 12:01 Band Neutrophils % 0 % 12/30/16 12:01 Lymphocytes % (Manual) 2.0 % (13.4-35.0) L 12/30/16 12:01 Reactive Lymphs % (Man) 0 % 12/30/16 12:01 Monocytes % (Manual) 4.0 % (0.0-7.3) 12/30/16 12:01 Eosinophils % (Manual) 0 % (0.0-4.3) 12/30/16 12:01 Basophils % (Manual) 0 % (0.0-1.8) 12/30/16 12:01 Metamyelocytes % 0 % 12/30/16 12:01 Myelocytes % 0 % 12/30/16 12:01 Promyelocytes % 0 % 12/30/16 12:01 Blast Cells % 0 % 12/30/16 12:01 Nucleated RBC % Not Reportable 12/30/16 12:01 Seg Neutrophils # 7.7 K/mm3 (1.8-7.7) 12/31/16 06:01 Seg Neutrophils # Man 8.2 K/mm3 (1.8-7.7) H 12/30/16 12:01 Band Neutrophils # 0.0 K/mm3 12/30/16 12:01 Lymphocytes # (Manual) 0.2 K/mm3 (1.2-5.4) L 12/30/16 12:01 Abs React Lymphs (Man) 0.0 K/mm3 12/30/16 12:01 Monocytes # (Manual) 0.3 K/mm3 (0.0-0.8) 12/30/16 12:01 Eosinophils # (Manual) 0.0 K/mm3 (0.0-0.4) 12/30/16 12:01 Basophils # (Manual) 0.0 K/mm3 (0.0-0.1) 12/30/16 12:01 Metamyelocytes # 0.0 K/mm3 12/30/16 12:01 Myelocytes # 0.0 K/mm3 12/30/16 12:01 Promyelocytes # 0.0 K/mm3 12/30/16 12:01 Blast Cells # 0.0 K/mm3 12/30/16 12:01 WBC Morphology Not Reportable 12/30/16 12:01 Hypersegmented Neuts Not Reportable 12/30/16 12:01 Hyposegmented Neuts Not Reportable 12/30/16 12:01 Hypogranular Neuts Not Reportable 12/30/16 12:01 Smudge Cells Not Reportable 12/30/16 12:01 Toxic Granulation Not Reportable 12/30/16 12:01 Toxic Vacuolation Not Reportable 12/30/16 12:01 Dohle Bodies Not Reportable 12/30/16 12:01 Pelger-Huet Anomaly Not Reportable 12/30/16 12:01 Nazario Rods Not Reportable 12/30/16 12:01 Platelet Estimate Consistent w auto 12/30/16 12:01 Clumped Platelets Few 12/30/16 12:01 Plt Clumps, EDTA Not Reportable 12/30/16 12:01 Large Platelets Not Reportable 12/30/16 12:01 Giant Platelets Not Reportable 12/30/16 12:01 Platelet Satelliting Not Reportable 12/30/16 12:01 Plt Morphology Comment Not Reportable 12/30/16 12:01 RBC Morphology Not Reportable 12/30/16 12:01 Dimorphic RBCs Not Reportable 12/30/16 12:01 Polychromasia Not Reportable 12/30/16 12:01 Hypochromasia Not Reportable 12/30/16 12:01 Poikilocytosis Few 12/30/16 12:01 Anisocytosis 1+ 12/30/16 12:01 Microcytosis Few 12/30/16 12:01 Macrocytosis Not Reportable 12/30/16 12:01 Spherocytes Not Reportable 12/30/16 12:01 Pappenheimer Bodies Not Reportable 12/30/16 12:01 Sickle Cells Not Reportable 12/30/16 12:01 Target Cells Not Reportable 12/30/16 12:01 Tear Drop Cells Few 12/30/16 12:01 Ovalocytes Few 12/30/16 12:01 Helmet Cells Not Reportable 12/30/16 12:01 [place] Bodies Not Reportable 12/30/16 12:01 [place] Rings Not Reportable 12/30/16 12:01 [place] Cells Not Reportable 12/30/16 12:01 Bite Cells Not Reportable 12/30/16 12:01 Crenated Cell Not Reportable 12/30/16 12:01 Elliptocytes Few 12/30/16 12:01 Acanthocytes (Spur) Not Reportable 12/30/16 12:01 Rouleaux Not Reportable 12/30/16 12:01 Hemoglobin C Crystals Not Reportable 12/30/16 12:01 Schistocytes Not Reportable 12/30/16 12:01 Malaria parasites Not Reportable 12/30/16 12:01 Mannie Bodies Not Reportable 12/30/16 12:01 Hem Pathologist Commnt No 12/30/16 12:01 Sodium 138 mmol/L (137-145) 01/03/17 04:31 Potassium 4.8 mmol/L (3.6-5.0) 01/03/17 04:31 Chloride 89.1 mmol/L (98-107) L 01/03/17 04:31 Carbon Dioxide 28 mmol/L (22-30) 01/03/17 04:31 Anion Gap 26 mmol/L 01/03/17 04:31 BUN 41 mg/dL (9-20) H 01/03/17 04:31 Creatinine 7.6 mg/dL (0.8-1.5) H 01/03/17 04:31 Estimated GFR 8 ml/min 01/03/17 04:31 BUN/Creatinine Ratio 5 % 01/03/17 04:31 Glucose 101 mg/dL (75-100) H 01/03/17 04:31 POC Glucose 99 (70-105) 01/03/17 07:42 Calcium 8.8 mg/dL (8.4-10.2) 01/03/17 04:31 Total Creatine Kinase 152 units/L (55-170) 12/30/16 17:16 Urine Color Red (Yellow) 12/31/16 08:30 Urine Turbidity Clear (Clear) 12/31/16 08:30 Urine pH 8.0 (5.0-7.0) H 12/31/16 08:30 Ur Specific [place] 1.023 (1.003-1.030) 12/31/16 08:30 Urine Protein 100 mg/dl mg/dL (Negative) 12/31/16 08:30 Urine Glucose (UA) Neg mg/dL (Negative) 12/31/16 08:30 Urine Ketones Neg mg/dL (Negative) 12/31/16 08:30 Urine Blood Mod (Negative) 12/31/16 08:30 Urine Nitrite Pos (Negative) 12/31/16 08:30 Ur Reducing Substances Not Reportable 12/31/16 08:30 Urine Bilirubin Neg (Negative) 12/31/16 08:30 Urine Ictotest Not Reportable 12/31/16 08:30 Urine Urobilinogen < 2.0 mg/dL (<2.0) 12/31/16 08:30 Ur Leukocyte Esterase Sm (Negative) 12/31/16 08:30 Urine WBC (Auto) > 182.0 /HPF (0.0-6.0) H 12/31/16 08:30 Urine RBC (Auto) > 182.0 /HPF (0.0-6.0) 12/31/16 08:30 Urine WBC Clumps 3+ /HPF 12/31/16 08:30 Urine Mucus 3+ /HPF 12/31/16 08:30 - Imaging and Cardiology Abdominal x-ray: image reviewed (obstruction appears to have resolved)
[2017-01-03] MEDS: BETADINE TP SCH (15:50)
[2017-01-03] MEDS: NORVASC PO SCH (16:15)
--- NOTE | 2017-01-04 01:44 | Consultation ---
UROLOGICAL CONSULTATION REASON FOR CONSULTATION: Anuria, hydronephrosis. HISTORY OF PRESENT ILLNESS: The patient is an 81-year-old gentleman with history of bladder and prostate cancer with a large pelvic mass, previous right hydronephrosis with post left nephrectomy. He was internalized on the right side with the distal end of the ureteral stent in the pelvis, a large pelvic mass consistent on physical exam. He is brought into the hospital. He is anuric with hypertension, has elevated cholesterol, nausea and vomiting. PAST MEDICAL HISTORY: History of end-stage renal disease, solitary right kidney on dialysis, hypertension, anuric, anemia. PAST SURGICAL HISTORY: Previous radiation, left nephrectomy. ALLERGIES: Negative. MEDICATIONS: Amlodipine, Megace, pain medication. REVIEW OF SYSTEMS: Weakness, fatigue. PHYSICAL EXAMINATION: GENERAL: He is awake. He is in no distress. He is here with his family. ABDOMEN: Soft with multiple healed incisions. GENITALIA: Atrophic testis. DIGITAL RECTAL EXAM: Rock hard a very irregular huge mass in the pelvis in the perirectal area. IMPRESSION: Anuria, solitary right kidney. There is a stent that may be a poorly positioned that was placed antegrade. We will let the interventional guys know about it. Gunter has no urine in it for 2-3 days, it is being removed. IMPRESSION: Extensive pelvic mass, solitary right kidney. I would like to get a PSA ____. at this point, he has ____ Dr. Gupta in a while and at this point, I will talk to the interventional doctors about maybe repositioning or removing the stent if he is anuric while he is here on antibiotics. JOB# [id number] KATHLEEN/STEFANY
[2017-01-04 06:13] LABS: Hematocrit 33.2 % (35.5-45.6); Hemoglobin 10.4 gm/dl (11.8-15.2); Mean Corpuscular HGB Conc 31 % (32-34); Mean Corpuscular Hemoglobin 26 pg (28-32); Mean Corpuscular Volume 84 fl (84-94); Platelet Count 224 K/mm3 (140-440); Red Blood Count 3.95 M/mm3 (3.65-5.03); Red Cell Distribution Width 19.5 % (13.2-15.2); White Blood Count 9.7 K/mm3 (4.5-11.0)
--- NOTE | 2017-01-04 06:36 | Progress Note ---
Assessment and Plan Pt feeling well, no compl. RN noticed swallowing difficulties upon attempting cl liq diet Abd flat and soft. non tender surgically stable speech therapy eval hold po diet. (just meds) until swallowing studies completed continue present care Selected Entries 01/04/17 01/04/17 04:46 05:55 Temperature 99.6 F Pulse Rate [ 100 H Left Radial] Respiratory 18 Rate Blood Pressure 186/92 Laboratory Tests 01/04/17 05:55 WBC 9.7 Hgb 10.4 L Hct 33.2 L Objective Vital Signs - 12hr 01/03/17 01/04/17 01/04/17 19:38 04:46 05:55 Temperature 97.8 F 99.6 F Pulse Rate [ 100 H Left Radial] Respiratory 18 18 Rate Blood Pressure 170/82 186/92 - Labs 01/04/17 05:55 01/03/17 04:31
[2017-01-04] MEDS: NORMODYNE IV PRN (06:38)
--- NOTE | 2017-01-04 09:13 | Progress Note ---
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 Gupta/Sparkle who presented with abdominal pains. CT abd/pelvis without contrast read as mass in the region of the urinary bladder, this maybe an invasive prostate cancer or primary bladder malignancy, mass apppears to extend superior to the bladder, where is causes small bowel obstruction. Small bowel is dilated at 2.5 cm in diameter proximal to this area and decompressed any distal small bowel , moderate right-sided constipation is seen, right ureteral stent has a proximal aspect in the upper ureter, it may benefit from being repositioned into the right renal pelvis, mild rounded alveolar opacity in the right middle lobe of the lungs may be rounded atelectasis or rounded pneumonia, right adrenal nodule or cyst is probably benign, confirmation with MRI is recommended. -Small bowel obstruction: swallow evaluation today as patient noted to have difficulty swallowing==>not surgical candidate -End-stage renal disease: nephrology following -Solitary right kidney: Nephrology following on HD patient is anuric, -Abnormal Right Kidney mass- ?transitional cell malignancy vs metastatic disease , vs primary renal malignancy -Hyperkalemia, mild: Treat with Hemodialysis -Anemia of chronic disease: Stable Repeat CBC in a.m. -Prostate cancer with large obstructive pelvic mass: Consult urology noted, Stent distally above mass, notes palpable rectal mass and may need another biopsy -Abnormal UA in an oliguric/HD patient, not good sample -Hypertensive urgency: labetalol iv prn, added clonidine patch and resumed home meds, add Hydralazine TID. -new issue Melena stool: Awaiting FOBT and stop dvt prophylaxis - left lower lobe pneumonia-?ASPIRATION, START ON abx, no evidence of sepsis, CHECK CULTURES, PT WITH NO FEVER, THIS COULD BE ATLECTASIS BUT WILL MONTIOR. START INCENTIVE SPIROMETER ALSO full code, pt declined hospice at this time. DVT/GI prophy- encouraged ambulation, Dispo: possible discharge in am if no further intervention and tolerating diet Patient seen with Nursing staff. Plan of care discussed in detail with patient and he verbalized understanding. History Interval history: Patient seen and examined today, DIFFICULTY WITH SWALLOWING NOTED BY NURSING STAFF, otherwise was ambulating with walker about a few hundred feet. Hospitalist Physical - Physical exam Narrative exam: VITAL SIGNS: Reviewed. GENERAL: The patient appeared markedly cachectic chronically ill appearing. Vital signs as documented. HEAD: No signs of head trauma. Marked temporal wasting EYES: Pupils are equal. Extraocular motions intact. EARS: Hearing grossly intact. MOUTH: Oropharynx is normal. NG tube in place NECK: No adenopathy, no JVD. CHEST: Chest with clear breath sounds bilaterally. No wheezes, rales, or rhonchi. CARDIAC: Regular rate and rhythm. S1 and S2, without murmurs, gallops, or rubs. VASCULAR: No Edema. Peripheral pulses normal and equal in all extremities. ABDOMEN: Soft, without detectable tenderness. No sign of distention. No rebound or guarding, and no masses palpated. Bowel Sounds normal. MUSCULOSKELETAL: Good range of motion of all major joints. Extremities without clubbing, cyanosis or edema. NEUROLOGIC EXAM: Alert and oriented x 3. No focal sensory or strength deficits. Speech normal. Follows commands. PSYCHIATRIC: Mood normal. SKIN: Age-appropriate wrinkles some blemishes gu-palpable mass - Constitutional Vitals: Temp Pulse Resp BP Pulse Ox 97.7 F 85 20 160/78 99 01/04/17 08:38 01/04/17 08:38 01/04/17 08:38 01/04/17 08:38 01/04/17 08:38 General appearance: Present: no acute distress Results - Labs CBC & Chem 7: 01/04/17 05:55 01/03/17 04:31 Labs: Laboratory Last Values WBC 9.7 K/mm3 (4.5-11.0) 01/04/17 05:55 RBC 3.95 M/mm3 (3.65-5.03) 01/04/17 05:55 Hgb 10.4 gm/dl (11.8-15.2) L 01/04/17 05:55 Hct 33.2 % (35.5-45.6) L 01/04/17 05:55 MCV 84 fl (84-94) 01/04/17 05:55 MCH 26 pg (28-32) L 01/04/17 05:55 MCHC 31 % (32-34) L 01/04/17 05:55 RDW 19.5 % (13.2-15.2) H 01/04/17 05:55 Plt Count 224 K/mm3 (140-440) 01/04/17 05:55 Lymph % (Auto) 5.8 % (13.4-35.0) L 12/31/16 06:01 [place] % (Auto) 8.6 % (0.0-7.3) H 12/31/16 06:01 Eos % (Auto) 0.1 % (0.0-4.3) 12/31/16 06:01 Baso % (Auto) 0.3 % (0.0-1.8) 12/31/16 06:01 Lymph # 0.5 K/mm3 (1.2-5.4) L 12/31/16 06:01 [place] # 0.8 K/mm3 (0.0-0.8) 12/31/16 06:01 Eos # 0.0 K/mm3 (0.0-0.4) 12/31/16 06:01 Baso # 0.0 K/mm3 (0.0-0.1) 12/31/16 06:01 Add Manual Diff Complete 12/30/16 12:01 Total Counted 100 12/30/16 12:01 Seg Neutrophils % 85.2 % (40.0-70.0) H 12/31/16 06:01 Seg Neuts % (Manual) 94.0 % (40.0-70.0) H 12/30/16 12:01 Band Neutrophils % 0 % 12/30/16 12:01 Lymphocytes % (Manual) 2.0 % (13.4-35.0) L 12/30/16 12:01 Reactive Lymphs % (Man) 0 % 12/30/16 12:01 Monocytes % (Manual) 4.0 % (0.0-7.3) 12/30/16 12:01 Eosinophils % (Manual) 0 % (0.0-4.3) 12/30/16 12:01 Basophils % (Manual) 0 % (0.0-1.8) 12/30/16 12:01 Metamyelocytes % 0 % 12/30/16 12:01 Myelocytes % 0 % 12/30/16 12:01 Promyelocytes % 0 % 12/30/16 12:01 Blast Cells % 0 % 12/30/16 12:01 Nucleated RBC % Not Reportable 12/30/16 12:01 Seg Neutrophils # 7.7 K/mm3 (1.8-7.7) 12/31/16 06:01 Seg Neutrophils # Man 8.2 K/mm3 (1.8-7.7) H 12/30/16 12:01 Band Neutrophils # 0.0 K/mm3 12/30/16 12:01 Lymphocytes # (Manual) 0.2 K/mm3 (1.2-5.4) L 12/30/16 12:01 Abs React Lymphs (Man) 0.0 K/mm3 12/30/16 12:01 Monocytes # (Manual) 0.3 K/mm3 (0.0-0.8) 12/30/16 12:01 Eosinophils # (Manual) 0.0 K/mm3 (0.0-0.4) 12/30/16 12:01 Basophils # (Manual) 0.0 K/mm3 (0.0-0.1) 12/30/16 12:01 Metamyelocytes # 0.0 K/mm3 12/30/16 12:01 Myelocytes # 0.0 K/mm3 12/30/16 12:01 Promyelocytes # 0.0 K/mm3 12/30/16 12:01 Blast Cells # 0.0 K/mm3 12/30/16 12:01 WBC Morphology Not Reportable 12/30/16 12:01 Hypersegmented Neuts Not Reportable 12/30/16 12:01 Hyposegmented Neuts Not Reportable 12/30/16 12:01 Hypogranular Neuts Not Reportable 12/30/16 12:01 Smudge Cells Not Reportable 12/30/16 12:01 Toxic Granulation Not Reportable 12/30/16 12:01 Toxic Vacuolation Not Reportable 12/30/16 12:01 Dohle Bodies Not Reportable 12/30/16 12:01 Pelger-Huet Anomaly Not Reportable 12/30/16 12:01 Nazario Rods Not Reportable 12/30/16 12:01 Platelet Estimate Consistent w auto 12/30/16 12:01 Clumped Platelets Few 12/30/16 12:01 Plt Clumps, EDTA Not Reportable 12/30/16 12:01 Large Platelets Not Reportable 12/30/16 12:01 Giant Platelets Not Reportable 12/30/16 12:01 Platelet Satelliting Not Reportable 12/30/16 12:01 Plt Morphology Comment Not Reportable 12/30/16 12:01 RBC Morphology Not Reportable 12/30/16 12:01 Dimorphic RBCs Not Reportable 12/30/16 12:01 Polychromasia Not Reportable 12/30/16 12:01 Hypochromasia Not Reportable 12/30/16 12:01 Poikilocytosis Few 12/30/16 12:01 Anisocytosis 1+ 12/30/16 12:01 Microcytosis Few 12/30/16 12:01 Macrocytosis Not Reportable 12/30/16 12:01 Spherocytes Not Reportable 12/30/16 12:01 Pappenheimer Bodies Not Reportable 12/30/16 12:01 Sickle Cells Not Reportable 12/30/16 12:01 Target Cells Not Reportable 12/30/16 12:01 Tear Drop Cells Few 12/30/16 12:01 Ovalocytes Few 12/30/16 12:01 Helmet Cells Not Reportable 12/30/16 12:01 [place] Bodies Not Reportable 12/30/16 12:01 [place] Rings Not Reportable 12/30/16 12:01 Fang Cells Not Reportable 12/30/16 12:01 Bite Cells Not Reportable 12/30/16 12:01 Crenated Cell Not Reportable 12/30/16 12:01 Elliptocytes Few 12/30/16 12:01 Acanthocytes (Spur) Not Reportable 12/30/16 12:01 Rouleaux Not Reportable 12/30/16 12:01 Hemoglobin C Crystals Not Reportable 12/30/16 12:01 Schistocytes Not Reportable 12/30/16 12:01 Malaria parasites Not Reportable 12/30/16 12:01 Mannie Bodies Not Reportable 12/30/16 12:01 Hem Pathologist Commnt No 12/30/16 12:01 Sodium 138 mmol/L (137-145) 01/03/17 04:31 Potassium 4.8 mmol/L (3.6-5.0) 01/03/17 04:31 Chloride 89.1 mmol/L (98-107) L 01/03/17 04:31 Carbon Dioxide 28 mmol/L (22-30) 01/03/17 04:31 Anion Gap 26 mmol/L 01/03/17 04:31 BUN 41 mg/dL (9-20) H 01/03/17 04:31 Creatinine 7.6 mg/dL (0.8-1.5) H 01/03/17 04:31 Estimated GFR 8 ml/min 01/03/17 04:31 BUN/Creatinine Ratio 5 % 01/03/17 04:31 Glucose 101 mg/dL (75-100) H 01/03/17 04:31 POC Glucose 147 (70-105) H 01/04/17 07:19 Calcium 8.8 mg/dL (8.4-10.2) 01/03/17 04:31 Total Creatine Kinase 152 units/L (55-170) 12/30/16 17:16 Prostate Specific Ag 0.01 ng/mL (0.00-4.00) 01/03/17 12:56 Urine Color Red (Yellow) 12/31/16 08:30 Urine Turbidity Clear (Clear) 12/31/16 08:30 Urine pH 8.0 (5.0-7.0) H 12/31/16 08:30 Ur Specific [place] 1.023 (1.003-1.030) 12/31/16 08:30 Urine Protein 100 mg/dl mg/dL (Negative) 12/31/16 08:30 Urine Glucose (UA) Neg mg/dL (Negative) 12/31/16 08:30 Urine Ketones Neg mg/dL (Negative) 12/31/16 08:30 Urine Blood Mod (Negative) 12/31/16 08:30 Urine Nitrite Pos (Negative) 12/31/16 08:30 Ur Reducing Substances Not Reportable 12/31/16 08:30 Urine Bilirubin Neg (Negative) 12/31/16 08:30 Urine Ictotest Not Reportable 12/31/16 08:30 Urine Urobilinogen < 2.0 mg/dL (<2.0) 12/31/16 08:30 Ur Leukocyte Esterase Sm (Negative) 12/31/16 08:30 Urine WBC (Auto) > 182.0 /HPF (0.0-6.0) H 12/31/16 08:30 Urine RBC (Auto) > 182.0 /HPF (0.0-6.0) 12/31/16 08:30 Urine WBC Clumps 3+ /HPF 12/31/16 08:30 Urine Mucus 3+ /HPF 12/31/16 08:30
[2017-01-04] MEDS: APRESOLINE PO SCH ×3 (09:37→22:59)
[2017-01-04] MEDS: NORVASC PO SCH (09:38)
[2017-01-04] MEDS ORDERED: cefTRIAXone 1 GM in NACL 0.9% 20 ML IV SCH ×3 (10:00→15:00)
--- NOTE | 2017-01-04 11:06 | Progress Note ---
Assessment and Plan - Patient Problems (1) ESRD (end stage renal disease) Current Visit: Yes Status: Acute Plan to address problem: cont HD on MWF schedule (2) Hyperkalemia Current Visit: Yes Status: Acute Plan to address problem: cont 2g K renal diet (3) Pelvic mass Current Visit: Yes Status: Acute Plan to address problem: extensive bladder mass noted, recommend evaluation (4) Small bowel obstruction Current Visit: Yes Status: Acute Plan to address problem: follow surgery recommendations (5) Anemia in chronic illness Current Visit: No Status: Acute Plan to address problem: will hold off on EPO given metastatic cancer (6) Bladder tumor Current Visit: No Status: Acute Plan to address problem: recommend consult Subjective Date of service: 01/04/17 Principal diagnosis: ESRD Interval history: Pt seen and examined during HD, awake, alert, in NAD. BP 152/84 P 47 UF target 2.5L Objective - Vital Signs Vital signs: Vital Signs - 12hr 01/04/17 01/04/17 01/04/17 04:46 05:55 08:38 Temperature 99.6 F 97.7 F Pulse Rate 85 Pulse Rate [ 100 H Left Radial] Respiratory 18 20 Rate Blood Pressure 186/92 Blood Pressure 160/78 [Left] O2 Sat by Pulse 99 Oximetry - General Appearance General appearance: cachectic, chronically ill, frail EENT: ATNC, PERRL, mucous membranes moist Neck: no JVD Respiratory: Present: Clear to Ascultation Cardiology: regular, S1S2 Gastrointestinal: normoactive bowel sounds Integumentary: no rash, other (no edema ) Neurologic: no focal deficit, alert and oriented x3, strength 5/5, CN 3-12 intact Psychiatric: mood/affect appropriate, cooperative - Lab 01/04/17 05:55 01/03/17 04:31 Most recent lab results Calcium 8.8 mg/dL (8.4-10.2) 01/03/17 04:31
--- NOTE | 2017-01-04 14:02 | Progress Note ---
Assessment and Plan much more comfortable without russo anuric stent distally above mass psa 0.01 ?? bladder cancer rock hard rectal palp mass may needs another biopsy all discussed Subjective Date of service: 01/04/17 Principal diagnosis: ESRD Objective - Constitutional Vitals: Vital Signs - 12hr 01/04/17 01/04/17 01/04/17 04:46 05:55 08:38 Temperature 99.6 F 97.7 F Pulse Rate 85 Pulse Rate [ 100 H Left Radial] Respiratory 18 20 Rate Blood Pressure 186/92 Blood Pressure 160/78 [Left] O2 Sat by Pulse 99 Oximetry 01/04/17 01/04/17 01/04/17 10:30 10:45 11:00 Temperature 97.7 F Pulse Rate 89 97 H 102 H Pulse Rate [ Left Radial] Respiratory 18 Rate Blood Pressure 166/86 152/84 135/89 Blood Pressure [Left] O2 Sat by Pulse Oximetry General appearance: Present: no acute distress - Neck Neck: supple - Respiratory Respiratory effort: normal - Gastrointestinal General gastrointestinal: Present: soft, non-tender - Labs CBC & Chem 7: 01/04/17 05:55 01/03/17 04:31 Labs: Abnormal lab results 01/03/17 01/03/17 01/03/17 Range/Units 11:14 16:31 22:09 Hgb (11.8-15.2) gm/dl Hct (35.5-45.6) % MCH (28-32) pg MCHC (32-34) % RDW (13.2-15.2) % POC Glucose 116 H 164 H 116 H (70-105) 01/04/17 01/04/17 01/04/17 Range/Units 05:55 06:07 07:19 Hgb 10.4 L (11.8-15.2) gm/dl Hct 33.2 L (35.5-45.6) % MCH 26 L (28-32) pg MCHC 31 L (32-34) % RDW 19.5 H (13.2-15.2) % POC Glucose 144 H 147 H (70-105)
[2017-01-04] MEDS ORDERED: NACL 0.9 (PRIMING MACHINE ONLY DIALYSIS) MC ONE (15:00)
[2017-01-04] MEDS: cefTRIAXone 1 GM in NACL 0.9% 20 ML IV SCH (17:06)
[2017-01-04] MEDS: BETADINE TP SCH (17:09)
[2017-01-04] MEDS: MORPHINE IV PRN (23:03)
[2017-01-05] MEDS ORDERED: OMNIPAQUE 300 MG/50 ML (CATH LAB) IV ONE
[2017-01-05] MEDS: APRESOLINE PO SCH ×3 (06:16→22:16)
--- NOTE | 2017-01-05 07:58 | Nuclear Medicine Report ---
BONE SCAN: HISTORY: Prostate cancer. COMPARISON: 05/04/16. FINDINGS: After injection of isotope, gamma camera imaging of the bony system was done. There are 2 new focal lesions of increased radiotracer uptake in the mid to distal left humeral shaft since 05/04/16. No other suspicious focal areas of bony uptake. The renal shadows are not identified with increased soft tissue and diffuse bony uptake consistent with poor renal function. Mild degenerative changes in the shoulders and right knee. IMPRESSION: There are 2 new focal areas of radiotracer uptake in the left humerus as described above which are suspicious for metastatic lesions. See above.
--- NOTE | 2017-01-05 08:16 | Progress Note ---
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 Gupta/Sparkle who presented with abdominal pains. CT abd/pelvis without contrast read as mass in the region of the urinary bladder, this maybe an invasive prostate cancer or primary bladder malignancy, mass apppears to extend superior to the bladder, where is causes small bowel obstruction. Small bowel is dilated at 2.5 cm in diameter proximal to this area and decompressed any distal small bowel , moderate right-sided constipation is seen, right ureteral stent has a proximal aspect in the upper ureter, it may benefit from being repositioned into the right renal pelvis, mild rounded alveolar opacity in the right middle lobe of the lungs may be rounded atelectasis or rounded pneumonia, right adrenal nodule or cyst is probably benign, confirmation with MRI is recommended. -Small bowel obstruction: swallow evaluation today as patient noted to have difficulty swallowing==>not surgical candidate -End-stage renal disease: nephrology following on HD -Solitary right kidney: Nephrology following on HD patient is anuric, -Abnormal Right Kidney mass- ?transitional cell malignancy vs metastatic disease , vs primary renal malignancy -Hyperkalemia, mild: Treated with Hemodialysis -Anemia of chronic disease: Stable -Monitor. -Prostate cancer with large obstructive pelvic mass: Consult urology noted, Stent distally above mass, notes palpable rectal mass and may need another biopsy -Hypertensive urgency: labetalol iv prn, added clonidine patch and resumed home meds, add Hydralazine TID.Improved. -Chronic Cough: possible secondary to Pneumonia -new issue Melena stool: Awaiting FOBT and stop dvt prophylaxis - left lower lobe pneumonia-?ASPIRATION, START ON abx, no evidence of sepsis, CHECK CULTURES, PT WITH NO FEVER, THIS COULD BE Atalectasis BUT WILL MONITOR. 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 DVT/GI prophy- encouraged ambulation, Dispo: possible discharge in am if no further intervention and tolerating diet. GI consulted for evaluation Patient seen with Nursing staff. Plan of care discussed in detail with patient and he verbalized understanding. History Interval history: Patient seen and examined today, sitting up on the chair in no acute distress. speech eval noted. Hospitalist Physical - Physical exam Narrative exam: VITAL SIGNS: Reviewed. GENERAL: The patient appeared markedly cachectic chronically ill appearing. Vital signs as documented. HEAD: No signs of head trauma. Marked temporal wasting EYES: Pupils are equal. Extraocular motions intact. EARS: Hearing grossly intact. MOUTH: Oropharynx is normal. NG tube in place NECK: No adenopathy, no JVD. CHEST: Chest with clear breath sounds bilaterally. No wheezes, rales, or rhonchi. CARDIAC: Regular rate and rhythm. S1 and S2, without murmurs, gallops, or rubs. VASCULAR: No Edema. Peripheral pulses normal and equal in all extremities. ABDOMEN: Soft, without detectable tenderness. No sign of distention. No rebound or guarding, and no masses palpated. Bowel Sounds normal. MUSCULOSKELETAL: Good range of motion of all major joints. Extremities without clubbing, cyanosis or edema. NEUROLOGIC EXAM: Alert and oriented x 3. No focal sensory or strength deficits. Speech normal. Follows commands. PSYCHIATRIC: Mood normal. SKIN: Age-appropriate wrinkles some blemishes gu-palpable mass - Constitutional Vitals: Temp Pulse Resp BP Pulse Ox 97.9 F 102 H 20 141/81 97 01/05/17 07:31 01/05/17 07:31 01/05/17 07:31 01/05/17 07:31 01/05/17 07:31 General appearance: Present: no acute distress Results - Labs CBC & Chem 7: 01/04/17 05:55 01/03/17 04:31 Labs: Laboratory Last Values WBC 9.7 K/mm3 (4.5-11.0) 01/04/17 05:55 RBC 3.95 M/mm3 (3.65-5.03) 01/04/17 05:55 Hgb 10.4 gm/dl (11.8-15.2) L 01/04/17 05:55 Hct 33.2 % (35.5-45.6) L 01/04/17 05:55 MCV 84 fl (84-94) 01/04/17 05:55 MCH 26 pg (28-32) L 01/04/17 05:55 MCHC 31 % (32-34) L 01/04/17 05:55 RDW 19.5 % (13.2-15.2) H 01/04/17 05:55 Plt Count 224 K/mm3 (140-440) 01/04/17 05:55 Lymph % (Auto) 5.8 % (13.4-35.0) L 12/31/16 06:01 [place] % (Auto) 8.6 % (0.0-7.3) H 12/31/16 06:01 Eos % (Auto) 0.1 % (0.0-4.3) 12/31/16 06:01 Baso % (Auto) 0.3 % (0.0-1.8) 12/31/16 06:01 Lymph # 0.5 K/mm3 (1.2-5.4) L 12/31/16 06:01 [place] # 0.8 K/mm3 (0.0-0.8) 12/31/16 06:01 Eos # 0.0 K/mm3 (0.0-0.4) 12/31/16 06:01 Baso # 0.0 K/mm3 (0.0-0.1) 12/31/16 06:01 Add Manual Diff Complete 12/30/16 12:01 Total Counted 100 12/30/16 12:01 Seg Neutrophils % 85.2 % (40.0-70.0) H 12/31/16 06:01 Seg Neuts % (Manual) 94.0 % (40.0-70.0) H 12/30/16 12:01 Band Neutrophils % 0 % 12/30/16 12:01 Lymphocytes % (Manual) 2.0 % (13.4-35.0) L 12/30/16 12:01 Reactive Lymphs % (Man) 0 % 12/30/16 12:01 Monocytes % (Manual) 4.0 % (0.0-7.3) 12/30/16 12:01 Eosinophils % (Manual) 0 % (0.0-4.3) 12/30/16 12:01 Basophils % (Manual) 0 % (0.0-1.8) 12/30/16 12:01 Metamyelocytes % 0 % 12/30/16 12:01 Myelocytes % 0 % 12/30/16 12:01 Promyelocytes % 0 % 12/30/16 12:01 Blast Cells % 0 % 12/30/16 12:01 Nucleated RBC % Not Reportable 12/30/16 12:01 Seg Neutrophils # 7.7 K/mm3 (1.8-7.7) 12/31/16 06:01 Seg Neutrophils # Man 8.2 K/mm3 (1.8-7.7) H 12/30/16 12:01 Band Neutrophils # 0.0 K/mm3 12/30/16 12:01 Lymphocytes # (Manual) 0.2 K/mm3 (1.2-5.4) L 12/30/16 12:01 Abs React Lymphs (Man) 0.0 K/mm3 12/30/16 12:01 Monocytes # (Manual) 0.3 K/mm3 (0.0-0.8) 12/30/16 12:01 Eosinophils # (Manual) 0.0 K/mm3 (0.0-0.4) 12/30/16 12:01 Basophils # (Manual) 0.0 K/mm3 (0.0-0.1) 12/30/16 12:01 Metamyelocytes # 0.0 K/mm3 12/30/16 12:01 Myelocytes # 0.0 K/mm3 12/30/16 12:01 Promyelocytes # 0.0 K/mm3 12/30/16 12:01 Blast Cells # 0.0 K/mm3 12/30/16 12:01 WBC Morphology Not Reportable 12/30/16 12:01 Hypersegmented Neuts Not Reportable 12/30/16 12:01 Hyposegmented Neuts Not Reportable 12/30/16 12:01 Hypogranular Neuts Not Reportable 12/30/16 12:01 Smudge Cells Not Reportable 12/30/16 12:01 Toxic Granulation Not Reportable 12/30/16 12:01 Toxic Vacuolation Not Reportable 12/30/16 12:01 Dohle Bodies Not Reportable 12/30/16 12:01 Pelger-Huet Anomaly Not Reportable 12/30/16 12:01 Nazario Rods Not Reportable 12/30/16 12:01 Platelet Estimate Consistent w auto 12/30/16 12:01 Clumped Platelets Few 12/30/16 12:01 Plt Clumps, EDTA Not Reportable 12/30/16 12:01 Large Platelets Not Reportable 12/30/16 12:01 Giant Platelets Not Reportable 12/30/16 12:01 Platelet Satelliting Not Reportable 12/30/16 12:01 Plt Morphology Comment Not Reportable 12/30/16 12:01 RBC Morphology Not Reportable 12/30/16 12:01 Dimorphic RBCs Not Reportable 12/30/16 12:01 Polychromasia Not Reportable 12/30/16 12:01 Hypochromasia Not Reportable 12/30/16 12:01 Poikilocytosis Few 12/30/16 12:01 Anisocytosis 1+ 12/30/16 12:01 Microcytosis Few 12/30/16 12:01 Macrocytosis Not Reportable 12/30/16 12:01 Spherocytes Not Reportable 12/30/16 12:01 Pappenheimer Bodies Not Reportable 12/30/16 12:01 Sickle Cells Not Reportable 12/30/16 12:01 Target Cells Not Reportable 12/30/16 12:01 Tear Drop Cells Few 12/30/16 12:01 Ovalocytes Few 12/30/16 12:01 Helmet Cells Not Reportable 12/30/16 12:01 [place] Bodies Not Reportable 12/30/16 12:01 [place] Rings Not Reportable 12/30/16 12:01 Fang Cells Not Reportable 12/30/16 12:01 Bite Cells Not Reportable 12/30/16 12:01 Crenated Cell Not Reportable 12/30/16 12:01 Elliptocytes Few 12/30/16 12:01 Acanthocytes (Spur) Not Reportable 12/30/16 12:01 Rouleaux Not Reportable 12/30/16 12:01 Hemoglobin C Crystals Not Reportable 12/30/16 12:01 Schistocytes Not Reportable 12/30/16 12:01 Malaria parasites Not Reportable 12/30/16 12:01 Mannie Bodies Not Reportable 12/30/16 12:01 Hem Pathologist Commnt No 12/30/16 12:01 Sodium 138 mmol/L (137-145) 01/03/17 04:31 Potassium 4.8 mmol/L (3.6-5.0) 01/03/17 04:31 Chloride 89.1 mmol/L (98-107) L 01/03/17 04:31 Carbon Dioxide 28 mmol/L (22-30) 01/03/17 04:31 Anion Gap 26 mmol/L 01/03/17 04:31 BUN 41 mg/dL (9-20) H 01/03/17 04:31 Creatinine 7.6 mg/dL (0.8-1.5) H 01/03/17 04:31 Estimated GFR 8 ml/min 01/03/17 04:31 BUN/Creatinine Ratio 5 % 01/03/17 04:31 Glucose 101 mg/dL (75-100) H 01/03/17 04:31 POC Glucose 96 (70-105) 01/05/17 05:38 Calcium 8.8 mg/dL (8.4-10.2) 01/03/17 04:31 Total Creatine Kinase 152 units/L (55-170) 12/30/16 17:16 Prostate Specific Ag 0.01 ng/mL (0.00-4.00) 01/03/17 12:56 Urine Color Red (Yellow) 12/31/16 08:30 Urine Turbidity Clear (Clear) 12/31/16 08:30 Urine pH 8.0 (5.0-7.0) H 12/31/16 08:30 Ur Specific [place] 1.023 (1.003-1.030) 12/31/16 08:30 Urine Protein 100 mg/dl mg/dL (Negative) 12/31/16 08:30 Urine Glucose (UA) Neg mg/dL (Negative) 12/31/16 08:30 Urine Ketones Neg mg/dL (Negative) 12/31/16 08:30 Urine Blood Mod (Negative) 12/31/16 08:30 Urine Nitrite Pos (Negative) 12/31/16 08:30 Ur Reducing Substances Not Reportable 12/31/16 08:30 Urine Bilirubin Neg (Negative) 12/31/16 08:30 Urine Ictotest Not Reportable 12/31/16 08:30 Urine Urobilinogen < 2.0 mg/dL (<2.0) 12/31/16 08:30 Ur Leukocyte Esterase Sm (Negative) 12/31/16 08:30 Urine WBC (Auto) > 182.0 /HPF (0.0-6.0) H 12/31/16 08:30 Urine RBC (Auto) > 182.0 /HPF (0.0-6.0) 12/31/16 08:30 Urine WBC Clumps 3+ /HPF 12/31/16 08:30 Urine Mucus 3+ /HPF 12/31/16 08:30
[2017-01-05] MEDS ORDERED: SUBLIMAZE ONE (10:22)
[2017-01-05] MEDS ORDERED: DIPRIVAN 10 MG/ML IV ONE (10:22)
[2017-01-05] MEDS ORDERED: ROBINUL ONE (10:28)
[2017-01-05] MEDS ORDERED: XYLOCAINE MPF 2% ONE (10:28)
--- NOTE | 2017-01-05 10:47 | Anesthesia Day of Surgery ---
Anesthesia Day of Surgery - Day of Surgery Patient Examined: Yes Patient H&P Reviewed: Yes Patient is NPO: Yes
--- NOTE | 2017-01-05 10:47 | Anesthesia Consultation ---
Anesthesia Consult and Med Hx Date of service: 01/05/17 - Airway Anesthetic Teeth Evaluation: Good ROM Head & Neck: Adequate Mental/Hyoid Distance: Adequate Mallampati Class: Class II Intubation Access Assessment: Probably Good - Pulmonary Exam CTA: Yes - Cardiac Exam Cardiac Exam: RRR - Pre-Operative Health Status ASA Pre-Surgery Classification: ASA3 Proposed Anesthetic Plan: General - Pre-Anesthesia Comment Pre-Anesthesia Comments: Poor historian. - Pulmonary Hx Smoking: Yes (STOPPED X 40 YRS- 1 2 PPD X 20 YRS) COPD: (PT UNSURE) Hx Sleep Apnea: No (NELIDA PRE SCREEN HIGH RISK) - Cardiovascular System Hx Hypertension: Yes Hx Coronary Artery Disease: No Hx Heart Attack/AMI: No - Central Nervous System Hx Psychiatric Problems: No - Gastrointestinal Hx Ulcer: Yes (1969) Hx Gastroesophageal Reflux Disease: Yes - Endocrine Hx Renal Disease: Yes (HD MWF) Hx End Stage Renal Disease: Yes (02/2015) Hx Non-Insulin Dependent Diabetes: Yes - Hematic Hx Anemia: Yes - Other Systems Hx Alcohol Use: Yes (HX ALCOHOL ABUSE- STOPPED X 40 YRS) Hx Substance Use: Yes (Marijuana quit 40 yrs ago) Hx Cancer: Yes (h/o bladder, prostate CA)
[2017-01-05] MEDS ORDERED: MORPHINE IV PRN (10:48)
[2017-01-05] MEDS ORDERED: NACL 0.9% 1000 ML 1,000 ML IV SCH (11:00)
[2017-01-05] MEDS ORDERED: PEPCID IV NR (11:00)
[2017-01-05] MEDS ORDERED: WATER FOR IRRIG STERILE IR ONE ×2 (12:16)
[2017-01-05] MEDS ORDERED: GARAMYCIN ONE (12:37)
[2017-01-05] MEDS ORDERED: ZOFRAN ONE (13:00)
--- NOTE | 2017-01-05 13:00 | Post Operative Note ---
Date of procedure: 01/05/17 Pre-op diagnosis: pelvic mass poss fistula Post-op diagnosis: same Findings: urethral rectal fistula Procedure: cysto stent remval biopsies Anesthesia: GETA Surgeon: BRODIE GIBSON Estimated blood loss: none Pathology: list (mass) Specimen disposition: to lab Condition: stable Disposition: PACU
[2017-01-05] MEDS ORDERED: BREVIBLOC IV ONE (13:02)
[2017-01-05] MEDS ORDERED: NEO SYNEPHRINE ONE (13:02)
[2017-01-05] MEDS ORDERED: NACL 0.9% 200 ML ONE (13:02)
--- NOTE | 2017-01-05 13:02 | Progress Note ---
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
--- NOTE | 2017-01-05 13:58 | Ultrasound Report ---
ULTRASOUND GUIDE INTRAOPERATIVE History: Elevated PSA. Findings: Endorectal ultrasound guidance was provided by radiology during prostate biopsy by Dr. Sotomayor. No sonographic images during biopsy were captured. Please correlate with the procedural report as needed. Impression: Successful ultrasound guided prostate biopsy.
--- NOTE | 2017-01-05 14:50 | Progress Note ---
Assessment and Plan Pt just returning from procedure Abd soft. speech therapy eval noted. diet as per speech therapist recommendations Selected Entries 01/05/17 14:30 Temperature 97.5 F L Pulse Rate 93 H Respiratory 18 Rate Blood Pressure 185/71 Objective Vital Signs - 12hr 01/05/17 01/05/17 01/05/17 04:41 07:31 10:30 Temperature 97.2 F L 97.9 F 97.4 F L Pulse Rate 102 H 102 H 106 H Respiratory 18 20 20 Rate Blood Pressure 154/82 141/81 106/64 O2 Sat by Pulse 99 97 100 Oximetry 01/05/17 01/05/17 01/05/17 12:53 13:00 13:05 Temperature 97.1 F L Pulse Rate 95 H 93 H 99 H Respiratory 20 18 17 Rate Blood Pressure 175/59 162/65 156/70 O2 Sat by Pulse 100 100 100 Oximetry 01/05/17 01/05/17 01/05/17 13:10 13:25 13:40 Temperature Pulse Rate 90 87 90 Respiratory 16 16 16 Rate Blood Pressure 150/72 134/63 145/70 O2 Sat by Pulse 100 100 98 Oximetry 01/05/17 01/05/17 01/05/17 13:55 14:10 14:30 Temperature 97.0 F L 97.5 F L Pulse Rate 90 91 H 93 H Respiratory 17 17 18 Rate Blood Pressure 122/69 155/68 185/71 O2 Sat by Pulse 100 100 100 Oximetry - Labs 01/04/17 05:55 01/03/17 04:31
--- NOTE | 2017-01-05 17:22 | Operative Report ---
PREOPERATIVE DIAGNOSES: Huge pelvic mass, chronic renal failure with pelvic mass, solitary right kidney, anuria, possible fistula. POSTOPERATIVE DIAGNOSES: Urethrorectal fistula, large pelvic mass, nonfunctioning solitary right kidney. PROCEDURE: Flexible cystoscopy, removal of stent under fluoroscopic guidance and transrectal biopsy with ultrasound guidance of the pelvic mass. SURGEON: José Sotomayor MD ANESTHESIA: General. FINDINGS: This is a gentleman who has chronic deterioration with bladder and prostate cancer with a PSA of 0. He has a huge pelvic mass. He now presents for treatment. DESCRIPTION OF PROCEDURE: The patient was brought to the operating room and placed on the operating table. Following induction of anesthesia, placed in lithotomy position, prepped and draped in usual sterile fashion. Flexible cystoscopy immediately showed that the fluid coming out of the rectum. The stent was withdrawn and under fluoroscopic guidance easily removed. There was a large mass within the prostatic urethra. We could see evidence of previous radiation seeds as well. Transrectal ultrasound was done showed the fluid going into the cavity and then into the rectum coming right out. Three to four biopsies were obtained on the opposite side. The patient tolerated the procedure well. Plan would be General Surgery consult, possible colostomy, and possible palliative care, await final pathology. JOB# [id number] KATHLEEN/STEFANY
[2017-01-05] MEDS: NORVASC PO SCH (17:39)
[2017-01-05] MEDS: BETADINE TP SCH (17:39)
[2017-01-05] MEDS: MEGACE PO SCH ×2 (17:40→22:00)
[2017-01-05] MEDS: cefTRIAXone 1 GM in NACL 0.9% 20 ML IV SCH (17:42)
--- NOTE | 2017-01-05 21:34 | Progress Note ---
Assessment and Plan - Patient Problems (1) ESRD (end stage renal disease) Current Visit: Yes Status: Acute Plan to address problem: cont HD on MWF schedule (2) Hyperkalemia Current Visit: Yes Status: Acute Plan to address problem: cont 2g K renal diet (3) Pelvic mass Current Visit: Yes Status: Acute Plan to address problem: follow recs (4) Small bowel obstruction Current Visit: Yes Status: Acute Plan to address problem: follow surgery recommendations (5) Anemia in chronic illness Current Visit: No Status: Acute Plan to address problem: will hold off on EPO given metastatic cancer (6) Bladder tumor Current Visit: No Status: Acute Plan to address problem: recommend consult Subjective Date of service: 01/05/17 Principal diagnosis: ESRD Interval history: Pt awake, alert, in NAD Objective - Vital Signs Vital signs: Vital Signs - 12hr 01/05/17 01/05/17 01/05/17 10:30 12:53 13:00 Temperature 97.4 F L 97.1 F L Pulse Rate 106 H 95 H 93 H Respiratory 20 20 18 Rate Blood Pressure 106/64 175/59 162/65 Blood Pressure [Left] O2 Sat by Pulse 100 100 100 Oximetry 01/05/17 01/05/17 01/05/17 13:05 13:10 13:25 Temperature Pulse Rate 99 H 90 87 Respiratory 17 16 16 Rate Blood Pressure 156/70 150/72 134/63 Blood Pressure [Left] O2 Sat by Pulse 100 100 100 Oximetry 01/05/17 01/05/17 01/05/17 13:40 13:55 14:10 Temperature 97.0 F L Pulse Rate 90 90 91 H Respiratory 16 17 17 Rate Blood Pressure 145/70 122/69 155/68 Blood Pressure [Left] O2 Sat by Pulse 98 100 100 Oximetry 01/05/17 01/05/17 01/05/17 14:21 14:30 17:39 Temperature 97.9 F 97.5 F L Pulse Rate 94 H 93 H 93 H Respiratory 18 18 Rate Blood Pressure 183/80 185/71 185/71 Blood Pressure [Left] O2 Sat by Pulse 98 100 Oximetry 01/05/17 01/05/17 17:40 19:44 Temperature 98.6 F Pulse Rate 93 H 98 H Respiratory 18 Rate Blood Pressure 185/71 Blood Pressure 131/72 [Left] O2 Sat by Pulse 98 Oximetry - General Appearance General appearance: well-developed, well-nourished, appears stated age EENT: ATNC, PERRL, mucous membranes moist Neck: no JVD Respiratory: Present: Clear to Ascultation Cardiology: regular, S1S2 Gastrointestinal: normoactive bowel sounds Integumentary: no rash, other (no edema ) Neurologic: no focal deficit, alert and oriented x3, strength 5/5, CN 3-12 intact Psychiatric: mood/affect appropriate, cooperative - Lab 01/04/17 05:55 01/03/17 04:31 Most recent lab results Calcium 8.8 mg/dL (8.4-10.2) 01/03/17 04:31
[2017-01-06 05:22] LABS: Calcium 8.4 mg/dL (8.4-10.2); Chloride 93.6 mmol/L (98-107)
[2017-01-06] MEDS: APRESOLINE PO SCH ×3 (06:43→22:23)
--- NOTE | 2017-01-06 07:23 | XRay Report ---
SUPINE KUB: History: Renal failure. Fluoroscopy was provided by radiology. 3 AP fluoroscopic images were obtained by the urology prior to urologic procedure. The bowel gas pattern is within normal limits. On one image, a right ureteral stent is identified. Subsequent images suggest removal of the stent. There are no obvious pathologic calcifications. There are multiple radiotherapy beads in the prostate. IMPRESSION: Unremarkable abdomen. Probable right ureteral stent removal.
[2017-01-06] MEDS: MEGACE PO SCH ×3 (08:45→20:00)
--- NOTE | 2017-01-06 08:50 | Discharge Summary ---
Providers - Providers Date of Admission: 12/30/16 22:01 Attending physician: LANE JACK MD 12/30/16 20:33 Consult to Physician [CONS] Urgent Consulting Provider: BETHANY ALVAREZ Reason For Exam: small bowel obstruction Place consult to:: phone Notified:: y 12/30/16 21:14 Consult to Physician [CONS] Urgent Consulting Provider: ZULLY JADE Reason For Exam: end-stage renal disease Place consult to:: phone Notified:: y 01/02/17 08:10 Consult to Wound/ET Nurse [CONS] Routine Reason For Exam: wound eval 01/03/17 09:03 Consult to Physician [CONS] Routine Consulting Provider: BRODIE GIBSON Reason For Exam: prostate CA Place consult to:: Notified:: Phone number called:: [phone] Was contact made?: Yes If yes, spoke with:: HEIKE Time called:: 10:00 Comment:: JAS 01/03/17 09:06 Physical Therapy Evaluation and Treat [CONS] Routine Comment: Reason For Exam: DEBILITY 01/03/17 18:07 Speech Therapy Evaluation and Treat [CONS] Urgent Reason For Exam: Swallow concern 01/05/17 08:11 Consult to Physician [CONS] Routine Consulting Provider: HECTOR FRANCISCO Reason For Exam: left humerus metastatic lesion hx of prostrat ca Place consult to:: office Notified:: yes If yes, spoke with:: alfonso Time called:: 09:05 Comment:: reuben Primary care physician: [employer] Hospitalization Reason for admission: SBO Condition: Stable Hospital course: Patient is a 81-year-old man with a history of hypertension, type 2 diabetes mellitus, end stage renal disease on hemodialysis Monday, throat cancer, bladder cancer, left nephrectomy and 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 Gupta/Sparkle who presented with abdominal pains. CT abd/pelvis without contrast read as mass in the region of the urinary bladder, this maybe an invasive prostate cancer or primary bladder malignancy, mass apppears to extend superior to the bladder, where is causes small bowel obstruction. Small bowel is dilated at 2.5 cm in diameter proximal to this area and decompressed any distal small bowel , moderate right-sided constipation is seen, right ureteral stent has a proximal aspect in the upper ureter, it may benefit from being repositioned into the right renal pelvis, mild rounded alveolar opacity in the right middle lobe of the lungs may be rounded atelectasis or rounded pneumonia, right adrenal nodule or cyst is probably benign, confirmation with MRI is recommended. Patient was seen by Urology, surgery and continued dialysis, Biopsy of Bladder mass was done and patient is to follow with Urology for pathology report and understands this. He also understands that he has metastatic disease, as redemostrated by the Bone scan. He refused discussion about Hospice although his family is on board for hospice. He will continue Dialysis. He was also advised about the urethral rectal fistula, but since he does not make urine, this will be re-evaluated outpatient with surgery if he will benefit from a colostomy. Patient was planned for discharge but had problem with vascular access, this was fixed by vascular, his BP improved and he became hypotensive and incentally was found not to have the clonidine patch on his body. We proceeded to discontinue the patch on the EHR and also discotinue the Hydralazine, with some normalization noted. He will follow with Urology for pathology report. 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 GENERAL: The patient appeared markedly cachectic chronically ill appearing. Vital signs as documented. HEAD: No signs of head trauma. Marked temporal wasting EYES: Pupils are equal. Extraocular motions intact. EARS: Hearing grossly intact. MOUTH: Oropharynx is normal. NG tube in place NECK: No adenopathy, no JVD. CHEST: Chest with clear breath sounds bilaterally. No wheezes, rales, or rhonchi. CARDIAC: Regular rate and rhythm. S1 and S2, without murmurs, gallops, or rubs. VASCULAR: No Edema. Peripheral pulses normal and equal in all extremities. ABDOMEN: Soft, without detectable tenderness. No sign of distention. No rebound or guarding, and no masses palpated. Bowel Sounds normal. MUSCULOSKELETAL: Good range of motion of all major joints. Extremities without clubbing, cyanosis or edema. NEUROLOGIC EXAM: Alert and oriented x 3. No focal sensory or strength deficits. Speech normal. Follows commands. PSYCHIATRIC: Mood normal. SKIN: Age-appropriate wrinkles some blemishes gu-palpable mass - Constitutional Vitals: Temp Pulse Resp BP Pulse Ox 32.1 F L 87 18 104/61 100 01/06/17 07:28 01/06/17 07:28 01/06/17 07:28 01/06/17 07:28 01/06/17 07:28 Plan Activity: advance as tolerated, fall precautions Diet: renal, per dietitian instruction Special Instructions: record daily BP diary, physical therapy, occupational therapy, home health RN Follow up with: PRIMARY CARE, [Primary Care Provider] - 3-5 Days BRODIE GIBSON MD [Staff Physician] - 7 Days BETHANY ALVAREZ MD [Staff Physician] - 7 Days HECTOR FRANCISCO MD [Staff Physician] - 7 Days Prescriptions: Levofloxacin [Levaquin TAB] 500 mg PO QDAY 5 Days tablet Ondansetron [Zofran TAB] 4 mg PO Q8HR PRN #30 tablet PRN Reason: Nausea oxyCODONE /ACETAMINOPHEN [Percocet 5/325] 1 tab PO Q6HR PRN #14 tablet PRN Reason: Pain
[2017-01-06] MEDS: NORVASC PO SCH (09:08)
[2017-01-06] MEDS: BETADINE TP SCH (09:08)
--- NOTE | 2017-01-06 11:33 | Progress Note ---
Assessment and Plan Pt status quo. no compl Abd flat, soft. surgically stable Selected Entries 01/06/17 01/06/17 01/06/17 04:37 07:28 09:08 Temperature 98.2 F Respiratory 18 Rate Blood Pressure 104/61 Laboratory Tests 01/06/17 04:24 Sodium 138 Potassium 5.0 Chloride 93.6 L Carbon Dioxide 23 Anion Gap 26 BUN 56 H Creatinine 9.9 H Objective Vital Signs - 12hr 01/06/17 01/06/17 01/06/17 04:37 06:43 07:28 Temperature 98.2 F 32.1 F L Pulse Rate 87 87 87 Respiratory 18 18 Rate Blood Pressure 103/57 107/57 104/61 O2 Sat by Pulse 98 100 Oximetry 01/06/17 09:08 Temperature Pulse Rate 87 Respiratory Rate Blood Pressure 104/61 O2 Sat by Pulse Oximetry - Labs 01/04/17 05:55 01/06/17 04:24 Diabetes panel 01/06/17 Range/Units 04:24 Sodium 138 (137-145) mmol/L Potassium 5.0 (3.6-5.0) mmol/L Chloride 93.6 L (98-107) mmol/L Carbon Dioxide 23 (22-30) mmol/L BUN 56 H (9-20) mg/dL Creatinine 9.9 H (0.8-1.5) mg/dL Glucose 94 (75-100) mg/dL Calcium 8.4 (8.4-10.2) mg/dL Calcium panel 01/06/17 Range/Units 04:24 Calcium 8.4 (8.4-10.2) mg/dL Pituitary panel 01/06/17 Range/Units 04:24 Sodium 138 (137-145) mmol/L Potassium 5.0 (3.6-5.0) mmol/L Chloride 93.6 L (98-107) mmol/L Carbon Dioxide 23 (22-30) mmol/L BUN 56 H (9-20) mg/dL Creatinine 9.9 H (0.8-1.5) mg/dL Glucose 94 (75-100) mg/dL Calcium 8.4 (8.4-10.2) mg/dL Adrenal panel 01/06/17 Range/Units 04:24 Sodium 138 (137-145) mmol/L Potassium 5.0 (3.6-5.0) mmol/L Chloride 93.6 L (98-107) mmol/L Carbon Dioxide 23 (22-30) mmol/L BUN 56 H (9-20) mg/dL Creatinine 9.9 H (0.8-1.5) mg/dL Glucose 94 (75-100) mg/dL Calcium 8.4 (8.4-10.2) mg/dL
--- NOTE | 2017-01-06 13:48 | Progress Note ---
Assessment and Plan - Patient Problems (1) ESRD (end stage renal disease) Current Visit: Yes Status: Acute Plan to address problem: cont HD on MWF schedule. stable for discharge from renal stand point after HD today (2) Hyperkalemia Current Visit: Yes Status: Acute Plan to address problem: resolved. cont 2g K renal diet (3) Pelvic mass Current Visit: Yes Status: Acute Plan to address problem: follow recs (4) Small bowel obstruction Current Visit: Yes Status: Acute Plan to address problem: follow surgery recommendations (5) Anemia in chronic illness Current Visit: No Status: Acute Plan to address problem: will hold off on EPO given metastatic cancer (6) Bladder tumor Current Visit: No Status: Acute Plan to address problem: follow consult Subjective Date of service: 01/06/17 Principal diagnosis: ESRD Interval history: Pt awake, alert, in NAD Objective - Vital Signs Vital signs: Vital Signs - 12hr 01/06/17 01/06/17 01/06/17 04:37 06:43 07:28 Temperature 98.2 F 32.1 F L Pulse Rate 87 87 87 Respiratory 18 18 Rate Blood Pressure 103/57 107/57 104/61 O2 Sat by Pulse 98 100 Oximetry 01/06/17 01/06/17 09:08 13:34 Temperature 98.1 F Pulse Rate 87 98 H Respiratory 18 Rate Blood Pressure 104/61 97/50 O2 Sat by Pulse 98 Oximetry - General Appearance General appearance: appears stated age, chronically ill, frail EENT: ATNC, PERRL, mucous membranes moist Neck: no JVD Respiratory: Present: Clear to Ascultation Cardiology: regular, S1S2 Gastrointestinal: normoactive bowel sounds Integumentary: no rash, other (no edema ) Neurologic: no focal deficit, alert and oriented x3, strength 5/5, CN 3-12 intact Psychiatric: mood/affect appropriate, cooperative - Lab 01/04/17 05:55 01/06/17 04:24 Most recent lab results Calcium 8.4 mg/dL (8.4-10.2) 01/06/17 04:24
[2017-01-06] MEDS ORDERED: MORPHINE IV ONE (14:37)
[2017-01-06] MEDS ORDERED: NACL 0.9% 250ML 250 ML IV ONE (15:00)
[2017-01-06] MEDS ORDERED: SUBLIMAZE ONE (16:30)
[2017-01-06] MEDS ORDERED: HEPARIN 10,000 UNITS/10 ML ONE (16:30)
[2017-01-06] MEDS ORDERED: XYLOCAINE 2% INFILTRATI ONE (16:30)
[2017-01-06] MEDS ORDERED: VERSED ONE (16:30)
[2017-01-06] MEDS ORDERED: HEPARIN/NS 5000 UNIT/500ML(CATH LAB) 500 ML IR ONE (16:30)
[2017-01-06] MEDS ORDERED: NACL 0.9% 250ML 250 ML ONE (16:31)
--- NOTE | 2017-01-06 16:44 | Consultation ---
History of Present Illness - Reason for Consult Consult date: 01/06/17 Thrombosed AV Fistula Requesting physician: ZULLY JADE - History of Present Illness This patient is an 81-year-old male that was admitted on 2016 due to nausea and vomiting. Following admission, he was taken for a cystoscopy where his ureteral stents were removed and multiple biopsies taken. Was noted to have a urethral rectal fistula. He also has end-stage renal disease on hemodialysis through a right upper extremity AV fistula. He was taken to the dialysis unit for hemodialysis today. His AV fistula was noted to be thrombosed. A Vascular surgery consult has been requested to further evaluate. His dialysis nurse reports evidence of elevated venous pressures over the last 2 dialysis treatments. Review of the medical record shows that he had an episode of hypotension earlier today () . Past History Past Medical History: anemia, cancer (history of throat, prostate, and renal cancer), diabetes, dialysis, ESRD, GERD, hypertension, hyperlipidemia Past Surgical History: Other (right PCN, ureteral stents, dialysis access, russo placements) Social history: no significant social history Family history: no significant family history Medications and Allergies Allergies Allergy/AdvReac Type Severity Reaction Status Date / Time No Known Allergies Allergy Verified 11/28/16 18:30 Home Medications Medication Instructions Recorded Confirmed Last Taken Type Megestrol [Megace] 20 mg PO TID 09/08/16 12/31/16 10/10/16 History Amlodipine Besylate 10 mg PO QDAY 11/29/16 12/31/16 Unknown History Vit B Complx C/Folic Acid/Zinc 1 tab PO QDAY 11/29/16 12/31/16 Unknown History [Dialyvite 800-Zinc 50 mg Tab] Levofloxacin [Levaquin TAB] 500 mg PO QDAY 5 Days tablet 01/06/17 Unknown Rx Ondansetron [Zofran TAB] 4 mg PO Q8HR PRN #30 tablet 01/06/17 Unknown Rx hydrALAZINE [Apresoline TAB] 50 mg PO Q8HR 30 Days tab 01/06/17 Unknown Rx oxyCODONE /ACETAMINOPHEN [Percocet 1 tab PO Q6HR PRN #14 tablet 01/06/17 Unknown Rx 5/325] Active Meds: Active Medications Acetaminophen (Tylenol) 650 mg PO Q4H PRN PRN Reason: Pain MILD(1-3)/Fever >100.5/GAITAN Amlodipine Besylate (Norvasc) 10 mg PO QDAY [facility] Last Admin: 01/06/17 09:08 Dose: Not Given Clonidine HCl (Catapres-Tts Patch) 0.2 mg TD Tu [facility] Last Admin: 01/03/17 10:38 Dose: 0.2 mg Dextrose (D50w (25gm) Vial) 25 gm IV PRN PRN PRN Reason: Hypoglycemia Last Admin: 12/31/16 02:38 Dose: 25 gm Hydralazine HCl (Apresoline) 50 mg PO Q8HR [facility] Last Admin: 01/06/17 14:15 Dose: Not Given Sodium Chloride (Nacl 0.9%) 100 mls @ 999 mls/hr IV RAEANN PRN PRN Reason: Hypotension Ceftriaxone Sodium 1 gm/ (Sodium Chloride) 20 mls @ 20 mls/10 min IV Q24H [facility] Last Admin: 01/05/17 17:42 Dose: 20 mls/10 min Sodium Chloride (Nacl 0.9% 1000 Ml) 1,000 mls @ 100 mls/hr IV DIRECT [facility] Labetalol HCl (Normodyne) 10 mg IV Q4H PRN PRN Reason: Hypertension Last Admin: 01/04/17 06:38 Dose: 10 mg Megestrol Acetate (Megace) 20 mg PO TID [facility] Last Admin: 01/06/17 14:55 Dose: 20 mg Morphine Sulfate (Morphine) 1 mg IV Q4H PRN PRN Reason: Pain, Moderate (4-6) Last Admin: 01/04/17 23:03 Dose: 1 mg Ondansetron HCl (Zofran) 4 mg IV Q4H PRN PRN Reason: N/V unrelieved by Reglan Povidone Iodine (Betadine) 1 applic TP DAILY [facility] Last Admin: 01/06/17 09:08 Dose: 1 applic Review of Systems ROS unobtainable: due to mental status Exam - Constitutional Vitals: Temp Pulse Resp BP Pulse Ox 98.1 F 94 H 20 106/52 98 01/06/17 13:34 01/06/17 14:15 01/06/17 14:05 01/06/17 14:15 01/06/17 14:05 General appearance: Present: no acute distress - EENT Eyes: Present: EOM intact ENT: hearing intact - Neck Neck: Present: supple - Extremities Extremities: no ischemia, abnormal (right upper arm AV fistula is appears to be a brachiocephalic fistula. I was unable to palpate a thrill) - Psychiatric Psychiatric: appropriate mood/affect, cooperative - Neurologic Neurologic: no focal deficits Results - Labs CBC & Chem 7: 01/04/17 05:55 01/06/17 04:24 Labs: Abnormal lab results 01/05/17 01/06/17 01/06/17 Range/Units 22:40 04:24 07:32 Chloride 93.6 L (98-107) mmol/L BUN 56 H (9-20) mg/dL Creatinine 9.9 H (0.8-1.5) mg/dL POC Glucose 139 H 127 H (70-105) 01/06/17 Range/Units 11:48 Chloride (98-107) mmol/L BUN (9-20) mg/dL Creatinine (0.8-1.5) mg/dL POC Glucose 148 H (70-105) Assessment and Plan This patient was admitted with nausea and vomiting. He since had a cystoscopy which shows ureteral rectal fistula. When preparing for discharge, the patient was noted to have a thrombosed right upper extremity AV fistula. A vascular surgery consult has been requested to further evaluate. We'll place a permacath to facilitate hemodialysis. We'll reevaluate early next week to determine if his AV fistula is salvageable. 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
[2017-01-06] MEDS: cefTRIAXone 1 GM in NACL 0.9% 20 ML IV SCH (17:00)
[2017-01-06 17:15] LABS: Hematocrit 30.4 % (35.5-45.6); Hemoglobin 9.5 gm/dl (11.8-15.2)
--- NOTE | 2017-01-06 17:28 | Operative Report ---
Operative Report Operative Report: EXAM: ULTRASOUND AND FLUOROSCOPIC GUIDED PLACEMENT OF TUNNELED HEMODIALYSIS CATHETER CLINICAL INDICATION: END-STAGE RENAL DISEASE REQUIRING DIALYSIS ACCESS DATE: 01/06/2017 PROCEDURE: Following an explanation of the risks, benefits and alternatives; written informed consent was obtained. The patient was brought to the cardiac catheter suite and placed in supine position on the examination table. Initial ultrasound evaluation of the neck demonstrated a patent right internal jugular vein. The right neck and chest wall were prepped and draped in usual sterile fashion. 1% lidocaine was used for anesthesia. Under ultrasound guidance, the right internal jugular vein was cannulated with a 7 cm 18-gauge needle. A 0.035 guidewire was advanced into the IVC under fluoroscopy to document intravenous positioning. The needle was removed. An appropriate catheter exit site was chosen along the lateral right chest wall. 1% lidocaine was used for anesthesia at the catheter exit site along the tunnel tract. A Bard bypass tunneled hemodialysis catheter was then tunneled antegrade from the catheter exit site to the venography site. Following serial dilation over the guidewire under fluoroscopy, a 16 Prydeinig peel -away sheath was placed over the guidewire under fluoroscopy and advanced approximately right atrium. The trocar and guidewire were removed. The catheter was placed through the peel-away sheath and the tip position in the proximal right atrium. The peel-away sheath was removed. Both ports flushed and aspirated easily and were then locked with appropriate volumes of heparin. The venotomy was closed using 4-0 Vicryl suture and Dermabond. 2-0 Ethilon was applied to the catheter exit site for retention. A sterile dressing was then applied. The patient tolerated the procedure well. There were no immediate post procedure complications. Conscious sedation was performed under the guidance of radiologic nursing. Continue cardiopulmonary monitoring was utilized. IMPRESSION: 1) Ultrasound and fluoroscopic guided placement of tunneled hemodialysis catheter via the right internal jugular vein.
[2017-01-06] MEDS ORDERED: HEPARIN IV PRN (18:33)
[2017-01-06] MEDS ORDERED: NACL 0.9 (PRIMING MACHINE ONLY DIALYSIS) MC ONE (20:24)
--- NOTE | 2017-01-06 23:31 | Consultation ---
REFERRING PHYSICIAN: Dr. José Sotomayor. CHIEF COMPLAINT: History of prostate cancer. PROFILE OF PRESENT ILLNESS: This is an 81-year-old gentleman who has a history of adenocarcinoma of the prostate and squamous cell carcinoma of the larynx referred for possible palliative radiotherapy to the left humerus. CONCLUSION: 1. History of adenocarcinoma of the prostate diagnosed and treated 14 years ago in [place] with external radiation and interstitial iodine 125 seeds. Details not available. 2. History of glottic cancer, receiving definitive radiation therapy under direction of Dr. Stephenson at [facility] 3 years ago. 3. History of end-stage renal disease. 4. Diabetes. 5. Hypertension. 6. Status post ureteral stent placement and biopsy of a rectal mass. RECOMMENDATIONS: We will follow up on his biopsy results. His PSA is known to be undetectable, so it is unlikely he has developed recurrent metastatic prostate cancer to the left humerus. 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 At this point, the patient has no pain in his left humerus, so we will withhold radiation therapy. ASSESSMENT: This is a very pleasant 81-year-old gentleman who has a history of hypertension, end-stage renal disease, diabetes as well as adenocarcinoma of the prostate and throat cancer. The patient states he received radiation therapy to the prostate with external beam and interstitial seed implants 14 years ago in [place]. He has a history of chronic right hydronephrosis with multiple nephrostomy exchanges in the past and ureteral stent placements. He presented to [facility] with abdominal pain. A CT scan of the abdomen and pelvis showed a mass around the bladder extending superior to the bladder causing small bowel extrinsic compression. Dr. Sotomayor yesterday performed an operative procedure including ureteral stent placement. Findings included a possible rectal ureteral fistula. Biopsies are pending. A bone scan has showed 2 new focal areas of radiotracer uptake in the left humerus which are suspicious for metastatic disease. The patient states at this time he has no left humeral pain. PAST MEDICAL HISTORY: As above. SOCIAL HISTORY: History of tobacco use. FAMILY HISTORY: Noncontributory. MEDICATIONS: Amlodipine, Megace, Renvela. ALLERGIES: None known. REVIEW OF SYSTEMS: CONSTITUTIONAL: He is weak, tired, poor appetite. HEENT: History of glottic cancer, currently MICHELLE. Denies any sore throat, hoarseness. RESPIRATORY: Denies any cough, hemoptysis, dyspnea. CARDIOVASCULAR: Denies any chest pain, angina, orthopnea. ABDOMEN: Recent abdominal pain. Possible rectal ureteral fistula. NEUROLOGIC: No dizziness, headache, visual changes. PHYSICAL EXAMINATION: GENERAL: He is a chronically ill-appearing gentleman in no acute distress. VITAL SIGNS: Blood pressure 180/78, pulse was 95, respiration 18. He weighed 60.5 kilograms, ECOG equals 2. Pain equals 2/10. HEENT: Normocephalic, atraumatic. Eyes were clear. LUNGS: Show decreased breath sounds. No spinal or CVA tenderness. No humeral pain elicited on palpation. ABDOMEN: Flat, firm. RECTAL: Deferred. EXTREMITIES: No clubbing, cyanosis or edema. NEUROLOGIC: Intact. The patient has a history of both adenocarcinoma of the prostate, treated with external radiation and interstitial radiation 14 years ago at [place] as well as neck radiation for a glottic cancer under direction of Dr. Stephenson at [facility]. We will follow up on Dr. Sotomayor's operative findings including pathology reports. It is unlikely he has recurrent prostate cancer because of his history of a PSA undetectable 3 months ago. Currently, he has no pain in his left humerus, so a palliative radiotherapy will be withheld at this time. We will see him in our office as an outpatient. JOB# [id number] LUIZ/STEFANY
[2017-01-07] MEDS: APRESOLINE PO SCH (06:38)
--- NOTE | 2017-01-07 07:53 | Progress Note ---
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 Gupta/Sparkle who presented with abdominal pains. CT abd/pelvis without contrast read as mass in the region of the urinary bladder, this maybe an invasive prostate cancer or primary bladder malignancy, mass apppears to extend superior to the bladder, where is causes small bowel obstruction. Small bowel is dilated at 2.5 cm in diameter proximal to this area and decompressed any distal small bowel , moderate right-sided constipation is seen, right ureteral stent has a proximal aspect in the upper ureter, it may benefit from being repositioned into the right renal pelvis, mild rounded alveolar opacity in the right middle lobe of the lungs may be rounded atelectasis or rounded pneumonia, right adrenal nodule or cyst is probably benign, confirmation with MRI is recommended. -Small bowel obstruction: swallow evaluation today as patient noted to have difficulty swallowing==>not surgical candidate -End-stage renal disease: Malfunctioning Access. Discharge held today and vascular consulted. nephrology following on HD -Solitary right kidney: Nephrology following on HD patient is anuric, -Abnormal Right Kidney mass- ?transitional cell malignancy vs metastatic disease , vs primary renal malignancy -Hyperkalemia, mild: Treated with Hemodialysis -Anemia of chronic disease: Stable -Monitor. -Prostate cancer with large obstructive pelvic mass: Consult urology noted, Stent distally above mass, notes palpable rectal mass and may need another biopsy -Hypertensive urgency: Now hypotensive. Will discontinue Clonidin patch, reduce dose of hydralazine. labetalol iv prn, -Chronic Cough: possible secondary to Pneumonia -new issue Melena stool: Awaiting FOBT and stop dvt prophylaxis - left lower lobe pneumonia-?ASPIRATION, START ON abx, no evidence of sepsis, CHECK CULTURES, PT WITH NO FEVER, THIS COULD BE Atalectasis BUT WILL MONITOR. 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 DVT/GI prophy- encouraged ambulation, Dispo: possible discharge in am if no further intervention and tolerating diet. Patient seen with Nursing staff. Plan of care discussed in detail with patient and he verbalized understanding. History Interval history: Patient seen and examined today, sitting up on the chair in no acute distress. speech eval noted. Hospitalist Physical - Physical exam Narrative exam: VITAL SIGNS: Reviewed. GENERAL: The patient appeared markedly cachectic chronically ill appearing. Vital signs as documented. HEAD: No signs of head trauma. Marked temporal wasting EYES: Pupils are equal. Extraocular motions intact. EARS: Hearing grossly intact. MOUTH: Oropharynx is normal. NG tube in place NECK: No adenopathy, no JVD. CHEST: Chest with clear breath sounds bilaterally. No wheezes, rales, or rhonchi. CARDIAC: Regular rate and rhythm. S1 and S2, without murmurs, gallops, or rubs. VASCULAR: No Edema. Peripheral pulses normal and equal in all extremities. ABDOMEN: Soft, without detectable tenderness. No sign of distention. No rebound or guarding, and no masses palpated. Bowel Sounds normal. MUSCULOSKELETAL: Good range of motion of all major joints. Extremities without clubbing, cyanosis or edema. NEUROLOGIC EXAM: Alert and oriented x 3. No focal sensory or strength deficits. Speech normal. Follows commands. PSYCHIATRIC: Mood normal. SKIN: Age-appropriate wrinkles some blemishes gu-palpable mass - Constitutional Vitals: Temp Pulse Resp BP Pulse Ox 98.7 F 66 18 99/64 97 01/07/17 07:26 01/07/17 07:26 01/07/17 07:26 01/07/17 07:26 01/07/17 07:26 General appearance: Present: no acute distress Results - Labs CBC & Chem 7: 01/06/17 15:52 01/06/17 04:24 Labs: Laboratory Last Values WBC 9.7 K/mm3 (4.5-11.0) 01/04/17 05:55 RBC 3.95 M/mm3 (3.65-5.03) 01/04/17 05:55 Hgb 9.5 gm/dl (11.8-15.2) L 01/06/17 15:52 Hct 30.4 % (35.5-45.6) L 01/06/17 15:52 MCV 84 fl (84-94) 01/04/17 05:55 MCH 26 pg (28-32) L 01/04/17 05:55 MCHC 31 % (32-34) L 01/04/17 05:55 RDW 19.5 % (13.2-15.2) H 01/04/17 05:55 Plt Count 224 K/mm3 (140-440) 01/04/17 05:55 Lymph % (Auto) 5.8 % (13.4-35.0) L 12/31/16 06:01 Alexander % (Auto) 8.6 % (0.0-7.3) H 12/31/16 06:01 Eos % (Auto) 0.1 % (0.0-4.3) 12/31/16 06:01 Baso % (Auto) 0.3 % (0.0-1.8) 12/31/16 06:01 Lymph # 0.5 K/mm3 (1.2-5.4) L 12/31/16 06:01 Alexander # 0.8 K/mm3 (0.0-0.8) 12/31/16 06:01 Eos # 0.0 K/mm3 (0.0-0.4) 12/31/16 06:01 Baso # 0.0 K/mm3 (0.0-0.1) 12/31/16 06:01 Add Manual Diff Complete 12/30/16 12:01 Total Counted 100 12/30/16 12:01 Seg Neutrophils % 85.2 % (40.0-70.0) H 12/31/16 06:01 Seg Neuts % (Manual) 94.0 % (40.0-70.0) H 12/30/16 12:01 Band Neutrophils % 0 % 12/30/16 12:01 Lymphocytes % (Manual) 2.0 % (13.4-35.0) L 12/30/16 12:01 Reactive Lymphs % (Man) 0 % 12/30/16 12:01 Monocytes % (Manual) 4.0 % (0.0-7.3) 12/30/16 12:01 Eosinophils % (Manual) 0 % (0.0-4.3) 12/30/16 12:01 Basophils % (Manual) 0 % (0.0-1.8) 12/30/16 12:01 Metamyelocytes % 0 % 12/30/16 12:01 Myelocytes % 0 % 12/30/16 12:01 Promyelocytes % 0 % 12/30/16 12:01 Blast Cells % 0 % 12/30/16 12:01 Nucleated RBC % Not Reportable 12/30/16 12:01 Seg Neutrophils # 7.7 K/mm3 (1.8-7.7) 12/31/16 06:01 Seg Neutrophils # Man 8.2 K/mm3 (1.8-7.7) H 12/30/16 12:01 Band Neutrophils # 0.0 K/mm3 12/30/16 12:01 Lymphocytes # (Manual) 0.2 K/mm3 (1.2-5.4) L 12/30/16 12:01 Abs React Lymphs (Man) 0.0 K/mm3 12/30/16 12:01 Monocytes # (Manual) 0.3 K/mm3 (0.0-0.8) 12/30/16 12:01 Eosinophils # (Manual) 0.0 K/mm3 (0.0-0.4) 12/30/16 12:01 Basophils # (Manual) 0.0 K/mm3 (0.0-0.1) 12/30/16 12:01 Metamyelocytes # 0.0 K/mm3 12/30/16 12:01 Myelocytes # 0.0 K/mm3 12/30/16 12:01 Promyelocytes # 0.0 K/mm3 12/30/16 12:01 Blast Cells # 0.0 K/mm3 12/30/16 12:01 WBC Morphology Not Reportable 12/30/16 12:01 Hypersegmented Neuts Not Reportable 12/30/16 12:01 Hyposegmented Neuts Not Reportable 12/30/16 12:01 Hypogranular Neuts Not Reportable 12/30/16 12:01 Smudge Cells Not Reportable 12/30/16 12:01 Toxic Granulation Not Reportable 12/30/16 12:01 Toxic Vacuolation Not Reportable 12/30/16 12:01 Dohle Bodies Not Reportable 12/30/16 12:01 Pelger-Huet Anomaly Not Reportable 12/30/16 12:01 Nazario Rods Not Reportable 12/30/16 12:01 Platelet Estimate Consistent w auto 12/30/16 12:01 Clumped Platelets Few 12/30/16 12:01 Plt Clumps, EDTA Not Reportable 12/30/16 12:01 Large Platelets Not Reportable 12/30/16 12:01 Giant Platelets Not Reportable 12/30/16 12:01 Platelet Satelliting Not Reportable 12/30/16 12:01 Plt Morphology Comment Not Reportable 12/30/16 12:01 RBC Morphology Not Reportable 12/30/16 12:01 Dimorphic RBCs Not Reportable 12/30/16 12:01 Polychromasia Not Reportable 12/30/16 12:01 Hypochromasia Not Reportable 12/30/16 12:01 Poikilocytosis Few 12/30/16 12:01 Anisocytosis 1+ 12/30/16 12:01 Microcytosis Few 12/30/16 12:01 Macrocytosis Not Reportable 12/30/16 12:01 Spherocytes Not Reportable 12/30/16 12:01 Pappenheimer Bodies Not Reportable 12/30/16 12:01 Sickle Cells Not Reportable 12/30/16 12:01 Target Cells Not Reportable 12/30/16 12:01 Tear Drop Cells Few 12/30/16 12:01 Ovalocytes Few 12/30/16 12:01 Helmet Cells Not Reportable 12/30/16 12:01 Johnson-Kenmar Bodies Not Reportable 12/30/16 12:01 [place] Rings Not Reportable 12/30/16 12:01 [place] Cells Not Reportable 12/30/16 12:01 Bite Cells Not Reportable 12/30/16 12:01 Crenated Cell Not Reportable 12/30/16 12:01 Elliptocytes Few 12/30/16 12:01 Acanthocytes (Spur) Not Reportable 12/30/16 12:01 Rouleaux Not Reportable 12/30/16 12:01 Hemoglobin C Crystals Not Reportable 12/30/16 12:01 Schistocytes Not Reportable 12/30/16 12:01 Malaria parasites Not Reportable 12/30/16 12:01 Mannie Bodies Not Reportable 12/30/16 12:01 Hem Pathologist Commnt No 12/30/16 12:01 Sodium 138 mmol/L (137-145) 01/06/17 04:24 Potassium 5.0 mmol/L (3.6-5.0) 01/06/17 04:24 Chloride 93.6 mmol/L (98-107) L 01/06/17 04:24 Carbon Dioxide 23 mmol/L (22-30) 01/06/17 04:24 Anion Gap 26 mmol/L 01/06/17 04:24 BUN 56 mg/dL (9-20) H 01/06/17 04:24 Creatinine 9.9 mg/dL (0.8-1.5) H 01/06/17 04:24 Estimated GFR 6 ml/min 01/06/17 04:24 BUN/Creatinine Ratio 6 % 01/06/17 04:24 Glucose 94 mg/dL (75-100) 01/06/17 04:24 POC Glucose 106 (70-105) H 01/07/17 05:14 Calcium 8.4 mg/dL (8.4-10.2) 01/06/17 04:24 Total Creatine Kinase 152 units/L (55-170) 12/30/16 17:16 Prostate Specific Ag 0.01 ng/mL (0.00-4.00) 01/03/17 12:56 Urine Color Red (Yellow) 12/31/16 08:30 Urine Turbidity Clear (Clear) 12/31/16 08:30 Urine pH 8.0 (5.0-7.0) H 12/31/16 08:30 Ur Specific [place] 1.023 (1.003-1.030) 12/31/16 08:30 Urine Protein 100 mg/dl mg/dL (Negative) 12/31/16 08:30 Urine Glucose (UA) Neg mg/dL (Negative) 12/31/16 08:30 Urine Ketones Neg mg/dL (Negative) 12/31/16 08:30 Urine Blood Mod (Negative) 12/31/16 08:30 Urine Nitrite Pos (Negative) 12/31/16 08:30 Ur Reducing Substances Not Reportable 12/31/16 08:30 Urine Bilirubin Neg (Negative) 12/31/16 08:30 Urine Ictotest Not Reportable 12/31/16 08:30 Urine Urobilinogen < 2.0 mg/dL (<2.0) 12/31/16 08:30 Ur Leukocyte Esterase Sm (Negative) 12/31/16 08:30 Urine WBC (Auto) > 182.0 /HPF (0.0-6.0) H 12/31/16 08:30 Urine RBC (Auto) > 182.0 /HPF (0.0-6.0) 12/31/16 08:30 Urine WBC Clumps 3+ /HPF 12/31/16 08:30 Urine Mucus 3+ /HPF 12/31/16 08:30
[2017-01-07] MEDS: MEGACE PO SCH ×2 (08:45→13:03)
--- NOTE | 2017-01-07 09:26 | Event Note ---
Date: 01/07/17 Patient with a PermCath. Patient may be discharged from a vascular standpoint. His declot may be arranged as an outpatient
--- NOTE | 2017-01-07 10:16 | Progress Note ---
Assessment and Plan Pt sitting up in bed watching TV. 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 stable from gen surg perspective will follow prn Selected Entries 01/07/17 01/07/17 06:38 07:26 Temperature 98.7 F Respiratory 18 Rate Blood Pressure 132/75 Objective Vital Signs - 12hr 01/06/17 01/06/17 01/07/17 22:23 22:45 05:13 Temperature Pulse Rate 100 H 96 H Pulse Rate [ 98 H Left Radial] Respiratory Rate Blood Pressure 113/64 Blood Pressure [Left] O2 Sat by Pulse 100 Oximetry 01/07/17 01/07/17 06:38 07:26 Temperature 98.7 F Pulse Rate 96 H 66 Pulse Rate [ Left Radial] Respiratory 18 Rate Blood Pressure 132/75 Blood Pressure 99/64 [Left] O2 Sat by Pulse 97 Oximetry - Labs 01/06/17 15:52 01/06/17 04:24
[2017-01-07] MEDS: MORPHINE IV PRN (10:35)
[2017-01-07] MEDS: BETADINE TP SCH (10:37)
[2017-01-07] MEDS: NORVASC PO SCH (10:41)
--- NOTE | 2017-01-07 11:41 | Progress Note ---
Assessment and Plan - Patient Problems (1) ESRD (end stage renal disease) Current Visit: Yes Status: Acute Plan to address problem: Tolerated hemodialysis. Continue hemodialysis as an outpatient on discharge (2) Dialysis AV fistula malfunction Current Visit: Yes Status: Acute Plan to address problem: Status post permacath. (3) Small bowel obstruction Current Visit: Yes Status: Acute Plan to address problem: Improved. being managed by surgery (4) Hyperkalemia Current Visit: Yes Status: Acute Plan to address problem: Resolved with dialysis Subjective Date of service: 01/07/17 Principal diagnosis: ESRD Interval history: Patient seen lying in bed. Feeling better. Had abdominal pain earlier. Better now Objective - Exam Narrative Exam: Elderly -Citizen Of [place] male lying in bed in no acute distress. Emaciated HEENT: NCAT, pink oral mucous membrane Neck: Supple, no venous distention, right IJ permacath CVS: S1S2 RRR with no murmur, rub or gallop Chest: Clear to auscultation Abdomen: scaphoid, soft, nontender, no organomegaly, bowel sounds are present Extremities: No edema Neuro: Awake, alert no focal deficits - Vital Signs Vital signs: Vital Signs - 12hr 01/07/17 01/07/17 01/07/17 05:13 06:38 07:26 Temperature 98.7 F Pulse Rate 96 H 96 H 66 Respiratory 18 Rate Blood Pressure 132/75 Blood Pressure 99/64 [Left] O2 Sat by Pulse 100 97 Oximetry 01/07/17 10:41 Temperature Pulse Rate 66 Respiratory Rate Blood Pressure 99/64 Blood Pressure [Left] O2 Sat by Pulse Oximetry - Lab 01/06/17 15:52 01/06/17 04:24 Most recent lab results Calcium 8.4 mg/dL (8.4-10.2) 01/06/17 04:24
[2017-01-07 16:45] VITALS: BP 110/60
--- NOTE | 2017-01-11 14:37 | Query- Present on Admission ---
Kim Page____Ramiro Date:___01/11/17 Lna/CDS:____Veronica / Pillo Phone#:__[phone] Exercise your independent professional judgment when responding to this query. Questions asked do not imply a particular answer is desired or expected. We greatly appreciate your clarification on this issue. Clinical Documentation States: 81 year old male was admitted on 12/30/16 The Progress note (Dr. Rubio 01/04/17) states " left lower lobe pneumonia-? ASPIRATION, START ON abx, no evidence of sepsis, CHECK CULTURES, PT WITH NO FEVER, THIS COULD BE ATLECTASIS BUT WILL MONTIOR. START INCENTIVE SPIROMETER ALSO " Clinical Findings Show: Based on the above clinical scenario and your knowledge of the patient's case please clarify if the diagnosis stated below was present on admission: Diagnosis: ___Aspiration Present on admission : [ y] Yes (Y) [ ] Clinically undeterminable(W) [ ] No(N) Please also document response in your Progress Notes and/or Discharge Summary and indicate if the condition was present on admission. ALESHA
== END 2017-01-07 17:00 | disposition home health service (06) | DRG 177 ==
LOC: ED 11:27 → 2B-ACE 22:01
PROVIDERS: ADMIT Internal Medicine; ATTEND Internal Medicine
PROC: 5A1D70Z Performance of Urinary Filtration, Intermittent, Less than 6 Hours Per Day (ICD-10-PCS; 2016-12-31)
PROC: 5A1D70Z Performance of Urinary Filtration, Intermittent, Less than 6 Hours Per Day (ICD-10-PCS; 2017-01-02)
PROC: 5A1D70Z Performance of Urinary Filtration, Intermittent, Less than 6 Hours Per Day (ICD-10-PCS; 2017-01-04)
PROC: 0TP98DZ Removal of Intraluminal Device from Ureter, Via Natural or Artificial Opening Endoscopic (ICD-10-PCS; principal; 2017-01-05)
PROC: BT46ZZZ Ultrasonography of Right Ureter (ICD-10-PCS; 2017-01-05)
PROC: 0VB08ZX Excision of Prostate, Via Natural or Artificial Opening Endoscopic, Diagnostic (ICD-10-PCS; 2017-01-05)
PROC: 0JBC3ZX Excision of Pelvic Region Subcutaneous Tissue and Fascia, Percutaneous Approach, Diagnostic (ICD-10-PCS; 2017-01-05)
PROC: 02H633Z Insertion of Infusion Device into Right Atrium, Percutaneous Approach (ICD-10-PCS; 2017-01-06)
PROC: B244ZZZ Ultrasonography of Right Heart (ICD-10-PCS; 2017-01-06)
PROC: 5A1D70Z Performance of Urinary Filtration, Intermittent, Less than 6 Hours Per Day (ICD-10-PCS; 2017-01-06)
DX: J69.0 Pneumonitis due to inhalation of food and vomit (principal); N18.6 End stage renal disease; K56.609 Unspecified intestinal obstruction, unspecified as to partial versus complete obstruction; K92.1 Melena; I12.0 Hypertensive chronic kidney disease with stage 5 chronic kidney disease or end stage renal disease; N13.30 Unspecified hydronephrosis; N36.0 Urethral fistula; T82.868A Thrombosis due to vascular prosthetic devices, implants and grafts, initial encounter; C67.9 Malignant neoplasm of bladder, unspecified; E87.5 Hyperkalemia; D63.8 Anemia in other chronic diseases classified elsewhere; E11.22 Type 2 diabetes mellitus with diabetic chronic kidney disease; I16.0 Hypertensive urgency; M19.90 Unspecified osteoarthritis, unspecified site; J44.9 Chronic obstructive pulmonary disease, unspecified; R19.00 Intra-abdominal and pelvic swelling, mass and lump, unspecified site; K21.9 Gastro-esophageal reflux disease without esophagitis; Y83.8 Other surgical procedures as the cause of abnormal reaction of the patient, or of later complication, without mention of misadventure at the time of the procedure; Z99.2 Dependence on renal dialysis; Z85.51 Personal history of malignant neoplasm of bladder; Z85.89 Personal history of malignant neoplasm of other organs and systems; Z90.5 Acquired absence of kidney; Z79.899 Other long term (current) drug therapy; Z82.49 Family history of ischemic heart disease and other diseases of the circulatory system; Z85.528 Personal history of other malignant neoplasm of kidney; Y92.89 Other specified places as the place of occurrence of the external cause; Z87.891 Personal history of nicotine dependence; I95.9 Hypotension, unspecified
CPT/HCPCS: 36415; 36558; 74000; 74022; 74176; 74177; 76998; 77001; 78306; 80048; 81001; 82270; 82550; 82962; 84153; 85007; 85014; 85018; 85025; 85027; 87040; 88305; 93005; 93010; 96374; 96375; A4217; A9503; C1750; C1751; C1769; G8978-GP; G8979-GP; G8996-GN; G8997-GN; J0696; J1580; J1644; J1815; J2250; J2270; J2370; J2405; J2704; J3010; J7030; J7050; Q9967